=== PATIENT | male | born 1940 | race African-American/Black ===

== ENCOUNTER 2017-08-29 08:06 | Day surgery (SDC) | payer OTHER ==
[2017-08-29 09:09] VITALS: BMI 22.4
[2017-08-29] MEDS ORDERED: PAPAVERINE HCL 30 MG/1 ML 10 ML VIAL NR ONE (10:56)
--- NOTE | 2017-08-29 11:23 | HP ---
Satellite H - Chief Complaint History of Present Illness: 76 yo man with ESRD on HD. 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 - Past Medical History Allergies/Adverse Reactions: Allergies Allergy/AdvReac Type Severity Reaction Status Date / Time shellfish derived Allergy Intermediate LIP Verified 04/27/16 16:02 SWELLING strawberry Allergy Itching Verified 04/27/16 16:02 Cardiovascular: Yes: HTN. No: CAD, CHF, Deep Vein Thrombosis Pulmonary: Yes: Other (Pulmonary Aspergillosis) Gastrointestinal: Yes: Diverticulosis, Hemorrhoids, Other (Repoted resected gastric GIST). No: Gastritis, GI Bleed Hepatobiliary: Yes: Hepatitis B Renal/: Yes: Renal Failure, BPH, Hemodialysis, Other (as per HPI) Heme/Onc: Yes: Other (Chronic Neutropenia) Infectious Disease: Yes: VREF (UTI) Endocrine: Yes: Other (Vit D Deficiency) - Current Medications Current Medications: Home Medications Medication Instructions Recorded Ranitidine [Zantac -] 150 mg PO DAILY 12/15/13 Tamsulosin HCl [Flomax -] 0.4 mg PO DAILY 12/15/13 Gabapentin [Neurontin -] 100 mg PO DAILY #30 capsule 12/23/13 Sevelamer Carbonate [Renvela -] 800 mg PO TIDCM #0 tab 12/23/13 Allopurinol [Zyloprim -] 100 mg PO ASDIR 02/05/15 Carvedilol [Coreg -] 25 mg PO BID 02/05/15 Cinacalcet HCl [Sensipar] 60 mg PO DAILY 02/05/15 Vit B Complx C/Folic Acid/Zinc 0.8 mg PO DAILY 02/08/15 [Dialyvite 800 with Zinc] Hydralazine HCl 25 mg PO BID 08/28/17 Satellite Physical Exam - Physical Examination Vital Signs: Vital Signs Period Temp Pulse Resp BP Sys/Ledesma Pulse Ox Last 24 Hr 97.9 F 81 18 140/87 98 General Appearance: Alert & Oriented x3 ENT: Clear Lung: Clear to auscultation Heart: Regular rate & rhythm Abdomen: Soft Extremities: Other (Left upper arm aneurysm 5-6 cm, firm.) Satellite Impression/Plan - Impression/Plan Impression: Thrombosed AV fistula aneurysm left arm Operative Procedure: Excision AV fistula aneurysm Date to be Performed: 08/29/17
[2017-08-29] MEDS ORDERED: ROPIVACAINE HCL 0.5% 30ML VIAL ONE (11:32)
[2017-08-29] MEDS ORDERED: MIDAZOLAM HCL 2 MG/2 ML SINGLE DOSE VIAL ONE ×2 (11:33)
[2017-08-29] MEDS ORDERED: PROPOFOL 20 ML ONE ×2 (12:04→12:14)
[2017-08-29] MEDS ORDERED: ceFAZolin SODIUM 1 GM VIAL IVPB ONE (12:07)
[2017-08-29] MEDS ORDERED: LIDOCAINE HCL 1%, 10 MG/ML (20ML VIAL) PNB ONE (12:08)
[2017-08-29] MEDS ORDERED: LABETALOL HCL 5 MG/1 ML (100MG/20 ML VIAL) ONE (12:20)
[2017-08-29] MEDS ORDERED: LIDOCAINE HCL/PF 2% SDV 5ML VIAL ONE (12:24)
--- NOTE | 2017-08-29 12:46 | OP ---
Operative Note - Note: Operative Date: 08/29/17 Pre-Operative Diagnosis: Aneurysm of AV fistula left arm Operation: Excision of left arm fistula Findings: Aneurysmal thrombosed AV fistula left arm Post-Operative Diagnosis: Same as Pre-op Surgeon: Jean Man Rate Reviewer: Tonie Luna Anesthesiologist/FULL STACK PHP DEVELOPER: Kolton Parkinson Anesthesia: MAC Specimens Removed: Aneurysmal fistula and skin Estimated Blood Loss (mls): 20
[2017-08-29] MEDS ORDERED: ACETAMINOPHEN 325 MG TABLET (FP) PO PRN (12:49)
[2017-08-29] MEDS ORDERED: oxyCODONE HCL 5 MG TABLET PO PRN (12:49)
[2017-08-29] MEDS ORDERED: hydrALAZINE HCL 20 MG/ML VIAL IVPUSH ONE (13:05)
[2017-08-29] MEDS ORDERED: LABETALOL HCL 5 MG/1 ML (100MG/20 ML VIAL) IVPUSH ONE (14:30)
--- NOTE | 2017-08-29 15:02 | SURG ---
Surgery Stitch Bonder Machine Operator Helper Note Stitch Bonder Machine Operator Helper: Tonie Luna PA-C Date of Service: 08/29/17 Diagnosis: Aneurysm of AV fistula left arm Procedure: Excision of left arm fistula I was present for the entirety of the operative procedure. For further detail, please refer to operative report. Visit type - Case Type Case Type: Scheduled Admission - Emergency Emergency Visit: No - New patient This patient is new to me today: Yes Date on this admission: 08/29/17
[2017-08-29 15:42] VITALS: BP 159/91; PULSE 77; TEMP 98.2
--- NOTE | 2017-08-31 09:40 | PATH ---
Surgical Pathology Report Patient Name: KAYLEIGH MEDINA Med. Rec. #: [id number] /Age/Gender: 1940 (Age: 76) / M Account: [id number] Location: [facility] SURGICAL Taken: 08/29/2017 Received: 08/29/2017 Reported: 08/31/2017 Physicians: Jean Man M.D. Specimen(s) Received LEFT UPPER EXTREMITY ANEURYSM Clinical History ESRD, left upper extremity aneurysm Final Diagnosis LEFT UPPER EXTREMITY ANEURYSM, EXCISION: THROMBOSED BLOOD VESSEL WITH ATTACHED PORTION OF SKIN. Electronically Signed Heber Shane M.D. Gross Description Received in formalin labelled "left upper extremity aneurysm" is a 13 x 6.5 cm portion of skin overlying a markedly tortuous 10.6 x 6.5 x 3.7 cm portion of blood vessel. Cut surface reveals vascular dilatation with areas of thrombosis. Funeral Director/Embalmer sections are submitted in one cassette. [facility]/08/29/2017 [facility]/08/29/2017
--- NOTE | 2017-09-12 22:33 | OP ---
DATE OF OPERATION: 08/29/2017 SURGEON: Jean Banis M.D. TREE EXPERT: Starla Carcamo PROCEDURE: Excision of thrombosed aneurysm of left arm arteriovenous fistula. PREOPERATIVE DIAGNOSIS: Aneurysm of left arm arteriovenous fistula. POSTOPERATIVE DIAGNOSIS: Aneurysm of left arm arteriovenous fistula. ANESTHESIA: Fractional. ANESTHESIOLOGIST: Kolton Parkinson M.D. OPERATIVE FINDINGS: The old AV fistula of the left upper extremity was thrombosed. There were multiple areas of aneurysmal dilatation measuring from 20 to 40 mm. OPERATIVE PROCEDURE: Following routine patient identification, with side and site verification, intravenous sedation was established. A right upper extremity nerve block had been performed preoperatively. The arm was prepped with Chloraprep and timeout was performed. Incision was made around the area of aneurysm in the upper part of the arm, carried down to subcutaneous tissues using cautery. The thrombosed vein was then from the subcutaneous tissues using cautery and blunt dissection. It was suture ligated proximally, distally with 2-0 Vicryl sutures. The specimen was removed, and the wound was irrigated and checked for hemostasis. The wound was then closed with interrupted sutures of 3-0 Vicryl and subcutaneous tissues and skin ayesha. A sterile dressing was applied, and the arm was wrapped with an Daniele bandage. The patient was taken to the recovery room in stable condition. JEAN BAINS M.D. CARINE/[id number]
== END 2017-08-29 15:39 | disposition home or self-care (01) ==
LOC: JASU-SURG 08:06
PROVIDERS: ATTEND Surgery
PROC: 05BY0ZZ Excision of Upper Vein, Open Approach (ICD-10-PCS; principal; 2017-08-29 11:00)
DX: T82.868A Thrombosis due to vascular prosthetic devices, implants and grafts, initial encounter (principal); I12.0 Hypertensive chronic kidney disease with stage 5 chronic kidney disease or end stage renal disease; N18.6 End stage renal disease; Z99.2 Dependence on renal dialysis; D70.8 Other neutropenia
CPT/HCPCS: 36415; 84132; 94760

== ENCOUNTER → 2018-10-08 | Day surgery (SDC) | payer OTHER, BC | LOC: JRADIR 09:37 ==

== ENCOUNTER 2020-02-23 11:30 | Inpatient (IN) | payer OTHER ==
--- NOTE | 2020-02-23 11:56 | PDOC ---
History of Present Illness - General Chief Complaint: Injury Stated Complaint: FALL Time Seen by Provider: 02/23/20 11:56 - History of Present Illness Initial Comments: 02/23/20 12:26 79 yo male with pmh of htn, esrd (M, W, F), arthiritis, left hip surgery presents to ED after fall. Pt explains he was looking for bandages for his dialysis this morning when he "blacked out" and fell onto his right and right hip. Pt explains after he fell he regained consciousness seconds later. After falling he had multiple episodes of emesis where he does not remember what color it was. Pt also explains earlier this morning he had multiple episodes of diarrhea with black stools which he has had before but does not believe it has been worked up. Pt currently explaining that he has right hip pain, 9/10 in severity, and unable to move right hip but able to feel his feet and able to move feet. Pt denies chest pain, sob currently and prior to fall. Pt denies current abdominal pain, fevers, chills, or any recent sick contacts. Pt does h ave dialysis M,W, F at [facility] and has not had dialysis today. PMH: HTN, ESRD PSH: Left hip surgery, Right av fistula, left av fistula (clogged), Right kidney transplant Meds: Does not remember medication list allergies: shellfish, strawberry Social: denies drugs, alcohol, and tobacco Supervisor Harvesting: Dr. Kathy Lucas. Past History - Medical History Allergies/Adverse Reactions: Allergies Allergy/AdvReac Type Severity Reaction Status Date / Time shellfish derived Allergy Intermediate LIP Verified 04/27/16 16:02 SWELLING strawberry Allergy Itching Verified 04/27/16 16:02 Home Medications: Ambulatory Orders Ranitidine [Zantac -] 150 mg PO DAILY 12/15/13 Tamsulosin HCl [Flomax -] 0.4 mg PO DAILY 12/15/13 Gabapentin [Neurontin -] 100 mg PO DAILY #30 capsule 12/23/13 Sevelamer Carbonate [Renvela -] 800 mg PO TIDCM #0 tab 12/23/13 Allopurinol [Zyloprim -] 100 mg PO ASDIR 02/05/15 Carvedilol [Coreg -] 25 mg PO BID 02/05/15 Cinacalcet HCl [Sensipar] 60 mg PO DAILY 02/05/15 Vit B Complx C/Folic Acid/Zinc [Dialyvite 800 with Zinc] 0.8 mg PO DAILY 02/08/15 Hydralazine HCl 25 mg PO BID 08/28/17 Oxycodone HCl/Acetaminophen [Percocet 5-325 mg Tablet] 1 tab PO Q6H PRN #16 tablet MDD 4 08/29/17 Anemia: No Asthma: No Cancer: No Cardiac Disorders: No CVA: No COPD: No CHF: No Dementia: No Diabetes: No Dialysis: Yes (M, W, F) GI Disorders: No Disorders: No HTN: Yes Hypercholesterolemia: Yes Liver Disease: No Seizures: No Thyroid Disease: No - Surgical History Abdominal Surgery: No Appendectomy: No Cardiac Surgery: No Cholecystectomy: No Lung Surgery: No Neurologic Surgery: No Orthopedic Surgery: No - Psycho-Social/Smoking History Smoking Status: No Smoking History: Never smoked Have you smoked in the past 12 months: No Number of Cigarettes Smoked Daily: 0 Review of Systems - Review of Systems Able to Perform ROS?: Yes Comments:: 02/23/20 12:32 GENERAL/CONSTITUTIONAL: No fever or chills. HEAD, EYES, EARS, NOSE AND THROAT: No change in vision. No ear pain or discharge. No sore throat. CARDIOVASCULAR: No chest pain or shortness of breath RESPIRATORY: No cough, wheezing, or hemoptysis. GASTROINTESTINAL: Emesis, diarrhea, and black stools. no abdominal pain GENITOURINARY: No dysuria, frequency, or change in urination. MUSCULOSKELETAL: Right hip and leg pain. SKIN: No rash NEUROLOGIC: No headache, vertigo. LOC ALLERGIC/IMMUNOLOGIC: No hives or skin allergy. *Physical Exam - Physical Exam 02/23/20 12:36 GENERAL: Awake, alert, and fully oriented, in moderate distress. HEAD: No signs of trauma, normocephalic, atraumatic EYES: PERRL, EOMI ENT: Auricles normal inspection, hearing grossly decreased, nares patent, oropharynx clear without exudates. Moist mucosa NECK: Dec ROM to the right (chronic), supple, no lymphadenopathy, JVD, or masses LUNGS: No distress, speaks full sentences, clear to auscultation bilaterally HEART: Regular rate and rhythm, normal S1 and S2, no murmurs, rubs or gallops, peripheral pulses normal and equal bilaterally. ABDOMEN: Soft, nontender, normoactive bowel sounds. No guarding, no rebound. No masses EXTREMITIES : Normal inspection, No open abrasion, tenderness to palpation of right hip and thigh, decreased ROM of Right hip, Full ROM of right foot and left hip. Pt has 2+ pulses bilateral lower ext. Pt has equal sensation on bilateral lower ext. AV fistula on both right and left arm. NEUROLOGICAL: Cranial nerves II through XII grossly intact. Normal speech SKIN: Warm, Dry, normal turgor, no rashes or lesions noted Heart Score/ECG Review - ECG Impressions Comment:: 02/23/20 13:11 Regular rate and sinus rhythm at 70 bpm Normal AR and QTc interval Prolonged QRS in V1-V3. RBBB T wave inversion in III and AVF. EKG inversion new in III. ED Treatment Course - LABORATORY CBC & Chemistry Diagram: 02/23/20 12:35 02/23/20 12:35 Medical Decision Making - Medical Decision Making 02/23/20 12:44 79 yo male with pmh of ESRD, HTN presents to ED for syncopal event with right hip pain. Pt currently has right hip pain and LOC for few seconds with no chest pain or SOB. Pt does explain he had diarrhea this morinng with black stools and emesis after fall. Will work up syncope with cbc, cmp, ekg, cardiac enzymes, stool occult blood test. Will admit for syncope. Will get right hip and femur xray. Will also give morphine for pain. Will monitor pt as is ESRD. 02/23/20 18:13 Stool occult unable to do due to pain Ortho was consulted who stated need for right hemiarthoplasty. Dr. Hardy was accidentally called primarily who stated needed CT of pelvis. CT pelvis ordered. Dr. Pickett was previous ortho for left hip. Called Dr. Bey was ortho personnel placement specialist for team. Dr. Bey explained he will come see patient. Pt will be admitted to tele for syncope and right hip fracture. 02/23/20 18:19 Resident Suzi Holder was notified of pt history, ED course, and plan. Pt will be admitted to telemetry will call back with admitting team doctor. 02/23/20 18:[address] Shirley Diaz Discharge - Discharge Information Problems reviewed: Yes Clinical Impression/Diagnosis: Syncope Hip fracture, right Qualifiers: Fracture type: closed - Admission Yes - Follow up/Referral - Patient Discharge Instructions - Post Discharge Activity
[2020-02-23 12:07] VITALS: BMI 20.9
[2020-02-23] MEDS ORDERED: ACETAMINOPHEN 325 MG TABLET (FP) PO ONE (12:25)
[2020-02-23] MEDS ORDERED: morphine CARPU-JECT 4 MG/1 ML DISP.SYRIN IVPUSH ONE (12:29)
[2020-02-23] MEDS ORDERED: morphine SULFATE 4 MG/ML VIAL ONE (13:02)
--- NOTE | 2020-02-23 13:18 | PDOC ---
Documentation entered by Jez Madsen SCRIBE, acting as scribe for Adriana Almaraz MD. Adriana Almaraz MD: This documentation has been prepared by the gordonibe, Jez Madsen SCRIBE, under my direction and personally reviewed by me in its entirety. I confirm that the documentation accurately reflects all work, treatment, procedures, and medical decision making performed by me. Attending Attestation - Resident Resident Name: DionisiojosetoniMik - ED Attending Attestation I have performed the following: I have examined & evaluated the patient, The case was reviewed & discussed with the resident, I agree w/resident's findings & plan, Exceptions are as noted - HPI HPI: 02/23/20 12:37 The patient is a 79 year old male with a significant past medical history of kidney transplant, chronic kidney transplant rejection, ESRD on dialysis (MWF, last: F), anemia, HTN, HLD, and arthritis who presents to the emergency department for evaluation s/p a syncopal episode this morning. The patient reports he blacked out, causing him to fall on his right side and hip, before regaining consciousness a few seconds later. The patient denies chest/abdominal/back pain, cough, and shortness of breath. Denies fever, chills, or any symptoms. Denies any other symptoms. Allergies: shellfish, strawberry Social History: No alcohol, tobacco, or drug use reported. Past Surgical History: None reported PCP: Dr. Angelina Valencia Records Management Engineer: Dr. Kathy Quezada - Physicial Exam PE: GENERAL: Awake, alert, and fully oriented, in no acute distress HEAD: No signs of trauma EYES: PERRLA, EOMI, sclera anicteric, conjunctiva clear ENT: Auricles normal inspection, hearing grossly normal, nares patent, oropharynx clear without exudates. Moist mucosa NECK: Normal ROM, supple, no lymphadenopathy, JVD, or masses LUNGS: Breath sounds equal, clear to auscultation bilaterally. No wheezes, and no crackles HEART: Regular rate and rhythm, normal S1 and S2, no murmurs, rubs or gallops ABDOMEN: Soft, nontender, normoactive bowel sounds. No guarding, no rebound. No masses EXTREMITIES: R hip with dec ROM due to pain, with tenderness to the hip joint and the femur. R leg is shortened and externally rotated. Remainder of extremities with normal range of motion, no edema. No clubbing or cyanosis. No cords, erythema, or tenderness. +Old fistula to L upper arm. +Fistula to R upper arm with thrill. NEUROLOGICAL: Cranial nerves II through XII grossly intact. Normal speech. Motor and sensation intact. SKIN: Warm, Dry, normal turgor, no rashes or lesions noted. - Medical Decision Making 02/23/20 12:50 Pt presents s/p fall, suspected R hip fx. Pt given morphine for pain, will obtain XR. Will attempt stool for occult blood when patient is able to tolerate exam. He is in too much pain at present. Discharge - Discharge Information Problems reviewed: Yes Clinical Impression/Diagnosis: Hip fracture, right Qualifiers: Encounter type: initial encounter Fracture type: closed Qualified Code(s): S72.001A - Fracture of unspecified part of neck of right femur, initial encounter for closed fracture Syncope Qualifiers: Syncope type: unspecified Qualified Code(s): R55 - Syncope and collapse - Follow up/Referral - Patient Discharge Instructions - Post Discharge Activity
[2020-02-23 13:26] LABS: BASO % 0.9 % (0-2.0); EOS % 6.7 % (0-4.5); HEMATOCRIT 32.1 % (35.4-49); HEMOGLOBIN 10.5 GM/dL (11.7-16.9); LYMPH % 17.7 % (8-40); MCH 27.9 pg (25.7-33.7); MCHC 32.8 g/dl (32.0-35.9); MEAN CELL VOLUME 85.2 fl (80-96); MEAN PLT VOLUME 6.9 fl (7.5-11.1); MONO % 6.6 % (3.8-10.2); NEUT % 68.1 % (42.8-82.8); PLATELET COUNT 122 K/MM3 (134-434); RBC 3.77 M/mm3 (4.00-5.60); RDW 15.7 % (11.9-15.9); WHITE BLOOD COUNT 4.4 K/mm3 (4.0-10.0)
[2020-02-23 13:40] LABS: INR 1.08 (0.83-1.09); PROTHROMBIN TIME (PATIENT) 12.7 SEC (9.7-13.0)
[2020-02-23 13:42] LABS: ACTIVATED PTT 33.4 SECONDS (25.2-36.5)
[2020-02-23 13:47] LABS: ALBUMIN 3.4 g/dl (3.4-5.0); BILIRUBIN,TOTAL 0.3 mg/dL (0.2-1); BLOOD UREA NITROGEN 59.5 mg/dL (7-18); CALCIUM 8.1 mg/dL (8.5-10.1); MAGNESIUM 2.6 mg/dL (1.8-2.4); PHOSPHOROUS 5.2 mg/dL (2.5-4.9); POTASSIUM 4.2 mmol/L (3.5-5.1); TOT PROT 6.9 g/dl (6.4-8.2)
[2020-02-23 14:25] LABS: CREATININE 12.1 mg/dL (0.55-1.3)
[2020-02-23] MEDS ORDERED: morphine CARPU-JECT 2 MG/1 ML DISP.SYRIN IVPUSH ONE (16:34)
--- NOTE | 2020-02-23 16:54 | EKG ---
Test Reason : Blood Pressure : / mmHG Vent. Rate : 068 BPM Atrial Rate : 068 BPM P-R Int : 184 ms QRS Dur : 158 ms QT Int : 448 ms P-R-T Axes : 054 -51 -25 degrees QTc Int : 476 ms NORMAL SINUS RHYTHM RIGHT BUNDLE BRANCH BLOCK LEFT ANTERIOR FASCICULAR BLOCK BIFASCICULAR BLOCK VOLTAGE CRITERIA FOR LEFT VENTRICULAR HYPERTROPHY ABNORMAL ECG WHEN COMPARED WITH ECG OF 08-OCT-2014 19:22, RIGHT BUNDLE BRANCH BLOCK IS NOW PRESENT Confirmed by TATUM JOSEPH MD ([id number]) on 02/23/2020 4:54:06 PM Referred By: Confirmed By:TATUM JOSEPH MD
[2020-02-23] MEDS ORDERED: MORPHINE SULFATE 2 MG/ML VIAL ONE (17:57)
--- OUTSIDE RECORDS SUMMARY | 2020-02-23 19:45 | XMS ---
:1940 Author Organization [facility] Support Name Relationship Address Phone RE, RETIRED Unavailable Unavailable Unavailable RE Unavailable Unavailable Unavailable KARY MEDINA DAUGHTER [address] [facility] [place] [address] Re-disclosure Warning The records that you are about to access may contain information from federally- assisted alcohol or drug abuse programs. If such information is present, then the following federally mandated warning applies: This information has been disclosed to you from records protected by federal confidentiality rules (42 CFR part 2). The federal rules prohibit you from making any further disclosure of this information unless further disclosure is expressly permitted by the written consent of the person to whom it pertains or as otherwise permitted by 42 CFR part 2. A general authorization for the release of medical or other information is NOT sufficient for this purpose. The Federal rules restrict any use of the information to criminally investigate or prosecute any alcohol or drug abuse patient.The records that you are about to access may contain highly sensitive health information, the redisclosure of which is protected by Article 27-F of the [facility] Public Health law. If you continue you may haveaccess to information: Regarding HIV / AIDS; Provided by facilities licensed or operated by the [facility] Office of Mental Health; or Provided by the [facility] Office for People With Developmental Disabilities. If such information is present, then the following [facility] mandated warning applies: This information has been disclosed to you from confidential records which are protected by state law. State law prohibits you from making any further disclosure of this information without the specific written consent of the person to whom it pertains, or as otherwise permitted by law. Any unauthorized further disclosure in violation of state law may result in a fine or senior living sentence or both. A general authorization for the release of medical or other information is NOT sufficient authorization for further disclosure. Insurance Providers Payer name Policy type Policy ID Covered Covered libertarian's Policy P hoa / Coverage libertarian ID relationship to [place] [employer] ormation type [place] [employer] [id number] SP [id number] MEDICARE BC OUT OF [id number] [employer] [id number] SP [id number] MEDICARE
--- NOTE | 2020-02-23 19:48 | HP ---
CHIEF COMPLAINT: Unwitnessed fall PCP: Dr. Priscila Baptiste Nephrology: Dr. Kathy Lucas HISTORY OF PRESENT ILLNESS: Maxime Knight is a 79 yo gentleman with PMH hypertension, ESRD (on dialysis M, W, F) presenting to ED after experiencing an unwitnessed fall this morning. He states that early this morning 2 am - he awoke with abdominal pain and had 3 episodes of diarrhea -- described as black in color, without visible blood. He states he was able to return to sleep for some time. Later in the morning he was looking for his dialysis supplies when he bent over, attempting to open a cabinet, and before he knew it had landed on the floor. He had no associated vision loss, headache, nausea, preceding the fall. He regained consciousness within seconds (confirmed by his daughter, who after hearing a loud noise, ran downstairs to find him lying conscious on the ground). Following the fall he had an episode of watery emesis. He landed on his right hip and was in intense pain, unable to move the right limb. Pain rated as 10/10 located over the right hip, without radiation; reported as a 'stabbing sensation'. Denies recent travel, fever, chills, chest pain, palpitations, headache, lightheadedness. His daughter states this episode was very similar to one that happened a few years ago, in which he fell, landed on the left side, fractured hip, and underwent surgical intervention with placement of screws. Patient lives in house with daughter. ER course was notable for: - WBCs 4.4, Hb 10.5, BUN 59, Cr 12.1 - Hip XR: R femoral neck fracture - CT Pelvis: Mildly displaced and partially impacted R femoral neck fracture with mild superior/lateral angulation Recent Travel: None PAST MEDICAL HISTORY: Hypertension ESRD on hemodialysis MWF Prior L hip fracture with surgical intervention PAST SURGICAL HISTORY: Surgical intervention for L hip fracture ~ 1 year ago R AV fistula R kidney transplant - 7 years ago Social History: Smoking:Never Alcohol:Never Drugs:Never Allergies shellfish derived Allergy (Intermediate, Verified 04/27/16 16:02) LIP SWELLING strawberry Allergy (Verified 04/27/16 16:02) Itching HOME MEDICATIONS: Home Medications Medication Instructions Recorded Ranitidine [Zantac -] 150 mg PO DAILY 12/15/13 Tamsulosin HCl [Flomax -] 0.4 mg PO DAILY 12/15/13 Gabapentin [Neurontin -] 100 mg PO DAILY #30 capsule 12/23/13 Sevelamer Carbonate [Renvela -] 800 mg PO TIDCM #0 tab 12/23/13 Allopurinol [Zyloprim -] 100 mg PO ASDIR 02/05/15 Carvedilol [Coreg -] 25 mg PO BID 02/05/15 Cinacalcet HCl [Sensipar] 60 mg PO DAILY 02/05/15 Vit B Complx C/Folic Acid/Zinc 0.8 mg PO DAILY 02/08/15 [Dialyvite 800 with Zinc] Hydralazine HCl 25 mg PO BID 08/28/17 Oxycodone HCl/Acetaminophen 1 tab PO Q6H PRN #16 tablet MDD 4 08/29/17 [Percocet 5-325 mg Tablet] REVIEW OF SYSTEMS SEE HPI PHYSICAL EXAMINATION Vital Signs - 24 hr 02/23/20 12:00 Temperature 97.9 F Pulse Rate 63 Respiratory 20 Rate Blood Pressure 108/89 O2 Sat by Pulse 97 Oximetry (%) GENERAL: Awake, alert, and fully oriented, in no acute distress. Patient is hearing impaired. HEAD: Normal with no signs of trauma. EYES: Pupils equal, round and reactive to light, extraocular movements intact EARS, NOSE, THROAT: Ears normal, nares patent, oropharynx clear without exudates. Dry mucous membranes. LUNGS: Breath sounds equal, clear to auscultation bilaterally. No wheezes, and no crackles. No accessory muscle use. HEART: Regular rate and rhythm, normal S1 and S2 without murmur, rub or gallop. ABDOMEN: Soft, nontender, not distended, normoactive bowel sounds. MUSCULOSKELETAL: Patient unwilling to move lower extremities; 10/10 pain at the right hip LOWER EXTREMITIES: 2+ pulses, warm, well-perfused. No calf tenderness. No peripheral edema. NEUROLOGICAL: Normal speech. PSYCHIATRIC: Cooperative. Good eye contact. Appropriate mood and affect. Laboratory Results - last 24 hr 02/23/20 02/23/20 02/23/20 12:35 12:35 12:35 WBC 4.4 RBC 3.77 L Hgb 10.5 L Hct 32.1 L MCV 85.2 MCH 27.9 MCHC 32.8 RDW 15.7 D Plt Count 122 L MPV 6.9 L D Absolute Neuts (auto) 3.0 Neutrophils % 68.1 Lymphocytes % 17.7 D Monocytes % 6.6 Eosinophils % 6.7 H D Basophils % 0.9 Nucleated RBC % 0 PT with INR 12.70 INR 1.08 PTT (Actin FS) 33.4 Sodium 138 Potassium 4.2 Chloride 101 Carbon Dioxide 27 Anion Gap 10 BUN 59.5 H Creatinine 12.1 H* Est GFR (CKD-EPI)AfAm 4.05 Est GFR (CKD-EPI)NonAf 3.50 Random Glucose 85 Calcium 8.1 L Phosphorus 5.2 H Magnesium 2.6 H Total Bilirubin 0.3 AST 12 L ALT 16 Alkaline Phosphatase 113 Creatine Kinase 151 Creatine Kinase Index 1.3 CK-MB (CK-2) 2.0 Troponin I 0.02 Total Protein 6.9 Albumin 3.4 Blood Type Antibody Screen 02/23/20 12:35 WBC RBC Hgb Hct MCV MCH MCHC RDW Plt Count MPV Absolute Neuts (auto) Neutrophils % Lymphocytes % Monocytes % Eosinophils % Basophils % Nucleated RBC % PT with INR INR PTT (Actin FS) Sodium Potassium Chloride Carbon Dioxide Anion Gap BUN Creatinine Est GFR (CKD-EPI)AfAm Est GFR (CKD-EPI)NonAf Random Glucose Calcium Phosphorus Magnesium Total Bilirubin AST ALT Alkaline Phosphatase Creatine Kinase Creatine Kinase Index CK-MB (CK-2) Troponin I Total Protein Albumin Blood Type O POSITIVE Antibody Screen Negative ASSESSMENT/PLAN: Maxime Knight is a 79 yo gentleman with PMH hypertension, ESRD (on dialysis M, W, F) presenting to ED after experiencing an unwitnessed fall this morning, with XR and CT revealing R displaced femoral neck fracture. Unwitnessed Fall - Likely othostatic syncope (3 episodes of diarrhea prior to fall; the fall occurring with position change) vs. less likely cardiac etiology - EKG revealing NSR, L anterior fascicular block, LV hypertrophy, new RBBB as compared with EKG from 2015 - XR and CT consistent with R femoral neck fracture - Orthostatic vitals not done as patient is reporting 10/10 pain - Carotid doppler with no evidence of hemodynamically significant lesion in either internal carotid artery - Head CT w/out contrast was neg for acute intracranial pathology. Mild cortical atrophy & small vessel ischemic disease. R frontal and left sphenoid sinusitis. - F/u troponins - Cardiology consult for pre-op clearance - ECHO R displaced femoral neck fracture - Ortho recommending hip hemiarthroplasty tomorrow evening - Pain control with Tylenol and Morphine ESRD - Nephrology consult - Dialysis tomorrow - Continue home Sevelamer Black stools - Patient reporting 3 episodes of diarrhea early this morning - FOBT r/o active GI bleed DVT: SCDs on non surgical leg (LEFT LEG) FEN -No standing fluids -F/u am labs -Renal diet Dispo: Tele FULL CODE Family Medical History Family History: As Documented Visit type - Medication Review Med list reviewed for High Risk Meds patients 65 and older: Yes - Emergency Visit Emergency Visit: Yes ED Registration Date: 02/23/20 Care time: The patient presented to the Emergency Department on the above date and was hospitalized for further evaluation of their emergent condition. - New Patient This patient is new to me today: Yes Date on this admission: 02/24/20 - Critical Care Critical Care patient: No ATTENDING PHYSICIAN STATEMENT I saw and evaluated the patient. I reviewed the resident's note and discussed the case with the resident. I agree with the resident's findings and plan as documented. SUBJECTIVE: OBJECTIVE: ASSESSMENT AND PLAN:
--- NOTE | 2020-02-23 20:05 | CON.ORTH ---
Consult Consult Specialty:: Orthopedic surgery Reason for Consultation:: R hip pain - History of Present Illness History of Present Illness: This is a 79-year-old gentleman who suffered a brief loss of consciousness resulting in a fall onto his right side. When he regained consciousness, he was unable to ambulate. He was brought to the hospital where he was found to have a displaced femoral neck fracture. He notes some discomfort in the right wrist as well. He has no numbness or tingling anywhere. He does have a history of previous left hip fracture treated with percutaneous screws. - History Source History Provided By: Patient, Medical Record Limitations to Obtaining History: No Limitations - Past Medical History Cardio/Vascular: Yes: HTN. No: CAD, CHF, Deep Vein Thrombosis Pulmonary: Yes: Other (Pulmonary Aspergillosis) Gastrointestinal: Yes: Diverticulosis, Hemorrhoids, Other (Repoted resected gastric GIST). No: Gastritis, GI Bleed Hepatobiliary: Yes: Hepatitis B Renal/: Yes: Renal Failure, BPH, Hemodialysis, Other (as per HPI) Infectious Disease: Yes: VREF (UTI) Endocrine: Yes: Other (Vit D Deficiency) - Past Surgical History Past Surgical History: Yes: AV Fistula/Graft (LUE ) - Alcohol/Substance Use Hx Alcohol Use: No History of Substance Use: reports: None - Smoking History Smoking history: Never smoked Have you smoked in the past 12 months: No Aproximately how many cigarettes per day: 0 - Social History Usual Living Arrangement: With Child History of Recent Travel: No Home Medications - Allergies Allergies/Adverse Reactions: Allergies Allergy/AdvReac Type Severity Reaction Status Date / Time shellfish derived Allergy Intermediate LIP Verified 04/27/16 16:02 SWELLING strawberry Allergy Itching Verified 04/27/16 16:02 - Home Medications Home Medications: Ambulatory Orders Ranitidine [Zantac -] 150 mg PO DAILY 12/15/13 Tamsulosin HCl [Flomax -] 0.4 mg PO DAILY 12/15/13 Gabapentin [Neurontin -] 100 mg PO DAILY #30 capsule 12/23/13 Sevelamer Carbonate [Renvela -] 800 mg PO TIDCM #0 tab 12/23/13 Allopurinol [Zyloprim -] 100 mg PO ASDIR 02/05/15 Carvedilol [Coreg -] 25 mg PO BID 02/05/15 Cinacalcet HCl [Sensipar] 60 mg PO DAILY 02/05/15 Vit B Complx C/Folic Acid/Zinc [Dialyvite 800 with Zinc] 0.8 mg PO DAILY 02/08/15 Hydralazine HCl 25 mg PO BID 08/28/17 Oxycodone HCl/Acetaminophen [Percocet 5-325 mg Tablet] 1 tab PO Q6H PRN #16 tablet MDD 4 08/29/17 Review of Systems - Review of Systems Constitutional: denies: Chills, Diaphoresis, Fever, Lethargy, Loss of Appetite HENT: denies: Difficult Swallowing, Ear Discharge, Ear Pain Cardiovascular: denies: Chest Pain, Edema, Palpitations Respiratory: denies: Cough, Orthopnea, SOB Physical Exam for Ortho Vital Signs: Vital Signs Temperature 97.9 F 02/23/20 12:00 Pulse Rate 63 02/23/20 12:00 Respiratory Rate 20 02/23/20 12:00 Blood Pressure 108/89 02/23/20 12:00 O2 Sat by Pulse Oximetry (%) 97 02/23/20 12:00 Constitutional: Yes: Well Nourished, No Distress, Calm Respiratory: Yes: Regular Gastrointestinal: Yes: Soft Labs: CBC, BMP 02/23/20 12:35 02/23/20 12:35 INR, PTT INR 1.08 (0.83-1.09) 02/23/20 12:35 - Lower Extremity Hip: Yes: Right, Leg Externally Rotated, Leg Shortened, Pain, Other (Distally sensation is intact to light touch. 1+ DP pulse. Intact EHL, FHL, TA, G, S.) Imaging - Results X-ray: Report Reviewed, Image Reviewed (Right hip films reviewed. There is a displaced femoral neck fracture.) Problem List - Problems (1) Displaced fracture of base of neck of right femur, initial encounter for closed fracture Assessment/Plan: I discussed today's findings with Maxime. His exam is consistent with displaced femoral neck fracture. I reviewed the option of nonoperative care. This would involve prolonged bed rest and likely loss of ability to ambulate. This is not recommended. I reviewed that operative care is recommended with hip hemiarthroplasty. I reviewed surgical risks in detail including bleeding, infection, neurovascular injury, need for further surgery, postoperative pain and stiffness, periprosthetic loosening or fracture, hip instability. We discussed medical risks such as heart attack, stroke, DVT, PE and . I addressed the use of perioperative antibiotic and DVT prophylaxis. I addressed all the patient's questions or concerns. He voiced understanding and is electing to proceed. He will be brought to the operating room ideally tomorrow evening as long as medical optimization is complete. Code(s): S72.041A - DISP FX OF BASE OF NECK OF RIGHT FEMUR, INIT FOR CLOS FX
[2020-02-23] MEDS ORDERED: LIDOCAINE PATCH REMOVAL MC SCH (22:00)
[2020-02-23] MEDS ORDERED: LIDOCAINE 5% TOPICAL PATCH TP ONE (22:03)
[2020-02-23] MEDS ORDERED: LIDOCAINE 5% TOPICAL PATCH ONE (22:39)
[2020-02-23] MEDS ORDERED: ACETAMINOPHEN 325 MG TABLET (FP) ONE (22:40)
[2020-02-23] MEDS: ACETAMINOPHEN 325 MG TABLET (FP) PO PRN (22:49)
--- NOTE | 2020-02-23 23:40 | PN ---
Teaching Attending Note Name of Resident: Ginny Watts ATTENDING PHYSICIAN STATEMENT I saw and evaluated the patient. I reviewed the resident's note and discussed the case with the resident. I agree with the resident's findings and plan as documented. SUBJECTIVE: 79yoM with h/o ESRD on HD MWF, s/p renal transplant with chronic rejection, HTN, and arthritis who presents after a syncopal episode with fall. Patient reports he had three dark stools early in the morning but was otherwise in his usual state of health. He bent down to get something out of a cabinet and believes his vision started to go dark as he was straightening up. He fell onto his right side, denies head trauma but did lose consciousness. His daughter heard him fall and came to him immediately, patient was awake and alert by then. He denies any preceding chest pain, palpitations, dizziness. He was unable to walk and presented to the ED. Labs notable for creatinine 12.1, troponin negative. Plain film of the right hip/femur showed right femoral neck fracture. EKG showed new RBBB compared to prior EKG from 2015. Ortho evaluated patient in the ED and plans for operative management of the hip fracture when patient is medically optimized. Patient currently complains of pain in his right hip radiating to the groin, no other acute complaints. OBJECTIVE: Vital Signs - 24 hr 02/23/20 02/23/20 12:00 20:17 Temperature 97.9 F Pulse Rate 63 Pulse Rate [ 81 Left Radial] Respiratory 20 18 Rate Blood Pressure 108/89 Blood Pressure 169/84 [Left Arm] O2 Sat by Pulse 97 96 Oximetry (%) EXAM Gen: elderly male, hard of hearing. Awake, alert, in NAD HEENT: NC/AT CV: RRR, 2/6 systolic murmur LLSB and apex. Right lower arm AVF with good bruit/thrill Resp: CTAB, unlabored Abd: Soft, NT, ND Ext: RLE externally rotated. Tender to palpation left anterior hip Neuro: CN II-XII grossly intact. Strength BUE and LLE 4/5. Sensation intact Psych: AOx3, appropriate mood/affect Laboratory Results - last 24 hr 02/23/20 02/23/20 02/23/20 12:35 12:35 12:35 WBC 4.4 RBC 3.77 L Hgb 10.5 L Hct 32.1 L MCV 85.2 MCH 27.9 MCHC 32.8 RDW 15.7 D Plt Count 122 L MPV 6.9 L D Absolute Neuts (auto) 3.0 Neutrophils % 68.1 Lymphocytes % 17.7 D Monocytes % 6.6 Eosinophils % 6.7 H D Basophils % 0.9 Nucleated RBC % 0 PT with INR 12.70 INR 1.08 PTT (Actin FS) 33.4 Sodium 138 Potassium 4.2 Chloride 101 Carbon Dioxide 27 Anion Gap 10 BUN 59.5 H Creatinine 12.1 H* Est GFR (CKD-EPI)AfAm 4.05 Est GFR (CKD-EPI)NonAf 3.50 Random Glucose 85 Calcium 8.1 L Phosphorus 5.2 H Magnesium 2.6 H Total Bilirubin 0.3 AST 12 L ALT 16 Alkaline Phosphatase 113 Creatine Kinase 151 Creatine Kinase Index 1.3 CK-MB (CK-2) 2.0 Troponin I 0.02 Total Protein 6.9 Albumin 3.4 Blood Type Antibody Screen 02/23/20 12:35 WBC RBC Hgb Hct MCV MCH MCHC RDW Plt Count MPV Absolute Neuts (auto) Neutrophils % Lymphocytes % Monocytes % Eosinophils % Basophils % Nucleated RBC % PT with INR INR PTT (Actin FS) Sodium Potassium Chloride Carbon Dioxide Anion Gap BUN Creatinine Est GFR (CKD-EPI)AfAm Est GFR (CKD-EPI)NonAf Random Glucose Calcium Phosphorus Magnesium Total Bilirubin AST ALT Alkaline Phosphatase Creatine Kinase Creatine Kinase Index CK-MB (CK-2) Troponin I Total Protein Albumin Blood Type O POSITIVE Antibody Screen Negative ASSESSMENT AND PLAN: 79yoM with h/o ESRD on HD MWF, s/p renal transplant with chronic rejection, HTN, and arthritis who presents after a syncopal episode with fall, found to have right femoral neck fracture. Syncope Possibly orthostatic as he believes he syncopized while trying to stand; unable to obtain orthostatic vitals due to pain from the hip fracture However, given new RBBB on EKG and presence of murmur, will work up for other cardiogenic causes Echo 2014 showed concentric LV hypertrophy and trace-mild mitral regurgitation Also reports dark stools, ?melena; Hgb appears to be at baseline and no further episodes since arrival - CT head - tele - echo - cardiology consult - FOBT Right femoral neck fracture s/p syncope and fall Ortho following, plans for operative management when medically cleared - Medical clearance pending cardiology evaluation and r/o GI bleed as above - pain control with acetaminophen, morphine, lidocaine patch ESRD, h/o renal transplant Last dialysis session 02/19, missed today due to admission Does not currently require urgent dialysis Patient's med list does not include immunosuppressant, please confirm in AM - consult renal - continue sevelamer HTN: continue home meds DVT ppx: SCD
[2020-02-24 05:53] LABS: BASO % 0.6 % (0-2.0); EOS % 7.4 % (0-4.5); HEMOGLOBIN 10.9 GM/dL (11.7-16.9); LYMPH % 14.1 % (8-40); MCH 28.1 pg (25.7-33.7); MCHC 32.9 g/dl (32.0-35.9); MEAN CELL VOLUME 85.2 fl (80-96); MEAN PLT VOLUME 6.7 fl (7.5-11.1); MONO % 9.7 % (3.8-10.2); NEUT % 68.2 % (42.8-82.8); PLATELET COUNT 107 K/MM3 (134-434); RBC 3.88 M/mm3 (4.00-5.60); RDW 15.7 % (11.9-15.9); WHITE BLOOD COUNT 5.1 K/mm3 (4.0-10.0)
[2020-02-24 06:15] LABS: ALBUMIN 3.2 g/dl (3.4-5.0); BILIRUBIN,TOTAL 0.3 mg/dL (0.2-1); BLOOD UREA NITROGEN 67.2 mg/dL (7-18); CALCIUM 8.4 mg/dL (8.5-10.1); MAGNESIUM 2.4 mg/dL (1.8-2.4); PHOSPHOROUS 5.9 mg/dL (2.5-4.9); POTASSIUM 4.4 mmol/L (3.5-5.1); TOT PROT 6.7 g/dl (6.4-8.2)
[2020-02-24 06:36] LABS: CREATININE 13.3 mg/dL (0.55-1.3)
[2020-02-24] MEDS ORDERED: MORPHINE SULFATE 2 MG/ML VIAL ONE (08:17)
[2020-02-24] MEDS: MORPHINE SULFATE 2 MG/ML VIAL IVPUSH PRN (08:36)
[2020-02-24] MEDS: SEVELAMER CARBONATE 800 MG TAB (FP) PO SCH ×3 (09:01→18:37)
[2020-02-24] MEDS ORDERED: LIDOCAINE PATCH REMOVAL MC ONE (10:00)
--- NOTE | 2020-02-24 10:36 | ECHO ---
Name: MEDINA, KAYLEIGH Exam:Adult Echocardiogram Study Date: 02/24/2020 08:50 AM Age: 79 yrs Height: 71 in Weight: 150 lb BSA: 1.9 m2 MMode/2D Measurements & Calculations IVSd: 0.99 cm Ao root diam: 3.4 cm LVIDd: 3.6 cm LA dimension: 2.9 cm LVIDs: 3.0 cm LVPWd: 1.6 cm LVPWs: 1.6 cm EDV(Teich): 54.6 ml ESV(Teich): 35.6 ml LVOT diam: 2.3 cm LAV (MOD-bp): 90.0 ml RV S Dain: 12.8 cm/sec Doppler Measurements & Calculations MV E max dain: 69.1 cm/sec Ao V2 max: 252.3 cm/sec MV A max dain: 89.8 cm/sec Ao max P.7 mmHg MV E/A: 0.77 Ao V2 mean: 200.6 cm/sec MV dec time: 0.13 sec Ao mean P.6 mmHg Ao V2 VTI: 54.9 cm AIDEE(I,D): 1.5 cm2 AIDEE(V,D): 1.3 cm2 LV V1 max P.6 mmHg SV(LVOT): 80.2 ml LV V1 mean P.6 mmHg LV V1 max: 80.5 cm/sec LV V1 mean: 59.1 cm/sec LV V1 VTI: 19.3 cm TR max dain: 311.7 cm/sec PA V2 max: 114.7 cm/sec TR max P.9 mmHg PA max P.3 mmHg Med Peak E' Dain: 7.2 cm/sec Med E/e': 9.5 Lat Peak E' Dain: 6.7 cm/sec Lat E/e': 10.3 Procedure A complete two-dimensional transthoracic echocardiogram was performed (2D, M-mode, Doppler and color flow Doppler). Left Ventricle The left ventricular size, thickness and function are normal. Ejection Fraction = 65%. E/A reversal c onsistent with but not diagnostic of poor LV compliance. The left ventricular wall motion is normal. Right Ventricle The right ventricle is normal in size and function. Atria Normal left and right atrial size and function. Mitral Valve There is moderate mitral annular calcification. There is trace mitral regurgitation. Tricuspid Valve The tricuspid valve is normal in structure and function. There is trace tricuspid regurgitation. Righ t ventricular systolic pressure is elevated at 44 mmhg. There is mild pulmonary hypertension. Aortic Valve There is moderate to severe aortic valve thickening. Mild valvular aortic stenosis. Aortic mean press ure gradient= 17.6. The calculated aortic valve area using the continuity equation is 1.5 cm2. Trace to m ild aortic regurgitation. Pulmonic Valve The pulmonic valve is normal in structure and function. Trace pulmonic valvular regurgitation. Great Vessels The aortic root is normal size. Pericardium/Pleura There is no pericardial effusion. There is no pleural effusion. Interpretation Summary The left ventricular size, thickness and function are normal Ejection Fraction = 65%. There is moderate mitral annular calcification. There is trace mitral regurgitation. There is trace tricuspid regurgitation. There is mild pulmonary hypertension. Right ventricular systolic pressure is elevated at 44 mmhg. There is moderate to severe aortic valve thickening. Mild valvular aortic stenosis. Aortic mean pressure gradient= 17.6 The calculated aortic valve area using the continuity equation is 1.5 cm2. Trace to mild aortic regurgitation. Trace pulmonic valvular regurgitation. MD Jake Oquendo 02/24/2020 10:36 AM
--- NOTE | 2020-02-24 10:54 | PDOC ---
Patient Follow-up (Call Back) - Post ED Follow - Up Reason for Call Back: Radiology (Radiologist called stating that the CT head showed mild stable pituitary enlargement which was seen on previous head CT in 2013 or 2015. This was not noted in the imaging on-call radiology read.)
[2020-02-24] MEDS ORDERED: SODIUM CHLORIDE 250 ML IV PRN (10:55)
--- NOTE | 2020-02-24 10:57 | CON.NEP ---
Consult Consult Specialty:: Nephrology Referred by:: ED Reason for Consultation:: ESRD on HD/Femoral neck fracture - History of Present Illness Chief Complaint: Fall/Syncope History of Present Illness: This is a 79 year old male with a past medical history of ESRD on HD (MWF), hypertension, renal osteodystrophy, and CKD related anemia who presented s/p syncope/fall with right femoral fracture. Seen and examined at the bedside. Last dialysis was Sunday, missed yesterday's treatment. He reports trying to stand up from a kneeling position and he blacked out. Denies any palpitations, chest pain, dizziness or lightheadedness. He reported diarrhea prior to this episode. No fever or chills. No cough. - History Source History Provided By: Patient Limitations to Obtaining History: No Limitations - Past Medical History Cardio/Vascular: Yes: HTN. No: CAD, CHF, Deep Vein Thrombosis Pulmonary: Yes: Other (Pulmonary Aspergillosis) Gastrointestinal: Yes: Diverticulosis, Hemorrhoids, Other (Repoted resected gastric GIST). No: Gastritis, GI Bleed Hepatobiliary: Yes: Hepatitis B Renal/: Yes: Renal Failure, BPH, Hemodialysis, Other (as per HPI) Infectious Disease: Yes: VREF (UTI) Endocrine: Yes: Other (Vit D Deficiency) - Past Surgical History Past Surgical History: Yes: AV Fistula/Graft (LUE ) - Alcohol/Substance Use Hx Alcohol Use: No History of Substance Use: reports: None - Smoking History Smoking history: Never smoked Have you smoked in the past 12 months: No Aproximately how many cigarettes per day: 0 - Social History Usual Living Arrangement: With Child History of Recent Travel: No Home Medications - Allergies Allergies/Adverse Reactions: Allergies Allergy/AdvReac Type Severity Reaction Status Date / Time shellfish derived Allergy Intermediate LIP Verified 04/27/16 16:02 SWELLING strawberry Allergy Itching Verified 04/27/16 16:02 - Home Medications Home Medications: Ambulatory Orders Ranitidine [Zantac -] 150 mg PO DAILY 12/15/13 Tamsulosin HCl [Flomax -] 0.4 mg PO DAILY 12/15/13 Gabapentin [Neurontin -] 100 mg PO DAILY #30 capsule 12/23/13 Sevelamer Carbonate [Renvela -] 800 mg PO TIDCM #0 tab 12/23/13 Allopurinol [Zyloprim -] 100 mg PO ASDIR 02/05/15 Carvedilol [Coreg -] 25 mg PO BID 02/05/15 Cinacalcet HCl [Sensipar] 60 mg PO DAILY 02/05/15 Vit B Complx C/Folic Acid/Zinc [Dialyvite 800 with Zinc] 0.8 mg PO DAILY 02/08/15 Hydralazine HCl 25 mg PO BID 08/28/17 Oxycodone HCl/Acetaminophen [Percocet 5-325 mg Tablet] 1 tab PO Q6H PRN #16 tablet MDD 4 08/29/17 Family Medical History Family History: Unremarkable Review of Systems - Review of Systems Constitutional: reports: No Symptoms Eyes: reports: No Symptoms HENT: reports: No Symptoms Neck: reports: No Symptoms Cardiovascular: reports: No Symptoms Respiratory: reports: No Symptoms Gastrointestinal: reports: Diarrhea Genitourinary: reports: No Symptoms Musculoskeletal: reports: Extremity Pain Neurological: reports: Syncope Endocrine: reports: No Symptoms Hematology/Lymphatic: reports: No Symptoms Nephrology Consult - Height Height: 5 ft 11 in - Weight Weight: 68.039 kg - BMI Body Mass Index (BMI): 20.9 - Lab Results CBC,BMP: CBC, BMP 02/24/20 05:35 02/24/20 05:35 Anion Gap: Anion Gap Anion Gap 11 MMOL/L (8-16) 02/24/20 05:35 - Physical Examination Vital Signs: Vital Signs Temperature 98.4 F 02/24/20 07:35 Pulse Rate 76 02/24/20 07:35 Respiratory Rate 18 02/24/20 07:35 Blood Pressure 156/91 02/24/20 07:35 O2 Sat by Pulse Oximetry (%) 98 02/24/20 07:35 Constitutional: Yes: No Distress Eyes: Yes: Conjunctiva Clear HENT: Yes: Atraumatic, Normocephalic Neck: Yes: Supple Cardiovascular: Yes: Regular Rate and Rhythm Respiratory: Yes: Regular, CTA Bilaterally, Diminished. No: Rales, Rhonchi, SOB Gastrointestinal: Yes: Soft. No: Tenderness Extremities: No: Cold, Cool, Cyanosis Edema: No Neurological: Yes: Alert, Oriented Assessment/Plan 79 year old male with a past medical history of ESRD on HD (MWF), hypertension, renal osteodystrophy, and CKD related anemia who presented s/p syncope/fall with right femoral fracture. 1. ESRD on HD 2. Femoral fracture 3. Syncope/Fall 4. Hypertension 5. Renal Osteodystrophy/Secondary hyperparathyroidism 6. Anemia 7. Diarrhea Will plan for dialysis today to optimize prior to planned surgery. Renal diet, 1.2L daily fluid restriction. Pain control w/o NSAIDs will continue 3x weekly dialysis while inpatient. Orthopedics follow up. There is no renal contraindication to planned orthopedic procedure Continue coreg and hydrlazine Cardiology work up for syncope CT head negative Carotid Doppler negative ECHO shows preserved LV function Check stool for occult blood check C-diff if diarrhea persists Thank you Chauncey Alvarado DO
--- NOTE | 2020-02-24 11:56 | CON.CARD ---
Consult Consult Specialty:: Cardiology Referred by:: Hospitalist Service Reason for Consultation:: Cardiac evaluation - History of Present Illness Chief Complaint: Post fall resulting in right hip fracture History of Present Illness: Patient is a 79 year old male with underlying history of ESRD on HD (M,W,F), history of renal transplant in the past which has failed, HTN and probable hypercholesterolemia who presented after an unwitnessed fall resulting in right hip fracture. He had abdominal pain and episodes of diarrhea. ER note indicates that patient described black in color. He denies any vision loss, headache or any specific cardiac symptoms prior to the event. He denies chest pain, shortness of breath or palpitations. He denies PND or orthopnea. He denies fever or chills. He denies cough or expectorations. He denies nausea, vomiting or abdominal pains. He denies headache or lightheadedness. He has had prior fall resulting in left hip fracture and had surgery (1 year ago) - History Source History Provided By: Patient, Medical Record Limitations to Obtaining History: No Limitations - Past Medical History Cardio/Vascular: Yes: HTN, Hyperlipdemia Pulmonary: Yes: Other (Pulmonary Aspergillosis) Gastrointestinal: Yes: Diverticulosis, Hemorrhoids, Other (Repoted resected gastric GIST) Hepatobiliary: Yes: Hepatitis B Renal/: Yes: Renal Failure, BPH, Hemodialysis, Other (History of renal transplant) Infectious Disease: Yes: VREF (UTI) Endocrine: Yes: Other (Vit D Deficiency) - Past Surgical History Past Surgical History: Yes: AV Fistula/Graft (LUE ), Joint Replacement (Left hip surgery) Additional Surgical History: History of renal transplant - Alcohol/Substance Use Hx Alcohol Use: No History of Substance Use: reports: None - Smoking History Smoking history: Never smoked Have you smoked in the past 12 months: No Aproximately how many cigarettes per day: 0 - Social History Usual Living Arrangement: With Child History of Recent Travel: No Home Medications - Allergies Allergies/Adverse Reactions: Allergies Allergy/AdvReac Type Severity Reaction Status Date / Time shellfish derived Allergy Intermediate LIP Verified 04/27/16 16:02 SWELLING strawberry Allergy Itching Verified 04/27/16 16:02 - Home Medications Home Medications: Ambulatory Orders Ranitidine [Zantac -] 150 mg PO DAILY 12/15/13 Tamsulosin HCl [Flomax -] 0.4 mg PO DAILY 12/15/13 Gabapentin [Neurontin -] 100 mg PO DAILY #30 capsule 12/23/13 Sevelamer Carbonate [Renvela -] 800 mg PO TIDCM #0 tab 12/23/13 Allopurinol [Zyloprim -] 100 mg PO ASDIR 02/05/15 Carvedilol [Coreg -] 25 mg PO BID 02/05/15 Cinacalcet HCl [Sensipar] 60 mg PO DAILY 02/05/15 Vit B Complx C/Folic Acid/Zinc [Dialyvite 800 with Zinc] 0.8 mg PO DAILY 02/08/15 Hydralazine HCl 25 mg PO BID 08/28/17 Oxycodone HCl/Acetaminophen [Percocet 5-325 mg Tablet] 1 tab PO Q6H PRN #16 tablet MDD 4 08/29/17 Sucroferric Oxyhydroxide [Velphoro] 500 mg PO DAILY 02/24/20 Family Medical History Family History: Unremarkable Review of Systems - Review of Systems Constitutional: denies: Chills, Fever Cardiovascular: denies: Chest Pain, Palpitations, Shortness of Breath Respiratory: denies: Cough, Hemoptysis, Orthopnea, PND, SOB, SOB on Exertion, Wh eezing Gastrointestinal: reports: Diarrhea. denies: Abdominal Pain, Constipation, Melena, Nausea, Rectal Bleeding, Vomiting Musculoskeletal: reports: Joint Pain. denies: Back Pain Neurological: reports: Syncope. denies: Dizziness, Headache, Seizure Vital Signs: Vital Signs Temperature 98.4 F 02/24/20 07:35 Pulse Rate 76 02/24/20 07:35 Respiratory Rate 18 02/24/20 07:35 Blood Pressure 156/91 02/24/20 07:35 O2 Sat by Pulse Oximetry (%) 98 02/24/20 07:35 Neck: Yes: Supple Respiratory: Yes: Diminished Gastrointestinal: Yes: Normal Bowel Sounds, Soft. No: Tenderness Cardiovascular: Yes: Regular Rate and Rhythm JVD: No PMI: Non-Displaced Heart Sounds: Yes: S1, S2. No: Gallop Murmur: Yes: Systolic Murmur, Grade 2 (2/6 REBECCA right sternal border, 3/6 SM apex) Edema: No - Other Data Labs, Other Data: CBC, BMP 02/24/20 05:35 02/24/20 05:35 INR, PTT INR 1.08 (0.83-1.09) 02/23/20 12:35 Troponin, BNP 02/23/20 02/23/20 12:35 23:10 Troponin I 0.02 < 0.02 Laboratory Results - last 24 hr 02/23/20 02/23/20 02/23/20 12:00 12:35 12:35 WBC 4.4 RBC 3.77 L Hgb 10.5 L Hct 32.1 L MCV 85.2 MCH 27.9 MCHC 32.8 RDW 15.7 D Plt Count 122 L MPV 6.9 L D Absolute Neuts (auto) 3.0 Neutrophils % 68.1 Lymphocytes % 17.7 D Monocytes % 6.6 Eosinophils % 6.7 H D Basophils % 0.9 Nucleated RBC % 0 PT with INR 12.70 INR 1.08 PTT (Actin FS) 33.4 Sodium Potassium Chloride Carbon Dioxide Anion Gap BUN Creatinine Est GFR (CKD-EPI)AfAm Est GFR (CKD-EPI)NonAf Random Glucose Calcium Phosphorus Magnesium Total Bilirubin AST ALT Alkaline Phosphatase Creatine Kinase Creatine Kinase Index CK-MB (CK-2) Troponin I Total Protein Albumin COVID-19 (MICHAEL) Not detected Blood Type Antibody Screen 02/23/20 02/23/20 02/23/20 12:35 12:35 23:10 WBC RBC Hgb Hct MCV MCH MCHC RDW Plt Count MPV Absolute Neuts (auto) Neutrophils % Lymphocytes % Monocytes % Eosinophils % Basophils % Nucleated RBC % PT with INR INR PTT (Actin FS) Sodium 138 Potassium 4.2 Chloride 101 Carbon Dioxide 27 Anion Gap 10 BUN 59.5 H Creatinine 12.1 H* Est GFR (CKD-EPI)AfAm 4.05 Est GFR (CKD-EPI)NonAf 3.50 Random Glucose 85 Calcium 8.1 L Phosphorus 5.2 H Magnesium 2.6 H Total Bilirubin 0.3 AST 12 L ALT 16 Alkaline Phosphatase 113 Creatine Kinase 151 Creatine Kinase Index 1.3 CK-MB (CK-2) 2.0 Troponin I 0.02 < 0.02 Total Protein 6.9 Albumin 3.4 COVID-19 (MICHAEL) Blood Type O POSITIVE Antibody Screen Negative 02/24/20 02/24/20 05:35 05:35 WBC 5.1 RBC 3.88 L Hgb 10.9 L Hct 33.0 L MCV 85.2 MCH 28.1 MCHC 32.9 RDW 15.7 Plt Count 107 L MPV 6.7 L Absolute Neuts (auto) 3.5 Neutrophils % 68.2 Lymphocytes % 14.1 D Monocytes % 9.7 Eosinophils % 7.4 H Basophils % 0.6 Nucleated RBC % 0 PT with INR INR PTT (Actin FS) Sodium 137 Potassium 4.4 Chloride 102 Carbon Dioxide 24 Anion Gap 11 BUN 67.2 H Creatinine 13.3 H* Est GFR (CKD-EPI)AfAm 3.62 Est GFR (CKD-EPI)NonAf 3.12 Random Glucose 94 Calcium 8.4 L Phosphorus 5.9 H Magnesium 2.4 Total Bilirubin 0.3 AST 8 L ALT 13 Alkaline Phosphatase 94 Creatine Kinase Creatine Kinase Index CK-MB (CK-2) Troponin I Total Protein 6.7 Albumin 3.2 L COVID-19 (MICHAEL) Blood Type Antibody Screen Sinus rhythm with RBBB and LAFB Echo: Report Reviewed Imaging - Results X-ray: Report Reviewed Cat Scan: Report Reviewed (Head CT noted unremarkable) EKG: Report Reviewed Problem List - Problems (1) HTN (hypertension) Code(s): I10 - ESSENTIAL (PRIMARY) HYPERTENSION (2) Aortic valve stenosis Code(s): I35.0 - NONRHEUMATIC AORTIC (VALVE) STENOSIS (3) Closed displaced fracture of right femoral neck Code(s): S72.001A - FRACTURE OF UNSP PART OF NECK OF RIGHT FEMUR, INIT (4) Syncope Code(s): R55 - SYNCOPE AND COLLAPSE Qualifiers: Syncope type: unspecified Qualified Code(s): R55 - Syncope and collapse (5) End stage renal disease Code(s): N18.6 - END STAGE RENAL DISEASE (6) Kidney transplant failure Code(s): T86.12 - KIDNEY TRANSPLANT FAILURE (7) Preoperative cardiovascular examination Code(s): Z01.810 - ENCOUNTER FOR PREPROCEDURAL CARDIOVASCULAR EXAMINATION Assessment/Plan 1. Post fall with syncope resulting in right hip fracture 2. Heart murmur c/w aortic valve stenosis (suggest mild to moderate) 3. ? Regional wall motion abnormality with overall borderline LVEF suggesting CAD 4. HTN 5. Possible hypercholesterolemia 6. ESRD on HD and history of failed renal transplant PLAN: 1. Echocardiography reviewed. Reported mild , but visualization of the valve and Doppler reading including DI (dimensionless index) of 0.34 and mean gradient of 17 mmHg suggests mild to moderate. 2. Further cardiac work up may include pharmacologic nuclear stress test vs. Dobutamine stress echocardiography 3. In the interim, there is no absolute contraindication for hip surgery in view of absence of ischemic symptoms, decompensated congestive heart failure or malignant arrhythmia. Post op cardiac enzyme and telemetry monitoring 4. Add Carvedilol 12.5 mg BID and uptitrate to 25 mg BID according to BP measurement 5. Add Hydralazine 25 mg BID and uptitrate 6. Eventually consider ASA 81 mg QD if not contraindicated 7. Lipid panel and if indicated start statin therapy Further plans are to follow Tony Watson MD
--- NOTE | 2020-02-24 12:26 | EKG ---
Test Reason : Blood Pressure : / mmHG Vent. Rate : 076 BPM Atrial Rate : 076 BPM P-R Int : 170 ms QRS Dur : 150 ms QT Int : 412 ms P-R-T Axes : 058 -54 -23 degrees QTc Int : 463 ms NORMAL SINUS RHYTHM RIGHT BUNDLE BRANCH BLOCK LEFT ANTERIOR FASCICULAR BLOCK BIFASCICULAR BLOCK VOLTAGE CRITERIA FOR LEFT VENTRICULAR HYPERTROPHY ABNORMAL ECG WHEN COMPARED WITH ECG OF 23-FEB-2020 12:41, NO SIGNIFICANT CHANGE WAS FOUND Confirmed by Shoaib Hollins ([id number]) on 02/24/2020 12:26:08 PM Referred By: Confirmed By:Shoaib Hollins
--- NOTE | 2020-02-24 13:31 | PN ---
Teaching Attending Note Name of Resident: Chao Gonzalez ATTENDING PHYSICIAN STATEMENT I saw and evaluated the patient. I reviewed the resident's note and discussed the case with the resident. I agree with the resident's findings and plan as documented. SUBJECTIVE: Feels okay, complains of RLE/hip pain. No headache/visual disturbance/limb numbness. OBJECTIVE: Afebrile, Hemodynamically stable. On HD via RUE AV Fistula Last Vital Signs Temp Pulse Resp BP Pulse Ox 98.4 F 84 18 180/97 H 98 02/24/20 11:55 02/24/20 12:00 02/24/20 12:00 02/24/20 12:00 02/24/20 07:35 HEENT - Atraumatic, Normocephalic. Heart - S1, S2, SM Lungs - mildly reduced air entry at bases Abdomen - Soft, non-tender. Bowel Sounds normal. Extremities - RLE shortened/externally rotated. Reduced ROM due to pain at hip; LUE AV fistula. Neuro - AAO x 2. Tone/Power normal (unable to evaluate RLE due to pain) Laboratory Results - last 24 hr 02/23/20 02/23/20 02/23/20 12:00 12:35 12:35 WBC 4.4 RBC 3.77 L Hgb 10.5 L Hct 32.1 L MCV 85.2 MCH 27.9 MCHC 32.8 RDW 15.7 D Plt Count 122 L MPV 6.9 L D Absolute Neuts (auto) 3.0 Neutrophils % 68.1 Lymphocytes % 17.7 D Monocytes % 6.6 Eosinophils % 6.7 H D Basophils % 0.9 Nucleated RBC % 0 PT with INR 12.70 INR 1.08 PTT (Actin FS) 33.4 Sodium Potassium Chloride Carbon Dioxide Anion Gap BUN Creatinine Est GFR (CKD-EPI)AfAm Est GFR (CKD-EPI)NonAf Random Glucose Calcium Phosphorus Magnesium Total Bilirubin AST ALT Alkaline Phosphatase Creatine Kinase Creatine Kinase Index CK-MB (CK-2) Troponin I Total Protein Albumin COVID-19 (MICHAEL) Not detected Blood Type Antibody Screen 02/23/20 02/23/20 02/23/20 12:35 12:35 23:10 WBC RBC Hgb Hct MCV MCH MCHC RDW Plt Count MPV Absolute Neuts (auto) Neutrophils % Lymphocytes % Monocytes % Eosinophils % Basophils % Nucleated RBC % PT with INR INR PTT (Actin FS) Sodium 138 Potassium 4.2 Chloride 101 Carbon Dioxide 27 Anion Gap 10 BUN 59.5 H Creatinine 12.1 H* Est GFR (CKD-EPI)AfAm 4.05 Est GFR (CKD-EPI)NonAf 3.50 Random Glucose 85 Calcium 8.1 L Phosphorus 5.2 H Magnesium 2.6 H Total Bilirubin 0.3 AST 12 L ALT 16 Alkaline Phosphatase 113 Creatine Kinase 151 Creatine Kinase Index 1.3 CK-MB (CK-2) 2.0 Troponin I 0.02 < 0.02 Total Protein 6.9 Albumin 3.4 COVID-19 (MICHAEL) Blood Type O POSITIVE Antibody Screen Negative 02/24/20 02/24/20 05:35 05:35 WBC 5.1 RBC 3.88 L Hgb 10.9 L Hct 33.0 L MCV 85.2 MCH 28.1 MCHC 32.9 RDW 15.7 Plt Count 107 L MPV 6.7 L Absolute Neuts (auto) 3.5 Neutrophils % 68.2 Lymphocytes % 14.1 D Monocytes % 9.7 Eosinophils % 7.4 H Basophils % 0.6 Nucleated RBC % 0 PT with INR INR PTT (Actin FS) Sodium 137 Potassium 4.4 Chloride 102 Carbon Dioxide 24 Anion Gap 11 BUN 67.2 H Creatinine 13.3 H* Est GFR (CKD-EPI)AfAm 3.62 Est GFR (CKD-EPI)NonAf 3.12 Random Glucose 94 Calcium 8.4 L Phosphorus 5.9 H Magnesium 2.4 Total Bilirubin 0.3 AST 8 L ALT 13 Alkaline Phosphatase 94 Creatine Kinase Creatine Kinase Index CK-MB (CK-2) Troponin I Total Protein 6.7 Albumin 3.2 L COVID-19 (MICHAEL) Blood Type Antibody Screen Current Medications Generic Name Dose Route Start Last Admin Trade Name Freq PRN Reason Stop Dose Admin Acetaminophen 650 mg 02/23/20 21:52 02/23/20 22:49 Tylenol - PO 650 mg Q6H PRN Administration PAIN LEVEL 6-10 Carvedilol 12.5 mg 02/24/20 12:30 Coreg - PO BID HERON Cinacalcet 30 mg 02/25/20 10:00 Sensipar - PO DAILY HERON Hydralazine HCl 25 mg 02/24/20 12:30 Apresoline - PO BID HERON Sodium Chloride 250 mls @ 3,000 mls/hr 02/24/20 10:55 Normal Saline - IV 02/25/20 10:55 PRN PRN Hypotension during Dialysis Morphine Sulfate 2 mg 02/23/20 21:52 02/24/20 08:36 Morphine Sulfate IVPUSH 2 mg Q6H PRN Administration PAIN LEVEL 7 - 10 Sevelamer Carbonate 1,600 mg 02/24/20 08:00 02/24/20 12:18 Renvela - PO Not Given TIDCM HERON ASSESSMENT AND PLAN: 79 year old male with history of ESRD on HD MWF, s/p renal transplant with chronic rejection, HTN, OA, BPH, presents after a syncopal episode with fall and hip fracture. No preceding CP/palpitations. No HI. 1. Acute R femoral neck Fracture Evaluated by Ortho and scheduled for ORIF today. Pre-op HD Post-op DVT Px, early mobilization, incentive spirometry Patient evaluated by Cardio and risk stratified. 2. Syncope, etiology unclear. CT Head - no acute findings, chronic microvascular ischemic changes. Echo - normal EF, mild pul HTN, mild to mod TropI cameron x 2. ECG - new RBBB Cardio eval, for eventual ischemic work-up and follow up for . Carotid Duplex pending. Telemonitoring. 3. Normocytic Anemia, appears chronic, likely sec to ESRD. No evidence of acute blood loss although patient reports dark stools ?melena/diarrhea FOBT requested. Ferritin/TIBC/Iron/B12/Folate requested. 4. ESRD s/p failed renal transplant, on HD vis RUE AVF Nephrology following. Continue Sensipar and Renvela. 5. HTN - uncontrolled. Resumed on Hydralazine and Coreg 6. BPH - resume Tamsulosin once meds confirmed. 7. Mild Pituitary enlargement, incidental finding on CT imaging - for Endocrinology referral as out-patient. DVT Px - lali-operative DVT Px as per Ortho.
--- NOTE | 2020-02-24 14:47 | PN ---
Physical Exam: SUBJECTIVE: Patient seen and examined at bedside. Complaining of R leg pain. OBJECTIVE: Vital Signs Period Temp Pulse Resp BP Sys/Ledesma Pulse Ox Last 24 Hr 98.4 F-98.6 F 76-85 15-18 108-180/84-97 96-98 GENERAL: AAOx2, in no acute distress HEENT: NCAT, PERRLA, EOMI, sclera anicteric, conjunctiva clear, oropharynx clear w/o exudates. MMM. NECK: Normal ROM, supple, no lymphadenopathy, JVD, or masses LUNGS: CTABL no wheezes/ rhonchi/ rales. No increased work of breathing. HEART: RRR, normal S1 S2, systolic murmer at L lower sternal border, peripheral pulses 2+ and equal b/l ABDOMEN: Soft, NTND, + BS. No guarding or rebound. No hepatomegaly or splenomegaly. MSK: ROM not assessed due to pain; EXTREMITIES: R leg shortened and abducted. No peripheral edema. No clubbing or cyanosis. NEUROLOGICAL: CN II-XII intact. SKIN: Warm, Dry, normal turgor, no rashes or lesions noted; decreased turgor Laboratory Results - last 24 hr CBC, BMP 02/24/20 05:35 02/24/20 05:35 02/23/20 02/23/20 02/24/20 12:00 23:10 05:35 WBC 5.1 RBC 3.88 L Hgb 10.9 L Hct 33.0 L MCV 85.2 MCH 28.1 MCHC 32.9 RDW 15.7 Plt Count 107 L MPV 6.7 L Absolute Neuts (auto) 3.5 Neutrophils % 68.2 Lymphocytes % 14.1 D Monocytes % 9.7 Eosinophils % 7.4 H Basophils % 0.6 Nucleated RBC % 0 Sodium Potassium Chloride Carbon Dioxide Anion Gap BUN Creatinine Est GFR (CKD-EPI)AfAm Est GFR (CKD-EPI)NonAf Random Glucose Calcium Phosphorus Magnesium Total Bilirubin AST ALT Alkaline Phosphatase Troponin I < 0.02 Total Protein Albumin COVID-19 (MICHAEL) Not detected 02/24/20 05:35 WBC RBC Hgb Hct MCV MCH MCHC RDW Plt Count MPV Absolute Neuts (auto) Neutrophils % Lymphocytes % Monocytes % Eosinophils % Basophils % Nucleated RBC % Sodium 137 Potassium 4.4 Chloride 102 Carbon Dioxide 24 Anion Gap 11 BUN 67.2 H Creatinine 13.3 H* Est GFR (CKD-EPI)AfAm 3.62 Est GFR (CKD-EPI)NonAf 3.12 Random Glucose 94 Calcium 8.4 L Phosphorus 5.9 H Magnesium 2.4 Total Bilirubin 0.3 AST 8 L ALT 13 Alkaline Phosphatase 94 Troponin I Total Protein 6.7 Albumin 3.2 L COVID-19 (MICHAEL) Active Medications Generic Name Dose Route Start Last Admin Trade Name Freq PRN Reason Stop Dose Admin Acetaminophen 650 mg 02/23/20 21:52 02/23/20 22:49 Tylenol - PO 650 mg Q6H PRN Administration PAIN LEVEL 6-10 Allopurinol 100 mg 02/24/20 14:30 Zyloprim - PO ASDIR [facility] Carvedilol 12.5 mg 02/24/20 12:30 Coreg - PO BID [facility] Cinacalcet 30 mg 02/25/20 10:00 Sensipar - PO DAILY [facility] Gabapentin 100 mg 02/24/20 14:45 Neurontin - PO DAILY [facility] Hydralazine HCl 25 mg 02/24/20 12:30 Apresoline - PO BID [facility] Sodium Chloride 250 mls @ 3,000 mls/hr 02/24/20 10:55 Normal Saline - IV 02/25/20 10:55 PRN PRN Hypotension during Dialysis Morphine Sulfate 2 mg 02/23/20 21:52 02/24/20 08:36 Morphine Sulfate IVPUSH 2 mg Q6H PRN Administration PAIN LEVEL 7 - 10 Sevelamer Carbonate 1,600 mg 02/24/20 08:00 02/24/20 12:18 Renvela - PO Not Given TIDCM [facility] Tamsulosin HCl 0.4 mg 02/24/20 14:45 Flomax - PO DAILY [facility] ASSESSMENT/PLAN: 79 y/o M with PMX of ESRD on HD (MWF), s/p renal transplant (chronic rejection), HTN, OA, BPH, presents after syncope with fall and hip fracture. Admitted for syncope with fall and hip fracture. #Acute R femoral neck Fracture -X-Ray and CT consistent with R femoral neck fracture -Ortho consult: scheduled for ORIF today -Pre-op HD today -early mobilization post op with PT on board -Cardio cleared pt for procedure #Syncope -etiology unclear -ECG - new RBBB -CT Head -negative for acute pathology -Echo - normal EF, mild pulmonary HTN, mild to moderate -Trops neg x 2 -Cardio consult: pt needs stress test and follow up for . -Carotid Duplex: pending -monitor in tele #Normocytic Anemia -FOBT ordered -f/u iron studies -B12 and folate ordered #ESRD -receiving HD via AVF on RUE -HD today before ORIF -c/w Sensipar and Renvela -nephro consulted; f/u reccs #HTN -uncontrolled -home med Hydralazine restarted -home med Coreg restarted at 12.5 mg and titrate up to 25 mg as per Cardio #BPH -home med Tamsulosin restarted #Mild Pituitary enlargement - incidental finding on CT imaging -Endocrine referral as out-patient after d/c #FEN -no standing fluids -monitor lytes; replete PRN -NPO for OR today #Ppx DVT: held until after procedure dispo: continue to monitor in tele Visit type - Emergency Visit Emergency Visit: No - New Patient This patient is new to me today: Yes Date on this admission: 02/24/20 - Critical Care Critical Care patient: No - Discharge Referral Referred to [facility] No - Medication Review Med list reviewed for High Risk Meds patients 65 and older: Yes ATTENDING PHYSICIAN STATEMENT I saw and evaluated the patient. I reviewed the resident's note and discussed the case with the resident. I agree with the resident's findings and plan as documented. SUBJECTIVE: OBJECTIVE: ASSESSMENT AND PLAN:
[2020-02-24] MEDS ORDERED: fentaNYL CITRATE 250 MCG/5 ML VIAL ONE (17:04)
[2020-02-24] MEDS ORDERED: LIDOCAINE HCL/PF 2% SDV 5ML VIAL ONE (17:04)
[2020-02-24] MEDS ORDERED: SUCCINYLCHOLINE CHLORIDE 200 MG/10 ML SYRINGE ONE (17:05)
[2020-02-24] MEDS ORDERED: PROPOFOL 20 ML ONE ×2 (17:05)
[2020-02-24] MEDS ORDERED: ROCURONIUM BROMIDE 50 MG/5 ML SYRINGE ONE (17:05)
[2020-02-24] MEDS ORDERED: TRANEXAMIC ACID 1000 MG/10 ML VIAL ONE (17:29)
[2020-02-24] MEDS ORDERED: ROPIVACAINE HCL 0.5% 30ML VIAL ONE (19:21)
[2020-02-24] MEDS: CARVEDILOL 12.5 MG TABLET (FP) PO SCH (22:17)
[2020-02-24] MEDS: hydrALAZINE HCL 25 MG TABLET (FP) PO SCH (22:17)
--- NOTE | 2020-02-24 22:33 | PN ---
Progress Note (short form) - Note Progress Note: Pt was scheduled for hip hemiarthroplasty this evening Noted to be more confused today Still understands that hip is broken and needs to be fixed but laughing inappropriately Tc 102.7 P86 RLE short and ER painful ROM knee nontender ankle nontender sensation intact to LT 1+ dp ehl fhl ta g s intact A: R femoral neck fracture P: OR cancelled today while hip fracture can cause elevated wbc and low grade fever, 102.7 is atypical for a stress response could represent combination between hip fracture/dialysis recommend fever workup as infected prosthesis would result in significant morbidity can consider return to OR if fever resolves and work up is negative case d/w medical team Problem List - Problems (1) Displaced fracture of base of neck of right femur, initial encounter for closed fracture Code(s): S72.041A - DISP FX OF BASE OF NECK OF RIGHT FEMUR, INIT FOR CLOS FX
[2020-02-25] MEDS: ACETAMINOPHEN 325 MG TABLET (FP) PO PRN (00:52)
[2020-02-25] MEDS: MORPHINE SULFATE 2 MG/ML VIAL IVPUSH PRN ×2 (06:10→20:03)
[2020-02-25 07:30] LABS: BASO % 0.5 % (0-2.0); EOS % 1.9 % (0-4.5); HEMOGLOBIN 11.5 GM/dL (11.7-16.9); LYMPH % 11.5 % (8-40); MCHC 32.8 g/dl (32.0-35.9); MEAN CELL VOLUME 85.1 fl (80-96); MEAN PLT VOLUME 7.7 fl (7.5-11.1); MONO % 11.1 % (3.8-10.2); PLATELET COUNT 103 K/MM3 (134-434); RBC 4.11 M/mm3 (4.00-5.60); RDW 15.9 % (11.9-15.9); WHITE BLOOD COUNT 6.9 K/mm3 (4.0-10.0)
[2020-02-25 08:06] LABS: ALBUMIN 3.1 g/dl (3.4-5.0); BILIRUBIN,TOTAL 0.5 mg/dL (0.2-1); MAGNESIUM 2.4 mg/dL (1.8-2.4); PHOSPHOROUS 6.5 mg/dL (2.5-4.9); POTASSIUM 4.1 mmol/L (3.5-5.1); TOT PROT 6.8 g/dl (6.4-8.2)
[2020-02-25 08:22] LABS: BLOOD UREA NITROGEN 40.4 mg/dL (7-18)
--- NOTE | 2020-02-25 08:31 | PN ---
Progress Note (short form) - Note Progress Note: Pt has been afebrile since last night. Can proceed with surgery this evening if workup ok. Problem List - Problems (1) Displaced fracture of base of neck of right femur, initial encounter for closed fracture Code(s): S72.041A - DISP FX OF BASE OF NECK OF RIGHT FEMUR, INIT FOR CLOS FX
[2020-02-25 08:56] LABS: CREATININE 9.5 mg/dL (0.55-1.3)
[2020-02-25] MEDS ORDERED: PT OWN MED DRAWER 7, Y5N ONE (09:29)
--- NOTE | 2020-02-25 10:06 | PN ---
Progress Note, Physician History of Present Illness: Right hip discomfort, denies chest pain or dyspnea. - Current Medication List Current Medications: Active Medications Acetaminophen (Tylenol -) 650 mg PO Q6H PRN PRN Reason: PAIN LEVEL 6-10 Last Admin: 02/25/20 00:52 Dose: 650 mg Documented by: Allopurinol (Zyloprim -) 100 mg PO DAILY [facility] Carvedilol (Coreg -) 12.5 mg PO BID [facility] Last Admin: 02/24/20 22:17 Dose: 12.5 mg Documented by: Cinacalcet (Sensipar -) 30 mg PO DAILY [facility] Gabapentin (Neurontin -) 100 mg PO DAILY [facility] Hydralazine HCl (Apresoline -) 25 mg PO BID [facility] Last Admin: 02/24/20 22:17 Dose: 25 mg Documented by: Sodium Chloride (Normal Saline -) 250 mls @ 3,000 mls/hr IV PRN PRN PRN Reason: Hypotension during Dialysis Stop: 02/25/20 10:55 Morphine Sulfate (Morphine Sulfate) 2 mg IVPUSH Q6H PRN PRN Reason: PAIN LEVEL 7 - 10 Last Admin: 02/25/20 06:10 Dose: 2 mg Documented by: Sevelamer Carbonate (Renvela -) 1,600 mg PO TIDCM [facility] Last Admin: 02/24/20 18:37 Dose: Not Given Documented by: Tamsulosin HCl (Flomax -) 0.4 mg PO DAILY@0830 [facility] - Objective Vital Signs: Vital Signs Temperature 98.3 F 02/25/20 05:52 Pulse Rate 82 02/25/20 05:52 Respiratory Rate 18 02/25/20 05:52 Blood Pressure 138/84 02/25/20 05:52 O2 Sat by Pulse Oximetry (%) 95 02/25/20 05:52 Constitutional: Yes: No Distress, Calm Neck: Yes: Supple Cardiovascular: Yes: Regular Rate and Rhythm Respiratory: Yes: Regular, CTA Bilaterally Gastrointestinal: Yes: Normal Bowel Sounds, Soft Extremities: Yes: External Rotation, Shortened Edema: No Labs: CBC, BMP 02/25/20 05:55 02/25/20 05:55 INR, PTT INR 1.08 (0.83-1.09) 02/23/20 12:35 - ....Imaging Chest X-ray: Report Reviewed (Mild pulm venous congestion) EKG: Report Reviewed (Tele: NSR) Assessment/Plan Problem List - Problems (1) HTN (hypertension) Code(s): I10 - ESSENTIAL (PRIMARY) HYPERTENSION (2) Aortic valve stenosis Code(s): I35.0 - NONRHEUMATIC AORTIC (VALVE) STENOSIS (3) Closed displaced fracture of right femoral neck Code(s): S72.001A - FRACTURE OF UNSP PART OF NECK OF RIGHT FEMUR, INIT (4) Syncope Code(s): R55 - SYNCOPE AND COLLAPSE Qualifiers: Syncope type: unspecified Qualified Code(s): R55 - Syncope and collapse (5) End stage renal disease Code(s): N18.6 - END STAGE RENAL DISEASE (6) Kidney transplant failure Code(s): T86.12 - KIDNEY TRANSPLANT FAILURE (7) Preoperative cardiovascular examination Code(s): Z01.810 - ENCOUNTER FOR PREPROCEDURAL CARDIOVASCULAR EXAMINATION Assessment/Plan 1. Post fall with syncope resulting in right hip fracture 2. Heart murmur c/w aortic valve stenosis (suggest mild to moderate) 3. ? Regional wall motion abnormality with overall borderline LVEF suggesting CAD 4. HTN with improved control 5. Possible hypercholesterolemia 6. ESRD on HD and history of failed renal transplant PLAN: 1. Echocardiography reviewed. Reported mild , but visualization of the valve and Doppler reading including DI (dimensionless index) of 0.34 and mean gradient of 17 mmHg suggests mild to moderate. 2. Further cardiac work up may include pharmacologic nuclear stress test vs. Dobutamine stress echocardiography 3. In the interim, there is no absolute contraindication for hip surgery in view of absence of ischemic symptoms, decompensated congestive heart failure or malignant arrhythmia. Post op cardiac enzyme and telemetry monitoring 4. Continue Carvedilol 12.5 mg BID and uptitrate to 25 mg BID according to BP measurement 5. Continue Hydralazine 25 mg BID and uptitrate 6. Eventually consider ASA 81 mg QD once post-op hemostasis assured, analgesia as needed, DVT prophylaxis 7. Lipid panel reviewed, start Crestor 5 qd
[2020-02-25] MEDS: hydrALAZINE HCL 25 MG TABLET (FP) PO SCH ×2 (10:12→21:42)
[2020-02-25] MEDS: ALLOPURINOL 100 MG TABLET (FP) PO SCH (10:12)
[2020-02-25] MEDS: TAMSULOSIN HCL 0.4 MG CAP PO SCH (10:13)
[2020-02-25] MEDS: CARVEDILOL 12.5 MG TABLET (FP) PO SCH ×2 (10:13→21:41)
[2020-02-25] MEDS: GABAPENTIN 100 MG CAPSULE PO SCH (10:13)
[2020-02-25] MEDS: SEVELAMER CARBONATE 800 MG TAB (FP) PO SCH ×3 (10:14→17:40)
[2020-02-25] MEDS: CINACALCET HCL 30 MG TAB (FP) PO SCH (10:14)
[2020-02-25] MEDS ORDERED: SODIUM CHLORIDE 250 ML IV PRN (12:59)
--- NOTE | 2020-02-25 12:59 | PN ---
Progress Note, Physician History of Present Illness: Seen and examined at the bedside awake and alert offers no acute complaints no sob, cp, fever, chills, N/V/D s/p dialysis yesterday with 2L UF has fever yesterday evening OR was postponed - Current Medication List Current Medications: Active Medications Acetaminophen (Tylenol -) 650 mg PO Q6H PRN PRN Reason: PAIN LEVEL 6-10 Last Admin: 02/25/20 00:52 Dose: 650 mg Documented by: Allopurinol (Zyloprim -) 100 mg PO DAILY [facility] Last Admin: 02/25/20 10:12 Dose: 100 mg Documented by: Carvedilol (Coreg -) 12.5 mg PO BID [facility] Last Admin: 02/25/20 10:13 Dose: 12.5 mg Documented by: Cinacalcet (Sensipar -) 30 mg PO DAILY [facility] Last Admin: 02/25/20 10:14 Dose: 30 mg Documented by: Gabapentin (Neurontin -) 100 mg PO DAILY [facility] Last Admin: 02/25/20 10:13 Dose: 100 mg Documented by: Hydralazine HCl (Apresoline -) 25 mg PO BID [facility] Last Admin: 02/25/20 10:12 Dose: 25 mg Documented by: Sodium Chloride (Normal Saline -) 250 mls @ 3,000 mls/hr IV PRN PRN PRN Reason: Hypotension during Dialysis Stop: 02/25/20 10:55 Morphine Sulfate (Morphine Sulfate) 2 mg IVPUSH Q6H PRN PRN Reason: PAIN LEVEL 7 - 10 Last Admin: 02/25/20 06:10 Dose: 2 mg Documented by: Rosuvastatin Calcium (Crestor -) 5 mg PO [facility] Sevelamer Carbonate (Renvela -) 1,600 mg PO TIDCM [facility] Last Admin: 02/25/20 10:14 Dose: Not Given Documented by: Tamsulosin HCl (Flomax -) 0.4 mg PO DAILY@0830 [facility] Last Admin: 02/25/20 10:13 Dose: 0.4 mg Documented by: - Objective Vital Signs: Vital Signs Temperature 98.2 F 02/25/20 10:00 Pulse Rate 89 02/25/20 10:00 Respiratory Rate 18 02/25/20 10:00 Blood Pressure 146/82 02/25/20 10:00 O2 Sat by Pulse Oximetry (%) 90 L 02/25/20 10:00 Constitutional: Yes: No Distress, Calm Neck: Yes: Supple Cardiovascular: Yes: Regular Rate and Rhythm Respiratory: Yes: Regular Gastrointestinal: Yes: Soft Extremities: No: Cold, Cool, Cyanosis Edema: No Labs: CBC, BMP 02/25/20 05:55 02/25/20 05:55 INR, PTT INR 1.08 (0.83-1.09) 02/23/20 12:35 Assessment/Plan 79 year old male with a past medical history of ESRD on HD (MWF), hypertension, renal osteodystrophy, and CKD related anemia who presented s/p syncope/fall with right femoral fracture. 1. ESRD on HD 2. Femoral fracture 3. Syncope/Fall 4. Hypertension 5. Renal Osteodystrophy/Secondary hyperparathyroidism 6. Anemia 7. Diarrhea 8. Fever s/p dialysis yesterday, next planned treatment is tomorrow. Renal diet, 1.2L daily fluid restriction. Pain control w/o NSAIDs will continue 3x weekly dialysis while inpatient. Orthopedics follow up. There is no renal contraindication to planned orthopedic procedure Continue coreg and hydrlazine Cardiology work up for syncope CT head negative Carotid Doppler negative ECHO shows preserved LV function Iron saturation low but ferritin is elevated, Hgb > 10. No RENU needed. F/u cultures in reference to fever. CXR w/o evidence of pneumonia. Thank you Chauncey Alvarado DO
--- NOTE | 2020-02-25 13:28 | PN ---
Physical Exam: SUBJECTIVE: Patient seen and examined at bedside. Patient had a fever of 102 last night. No concerns or complaints this morning. OBJECTIVE: Vital Signs Period Temp Pulse Resp BP Sys/Ledesma Pulse Ox Last 24 Hr 98.1 F-100.8 F 82-100 18-20 138-166/71-95 90-95 ENERAL: AAOx2, in no acute distress HEENT: NCAT, PERRLA, EOMI, sclera anicteric, conjunctiva clear, oropharynx clear w/o exudates. MMM. NECK: Normal ROM, supple, no lymphadenopathy, JVD, or masses LUNGS: CTABL no wheezes/ rhonchi/ rales. No increased work of breathing. HEART: RRR, normal S1 S2, systolic murmer at L lower sternal border, peripheral pulses 2+ and equal b/l ABDOMEN: Soft, NTND, + BS. No guarding or rebound. No hepatomegaly or splenomegaly. MSK: ROM not assessed due to pain; EXTREMITIES: R leg shortened and abducted. No peripheral edema. No clubbing or cyanosis. NEUROLOGICAL: CN II-XII intact. SKIN: Warm, Dry, normal turgor, no rashes or lesions noted; decreased turgor Laboratory Results - last 24 hr CBC, BMP 02/25/20 05:55 02/25/20 05:55 02/24/20 02/24/20 02/25/20 12:00 18:08 05:55 WBC RBC Hgb Hct MCV MCH MCHC RDW Plt Count MPV Absolute Neuts (auto) Neutrophils % Lymphocytes % Monocytes % Eosinophils % Basophils % Nucleated RBC % Sodium 137 Potassium 4.1 Chloride 98 Carbon Dioxide 29 Anion Gap 10 BUN 40.4 H Creatinine 9.5 H* Est GFR (CKD-EPI)AfAm 5.43 Est GFR (CKD-EPI)NonAf 4.69 POC Glucometer 87 Random Glucose 82 Calcium 9.0 Phosphorus 6.5 H Magnesium 2.4 Iron 21 L TIBC 156 L Iron Saturation 13 L Unsaturated IBC 135 L Ferritin 1782.4 H Total Bilirubin 0.5 AST 11 L ALT 12 L Alkaline Phosphatase 94 Total Protein 6.8 Albumin 3.1 L Triglycerides 78 Cholesterol 201 H Total LDL Cholesterol 108 H HDL Cholesterol 61 H Vitamin B12 365 Serum Folate 26 H Hep C Ab Diagnostic <0.1 02/25/20 05:55 WBC 6.9 RBC 4.11 Hgb 11.5 L Hct 35.0 L MCV 85.1 MCH 28.0 MCHC 32.8 RDW 15.9 Plt Count 103 L MPV 7.7 D Absolute Neuts (auto) 5.2 Neutrophils % 75.0 Lymphocytes % 11.5 Monocytes % 11.1 H Eosinophils % 1.9 Basophils % 0.5 Nucleated RBC % 0 Sodium Potassium Chloride Carbon Dioxide Anion Gap BUN Creatinine Est GFR (CKD-EPI)AfAm Est GFR (CKD-EPI)NonAf POC Glucometer Random Glucose Calcium Phosphorus Magnesium Iron TIBC Iron Saturation Unsaturated IBC Ferritin Total Bilirubin AST ALT Alkaline Phosphatase Total Protein Albumin Triglycerides Cholesterol Total LDL Cholesterol HDL Cholesterol Vitamin B12 Serum Folate Hep C Ab Diagnostic Active Medications Generic Name Dose Route Start Last Admin Trade Name Freq PRN Reason Stop Dose Admin Acetaminophen 650 mg 02/23/20 21:52 02/25/20 00:52 Tylenol - PO 650 mg Q6H PRN Administration PAIN LEVEL 6-10 Allopurinol 100 mg 02/25/20 10:00 02/25/20 10:12 Zyloprim - PO 100 mg DAILY [facility] Administration Carvedilol 12.5 mg 02/24/20 12:30 02/25/20 10:13 Coreg - PO 12.5 mg BID [facility] Administration Cinacalcet 30 mg 02/25/20 10:00 02/25/20 10:14 Sensipar - PO 30 mg DAILY [facility] Administration Gabapentin 100 mg 02/24/20 14:45 02/25/20 10:13 Neurontin - PO 100 mg DAILY [facility] Administration Hydralazine HCl 25 mg 02/24/20 12:30 02/25/20 10:12 Apresoline - PO 25 mg BID [facility] Administration Sodium Chloride 250 mls @ 3,000 mls/hr 02/24/20 10:55 Normal Saline - IV 02/25/20 10:55 PRN PRN Hypotension during Dialysis Sodium Chloride 250 mls @ 3,000 mls/hr 02/25/20 12:59 Normal Saline - IV 02/26/20 12:59 PRN PRN Hypotension during Dialysis Morphine Sulfate 2 mg 02/23/20 21:52 02/25/20 06:10 Morphine Sulfate IVPUSH 2 mg Q6H PRN Administration PAIN LEVEL 7 - 10 Rosuvastatin Calcium 5 mg 02/25/20 22:00 Crestor - PO HS [facility] Sevelamer Carbonate 1,600 mg 02/24/20 08:00 02/25/20 13:27 Renvela - PO Not Given TIDCM [facility] Tamsulosin HCl 0.4 mg 02/24/20 14:45 02/25/20 10:13 Flomax - PO 0.4 mg DAILY@0830 [facility] Administration ASSESSMENT/PLAN: 79 y/o M with PMX of ESRD on HD (MWF), s/p renal transplant (chronic rejection), HTN, OA, BPH, presents after syncope with fall and hip fracture. Admitted for syncope with fall and hip fracture. #Acute R femoral neck Fracture -X-Ray and CT consistent with R femoral neck fracture -Ortho consult: possible ORIF today; originally planned for yesterday but cancelled due to fever -early mobilization post op with PT on board -Cardio cleared pt for procedure #Fever -Tmax: 102 -CXR- cardiomegaly with suggestion of mild pulmonary venous congestion -blood cultures pending; f/u results -urine cultures pending; f/u results #Syncope -etiology unclear -ECG - new RBBB -CT Head -negative for acute pathology -Echo - normal EF, mild pulmonary HTN, mild to moderate -Trops neg x 2 -Cardio consult: pt needs stress test and follow up for . -Carotid Duplex: no evidence of high-grade carotid artery stenosis -monitor in tele #Normocytic Anemia -FOBT ordered -f/u iron studies -B12 and folate wnl #ESRD -receiving HD via AVF on RUE -HD tomorrow -c/w Sensipar and Renvela -nephro consult: cleared for procedure as per Dr. Alvarado #HTN -uncontrolled -home med Hydralazine restarted -home med Coreg restarted at 12.5 mg and titrate up to 25 mg as per Cardio #BPH -home med Tamsulosin restarted #Mild Pituitary enlargement - incidental finding on CT imaging -Endocrine referral as out-patient after d/c #FEN -no standing fluids -monitor lytes; replete PRN -NPO for OR today #Ppx DVT: held until after procedure dispo: continue to monitor in tele Visit type - Emergency Visit Emergency Visit: No - New Patient This patient is new to me today: No - Critical Care Critical Care patient: No - Discharge Referral Referred to [facility] Med P.C[facility] No - Medication Review Med list reviewed for High Risk Meds patients 65 and older: Yes ATTENDING PHYSICIAN STATEMENT I saw and evaluated the patient. I reviewed the resident's note and discussed the case with the resident. I agree with the resident's findings and plan as documented. SUBJECTIVE: OBJECTIVE: ASSESSMENT AND PLAN:
--- NOTE | 2020-02-25 13:44 | CON.ID ---
Consult Referred by:: hospitalist Reason for Consultation:: fever - History of Present Illness Chief Complaint: fall and hip fracture History of Present Illness: 79 yo man on HD s/p fall 02/22 with right femur fracture, was to go to OR last night but had fever of 102.7 OR cancelled he had some fever 100.8 after return to floor and has been afebrile since notes hip pain he is [place] +esrd- s/p HD yesterday - History Source History Provided By: Patient, Medical Record Limitations to Obtaining History: Clinical Condition - Past Medical History Cardio/Vascular: Yes: HTN, Hyperlipdemia Pulmonary: Yes: Other (Pulmonary Aspergillosis) Gastrointestinal: Yes: Diverticulosis, Hemorrhoids, Other (Repoted resected gastric GIST) Hepatobiliary: Yes: Hepatitis B Renal/: Yes: Renal Failure, BPH, Hemodialysis, Other (History of renal transplant) Infectious Disease: Yes: VREF (UTI) Endocrine: Yes: Other (Vit D Deficiency) - Past Surgical History Past Surgical History: Yes: AV Fistula/Graft (LUE ), Joint Replacement (Left hip surgery) Additional Surgical History: History of renal transplant - Alcohol/Substance Use Hx Alcohol Use: No History of Substance Use: reports: None - Smoking History Smoking history: Never smoked Have you smoked in the past 12 months: No Aproximately how many cigarettes per day: 0 - Social History Usual Living Arrangement: With Child ADL: Family Assistance History of Recent Travel: No Home Medications - Allergies Allergies/Adverse Reactions: Allergies Allergy/AdvReac Type Severity Reaction Status Date / Time shellfish derived Allergy Intermediate LIP Verified 04/27/16 16:02 SWELLING strawberry Allergy Itching Verified 04/27/16 16:02 - Home Medications Home Medications: Ambulatory Orders Tamsulosin HCl [Flomax -] 0.4 mg PO DAILY 12/15/13 Gabapentin [Neurontin -] 100 mg PO DAILY #30 capsule 12/23/13 Sevelamer Carbonate [Renvela -] 800 mg PO TIDCM #0 tab 12/23/13 Allopurinol [Zyloprim -] 100 mg PO ASDIR 02/05/15 Carvedilol [Coreg -] 25 mg PO BID 02/05/15 Hydralazine HCl 25 mg PO BID 08/28/17 Enoxaparin [Lovenox -] 30 mg SQ DAILY 30 Days #30 disp.syrin 03/01/20 Family Medical History Family History: Unremarkable Review of Systems - Review of Systems Constitutional: reports: Fever Eyes: reports: No Symptoms HENT: reports: No Symptoms Neck: reports: No Symptoms Cardiovascular: reports: No Symptoms. denies: Chest Pain Respiratory: reports: No Symptoms. denies: Cough, SOB Gastrointestinal: reports: No Symptoms. denies: Abdominal Pain Genitourinary: reports: No Symptoms Musculoskeletal: reports: Joint Pain (Right leg pain) Physical Exam Vital Signs: Vital Signs Temperature 98.2 F 02/25/20 10:00 Pulse Rate 89 02/25/20 10:00 Respiratory Rate 18 02/25/20 10:00 Blood Pressure 146/82 02/25/20 10:00 O2 Sat by Pulse Oximetry (%) 90 L 02/25/20 10:00 Constitutional: Yes: No Distress, Calm Eyes: Yes: Conjunctiva Clear HENT: Yes: Atraumatic, Normocephalic. No: Thrush Neck: Yes: Supple Cardiovascular: Yes: Regular Rate and Rhythm Respiratory: Yes: Regular, CTA Bilaterally Gastrointestinal: Yes: Normal Bowel Sounds, Soft Extremities: Yes: Other (no foot ulcers, +avg right arm no erythema or edema) Edema: No Neurological: Yes: Alert, Oriented Labs: CBC, BMP 02/25/20 05:55 02/25/20 05:55 Imaging - Results Chest X-ray: Report Reviewed, Image Reviewed (no infiltrate) Problem List - Problems (1) Fever Code(s): R50.9 - FEVER, UNSPECIFIED (2) Hip fracture, right Code(s): S72.001A - FRACTURE OF UNSP PART OF NECK OF RIGHT FEMUR, INIT Qualifiers: Encounter type: initial encounter Fracture type: closed Qualified Code(s): S72.001A - Fracture of unspecified part of neck of right femur, initial encounter for closed fracture (3) End stage renal disease Code(s): N18.6 - END STAGE RENAL DISEASE Assessment/Plan fever s/p hip fracture esrd/hd has defervesced overnight no antiibotics given blood cultures drawn this am no obvious source of infection but is on HD d/w dr herrera no obvious source of infection but ideally would like to see negative blood cultures before planned orthopaedic surgery d/w hospitalist
--- NOTE | 2020-02-25 13:58 | PN ---
Teaching Attending Note Name of Resident: Chao Gonzalez ATTENDING PHYSICIAN STATEMENT I saw and evaluated the patient. I reviewed the resident's note and discussed the case with the resident. I agree with the resident's findings and plan as documented. SUBJECTIVE: Feels well, ongoing RLE/hip pain. No headache/visual disturbance/limb numbness. OR cancelled yesterday due to temperature of 102.7, cancelled again today due to fever overnight with Blood Cx still pending. OBJECTIVE: Febrile to 102.7 yesterday, 100.8 overnight, Hemodynamically stable. On HD via RUE AV Fistula. AAO x 3 today. Last Vital Signs Temp Pulse Resp BP Pulse Ox 98.2 F 89 18 146/82 90 L 02/25/20 10:00 02/25/20 10:00 02/25/20 10:00 02/25/20 10:00 02/25/20 10:00 Heart - S1, S2, SM Lungs - mildly reduced air entry at bases Abdomen - Soft, non-tender. Bowel Sounds normal. Extremities - RLE shortened/externally rotated. Reduced ROM due to pain at hip; LUE AV fistula. Neuro - AAO x 3. Tone/Power normal (unable to evaluate RLE due to pain) Laboratory Results - last 24 hr 02/24/20 02/24/20 02/25/20 12:00 18:08 05:55 WBC RBC Hgb Hct MCV MCH MCHC RDW Plt Count MPV Absolute Neuts (auto) Neutrophils % Lymphocytes % Monocytes % Eosinophils % Basophils % Nucleated RBC % Sodium 137 Potassium 4.1 Chloride 98 Carbon Dioxide 29 Anion Gap 10 BUN 40.4 H Creatinine 9.5 H* Est GFR (CKD-EPI)AfAm 5.43 Est GFR (CKD-EPI)NonAf 4.69 POC Glucometer 87 Random Glucose 82 Calcium 9.0 Phosphorus 6.5 H Magnesium 2.4 Iron 21 L TIBC 156 L Iron Saturation 13 L Unsaturated IBC 135 L Ferritin 1782.4 H Total Bilirubin 0.5 AST 11 L ALT 12 L Alkaline Phosphatase 94 Total Protein 6.8 Albumin 3.1 L Triglycerides 78 Cholesterol 201 H Total LDL Cholesterol 108 H HDL Cholesterol 61 H Vitamin B12 365 Serum Folate 26 H Hep C Ab Diagnostic <0.1 02/25/20 05:55 WBC 6.9 RBC 4.11 Hgb 11.5 L Hct 35.0 L MCV 85.1 MCH 28.0 MCHC 32.8 RDW 15.9 Plt Count 103 L MPV 7.7 D Absolute Neuts (auto) 5.2 Neutrophils % 75.0 Lymphocytes % 11.5 Monocytes % 11.1 H Eosinophils % 1.9 Basophils % 0.5 Nucleated RBC % 0 Sodium Potassium Chloride Carbon Dioxide Anion Gap BUN Creatinine Est GFR (CKD-EPI)AfAm Est GFR (CKD-EPI)NonAf POC Glucometer Random Glucose Calcium Phosphorus Magnesium Iron TIBC Iron Saturation Unsaturated IBC Ferritin Total Bilirubin AST ALT Alkaline Phosphatase Total Protein Albumin Triglycerides Cholesterol Total LDL Cholesterol HDL Cholesterol Vitamin B12 Serum Folate Hep C Ab Diagnostic Current Medications Generic Name Dose Route Start Last Admin Trade Name Freq PRN Reason Stop Dose Admin Acetaminophen 650 mg 02/23/20 21:52 02/25/20 00:52 Tylenol - PO 650 mg Q6H PRN Administration PAIN LEVEL 6-10 Allopurinol 100 mg 02/25/20 10:00 02/25/20 10:12 Zyloprim - PO 100 mg DAILY [facility] Administration Carvedilol 12.5 mg 02/24/20 12:30 02/25/20 10:13 Coreg - PO 12.5 mg BID [facility] Administration Cinacalcet 30 mg 02/25/20 10:00 02/25/20 10:14 Sensipar - PO 30 mg DAILY [facility] Administration Gabapentin 100 mg 02/24/20 14:45 02/25/20 10:13 Neurontin - PO 100 mg DAILY [facility] Administration Hydralazine HCl 25 mg 02/24/20 12:30 02/25/20 10:12 Apresoline - PO 25 mg BID [facility] Administration Sodium Chloride 250 mls @ 3,000 mls/hr 02/24/20 10:55 Normal Saline - IV 02/25/20 10:55 PRN PRN Hypotension during Dialysis Sodium Chloride 250 mls @ 3,000 mls/hr 02/25/20 12:59 Normal Saline - IV 02/26/20 12:59 PRN PRN Hypotension during Dialysis Morphine Sulfate 2 mg 02/23/20 21:52 02/25/20 06:10 Morphine Sulfate IVPUSH 2 mg Q6H PRN Administration PAIN LEVEL 7 - 10 Rosuvastatin Calcium 5 mg 02/25/20 22:00 Crestor - PO HS [facility] Sevelamer Carbonate 1,600 mg 02/24/20 08:00 02/25/20 13:27 Renvela - PO Not Given TIDCM [facility] Tamsulosin HCl 0.4 mg 02/24/20 14:45 02/25/20 10:13 Flomax - PO 0.4 mg DAILY@0830 [facility] Administration Home Medications Medication Instructions Recorded Tamsulosin HCl [Flomax -] 0.4 mg PO DAILY 12/15/13 Gabapentin [Neurontin -] 100 mg PO DAILY #30 capsule 12/23/13 Sevelamer Carbonate [Renvela -] 800 mg PO TIDCM #0 tab 12/23/13 Allopurinol [Zyloprim -] 100 mg PO ASDIR 02/05/15 Carvedilol [Coreg -] 25 mg PO BID 02/05/15 Hydralazine HCl 25 mg PO BID 08/28/17 ASSESSMENT AND PLAN: 79 year old male with history of ESRD on HD MWF, s/p renal transplant with chronic rejection, HTN, OA, BPH, presents after a syncopal episode with fall and hip fracture. No preceding CP/palpitations. No HI. 1. Acute R femoral neck Fracture Evaluated by Ortho and scheduled for ORIF yesterday - postponed due to fever Pre-op HD 02/23, for HD again tomorrow. Recommend post-op DVT Px, early mobilization, incentive spirometry Patient evaluated by Cardio and risk stratified. 2. Syncope, etiology unclear. CT Head - no acute findings, chronic microvascular ischemic changes. Echo - normal EF, mild pul HTN, mild to mod Trop I neg x 2. ECG - new RBBB Cardio eval, cleared for surgery - for eventual ischemic work-up and follow up for . Carotid Duplex - no hemodnamically significant stenosis. No telemonitoring events Cardio follow up as out-patient 3. Fever, etiology unclear ?sec to acute fracture CXR - cardiomegaly, mild congestion, no consolidation Blood Cx x 2 pending. ID recommends waiting for neg Blood Cx prior to surgical/ortho intervention. No empiric Abx currently. 4. Normocytic Anemia, appears chronic, likely sec to ESRD. No evidence of acute blood loss although patient reports dark stools ?melena/diarrhea FOBT requested. Ferritin 1784/Iron sat 13%/B12 - 365/Folate 26 5. ESRD s/p failed renal transplant, on HD vis RUE AVF Nephrology following. Continue Sensipar and Renvela. 6. HTN - uncontrolled. Resumed on Hydralazine and Coreg 7. BPH - resume Tamsulosin once meds confirmed. 8. Mild Pituitary enlargement, incidental finding on CT imaging - for Endocrinology referral as out-patient. DVT Px - lali-operative DVT Px as per Ortho.
--- NOTE | 2020-02-25 19:14 | PN ---
Progress Note (short form) - Note Progress Note: 79 yo M with right femoral neck fracture scheduled for hip hemiarthroplasty last night, cancelled due to fever of 102.7 F. Patient lying comfortably in bed. Complains of hip pain, notes improving since yesterday. Last Vital Signs Temp Pulse Resp BP Pulse Ox 97.9 F 66 20 148/87 90 L 02/25/20 18:00 02/25/20 18:00 02/25/20 18:00 02/25/20 18:00 02/25/20 10:00 PE: RLE Right leg shorted and externally rotated Painful ROM Tender to palpation of greater trochanter Calves soft NT NVID Abnormal Lab Results 02/25/20 02/25/20 05:55 05:55 Hgb 11.5 L Hct 35.0 L Plt Count 103 L Monocytes % 11.1 H BUN 40.4 H Creatinine 9.5 H* Phosphorus 6.5 H Iron 21 L TIBC 156 L Iron Saturation 13 L Unsaturated IBC 135 L Ferritin 1782.4 H AST 11 L ALT 12 L Albumin 3.1 L Cholesterol 201 H Total LDL Cholesterol 108 H HDL Cholesterol 61 H Serum Folate 26 H A: R femoral neck fracture P: Case discussed with Dr. Bey and the anesthesia team It is felt the patient is not stable for surgery at this time Continue medical optimization Follow pending blood cultures Continue NWB Dr. Bey notified daughter of current plan
[2020-02-25] MEDS: ROSUVASTATIN CA 5 MG TABLET (FP) PO SCH (21:42)
[2020-02-25 22:09] LABS: HEP B CORE AB, TOT Negative (Negative)
[2020-02-26 07:37] LABS: BASO % 0.7 % (0-2.0); EOS % 7.1 % (0-4.5); HEMATOCRIT 31.5 % (35.4-49); HEMOGLOBIN 10.5 GM/dL (11.7-16.9); LYMPH % 12.9 % (8-40); MCH 28.1 pg (25.7-33.7); MCHC 33.3 g/dl (32.0-35.9); MEAN CELL VOLUME 84.4 fl (80-96); MEAN PLT VOLUME 7.7 fl (7.5-11.1); NEUT % 71.3 % (42.8-82.8); PLATELET COUNT 96 K/MM3 (134-434); RBC 3.73 M/mm3 (4.00-5.60); RDW 15.4 % (11.9-15.9)
[2020-02-26 08:18] LABS: ALBUMIN 2.7 g/dl (3.4-5.0); BILIRUBIN,TOTAL 0.6 mg/dL (0.2-1); BLOOD UREA NITROGEN 60.3 mg/dL (7-18); CALCIUM 8.4 mg/dL (8.5-10.1); MAGNESIUM 2.5 mg/dL (1.8-2.4); PHOSPHOROUS 6.7 mg/dL (2.5-4.9); POTASSIUM 4.5 mmol/L (3.5-5.1); TOT PROT 6.2 g/dl (6.4-8.2)
[2020-02-26] MEDS: SEVELAMER CARBONATE 800 MG TAB (FP) PO SCH ×3 (08:28→18:05)
[2020-02-26] MEDS: CARVEDILOL 12.5 MG TABLET (FP) PO SCH ×2 (10:00→21:33)
[2020-02-26] MEDS: hydrALAZINE HCL 25 MG TABLET (FP) PO SCH ×2 (10:00→21:33)
[2020-02-26] MEDS: GABAPENTIN 100 MG CAPSULE PO SCH (10:00)
[2020-02-26] MEDS: TAMSULOSIN HCL 0.4 MG CAP PO SCH (10:00)
[2020-02-26] MEDS: CINACALCET HCL 30 MG TAB (FP) PO SCH (10:00)
--- NOTE | 2020-02-26 10:17 | PN ---
Progress Note, Physician History of Present Illness: Right hip discomfort, nausea a/o emesis, denies chest pain or dyspnea, ORIF hip deferred due to fevers since abated, cultures pending. Underwent bedside HD. - Current Medication List Current Medications: Active Medications Acetaminophen (Tylenol -) 650 mg PO Q6H PRN PRN Reason: PAIN LEVEL 6-10 Last Admin: 02/25/20 00:52 Dose: 650 mg Documented by: Allopurinol (Zyloprim -) 100 mg PO DAILY [facility] Last Admin: 02/25/20 10:12 Dose: 100 mg Documented by: Carvedilol (Coreg -) 12.5 mg PO BID [facility] Last Admin: 02/25/20 21:41 Dose: 12.5 mg Documented by: Cinacalcet (Sensipar -) 30 mg PO DAILY [facility] Last Admin: 02/25/20 10:14 Dose: 30 mg Documented by: Gabapentin (Neurontin -) 100 mg PO DAILY [facility] Last Admin: 02/25/20 10:13 Dose: 100 mg Documented by: Hydralazine HCl (Apresoline -) 25 mg PO BID [facility] Last Admin: 02/25/20 21:42 Dose: 25 mg Documented by: Sodium Chloride (Normal Saline -) 250 mls @ 3,000 mls/hr IV PRN PRN PRN Reason: Hypotension during Dialysis Stop: 02/25/20 10:55 Sodium Chloride (Normal Saline -) 250 mls @ 3,000 mls/hr IV PRN PRN PRN Reason: Hypotension during Dialysis Stop: 02/26/20 12:59 Morphine Sulfate (Morphine Sulfate) 2 mg IVPUSH Q6H PRN PRN Reason: PAIN LEVEL 7 - 10 Last Admin: 02/25/20 20:03 Dose: 2 mg Documented by: Rosuvastatin Calcium (Crestor -) 5 mg PO HS [facility] Last Admin: 02/25/20 21:42 Dose: 5 mg Documented by: Sevelamer Carbonate (Renvela -) 1,600 mg PO TIDCM [facility] Last Admin: 02/26/20 08:28 Dose: Not Given Documented by: Tamsulosin HCl (Flomax -) 0.4 mg PO DAILY@0830 [facility] Last Admin: 02/25/20 10:13 Dose: 0.4 mg Documented by: - Objective Vital Signs: Vital Signs Temperature 98.2 F 02/26/20 07:45 Pulse Rate 72 02/26/20 08:30 Respiratory Rate 18 02/26/20 09:00 Blood Pressure 160/84 02/26/20 08:30 O2 Sat by Pulse Oximetry (%) 94 L 02/26/20 09:00 Constitutional: Yes: No Distress, Calm, Thin Neck: Yes: Supple Cardiovascular: Yes: Regular Rate and Rhythm Respiratory: Yes: Regular, CTA Bilaterally Gastrointestinal: Yes: Soft, Hypoactive Bowel Sounds Extremities: Yes: External Rotation, Shortened Edema: No Labs: CBC, BMP 02/26/20 06:22 02/26/20 06:22 INR, PTT INR 1.08 (0.83-1.09) 02/23/20 12:35 - ....Imaging EKG: Report Reviewed (Tele: NSR) Assessment/Plan Problem List - Problems (1) HTN (hypertension) Code(s): I10 - ESSENTIAL (PRIMARY) HYPERTENSION (2) Aortic valve stenosis Code(s): I35.0 - NONRHEUMATIC AORTIC (VALVE) STENOSIS (3) Closed displaced fracture of right femoral neck Code(s): S72.001A - FRACTURE OF UNSP PART OF NECK OF RIGHT FEMUR, INIT (4) Syncope Code(s): R55 - SYNCOPE AND COLLAPSE Qualifiers: Syncope type: unspecified Qualified Code(s): R55 - Syncope and collapse (5) End stage renal disease Code(s): N18.6 - END STAGE RENAL DISEASE (6) Kidney transplant failure Code(s): T86.12 - KIDNEY TRANSPLANT FAILURE (7) Preoperative cardiovascular examination Code(s): Z01.810 - ENCOUNTER FOR PREPROCEDURAL CARDIOVASCULAR EXAMINATION Assessment/Plan 02/24/2020 Echo: Normal biventricular size and fxn, mild pulm HTN RVSP 44 mmHg, mild MG 18 mmHg, AIDEE 1.5 cm^2, tr-mild AR, tr RI 1. Post fall with syncope resulting in right hip fracture 2. Heart murmur c/w aortic valve stenosis (suggest mild to moderate) 3. ? Regional wall motion abnormality with overall borderline LVEF suggesting CAD 4. HTN with improved control 5. Possible hypercholesterolemia 6. ESRD on HD and history of failed renal transplant 7. Fever PLAN: 1. Echocardiography reviewed. Reported mild , but visualization of the valve and Doppler reading including DI (dimensionless index) of 0.34 and mean gradient of 17 mmHg suggests mild to moderate. 2. Further cardiac work up may include pharmacologic nuclear stress test vs. Dobutamine stress echocardiography 3. In the interim, there is no absolute contraindication for hip surgery in view of absence of ischemic symptoms, decompensated congestive heart failure or malignant arrhythmia. Post op cardiac enzyme and telemetry monitoring 4. Continue Carvedilol 12.5 mg BID and uptitrate to 25 mg BID according to BP measurement 5. Continue Hydralazine 25 mg BID and uptitrate 6. Eventually consider ASA 81 mg QD once post-op hemostasis assured, analgesia as needed, DVT prophylaxis 7. Lipid panel reviewed, continue Crestor 5 qd 8. F/u C&S, observe off abx, HD per renal
[2020-02-26] MEDS ORDERED: PT OWN MED DRAWER 7, Y5N ONE (10:27)
[2020-02-26] MEDS: ALLOPURINOL 100 MG TABLET (FP) PO SCH (12:10)
--- NOTE | 2020-02-26 15:26 | PN ---
Progress Note (short form) - Note Progress Note: alert no complaints s/p HD no further fevers cultures negative Vital Signs Period Temp Pulse Resp BP Sys/Ledesma Pulse Ox Last 24 Hr 97.9 F-98.3 F 60-85 18-20 127-161/52-99 87-94 cor-rrr llungs clear abd soft,nt ext no edema CBC, BMP 02/26/20 06:22 02/26/20 06:22 Microbiology 02/25/20 05:55 Blood - Peripheral Venous Blood Culture - Preliminary NO GROWTH OBTAINED AFTER 24 HOURS, INCUBATION TO CONTINUE FOR 4 DAYS. 02/25/20 05:55 Blood - Peripheral Venous Blood Culture - Preliminary NO GROWTH OBTAINED AFTER 24 HOURS, INCUBATION TO CONTINUE FOR 4 DAYS. a/p hip fracture fevers resolved, cultures negative esrd- s/p hd no ID objection to proceeding with surgery
--- NOTE | 2020-02-26 15:28 | PN ---
Teaching Attending Note Name of Resident: Chao Gonzalez ATTENDING PHYSICIAN STATEMENT I saw and evaluated the patient. I reviewed the resident's note and discussed the case with the resident. I agree with the resident's findings and plan as documented. SUBJECTIVE: Feels mildly nauseous on dialysis, ongoing RLE/hip pain. No headache/visual disturbance/limb numbness. OR cancelled yesterday due to fecers, since resolved. OBJECTIVE: Febrile to 100.8 yesterday, afebrile overnight, Hemodynamically stable. SpO2 94% RA. On HD via RUE AV Fistula. AAO x 3 today. Last Vital Signs Temp Pulse Resp BP Pulse Ox 98.2 F 60 18 127/99 94 % RA 02/26/20 07:45 02/26/20 12:00 02/26/20 12:00 02/26/20 12:00 02/26/20 09:00 Heart - S1, S2, SM Lungs - mildly reduced air entry at bases Abdomen - Soft, non-tender. Bowel Sounds normal. Extremities - RLE shortened/externally rotated. Reduced ROM due to pain at hip; LUE AV fistula. Neuro - AAO x 3. Tone/Power normal (unable to evaluate RLE due to pain) Laboratory Results - last 24 hr 02/24/20 02/26/20 02/26/20 12:00 06:22 06:22 WBC 6.0 RBC 3.73 L Hgb 10.5 L Hct 31.5 L MCV 84.4 MCH 28.1 MCHC 33.3 RDW 15.4 Plt Count 96 L MPV 7.7 Absolute Neuts (auto) 4.2 Neutrophils % 71.3 Lymphocytes % 12.9 Monocytes % 8.0 Eosinophils % 7.1 H D Basophils % 0.7 Nucleated RBC % 0 Sodium 135 L Potassium 4.5 Chloride 96 L Carbon Dioxide 27 Anion Gap 12 BUN 60.3 H Creatinine 12.0 H* Est GFR (CKD-EPI)AfAm 4.10 Est GFR (CKD-EPI)NonAf 3.53 Random Glucose 70 L Calcium 8.4 L Phosphorus 6.7 H Magnesium 2.5 H Total Bilirubin 0.6 AST 11 L ALT 10 L Alkaline Phosphatase 83 Total Protein 6.2 L Albumin 2.7 L Hep A IgM Ab Confirm Negative Hepatitis A Ab Total Negative Hep Bs Antigen Negative Hep Bs Antibody Non reactive Hep B Core Total Ab Negative Hep B Core IgM Ab Negative Hepatitis Be Antibody Negative Hepatitis Be Antigen Negative Current Medications Generic Name Dose Route Start Last Admin Trade Name Freq PRN Reason Stop Dose Admin Acetaminophen 650 mg 02/23/20 21:52 02/25/20 00:52 Tylenol - PO 650 mg Q6H PRN Administration PAIN LEVEL 6-10 Allopurinol 100 mg 02/25/20 10:00 02/26/20 12:10 Zyloprim - PO Not Given DAILY [facility] Carvedilol 12.5 mg 02/24/20 12:30 02/26/20 10:00 Coreg - PO Not Given BID [facility] Cinacalcet 30 mg 02/25/20 10:00 02/26/20 10:00 Sensipar - PO Not Given DAILY [facility] Gabapentin 100 mg 02/24/20 14:45 02/26/20 10:00 Neurontin - PO Not Given DAILY [facility] Hydralazine HCl 25 mg 02/24/20 12:30 02/26/20 10:00 Apresoline - PO Not Given BID [facility] Sodium Chloride 250 mls @ 3,000 mls/hr 02/24/20 10:55 Normal Saline - IV 02/25/20 10:55 PRN PRN Hypotension during Dialysis Sodium Chloride 250 mls @ 3,000 mls/hr 02/25/20 12:59 Normal Saline - IV 02/26/20 12:59 PRN PRN Hypotension during Dialysis Morphine Sulfate 2 mg 02/23/20 21:52 02/25/20 20:03 Morphine Sulfate IVPUSH 2 mg Q6H PRN Administration PAIN LEVEL 7 - 10 Rosuvastatin Calcium 5 mg 02/25/20 22:00 02/25/20 21:42 Crestor - PO 5 mg HS [facility] Administration Sevelamer Carbonate 1,600 mg 02/24/20 08:00 02/26/20 10:00 Renvela - PO Not Given TIDCM [facility] Tamsulosin HCl 0.4 mg 02/24/20 14:45 02/26/20 10:00 Flomax - PO Not Given DAILY@0830 [facility] Home Medications Medication Instructions Recorded Tamsulosin HCl [Flomax -] 0.4 mg PO DAILY 12/15/13 Gabapentin [Neurontin -] 100 mg PO DAILY #30 capsule 12/23/13 Sevelamer Carbonate [Renvela -] 800 mg PO TIDCM #0 tab 12/23/13 Allopurinol [Zyloprim -] 100 mg PO ASDIR 02/05/15 Carvedilol [Coreg -] 25 mg PO BID 02/05/15 Hydralazine HCl 25 mg PO BID 08/28/17 ASSESSMENT AND PLAN: 79 year old male with history of ESRD on HD MWF, s/p renal transplant with chronic rejection, HTN, OA, BPH, presents after a syncopal episode with fall and hip fracture. No preceding CP/palpitations. No HI. 1. Acute R femoral neck Fracture Evaluated by Ortho - ORIF postponed again yesterday due to fever, now resolved with negative Blood Cx. Recommend post-op DVT Px, early mobilization, incentive spirometry Patient evaluated by Cardio and risk stratified. 2. Syncope, etiology unclear. CT Head - no acute findings, chronic microvascular ischemic changes. Echo - normal EF, mild pul HTN, mild to mod Trop I neg x 2. ECG - new RBBB Cardio eval, cleared for surgery - for eventual ischemic work-up and follow up for . Carotid Duplex - no hemodnamically significant stenosis. No telemonitoring events Cardio follow up as out-patient 3. Fever, etiology unclear ?sec to acute fracture - appears to have resolved CXR - cardiomegaly, mild congestion, no consolidation Blood Cx x 2 negative No empiric Abx currently. 4. Normocytic Anemia, appears chronic, likely sec to ESRD. No evidence of acute blood loss although patient reports history of dark stools ?melena/diarrhea FOBT requested. Ferritin 1784/Iron sat 13%/B12 - 365/Folate 26 5. ESRD s/p failed renal transplant, on HD vis RUE AVF Nephrology following - HD today Continue Sensipar and Renvela. 6. HTN - uncontrolled. Resumed on Hydralazine and Coreg 7. BPH - resumed on Tamsulosin. 8. Mild Pituitary enlargement, incidental finding on CT imaging - for Endocrinology referral as out-patient. DVT Px - lali-operative DVT Px as per Ortho.
--- NOTE | 2020-02-26 16:03 | PN ---
Physical Exam: SUBJECTIVE: Patient seen and examined at bedside. No acute events overnight. OBJECTIVE: Vital Signs Period Temp Pulse Resp BP Sys/Ledesma Pulse Ox Last 24 Hr 97.9 F-98.3 F 60-87 18-20 127-161/52-99 87-94 GENERAL: AAOx2, in no acute distress HEENT: NCAT, PERRLA, EOMI, sclera anicteric, conjunctiva clear, oropharynx clear w/o exudates. MMM. NECK: Normal ROM, supple, no lymphadenopathy, JVD, or masses LUNGS: CTABL no wheezes/ rhonchi/ rales. No increased work of breathing. HEART: RRR, normal S1 S2, systolic murmer at L lower sternal border, peripheral pulses 2+ and equal b/l ABDOMEN: Soft, NTND, + BS. No guarding or rebound. No hepatomegaly or splenomegaly. MSK: ROM not assessed due to pain; EXTREMITIES: R leg shortened and abducted. No peripheral edema. No clubbing or cyanosis. NEUROLOGICAL: CN II-XII intact. SKIN: Warm, Dry, normal turgor, no rashes or lesions noted; decreased turgor Laboratory Results - last 24 hr CBC, BMP 02/26/20 06:22 02/26/20 06:22 02/24/20 02/26/20 02/26/20 12:00 06:22 06:22 WBC 6.0 RBC 3.73 L Hgb 10.5 L Hct 31.5 L MCV 84.4 MCH 28.1 MCHC 33.3 RDW 15.4 Plt Count 96 L MPV 7.7 Absolute Neuts (auto) 4.2 Neutrophils % 71.3 Lymphocytes % 12.9 Monocytes % 8.0 Eosinophils % 7.1 H D Basophils % 0.7 Nucleated RBC % 0 Sodium 135 L Potassium 4.5 Chloride 96 L Carbon Dioxide 27 Anion Gap 12 BUN 60.3 H Creatinine 12.0 H* Est GFR (CKD-EPI)AfAm 4.10 Est GFR (CKD-EPI)NonAf 3.53 Random Glucose 70 L Calcium 8.4 L Phosphorus 6.7 H Magnesium 2.5 H Total Bilirubin 0.6 AST 11 L ALT 10 L Alkaline Phosphatase 83 Total Protein 6.2 L Albumin 2.7 L Hep A IgM Ab Confirm Negative Hepatitis A Ab Total Negative Hep Bs Antigen Negative Hep Bs Antibody Non reactive Hep B Core Total Ab Negative Hep B Core IgM Ab Negative Hepatitis Be Antibody Negative Hepatitis Be Antigen Negative Active Medications Generic Name Dose Route Start Last Admin Trade Name Freq PRN Reason Stop Dose Admin Acetaminophen 650 mg 02/23/20 21:52 02/25/20 00:52 Tylenol - PO 650 mg Q6H PRN Administration PAIN LEVEL 6-10 Allopurinol 100 mg 02/25/20 10:00 02/26/20 12:10 Zyloprim - PO Not Given DAILY [facility] Carvedilol 12.5 mg 02/24/20 12:30 02/26/20 10:00 Coreg - PO Not Given BID [facility] Cinacalcet 30 mg 02/25/20 10:00 02/26/20 10:00 Sensipar - PO Not Given DAILY [facility] Gabapentin 100 mg 02/24/20 14:45 02/26/20 10:00 Neurontin - PO Not Given DAILY [facility] Hydralazine HCl 25 mg 02/24/20 12:30 02/26/20 10:00 Apresoline - PO Not Given BID [facility] Sodium Chloride 250 mls @ 3,000 mls/hr 02/24/20 10:55 Normal Saline - IV 02/25/20 10:55 PRN PRN Hypotension during Dialysis Sodium Chloride 250 mls @ 3,000 mls/hr 02/25/20 12:59 Normal Saline - IV 02/26/20 12:59 PRN PRN Hypotension during Dialysis Morphine Sulfate 2 mg 02/23/20 21:52 02/25/20 20:03 Morphine Sulfate IVPUSH 2 mg Q6H PRN Administration PAIN LEVEL 7 - 10 Rosuvastatin Calcium 5 mg 02/25/20 22:00 02/25/20 21:42 Crestor - PO 5 mg HS [facility] Administration Sevelamer Carbonate 1,600 mg 02/24/20 08:00 02/26/20 10:00 Renvela - PO Not Given TIDCM [facility] Tamsulosin HCl 0.4 mg 02/24/20 14:45 02/26/20 10:00 Flomax - PO Not Given DAILY@0830 [facility] ASSESSMENT/PLAN: 79 y/o M with PMX of ESRD on HD (MWF), s/p renal transplant (chronic rejection), HTN, OA, BPH, presents after syncope with fall and hip fracture. Admitted for syncope with fall and hip fracture. #Acute R femoral neck Fracture -X-Ray and CT consistent with R femoral neck fracture -Ortho consult: ORIF today at 7 PM -early mobilization post op with PT on board -Cardio cleared pt for procedure -renal cleared pt for procedure; pre op dialysis today done with 3.5L UF #Fever -Tmax: 102 -CXR- cardiomegaly with suggestion of mild pulmonary venous congestion -blood cultures pending; f/u results -urine cultures pending; f/u results #Syncope -etiology unclear -ECG - new RBBB -CT Head -negative for acute pathology -Echo - normal EF, mild pulmonary HTN, mild to moderate -Trops neg x 2 -Cardio consult: pt needs stress test and follow up for . -Carotid Duplex: no evidence of high-grade carotid artery stenosis -monitor in tele #Normocytic Anemia -FOBT ordered -f/u iron studies -B12 and folate wnl #ESRD -receiving HD via AVF on RUE -HD done today with 3.5L UF -c/w Sensipar and Renvela -nephro consult: cleared for procedure as per Dr. Alvarado #HTN -uncontrolled -home med Hydralazine restarted -home med Coreg restarted at 12.5 mg and titrate up to 25 mg as per Cardio #BPH -home med Tamsulosin restarted #Mild Pituitary enlargement - incidental finding on CT imaging -Endocrine referral as out-patient after d/c #FEN -no standing fluids -monitor lytes; replete PRN -NPO for OR today #Ppx DVT: held until after procedure dispo: continue to monitor in tele Visit type - Emergency Visit Emergency Visit: No - New Patient This patient is new to me today: No - Critical Care Critical Care patient: No - Discharge Referral Referred to [facility] Med [facility] No - Medication Review Med list reviewed for High Risk Meds patients 65 and older: Yes ATTENDING PHYSICIAN STATEMENT I saw and evaluated the patient. I reviewed the resident's note and discussed the case with the resident. I agree with the resident's findings and plan as documented. SUBJECTIVE: OBJECTIVE: ASSESSMENT AND PLAN:
--- NOTE | 2020-02-26 16:10 | PN ---
Progress Note, Physician History of Present Illness: Seen and examined at the bedside awake and alert offers no acute complaints no sob, cp, fever, chills, N/V/D tolerated dialysis with 3.5L UF possibly going to OR today - Current Medication List Current Medications: Active Medications Acetaminophen (Tylenol -) 650 mg PO Q6H PRN PRN Reason: PAIN LEVEL 6-10 Last Admin: 02/25/20 00:52 Dose: 650 mg Documented by: Allopurinol (Zyloprim -) 100 mg PO DAILY [facility] Last Admin: 02/26/20 12:10 Dose: Not Given Documented by: Carvedilol (Coreg -) 12.5 mg PO BID [facility] Last Admin: 02/26/20 10:00 Dose: Not Given Documented by: Cinacalcet (Sensipar -) 30 mg PO DAILY [facility] Last Admin: 02/26/20 10:00 Dose: Not Given Documented by: Gabapentin (Neurontin -) 100 mg PO DAILY [facility] Last Admin: 02/26/20 10:00 Dose: Not Given Documented by: Hydralazine HCl (Apresoline -) 25 mg PO BID [facility] Last Admin: 02/26/20 10:00 Dose: Not Given Documented by: Sodium Chloride (Normal Saline -) 250 mls @ 3,000 mls/hr IV PRN PRN PRN Reason: Hypotension during Dialysis Stop: 02/25/20 10:55 Sodium Chloride (Normal Saline -) 250 mls @ 3,000 mls/hr IV PRN PRN PRN Reason: Hypotension during Dialysis Stop: 02/26/20 12:59 Morphine Sulfate (Morphine Sulfate) 2 mg IVPUSH Q6H PRN PRN Reason: PAIN LEVEL 7 - 10 Last Admin: 02/25/20 20:03 Dose: 2 mg Documented by: Rosuvastatin Calcium (Crestor -) 5 mg PO HS [facility] Last Admin: 02/25/20 21:42 Dose: 5 mg Documented by: Sevelamer Carbonate (Renvela -) 1,600 mg PO TIDCM [facility] Last Admin: 02/26/20 10:00 Dose: Not Given Documented by: Tamsulosin HCl (Flomax -) 0.4 mg PO DAILY@0830 [facility] Last Admin: 02/26/20 10:00 Dose: Not Given Documented by: - Objective Vital Signs: Vital Signs Temperature 98.2 F 02/26/20 14:05 Pulse Rate 87 02/26/20 14:05 Respiratory Rate 20 02/26/20 14:05 Blood Pressure 141/83 02/26/20 14:05 O2 Sat by Pulse Oximetry (%) 94 L 02/26/20 09:00 Constitutional: Yes: No Distress HENT: Yes: Atraumatic Neck: Yes: Supple Cardiovascular: Yes: Regular Rate and Rhythm. No: Murmur, Rub Respiratory: Yes: Regular Gastrointestinal: Yes: Soft Edema: No Labs: CBC, BMP 02/26/20 06:22 02/26/20 06:22 INR, PTT INR 1.08 (0.83-1.09) 02/23/20 12:35 Assessment/Plan 79 year old male with a past medical history of ESRD on HD (M WF), hypertension, renal osteodystrophy, and CKD related anemia who presented s/p syncope/fall with right femoral fracture. 1. ESRD on HD 2. Femoral fracture 3. Syncope/Fall 4. Hypertension 5. Renal Osteodystrophy/Secondary hyperparathyroidism 6. Anemia 7. Diarrhea 8. Fever Tolerated dialysis with 3.5L UF. UF goal increased due to concern over pulmonary congestion/hypoxia. Renal diet, 1.2L daily fluid restriction. Pain control w/o NSAIDs will continue 3x weekly dialysis while inpatient. ORIF as per ortho There is no renal contraindication to planned orthopedic procedure Continue coreg and hydrlazine Cardiology work up for syncope CT head negative Carotid Doppler negative ECHO shows preserved LV function Iron saturation low but ferritin is elevated, Hgb > 10. No RENU needed. F/u cultures in reference to fever. CXR w/o evidence of pneumonia. Thank you Chauncey Alvarado DO
[2020-02-26] MEDS: ACETAMINOPHEN 325 MG TABLET (FP) PO PRN (18:29)
[2020-02-26] MEDS: ROSUVASTATIN CA 5 MG TABLET (FP) PO SCH (21:33)
--- NOTE | 2020-02-26 22:16 | PN ---
Progress Note (short form) - Note Progress Note: Pt lying in bed, moderate discomfort was scheduled for surgery but ate food brought in from outside at 5pm Last Vital Signs Temp Pulse Resp BP Pulse Ox 98.5 F 86 18 134/63 93 L 02/26/20 21:27 02/26/20 21:27 02/26/20 21:27 02/26/20 21:27 02/26/20 21:27 RLE short and ER knee nontender mild R calf tenderness no swelling NVID Abnormal Lab Results 02/26/20 02/26/20 06:22 06:22 RBC 3.73 L Hgb 10.5 L Hct 31.5 L Plt Count 96 L Eosinophils % 7.1 H D Sodium 135 L Chloride 96 L BUN 60.3 H Creatinine 12.0 H* Random Glucose 70 L Calcium 8.4 L Phosphorus 6.7 H Magnesium 2.5 H AST 11 L ALT 10 L Total Protein 6.2 L Albumin 2.7 L A: R displaced femoral neck fracture P: will again plan for surgery tomorrow evening will obtain duplex to r/o DVT reviewed with family that his risk level is elevated but that all measures have been done to mitigate risk Problem List - Problems (1) Displaced fracture of base of neck of right femur, initial encounter for closed fracture Code(s): S72.041A - DISP FX OF BASE OF NECK OF RIGHT FEMUR, INIT FOR CLOS FX
[2020-02-27 07:37] LABS: ALBUMIN 2.9 g/dl (3.4-5.0); BLOOD UREA NITROGEN 54.7 mg/dL (7-18); POTASSIUM 4.2 mmol/L (3.5-5.1)
[2020-02-27 07:43] LABS: BILIRUBIN,TOTAL 0.6 mg/dL (0.2-1); CALCIUM 8.7 mg/dL (8.5-10.1); MAGNESIUM 2.2 mg/dL (1.8-2.4); PHOSPHOROUS 7.4 mg/dL (2.5-4.9); TOT PROT 6.8 g/dl (6.4-8.2)
[2020-02-27 07:47] LABS: BASO % 0.6 % (0-2.0); EOS % 6.6 % (0-4.5); HEMATOCRIT 33.8 % (35.4-49); HEMOGLOBIN 11.4 GM/dL (11.7-16.9); LYMPH % 13.9 % (8-40); MCH 28.5 pg (25.7-33.7); MCHC 33.6 g/dl (32.0-35.9); MEAN CELL VOLUME 84.7 fl (80-96); MEAN PLT VOLUME 7.6 fl (7.5-11.1); MONO % 9.3 % (3.8-10.2); NEUT % 69.6 % (42.8-82.8); PLATELET COUNT 105 K/MM3 (134-434); RDW 15.2 % (11.9-15.9); WHITE BLOOD COUNT 5.5 K/mm3 (4.0-10.0)
[2020-02-27] MEDS: SEVELAMER CARBONATE 800 MG TAB (FP) PO SCH ×3 (08:13→18:27)
[2020-02-27 08:21] LABS: CREATININE 9.8 mg/dL (0.55-1.3)
--- NOTE | 2020-02-27 08:49 | PN ---
Progress Note, Physician History of Present Illness: Right hip discomfort adequately controlled, nausea w/o emesis resolved, denies chest pain or dyspnea, ORIF hip planned for tonight. - Current Medication List Current Medications: Active Medications Acetaminophen (Tylenol -) 650 mg PO Q6H PRN PRN Reason: PAIN LEVEL 6-10 Last Admin: 02/26/20 18:29 Dose: 650 mg Documented by: Allopurinol (Zyloprim -) 100 mg PO DAILY [facility] Last Admin: 02/26/20 12:10 Dose: Not Given Documented by: Carvedilol (Coreg -) 12.5 mg PO BID [facility] Last Admin: 02/26/20 21:33 Dose: 12.5 mg Documented by: Cinacalcet (Sensipar -) 30 mg PO DAILY [facility] Last Admin: 02/26/20 10:00 Dose: Not Given Documented by: Gabapentin (Neurontin -) 100 mg PO DAILY [facility] Last Admin: 02/26/20 10:00 Dose: Not Given Documented by: Hydralazine HCl (Apresoline -) 25 mg PO BID [facility] Last Admin: 02/26/20 21:33 Dose: 25 mg Documented by: Sodium Chloride (Normal Saline -) 250 mls @ 3,000 mls/hr IV PRN PRN PRN Reason: Hypotension during Dialysis Stop: 02/25/20 10:55 Sodium Chloride (Normal Saline -) 250 mls @ 3,000 mls/hr IV PRN PRN PRN Reason: Hypotension during Dialysis Stop: 02/26/20 12:59 Rosuvastatin Calcium (Crestor -) 5 mg PO HS [facility] Last Admin: 02/26/20 21:33 Dose: 5 mg Documented by: Sevelamer Carbonate (Renvela -) 1,600 mg PO TIDCM [facility] Last Admin: 02/27/20 08:13 Dose: Not Given Documented by: Tamsulosin HCl (Flomax -) 0.4 mg PO DAILY@0830 [facility] Last Admin: 02/26/20 10:00 Dose: Not Given Documented by: - Objective Vital Signs: Vital Signs Temperature 98.4 F 02/27/20 05:36 Pulse Rate 78 02/27/20 05:36 Respiratory Rate 20 02/27/20 05:36 Blood Pressure 136/73 02/27/20 05:36 O2 Sat by Pulse Oximetry (%) 93 L 02/26/20 21:27 Constitutional: Yes: No Distress, Calm, Thin Neck: Yes: Supple Cardiovascular: Yes: Regular Rate and Rhythm, Murmur (2/6 SM) Respiratory: Yes: Regular, CTA Bilaterally Gastrointestinal: Yes: Soft, Hypoactive Bowel Sounds Extremities: Yes: External Rotation, Shortened Edema: No Labs: CBC, BMP 02/27/20 05:40 02/27/20 05:40 INR, PTT INR 1.08 (0.83-1.09) 02/23/20 12:35 - ....Imaging Ultrasound: Report Reviewed (02/26/2020 [facility] US: neg DVT bilaterally) Assessment/Plan Problem List - Problems (1) HTN (hypertension) Code(s): I10 - ESSENTIAL (PRIMARY) HYPERTENSION (2) Aortic valve stenosis Code(s): I35.0 - NONRHEUMATIC AORTIC (VALVE) STENOSIS (3) Closed displaced fracture of right femoral neck Code(s): S72.001A - FRACTURE OF UNSP PART OF NECK OF RIGHT FEMUR, INIT (4) Syncope Code(s): R55 - SYNCOPE AND COLLAPSE Qualifiers: Syncope type: unspecified Qualified Code(s): R55 - Syncope and collapse (5) End stage renal disease Code(s): N18.6 - END STAGE RENAL DISEASE (6) Kidney transplant failure Code(s): T86.12 - KIDNEY TRANSPLANT FAILURE (7) Preoperative cardiovascular examination Code(s): Z01.810 - ENCOUNTER FOR PREPROCEDURAL CARDIOVASCULAR EXAMINATION Assessment/Plan 02/24/2020 Echo: Normal biventricular size and fxn, mild pulm HTN RVSP 44 mmHg, mild MG 18 mmHg, AIDEE 1.5 cm^2, tr-mild [place], tr [place] 1. Post fall with syncope resulting in right hip fracture 2. Heart murmur c/w aortic valve stenosis (suggest mild to moderate) 3. ? Regional wall motion abnormality with overall borderline LVEF suggesting C AD 4. HTN with improved control 5. Hypercholesterolemia 6. ESRD on HD and history of failed renal transplant 7. Fever resolved PLAN: 1. Echocardiography reviewed. Reported mild , but visualization of the valve and Doppler reading including DI (dimensionless index) of 0.34 and mean gradient of 17 mmHg suggests mild to moderate. 2. Further cardiac work up may include pharmacologic nuclear stress test vs. Dobutamine stress echocardiography 3. In the interim, there is no absolute contraindication for hip surgery in view of absence of ischemic symptoms, decompensated congestive heart failure or malignant arrhythmia. Post op cardiac enzyme and telemetry monitoring 4. Continue Carvedilol 12.5 mg BID and uptitrate to 25 mg BID according to BP measurement 5. Continue Hydralazine 25 mg BID and uptitrate 6. Eventually consider ASA 81 mg QD once post-op hemostasis assured, analgesia as needed, DVT prophylaxis 7. Lipid panel reviewed, continue Crestor 5 qd 8. C&S NGTD, observe off abx, HD per renal
[2020-02-27] MEDS: CARVEDILOL 12.5 MG TABLET (FP) PO SCH ×2 (09:35→21:40)
[2020-02-27] MEDS: TAMSULOSIN HCL 0.4 MG CAP PO SCH (09:35)
[2020-02-27] MEDS: hydrALAZINE HCL 25 MG TABLET (FP) PO SCH ×2 (10:00→21:40)
[2020-02-27] MEDS: ALLOPURINOL 100 MG TABLET (FP) PO SCH (10:00)
[2020-02-27] MEDS: GABAPENTIN 100 MG CAPSULE PO SCH (10:00)
[2020-02-27] MEDS: CINACALCET HCL 30 MG TAB (FP) PO SCH (10:00)
--- NOTE | 2020-02-27 12:49 | PN ---
Physical Exam: SUBJECTIVE: Patient seen and examined at bedside. No acute events reported overnight. NPO today for OR this afternoon. OBJECTIVE: Vital Signs Period Temp Pulse Resp BP Sys/Ledesma Pulse Ox Last 24 Hr 98 F-99.0 F 77-89 18-20 130-144/63-83 93-94 GENERAL: AAOx2, in no acute distress HEENT: NCAT, PERRLA, EOMI, sclera anicteric, conjunctiva clear, oropharynx clear w/o exudates. MMM. NECK: Normal ROM, supple, no lymphadenopathy, JVD, or masses LUNGS: CTABL no wheezes/ rhonchi/ rales. No increased work of breathing. HEART: RRR, normal S1 S2, systolic murmer at L lower sternal border, peripheral pulses 2+ and equal b/l ABDOMEN: Soft, NTND, + BS. No guarding or rebound. No hepatomegaly or splenomegaly. MSK: ROM not assessed due to pain; EXTREMITIES: R leg shortened and abducted. No peripheral edema. No clubbing or cyanosis. NEUROLOGICAL: CN II-XII intact. SKIN: Warm, Dry, normal turgor, no rashes or lesions noted; decreased turgor Laboratory Results - last 24 hr CBC, BMP 02/27/20 05:40 02/27/20 05:40 02/27/20 02/27/20 05:40 05:40 WBC 5.5 RBC 4.00 Hgb 11.4 L Hct 33.8 L MCV 84.7 MCH 28.5 MCHC 33.6 RDW 15.2 Plt Count 105 L MPV 7.6 Absolute Neuts (auto) 3.9 Neutrophils % 69.6 Lymphocytes % 13.9 Monocytes % 9.3 Eosinophils % 6.6 H Basophils % 0.6 Nucleated RBC % 0 Sodium 136 Potassium 4.2 Chloride 95 L Carbon Dioxide 30 Anion Gap 11 BUN 54.7 H Creatinine 9.8 H* Est GFR (CKD-EPI)AfAm 5.23 Est GFR (CKD-EPI)NonAf 4.51 Random Glucose 92 Calcium 8.7 Phosphorus 7.4 H Magnesium 2.2 Total Bilirubin 0.6 AST 8 L ALT 10 L Alkaline Phosphatase 89 Total Protein 6.8 Albumin 2.9 L Active Medications Generic Name Dose Route Start Last Admin Trade Name Freq PRN Reason Stop Dose Admin Acetaminophen 650 mg 02/23/20 21:52 02/26/20 18:29 Tylenol - PO 650 mg Q6H PRN Administration PAIN LEVEL 6-10 Allopurinol 100 mg 02/25/20 10:00 02/26/20 12:10 Zyloprim - PO Not Given DAILY [facility] Carvedilol 12.5 mg 02/24/20 12:30 02/27/20 09:35 Coreg - PO 12.5 mg BID [facility] Administration Cinacalcet 30 mg 02/25/20 10:00 02/26/20 10:00 Sensipar - PO Not Given DAILY [facility] Gabapentin 100 mg 02/24/20 14:45 02/26/20 10:00 Neurontin - PO Not Given DAILY [facility] Hydralazine HCl 25 mg 02/24/20 12:30 02/26/20 21:33 Apresoline - PO 25 mg BID [facility] Administration Sodium Chloride 250 mls @ 3,000 mls/hr 02/24/20 10:55 Normal Saline - IV 02/25/20 10:55 PRN PRN Hypotension during Dialysis Sodium Chloride 250 mls @ 3,000 mls/hr 02/25/20 12:59 Normal Saline - IV 02/26/20 12:59 PRN PRN Hypotension during Dialysis Rosuvastatin Calcium 5 mg 02/25/20 22:00 02/26/20 21:33 Crestor - PO 5 mg HS [facility] Administration Sevelamer Carbonate 1,600 mg 02/24/20 08:00 02/27/20 11:56 Renvela - PO Not Given TIDCM [facility] Tamsulosin HCl 0.4 mg 02/24/20 14:45 02/27/20 09:35 Flomax - PO 0.4 mg DAILY@0830 [facility] Administration ASSESSMENT/PLAN: 79 y/o M with PMX of ESRD on HD (MWF), s/p renal transplant (chronic rejection), HTN, OA, BPH, presents after syncope with fall and hip fracture. Admitted for syncope with fall and hip fracture. #Acute R femoral neck Fracture -X-Ray and CT consistent with R femoral neck fracture -Ortho consult: ORIF today -early mobilization post op with PT on board -Cardio cleared pt for procedure -renal cleared pt for procedure #Fever -Tmax: 102 -CXR- cardiomegaly with suggestion of mild pulmonary venous congestion -blood cultures preliminary results: negative #Syncope -etiology unclear -ECG - new RBBB -CT Head -negative for acute pathology -Echo - normal EF, mild pulmonary HTN, mild to moderate -Trops neg x 2 -Cardio consult: pt needs stress test and follow up for . -Carotid Duplex: no evidence of high-grade carotid artery stenosis -monitor in tele #Normocytic Anemia -FOBT ordered -B12 and folate wnl #ESRD -receiving HD via AVF on RUE -HD tomorrow -c/w Sensipar and Renvela -nephro consult: cleared for procedure as per Dr. Alvarado #HTN -uncontrolled -c/w home med Hydralazine -home med Coreg restarted at 12.5 mg and titrate up to 25 mg as per Cardio #BPH -c/w home med Tamsulosin #Mild Pituitary enlargement - incidental finding on CT imaging -Endocrine referral as out-patient after d/c #FEN -no standing fluids -monitor lytes; replete PRN -NPO for OR today #Ppx DVT: held until after procedure dispo: continue to monitor in tele Visit type - Emergency Visit Emergency Visit: No - New Patient This patient is new to me today: No - Critical Care Critical Care patient: No - Discharge Referral [facility]erred to [facility] Med P.C.: No - Medication Review Med list reviewed for High Risk Meds patients 65 and older: Yes ATTENDING PHYSICIAN STATEMENT I saw and evaluated the patient. I reviewed the resident's note and discussed the case with the resident. I agree with the resident's findings and plan as documented. SUBJECTIVE: OBJECTIVE: ASSESSMENT AND PLAN:
--- NOTE | 2020-02-27 14:40 | PN ---
Teaching Attending Note Name of Resident: Chao Gonzalez ATTENDING PHYSICIAN STATEMENT I saw and evaluated the patient. I reviewed the resident's note and discussed the case with the resident. I agree with the resident's findings and plan as documented. SUBJECTIVE: Feeling well, still complaints of ongoing RLE/hip pain. No headache/visual disturbance/limb numbness. OR cancelled yesterday as patient was inadvertently fed by his daughter. OBJECTIVE: Fever resolved, Hemodynamically stable. SpO2 94% RA. On HD via RUE AV Fistula. AAO x 3 today. Last Vital Signs Temp Pulse Resp BP Pulse Ox 98 F 77 20 125/79 94 L 02/27/20 14:08 02/27/20 14:08 02/27/20 14:08 02/27/20 14:08 02/27/20 09:00 Heart - S1, S2, SM Lungs - mildly reduced air entry at bases Abdomen - Soft, non-tender. Bowel Sounds normal. Extremities - RLE shortened/externally rotated. Reduced ROM due to pain at hip; LUE AV fistula. Neuro - AAO x 3. Tone/Power normal (unable to evaluate RLE due to pain) Laboratory Results - last 24 hr 02/27/20 02/27/20 05:40 05:40 WBC 5.5 RBC 4.00 Hgb 11.4 L Hct 33.8 L MCV 84.7 MCH 28.5 MCHC 33.6 RDW 15.2 Plt Count 105 L MPV 7.6 Absolute Neuts (auto) 3.9 Neutrophils % 69.6 Lymphocytes % 13.9 Monocytes % 9.3 Eosinophils % 6.6 H Basophils % 0.6 Nucleated RBC % 0 Sodium 136 Potassium 4.2 Chloride 95 L Carbon Dioxide 30 Anion Gap 11 BUN 54.7 H Creatinine 9.8 H* Est GFR (CKD-EPI)AfAm 5.23 Est GFR (CKD-EPI)NonAf 4.51 Random Glucose 92 Calcium 8.7 Phosphorus 7.4 H Magnesium 2.2 Total Bilirubin 0.6 AST 8 L ALT 10 L Alkaline Phosphatase 89 Total Protein 6.8 Albumin 2.9 L Current Medications Generic Name Dose Route Start Last Admin Trade Name Freq PRN Reason Stop Dose Admin Acetaminophen 650 mg 02/23/20 21:52 02/26/20 18:29 Tylenol - PO 650 mg Q6H PRN Administration PAIN LEVEL 6-10 Allopurinol 100 mg 02/25/20 10:00 02/26/20 12:10 Zyloprim - PO Not Given DAILY [facility] Carvedilol 12.5 mg 02/24/20 12:30 02/27/20 09:35 Coreg - PO 12.5 mg BID [facility] Administration Cinacalcet 30 mg 02/25/20 10:00 02/26/20 10:00 Sensipar - PO Not Given DAILY [facility] Gabapentin 100 mg 02/24/20 14:45 02/26/20 10:00 Neurontin - PO Not Given DAILY [facility] Hydralazine HCl 25 mg 02/24/20 12:30 02/26/20 21:33 Apresoline - PO 25 mg BID [facility] Administration Sodium Chloride 250 mls @ 3,000 mls/hr 02/24/20 10:55 Normal Saline - IV 02/25/20 10:55 PRN PRN Hypotension during Dialysis Sodium Chloride 250 mls @ 3,000 mls/hr 02/25/20 12:59 Normal Saline - IV 02/26/20 12:59 PRN PRN Hypotension during Dialysis Rosuvastatin Calcium 5 mg 02/25/20 22:00 02/26/20 21:33 Crestor - PO 5 mg HS [facility] Administration Sevelamer Carbonate 1,600 mg 02/24/20 08:00 02/27/20 11:56 Renvela - PO Not Given [facility] Tamsulosin HCl 0.4 mg 02/24/20 14:45 02/27/20 09:35 Flomax - PO 0.4 mg DAILY@0830 [facility] Administration Home Medications Medication Instructions Recorded Tamsulosin HCl [Flomax -] 0.4 mg PO DAILY 12/15/13 Gabapentin [Neurontin -] 100 mg PO DAILY #30 capsule 12/23/13 Sevelamer Carbonate [Renvela -] 800 mg PO TIDCM #0 tab 12/23/13 Allopurinol [Zyloprim -] 100 mg PO ASDIR 02/05/15 Carvedilol [Coreg -] 25 mg PO BID 02/05/15 Hydralazine HCl 25 mg PO BID 08/28/17 ASSESSMENT AND PLAN: 79 year old male with history of ESRD on HD MWF, s/p renal transplant with chronic rejection, HTN, HLD, OA, BPH, presents after a syncopal episode with fall and hip fracture. No preceding CP/palpitations. No HI. 1. Acute R femoral neck Fracture Evaluated by Ortho - ORIF postponed again yesterday as patient was inadvertently fed by his daughter Fever now resolved with negative Blood Cultures. Recommend post-op DVT Px, early mobilization, incentive spirometry Patient evaluated by Cardio and risk stratified. 2. Syncope, etiology unclear. CT Head - no acute findings, chronic microvascular ischemic changes. Echo - normal EF, mild pul HTN, mild to mod Trop I neg x 2. ECG - new RBBB Cardio eval, cleared for surgery - for eventual ischemic work-up and follow up for . Carotid Duplex - no hemodnamically significant stenosis. No telemonitoring events Cardio follow up as out-patient 3. Fever, etiology unclear ?sec to acute fracture - appears to have resolved CXR - cardiomegaly, mild congestion, no consolidation Blood Cx x 2 negative No empiric Abx currently - for lali-op abx as per Ortho 4. Normocytic Anemia, appears chronic, likely sec to ESRD. No evidence of acute blood loss although patient reports history of dark stools ?melena/diarrhea FOBT requested. Ferritin 1784/Iron sat 13%/B12 - 365/Folate 26 5. ESRD s/p failed renal transplant, on HD vis [facility] Nephrology following - s/p HD 02/25 Continue Sensipar and Renvela. 6. HTN - uncontrolled. Resumed on Hydralazine and Coreg 7. BPH - resumed on Tamsulosin. 8. HLD - continue Crestor. 9. Mild Pituitary enlargement, incidental finding on CT imaging - for Endocrinology referral as out-patient. DVT Px - lali-operative DVT Px as per Ortho.
[2020-02-27] MEDS ORDERED: SODIUM CHLORIDE 250 ML IV PRN (15:33)
[2020-02-27] MEDS ORDERED: EPINEPHrine/PF 1 MG/1 ML (1:1,000) AMPULE ONE (16:50)
[2020-02-27] MEDS ORDERED: PROPOFOL 20 ML ONE ×2 (16:55→18:06)
[2020-02-27] MEDS ORDERED: ceFAZolin SODIUM 1 GM VIAL ONE (17:14)
[2020-02-27] MEDS ORDERED: ceFAZolin SODIUM 1 GM VIAL IVPB ONE (17:58)
[2020-02-27] MEDS ORDERED: VANCOMYCIN 1,000 MG VIAL (RESTRICTED TO ID ONLY) ONE (18:02)
--- NOTE | 2020-02-27 19:49 | OP ---
Operative Note - Note: Operative Date: 02/27/20 Pre-Operative Diagnosis: R displaced femoral neck fracture Operation: R hip hemiarthroplasty Implants: swetha accolade cemented w 51mm monopolar head, +4mm neck, size 5 stem Post-Operative Diagnosis: Same as Pre-op Surgeon: Raimundo Bey Perianesthesia Manager: Hermila Jean Anesthesiologist/FIBER DESIGNER: Gabrielle Rueda Anesthesia: Spinal Estimated Blood Loss (mls): 150 Operative Report Dictated: Yes
[2020-02-27] MEDS ORDERED: ONDANSETRON 4 MG/2 ML VIAL IVPUSH PRN (19:53)
[2020-02-27] MEDS: ROSUVASTATIN CA 5 MG TABLET (FP) PO SCH (21:40)
[2020-02-28] MEDS: ACETAMINOPHEN 325 MG TABLET (FP) PO PRN ×3 (00:37→22:31)
[2020-02-28] MEDS: oxyCODONE HCL 5 MG TABLET PO PRN ×3 (00:42→22:28)
[2020-02-28] MEDS ORDERED: DEXTROSE 5%-WATER - 50 ML IVPB ONE ×2 (01:07→10:22)
[2020-02-28] MEDS ORDERED: ceFAZolin SODIUM 1 GM VIAL ONE ×2 (01:07→10:22)
[2020-02-28] MEDS: CEFAZOLIN 1 GM in DEXTROSE 5%-WATER - 50 ML IVPB SCH ×2 (01:14→10:25)
[2020-02-28 07:01] LABS: BASO % 0.7 % (0-2.0); EOS % 3.9 % (0-4.5); HEMATOCRIT 33.2 % (35.4-49); LYMPH % 11.4 % (8-40); MCH 28.6 pg (25.7-33.7); MCHC 33.1 g/dl (32.0-35.9); MEAN CELL VOLUME 86.2 fl (80-96); MONO % 8.9 % (3.8-10.2); NEUT % 75.1 % (42.8-82.8); PLATELET COUNT 116 K/MM3 (134-434); RBC 3.86 M/mm3 (4.00-5.60); RDW 15.2 % (11.9-15.9)
--- NOTE | 2020-02-28 07:27 | PN ---
Progress Note (short form) - Note Progress Note: Chief Complaint: Events noted, notes reviewed, POD#1 post right hip hem iarthroplasty, resting in bed complaining of incisional discomfort, denies any chest pain or dyspnea History of Present Illness: Seen and examined on telemetry. Events noted, notes reviewed, POD#1 post right hip hemiarthroplasty, resting in bed complaining of incisional discomfort, denies any chest pain or dyspnea - Current Medication List Current Medications Generic Name Dose Route Start Last Admin Trade Name Freq PRN Reason Stop Dose Admin Acetaminophen 325 mg 02/27/20 20:00 02/28/20 00:37 Tylenol - PO 325 mg Q6H PRN Administration PAIN LEVEL 6-10 Acetaminophen 650 mg 02/27/20 21:21 02/28/20 06:01 Tylenol - PO 650 mg Q6H PRN Administration PAIN LEVEL 6-10 Allopurinol 100 mg 02/28/20 10:00 Zyloprim - PO DAILY [facility] Carvedilol 12.5 mg 02/27/20 22:00 02/27/20 21:40 Coreg - PO 12.5 mg BID [facility] Administration Cinacalcet 30 mg 02/28/20 10:00 Sensipar - PO DAILY [facility] Enoxaparin Sodium 30 mg 02/28/20 10:00 Lovenox - SQ DAILY [facility] Fentanyl 25 mcg 02/27/20 19:53 Sublimaze Injection - IVPUSH [id number] PRN PAIN-PACU ORDER X 4 DOSES ONLY Gabapentin 100 mg 02/28/20 10:00 Neurontin - PO DAILY [facility] Hydralazine HCl 25 mg 02/27/20 22:00 02/27/20 21:40 Apresoline - PO 25 mg BID [facility] Administration Sodium Chloride 250 mls @ 3,000 mls/hr 02/27/20 21:21 Normal Saline - IV 02/28/20 15:33 PRN PRN Hypotension during Dialysis Cefazolin Sodium 1 gm/ 50 mls @ 100 mls/hr 02/28/20 02:00 02/28/20 01:14 Dextrose IVPB 02/28/20 10:29 100 mls/hr Q8H [facility] Administration Ondansetron HCl 4 mg 02/27/20 19:53 02/28/20 01:19 Zofran Injection IVPUSH 4 mg Q6H PRN Administration NAUSEA AND/OR VOMITING Oxycodone HCl 5 mg 02/27/20 20:00 02/28/20 00:42 Roxicodone - PO 5 mg Q6H PRN Administration PAIN LEVEL 6-10 Rosuvastatin Calcium 5 mg 02/27/20 22:00 02/27/20 21:40 Crestor - PO 5 mg HS [facility] Administration Sevelamer Carbonate 1,600 mg 02/28/20 08:00 Renvela - PO TIDCM [facility] Tamsulosin HCl 0.4 mg 02/28/20 08:30 Flomax - PO DAILY@0830 [facility] - Review of Systems Constitutional: denies: Chills, Fever Cardiovascular: As noted above Respiratory: denies: Cough or Sputum Production Gastrointestinal: denies: Abdominal Pain, Constipation, Melena, Nausea, Rectal Bleeding, Vomiting Genitourinary: denies: Dysuria, Hematuria Musculoskeletal: as noted above Neurological: denies: Dizziness, Syncope, Confusion, Headache, Numbness, Seizure, Unsteady Gait - Objective Vital Signs: Last Vital Signs Temp Pulse Resp BP Pulse Ox 98.5 F 69 20 138/70 90 L 02/28/20 05:00 02/28/20 05:00 02/28/20 05:00 02/28/20 05:00 02/27/20 21:00 Intake & Output 02/25/20 02/26/20 02/27/20 02/28/20 23:59 23:59 23:59 23:59 Intake Total 140 870 560 90 Output Total 62525 50 Balance 140 -85002 510 90 Neck: Supple Negative JVD Cardiovascular: S1 S2 Regular Rate and Rhythm No Murmurs Respiratory: Clear Bilaterally Gastrointestinal: Soft Benign Normal Bowel Sounds Ext: Negative Edema Labs: CBC, BMP 02/28/20 06:18 02/28/20 06:18 Hepatic Panel Total Bilirubin 0.6 mg/dL (0.2-1) 02/28/20 06:18 AST 16 U/L (15-37) 02/28/20 06:18 ALT 13 U/L (13-61) 02/28/20 06:18 Alkaline Phosphatase 81 U/L (45-117) 02/28/20 06:18 Albumin 2.9 g/dl (3.4-5.0) L 02/28/20 06:18 Hepatic Panel Total Bilirubin 0.6 mg/dL (0.2-1) 02/27/20 05:40 AST 8 U/L (15-37) L 02/27/20 05:40 ALT 10 U/L (13-61) L 02/27/20 05:40 Alkaline Phosphatase 89 U/L (45-117) 02/27/20 05:40 Albumin 2.9 g/dl (3.4-5.0) L 02/27/20 05:40 INR, PTT INR 1.08 (0.83-1.09) 02/23/20 12:35 Assessment/Plan ASSESSMENT: 1. Syncope with fall complicated by hip fracture POD#1 post right hip he miarthroplasty 2. CAD angina pectoris 3. Systolic/diastolic LV dysfunction with clinical class 0 NYHA classification LV failure 4. Aortic valve stenosis (suggest mild to moderate) 5. HTN 6. Hypercholesterolemia 7. ESRD on HD and history of failed renal transplant PLAN: 1. Continue Coreg therapy and titrate as needed and as tolerated 2. Recommend the addition of ACEI or ARB's unless it is absolutely contraindicated 3. Continue Hydralazine therapy 4. Recommend the addition of ASA therapy unless it is absolutely contraindicated 5. Continue Crestor therapy 6. HD as per the renal service 7. Future cardiovascular evaluation is recommended to assess ischemic burden/outpatient evaluation- MPI study Kehinde Brewster MD
[2020-02-28 07:29] LABS: ALBUMIN 2.9 g/dl (3.4-5.0); BLOOD UREA NITROGEN 74.4 mg/dL (7-18); CALCIUM 8.9 mg/dL (8.5-10.1); MAGNESIUM 2.4 mg/dL (1.8-2.4)
[2020-02-28 07:32] LABS: BILIRUBIN,TOTAL 0.6 mg/dL (0.2-1); TOT PROT 6.6 g/dl (6.4-8.2)
[2020-02-28 07:38] LABS: CREATININE 12.2 mg/dL (0.55-1.3)
[2020-02-28 08:10] LABS: PHOSPHOROUS 8.4 mg/dL (2.5-4.9)
--- NOTE | 2020-02-28 08:28 | OP ---
DATE OF OPERATION: 02/27/2020 PREOPERATIVE DIAGNOSIS: Right displaced femoral neck fracture. POSTOPERATIVE DIAGNOSIS: Right displaced femoral neck fracture. PROCEDURE: Right hip hemiarthroplasty. SURGEON: Raimundo Bey MD HOSPICE EDUCATOR: Hermila Jean, physician processing assistant, whose skillful assistance was necessary for the safe and timely performance of this procedure. Ms. Jean was able to provide limb positioning, retraction, assist in the insertion of orthopedic instrumentation and hardware. ANESTHESIA: Spinal. POSTOPERATIVE CONDITION: Stable. COMPLICATIONS: None. IMPLANTS: Jo Ann Accolade size 5 stem with +4 mm neck insert, standard angle neck, and 51-mm head. INDICATION: This is a pleasant gentleman who suffered a fall at home. He had some issues of medical optimization, but then was finally optimized, and then indicated for hemiarthroplasty. Treatment options were discussed with him and his daughter including nonoperative versus operative management. Operative risks were reviewed in detail including bleeding, infection, neurovascular injury, need for further surgery, postoperative pain and stiffness, periprosthetic loosening, limb length discrepancy, rotational deformity. We discussed medical risks such as heart attack, stroke, DVT, PE, and . I addressed the use of perioperative antibiotics and DVT prophylaxis. I addressed all the patient's questions and concerns. He voiced understanding and elected to proceed, as well as his daughter. DESCRIPTION OF PROCEDURE: The patient was brought to the operating room where spinal anesthesia was administered. Patient was then placed on his lateral side, careful to pad all bony prominences. An axillary roll was placed. The right lower extremity was then prepped and draped in the usual sterile fashion. A preoperative dose of antibiotics was given, and the usual timeout procedure was performed. The incision was now planned out over the greater trochanter. This was carried down through skin, through subcutaneous tissue. Electrocautery was used to maintain hemostasis. The fascia was identified. It was then incised in line with the . The bursa was now reflected posteriorly. The Charnley retractor was placed. Electrocautery was now used to dissect along the posterior aspect of the femoral neck, exposing the fracture site. The capsule and external rotators were elevated as a single layer. The capsule was then tagged with number 1 Vicryl for later repair. The neck remnant was then cut at a 45-degree angle and the fragments removed. The corkscrew device was placed through the head, and then the head was removed. It was measured, and a 51-mm size was chosen. A 51-mm trial was placed in order to verify proper fit. Good suction seal was achieved. Trial was removed. Attention was now turned back to the femur. A femoral elevator was placed. A box osteotome was used to gain lateral entry into the femur. A canal finder was then placed as well as a lateralizer. Broaching was then started with a size 1 up to a size 5, where good fit was achieved. The hip was then trialed and found to be satisfactory and stable. The trial components were then removed. The femoral canal was then prepared, and a suction device was placed down. A cement restrictor was placed. The cement was then injected into the femoral canal. The stem was inserted, careful to maintain proper version. After allowing the cement to harden, any loose debris was removed from around the edge of the prosthesis. The hip was then again trialed, and it was determined that a size 4 neck insert was best. The trial components were removed, the Perry taper was cleaned, and the final components were malleted into place. The hip was then reduced and passed through a range of motion and found to be stable. The drill bit was now used to make 2 drill holes in the posterior aspect of the greater trochanter. The flaps on the external rotators were then repaired. The wound was then copiously pulse lavaged . The fascia was now repaired using number 1 Vicryl. Subcutaneous tissue was approximated using 2-0 Vicryl. The skin was closed using running 3-0 nylon. Sterile dressings were placed. Postsurgical radiographs confirmed satisfactory placement. Patient was transferred to recovery room in stable condition. [place] [id number]
[2020-02-28] MEDS: SEVELAMER CARBONATE 800 MG TAB (FP) PO SCH ×3 (08:56→18:24)
[2020-02-28] MEDS: TAMSULOSIN HCL 0.4 MG CAP PO SCH (08:56)
--- NOTE | 2020-02-28 09:28 | PN ---
Progress Note (short form) - Note Progress Note: Pt lying in bed, notes pain is quite bothersome Last Vital Signs Temp Pulse Resp BP Pulse Ox 98.5 F 69 20 138/70 90 L 02/28/20 05:00 02/28/20 05:00 02/28/20 05:00 02/28/20 05:00 02/27/20 21:00 RLE no deformity knee nontender mild R calf tenderness mild swelling NVID Laboratory Results - last 24 hr 02/28/20 02/28/20 06:18 06:18 WBC 6.0 RBC 3.86 L Hgb 11.0 L Hct 33.2 L MCV 86.2 MCH 28.6 MCHC 33.1 RDW 15.2 Plt Count 116 L MPV 8.0 Absolute Neuts (auto) 4.5 Neutrophils % 75.1 Lymphocytes % 11.4 Monocytes % 8.9 Eosinophils % 3.9 Basophils % 0.7 Nucleated RBC % 0 Sodium 136 Potassium 5.0 Chloride 96 L Carbon Dioxide 26 Anion Gap 14 BUN 74.4 H Creatinine 12.2 H* Est GFR (CKD-EPI)AfAm 4.01 Est GFR (CKD-EPI)NonAf 3.46 Random Glucose 88 Calcium 8.9 Phosphorus 8.4 H Magnesium 2.4 Total Bilirubin 0.6 AST 16 ALT 13 Alkaline Phosphatase 81 Total Protein 6.6 Albumin 2.9 L A: R displaced femoral neck fracture POD 1 R hip hemiarthroplasty P: pt doing well at this time will add in some morphine for pain control PT, OOB DVT proph, SCDs, LMWH (continue LMWH x4 weeks post op) hip precautions dispo planning Problem List - Problems (1) Displaced fracture of base of neck of right femur, initial encounter for closed fracture Code(s): S72.041A - DISP FX OF BASE OF NECK OF RIGHT FEMUR, INIT FOR CLOS FX
[2020-02-28] MEDS: CINACALCET HCL 30 MG TAB (FP) PO SCH (09:30)
[2020-02-28] MEDS: ALLOPURINOL 100 MG TABLET (FP) PO SCH (10:05)
[2020-02-28] MEDS: GABAPENTIN 100 MG CAPSULE PO SCH (10:10)
[2020-02-28] MEDS: ENOXAPARIN NA (PORCINE) 30 MG/0.3 ML DISP.SYRIN SQ SCH (10:11)
[2020-02-28] MEDS ORDERED: morphine SULFATE 4 MG/ML VIAL SQ PRN (10:47)
[2020-02-28] MEDS ORDERED: MAGNESIUM HYDROX 2400MG/30ML ORAL SUSPENSION 30 ML CUP PO PRN (10:49)
--- NOTE | 2020-02-28 12:49 | PN ---
Physical Exam: SUBJECTIVE: Patient seen and examined. Post op day #1 s/p R hip hemiarthroplasty. OBJECTIVE: Vital Signs Period Temp Pulse Resp BP Sys/Ledesma Pulse Ox Last 24 Hr 97.2 F-98.9 F 69-80 18-22 96-144/52-79 90-100 GENERAL: AAOx2, NAD HEENT: NCAT, PERRLA, EOMI, sclera anicteric, conjunctiva clear, oropharynx clear w/o exudates. MMM. NECK: Normal ROM, supple, no lymphadenopathy, JVD, or masses LUNGS: CTABL no wheezes/ rhonchi/ rales. No increased work of breathing. HEART: RRR, normal S1 S2, systolic murmur at L lower sternal border, peripheral pulses 2+ and equal b/l ABDOMEN: Soft, NTND, + BS. No guarding or rebound. No hepatomegaly or splenomegaly. MSK: ROM not assessed 2/2 pain. EXTREMITIES: R leg with brace. Surgical site c/d/i no signs of infection NEUROLOGICAL: CN II-XII intact. SKIN: Warm, Dry, normal turgor, no rashes or lesions noted. Laboratory Results - last 24 hr 02/28/20 02/28/20 06:18 06:18 WBC 6.0 RBC 3.86 L Hgb 11.0 L Hct 33.2 L MCV 86.2 MCH 28.6 MCHC 33.1 RDW 15.2 Plt Count 116 L MPV 8.0 Absolute Neuts (auto) 4.5 Neutrophils % 75.1 Lymphocytes % 11.4 Monocytes % 8.9 Eosinophils % 3.9 Basophils % 0.7 Nucleated RBC % 0 Sodium 136 Potassium 5.0 Chloride 96 L Carbon Dioxide 26 Anion Gap 14 BUN 74.4 H Creatinine 12.2 H* Est GFR (CKD-EPI)AfAm 4.01 Est GFR (CKD-EPI)NonAf 3.46 Random Glucose 88 Calcium 8.9 Phosphorus 8.4 H Magnesium 2.4 Total Bilirubin 0.6 AST 16 ALT 13 Alkaline Phosphatase 81 Total Protein 6.6 Albumin 2.9 L Active Medications Generic Name Dose Route Start Last Admin Trade Name Freq PRN Reason Stop Dose Admin Acetaminophen 325 mg 02/27/20 20:00 02/28/20 00:37 Tylenol - PO 325 mg Q6H PRN Administration PAIN LEVEL 6-10 Acetaminophen 650 mg 02/27/20 21:21 02/28/20 06:01 Tylenol - PO 650 mg Q6H PRN Administration PAIN LEVEL 6-10 Allopurinol 100 mg 02/28/20 10:00 02/28/20 10:05 Zyloprim - PO 100 mg DAILY [facility] Administration Carvedilol 12.5 mg 02/27/20 22:00 02/27/20 21:40 Coreg - PO 12.5 mg BID [facility] Administration Cinacalcet 30 mg 02/28/20 10:00 Sensipar - PO DAILY [facility] Docusate Sodium 100 mg 02/28/20 14:00 Colace - PO TID [facility] Enoxaparin Sodium 30 mg 02/28/20 10:00 02/28/20 10:11 Lovenox - SQ 30 mg DAILY [facility] Administration Fentanyl 25 mcg 02/27/20 19:53 Sublimaze Injection - IVPUSH [id number] PRN PAIN-PACU ORDER X 4 DOSES ONLY Gabapentin 100 mg 02/28/20 10:00 02/28/20 10:10 Neurontin - PO 100 mg DAILY [facility] Administration Hydralazine HCl 25 mg 02/27/20 22:00 02/27/20 21:40 Apresoline - PO 25 mg BID [facility] Administration Sodium Chloride 250 mls @ 3,000 mls/hr 02/27/20 21:21 Normal Saline - IV 02/28/20 15:33 PRN PRN Hypotension during Dialysis Magnesium Hydroxide 30 ml 02/28/20 10:49 02/28/20 11:34 Milk Of Magnesia - PO 30 ml DAILY PRN Administration CONSTIPATION Morphine Sulfate 4 mg 02/28/20 10:47 02/28/20 11:34 Morphine Sulfate SQ 4 mg Q6H PRN Administration PAIN LEVEL 7 - 10 Ondansetron HCl 4 mg 02/27/20 19:53 02/28/20 01:19 Zofran Injection IVPUSH 4 mg Q6H PRN Administration NAUSEA AND/OR VOMITING Oxycodone HCl 5 mg 02/27/20 20:00 02/28/20 09:30 Roxicodone - PO 5 mg Q6H PRN Administration PAIN LEVEL 6-10 Rosuvastatin Calcium 5 mg 02/27/20 22:00 02/27/20 21:40 Crestor - PO 5 mg HS [facility] Administration Sevelamer Carbonate 1,600 mg 02/28/20 08:00 02/28/20 12:25 Renvela - PO 1,600 mg TIDCM [facility] Administration Tamsulosin HCl 0.4 mg 02/28/20 08:30 02/28/20 08:56 Flomax - PO 0.4 mg DAILY@0830 [facility] Administration ASSESSMENT/PLAN: 79 y/o M with PMX of ESRD on HD (MWF), s/p renal transplant (chronic rejection), HTN, OA, BPH, presents after syncope with fall and hip fracture. Admitted for syncope with fall and hip fracture. #Acute R femoral neck Fracture -X-Ray and CT consistent with R femoral neck fracture -POD #1 sp R hip hemiarthroplasty with Dr. Bey -continue PT- WBAT w/ hip precautions -prn pain control: oxycodone 5mg q6h prn, tylenol #Syncope -etiology unclear -ECG - new RBBB -CT Head -negative for acute pathology -Echo - normal EF, mild pulmonary HTN, mild to moderate -Trops neg x 2 -Cardio consult: pt needs stress test and follow up for . -Carotid Duplex: no evidence of high-grade carotid artery stenosis -continue tele monitoring #Normocytic Anemia -FOBT f/u -B12 and folate wnl -H&H stable #ESRD -receiving HD via AVF on , /Sun/Sun -c/w Sensipar and Renvela -nephro following, Dr. Alvarado #HTN -c/w home med Hydralazine -home med Coreg restarted at 12.5 mg and titrate up to 25 mg as per Cardio -cardio following: DR. Watson #BPH -c/w home med Tamsulosin #Mild Pituitary enlargement -incidental finding on CT imaging -Endocrine referral as out-patient after d/c #FEN -no standing fluids -monitor lytes; replete PRN -Renal diet #Ppx DVT: sq lovenox dispo: continue to monitor on tele will need rehab placement w/ hemodialysis accommodations Visit type - Emergency Visit Emergency Visit: No - New Patient This patient is new to me today: No - Critical Care Critical Care patient: No - Medication Review Med list reviewed for High Risk Meds patients 65 and older: Yes ATTENDING PHYSICIAN STATEMENT I saw and evaluated the patient. I reviewed the resident's note and discussed the case with the resident. I agree with the resident's findings and plan as documented. SUBJECTIVE: OBJECTIVE: ASSESSMENT AND PLAN:
--- NOTE | 2020-02-28 13:39 | PN ---
Teaching Attending Note Name of Resident: Haily Robison ATTENDING PHYSICIAN STATEMENT I saw and evaluated the patient. I reviewed the resident's note and discussed the case with the resident. I agree with the resident's findings and plan as documented. SUBJECTIVE: Feeling well, complaints of incisional site pain. Tolerating oral intake. OBJECTIVE: Fever resolved, Hemodynamically stable. SpO2 9&% RA. AAO x 3. Last Vital Signs Temp Pulse Resp BP Pulse Ox 98.3 F 71 20 135/74 97% RA 02/28/20 09:00 02/28/20 09:00 02/28/20 09:00 02/28/20 09:00 02/28/20 09:00 Heart - S1, S2, SM Lungs - mildly reduced air entry at bases Abdomen - Soft, non-tender. Bowel Sounds normal. Extremities - RLE immobilized post-op. Dressing clean, dy, intact. Reduced ROM due to pain at R hip. Neuro - AAO x 3. Tone/Power normal (unable to evaluate RLE due to pain) Laboratory Results - last 24 hr 02/28/20 02/28/20 06:18 06:18 WBC 6.0 RBC 3.86 L Hgb 11.0 L Hct 33.2 L MCV 86.2 MCH 28.6 MCHC 33.1 RDW 15.2 Plt Count 116 L MPV 8.0 Absolute Neuts (auto) 4.5 Neutrophils % 75.1 Lymphocytes % 11.4 Monocytes % 8.9 Eosinophils % 3.9 Basophils % 0.7 Nucleated RBC % 0 Sodium 136 Potassium 5.0 Chloride 96 L Carbon Dioxide 26 Anion Gap 14 BUN 74.4 H Creatinine 12.2 H* Est GFR (CKD-EPI)AfAm 4.01 Est GFR (CKD-EPI)NonAf 3.46 Random Glucose 88 Calcium 8.9 Phosphorus 8.4 H Magnesium 2.4 Total Bilirubin 0.6 AST 16 ALT 13 Alkaline Phosphatase 81 Total Protein 6.6 Albumin 2.9 L Current Medications Generic Name Dose Route Start Last Admin Trade Name Freq PRN Reason Stop Dose Admin Acetaminophen 325 mg 02/27/20 20:00 02/28/20 00:37 Tylenol - PO 325 mg Q6H PRN Administration PAIN LEVEL 6-10 Acetaminophen 650 mg 02/27/20 21:21 02/28/20 06:01 Tylenol - PO 650 mg Q6H PRN Administration PAIN LEVEL 6-10 Allopurinol 100 mg 02/28/20 10:00 02/28/20 10:05 Zyloprim - PO 100 mg DAILY [facility] Administration Carvedilol 12.5 mg 02/27/20 22:00 02/27/20 21:40 Coreg - PO 12.5 mg BID [facility] Administration Cinacalcet 30 mg 02/28/20 10:00 Sensipar - PO DAILY [facility] Docusate Sodium 100 mg 02/28/20 14:00 Colace - PO TID [facility] Enoxaparin Sodium 30 mg 02/28/20 10:00 02/28/20 10:11 Lovenox - SQ 30 mg DAILY [facility] Administration Fentanyl 25 mcg 02/27/20 19:53 Sublimaze Injection - IVPUSH [id number] PRN PAIN-PACU ORDER X 4 DOSES ONLY Gabapentin 100 mg 02/28/20 10:00 02/28/20 10:10 Neurontin - PO 100 mg DAILY [facility] Administration Hydralazine HCl 25 mg 02/27/20 22:00 02/27/20 21:40 Apresoline - PO 25 mg BID [facility] Administration Sodium Chloride 250 mls @ 3,000 mls/hr 02/27/20 21:21 Normal Saline - IV 02/28/20 15:33 PRN PRN Hypotension during Dialysis Magnesium Hydroxide 30 ml 02/28/20 10:49 02/28/20 11:34 Milk Of Magnesia - PO 30 ml DAILY PRN Administration CONSTIPATION Morphine Sulfate 4 mg 02/28/20 10:47 02/28/20 11:34 Morphine Sulfate SQ 4 mg Q6H PRN Administration PAIN LEVEL 7 - 10 Ondansetron HCl 4 mg 02/27/20 19:53 02/28/20 01:19 Zofran Injection IVPUSH 4 mg Q6H PRN Administration NAUSEA AND/OR VOMITING Oxycodone HCl 5 mg 02/27/20 20:00 02/28/20 09:30 Roxicodone - PO 5 mg Q6H PRN Administration PAIN LEVEL 6-10 Rosuvastatin Calcium 5 mg 02/27/20 22:00 02/27/20 21:40 Crestor - PO 5 mg HS [facility] Administration Sevelamer Carbonate 1,600 mg 02/28/20 08:00 02/28/20 12:25 Renvela - PO 1,600 mg TIDCM [facility] Administration Tamsulosin HCl 0.4 mg 02/28/20 08:30 02/28/20 08:56 Flomax - PO 0.4 mg DAILY@0830 [facility] Administration Home Medications Medication Instructions Recorded Tamsulosin HCl [Flomax -] 0.4 mg PO DAILY 12/15/13 Gabapentin [Neurontin -] 100 mg PO DAILY #30 capsule 12/23/13 Sevelamer Carbonate [Renvela -] 800 mg PO TIDCM #0 tab 12/23/13 Allopurinol [Zyloprim -] 100 mg PO ASDIR 02/05/15 Carvedilol [Coreg -] 25 mg PO BID 02/05/15 Hydralazine HCl 25 mg PO BID 08/28/17 ASSESSMENT AND PLAN: 79 year old male with history of ESRD on HD MWF, s/p renal transplant with chronic rejection, HTN, HLD, OA, BPH, presents after a syncopal episode with fall and hip fracture. No preceding CP/palpitations. No HI. 1. Acute R femoral neck Fracture POD 1 s/p R Hip Hemiarthroplasty Fever now resolved with negative Blood Cultures. Post-op DVT Px, early mobilization, incentive spirometry PT, SNF placement. 2. Syncope, etiology unclear. CT Head - no acute findings, chronic microvascular ischemic changes. Echo - normal EF, mild pul HTN, mild to mod Trop I neg x 2. ECG - new RBBB Cardio evaluated, cleared for surgery - for eventual ischemic work-up and follow up for . Cardiology recommends addition of Aspirin therapy. Carotid Duplex - no hemodnamically significant stenosis. No telemonitoring events Cardio follow up as out-patient 3. Fever, etiology unclear ?sec to acute fracture - resolved CXR - cardiomegaly, mild congestion, no consolidation Blood Cx x 2 negative No empiric Abx currently 4. Normocytic Anemia, appears chronic, likely sec to ESRD. No evidence of acute blood loss although patient reports history of dark stools ?melena/diarrhea FOBT requested. Ferritin 1784/Iron sat 13%/B12 - 365/Folate 26 5. ESRD s/p failed renal transplant, on HD vis [facility] Nephrology following - for HD today Continue Sensipar and Renvela. 6. HTN - continue Hydralazine and Coreg 7. BPH - resumed on Tamsulosin. 8. HLD - continue Crestor. 9. Mild Pituitary enlargement, incidental finding on CT imaging - for Endocrinology referral as out-patient. 10. History of Thrombocytopenia, chronic. DVT Px - Lovenox SQ
--- NOTE | 2020-02-28 13:47 | PN ---
Progress Note, Physician History of Present Illness: Seen and examined at the bedside awake and alert, confused offers no acute complaints no sob, cp, fever, chills, N/V/D s/p hip hemiarthoplasty yesterday refused dialysis this, am after discussing it with him he is open to doing it later today - Current Medication List Current Medications: Active Medications Acetaminophen (Tylenol -) 325 mg PO Q6H PRN PRN Reason: PAIN LEVEL 6-10 Last Admin: 02/28/20 00:37 Dose: 325 mg Documented by: Acetaminophen (Tylenol -) 650 mg PO Q6H PRN PRN Reason: PAIN LEVEL 6-10 Last Admin: 02/28/20 06:01 Dose: 650 mg Documented by: Allopurinol (Zyloprim -) 100 mg PO DAILY [facility] Last Admin: 02/28/20 10:05 Dose: 100 mg Documented by: Aspirin (Ecotrin -) 81 mg PO DAILY [facility] Carvedilol (Coreg -) 12.5 mg PO BID [facility] Last Admin: 02/27/20 21:40 Dose: 12.5 mg Documented by: Cinacalcet (Sensipar -) 30 mg PO DAILY [facility] Docusate Sodium (Colace -) 100 mg PO TID [facility] Enoxaparin Sodium (Lovenox -) 30 mg SQ DAILY [facility] Last Admin: 02/28/20 10:11 Dose: 30 mg Documented by: Fentanyl (Sublimaze Injection -) 25 mcg IVPUSH [id number] PRN PRN Reason: PAIN-PACU ORDER X 4 DOSES ONLY Gabapentin (Neurontin -) 100 mg PO DAILY [facility] Last Admin: 02/28/20 10:10 Dose: 100 mg Documented by: Hydralazine HCl (Apresoline -) 25 mg PO BID [facility] Last Admin: 02/27/20 21:40 Dose: 25 mg Documented by: Sodium Chloride (Normal Saline -) 250 mls @ 3,000 mls/hr IV PRN PRN PRN Reason: Hypotension during Dialysis Stop: 02/28/20 15:33 Magnesium Hydroxide (Milk Of Magnesia -) 30 ml PO DAILY PRN PRN Reason: CONSTIPATION Last Admin: 02/28/20 11:34 Dose: 30 ml Documented by: Morphine Sulfate (Morphine Sulfate) 4 mg SQ Q6H PRN PRN Reason: PAIN LEVEL 7 - 10 Last Admin: 02/28/20 11:34 Dose: 4 mg Documented by: Ondansetron HCl (Zofran Injection) 4 mg IVPUSH Q6H PRN PRN Reason: NAUSEA AND/OR VOMITING Last Admin: 02/28/20 01:19 Dose: 4 mg Documented by: Oxycodone HCl (Roxicodone -) 5 mg PO Q6H PRN PRN Reason: PAIN LEVEL 6-10 Last Admin: 02/28/20 09:30 Dose: 5 mg Documented by: Rosuvastatin Calcium (Crestor -) 5 mg PO HS [facility] Last Admin: 02/27/20 21:40 Dose: 5 mg Documented by: Sevelamer Carbonate (Renvela -) 1,600 mg PO TIDCM [facility] Last Admin: 02/28/20 12:25 Dose: 1,600 mg Documented by: Tamsulosin HCl (Flomax -) 0.4 mg PO DAILY@0830 [facility] Last Admin: 02/28/20 08:56 Dose: 0.4 mg Documented by: - Objective Vital Signs: Vital Signs Temperature 98.3 F 02/28/20 09:00 Pulse Rate 71 02/28/20 09:00 Respiratory Rate 20 02/28/20 09:00 Blood Pressure 135/74 02/28/20 09:00 O2 Sat by Pulse Oximetry (%) 90 L 02/28/20 09:00 Constitutional: Yes: No Distress, Calm Respiratory: Yes: Regular Extremities: No: Cyanosis Peripheral Pulses WNL: No Labs: CBC, BMP 02/28/20 06:18 02/28/20 06:18 INR, PTT INR 1.08 (0.83-1.09) 02/23/20 12:35 Assessment/Plan 79 year old male with a past medical history of ESRD on HD (MWF), hypertension, renal osteodystrophy, and CKD related anemia who presented s/p syncope/fall with right femoral fracture. 1. ESRD on HD 2. Femoral fracture 3. Syncope/Fall 4. Hypertension 5. Renal Osteodystrophy/Secondary hyperparathyroidism 6. Anemia 7. Diarrhea 8. Fever For dialysis later today with UF as tolerated Will return to MWF schedule next week Renal diet, 1.2L daily fluid restriction. Pain control w/o NSAIDs will continue 3x weekly dialysis while inpatient. s/p hip hemiarthoplaty Continue coreg and hydrlazine Cardiology follow up CT head negative Carotid Doppler negative ECHO shows preserved LV function Iron saturation low but ferritin is elevated, Hgb > 10. No RENU needed. F/u cultures in reference to fever. CXR w/o evidence of pneumonia. Thank you Chauncey Alvarado DO
[2020-02-28] MEDS ORDERED: SODIUM CHLORIDE 250 ML IV PRN (16:27)
[2020-02-28] MEDS: DOCUSATE SODIUM 100 MG CAPSULE (FP) PO SCH ×2 (18:23→22:26)
[2020-02-28] MEDS: CARVEDILOL 12.5 MG TABLET (FP) PO SCH ×2 (18:24→22:27)
[2020-02-28] MEDS: hydrALAZINE HCL 25 MG TABLET (FP) PO SCH ×2 (18:24→22:28)
[2020-02-28] MEDS: ROSUVASTATIN CA 5 MG TABLET (FP) PO SCH (22:27)
[2020-02-29] MEDS: DOCUSATE SODIUM 100 MG CAPSULE (FP) PO SCH ×3 (05:37→21:03)
[2020-02-29] MEDS: ACETAMINOPHEN 325 MG TABLET (FP) PO PRN (05:37)
[2020-02-29] MEDS: oxyCODONE HCL 5 MG TABLET PO PRN (05:38)
--- NOTE | 2020-02-29 06:42 | PN ---
Progress Note (short form) - Note Progress Note: Chief Complaint: Events noted, notes reviewed, POD#2 post right hip hem iarthroplasty, resting in bed complaining of incisional discomfort severity has decreased, denies any chest pain or dyspnea History of Present Illness: Seen and examined on telemetry. Events noted, notes reviewed, POD#2 post right hip hemiarthroplasty, resting in bed complaining of incisional discomfort severity has decreased, denies any chest pain or dyspnea - Current Medication List Current Medications Generic Name Dose Route Start Last Admin Trade Name Freq PRN Reason Stop Dose Admin Acetaminophen 325 mg 02/27/20 20:00 02/29/20 05:37 Tylenol - PO 325 mg Q6H PRN Administration PAIN LEVEL 6-10 Acetaminophen 650 mg 02/27/20 21:21 02/28/20 06:01 Tylenol - PO 650 mg Q6H PRN Administration PAIN LEVEL 6-10 Allopurinol 100 mg 02/28/20 10:00 02/28/20 10:05 Zyloprim - PO 100 mg DAILY [facility]ON Administration Aspirin 81 mg 02/29/20 10:00 Ecotrin - PO DAILY HERON Carvedilol 12.5 mg 02/27/20 22:00 02/28/20 22:27 Coreg - PO 12.5 mg BID HERON Administration Cinacalcet 30 mg 02/28/20 10:00 02/28/20 09:30 Sensipar - PO 30 mg DAILY HERON Administration Docusate Sodium 100 mg 02/28/20 14:00 02/29/20 05:37 Colace - PO 100 mg TID HERON Administration Enoxaparin Sodium 30 mg 02/28/20 10:00 02/28/20 10:11 Lovenox - SQ 30 mg DAILY HERON Administration Fentanyl 25 mcg 02/27/20 19:53 Sublimaze Injection - IVPUSH [id number] PRN PAIN-PACU ORDER X 4 DOSES ONLY Gabapentin 100 mg 02/28/20 10:00 02/28/20 10:10 Neurontin - PO 100 mg DAILY [facility]ON Administration Hydralazine HCl 25 mg 02/27/20 22:00 02/28/20 22:28 Apresoline - PO 25 mg BID HERON Administration Magnesium Hydroxide 30 ml 02/28/20 10:49 02/28/20 11:34 Milk Of Magnesia - PO 30 ml DAILY PRN Administration CONSTIPATION Morphine Sulfate 4 mg 02/28/20 10:47 02/28/20 11:34 Morphine Sulfate SQ 4 mg Q6H PRN Administration PAIN LEVEL 7 - 10 Ondansetron HCl 4 mg 02/27/20 19:53 02/28/20 01:19 Zofran Injection IVPUSH 4 mg Q6H PRN Administration NAUSEA AND/OR VOMITING Oxycodone HCl 5 mg 02/27/20 20:00 02/29/20 05:38 Roxicodone - PO 5 mg Q6H PRN Administration PAIN LEVEL 6-10 Rosuvastatin Calcium 5 mg 02/27/20 22:00 02/28/20 22:27 Crestor - PO 5 mg HS HERON Administration Sevelamer Carbonate 1,600 mg 02/28/20 08:00 02/28/20 18:24 Renvela - PO 1,600 mg TIDCM [facility]ON Administration Tamsulosin HCl 0.4 mg 02/28/20 08:30 02/28/20 08:56 Flomax - PO 0.4 mg DAILY@0830 [facility] Administration - Review of Systems Constitutional: denies: Chills, Fever Cardiovascular: As noted above Respiratory: denies: Cough or Sputum Production Gastrointestinal: denies: Abdominal Pain, Constipation, Melena, Nausea, Rectal Bleeding, Vomiting Genitourinary: denies: Dysuria, Hematuria Musculoskeletal: as noted above Neurological: denies: Dizziness, Syncope, Confusion, Headache, Numbness, Seizure, Unsteady Gait - Objective Vital Signs: Last Vital Signs Temp Pulse Resp BP Pulse Ox 97.8 F 82 20 91/57 L 95 02/29/20 02:00 02/29/20 02:00 02/28/20 21:00 02/29/20 02:00 02/28/20 21:00 Intake & Output 02/26/20 02/27/20 02/28/20 02/29/20 23:59 23:59 23:59 23:59 Intake Total 892 261 9419 Output Total 52644 25 9106 Balance -69066 160 -7976 Neck: Supple Negative JVD Cardiovascular: S1 S2 Regular Rate and Rhythm No Murmurs Respiratory: Clear Bilaterally Gastrointestinal: Soft Benign Normal Bowel Sounds Ext: Negative Edema Labs: CBC, BMP 02/29/20 06:19 02/29/20 06:19 CBC, BMP 02/28/20 06:18 02/28/20 06:18 Hepatic Panel Total Bilirubin 0.6 mg/dL (0.2-1) 02/28/20 06:18 AST 16 U/L (15-37) 02/28/20 06:18 ALT 13 U/L (13-61) 02/28/20 06:18 Alkaline Phosphatase 81 U/L (45-117) 02/28/20 06:18 Albumin 2.9 g/dl (3.4-5.0) L 02/28/20 06:18 INR, PTT INR 1.08 (0.83-1.09) 02/23/20 12:35 Assessment/Plan ASSESSMENT: 1. Syncope with fall complicated by hip fracture POD#2 post right hip hemiarthroplasty 2. CAD angina pectoris 3. Systolic/diastolic LV dysfunction with clinical class 0 NYHA classification LV failure 4. Aortic valve stenosis (suggest mild to moderate) 5. HTN 6. Hypercholesterolemia 7. ESRD on HD and history of failed renal transplant PLAN: 1. Continue Coreg therapy and titrate as needed and as tolerated 2. As outlined in yesterday's note recommend the addition of ACEI or ARB's unless it is absolutely contraindicated 3. Continue Hydralazine therapy 4. Recommend the addition of ASA therapy unless it is absolutely contraindicated 5. Continue Crestor therapy 6. HD as per the renal service 7. Future cardiovascular evaluation is recommended to assess ischemic burden/outpatient evaluation- MPI study Kehinde Brewster MD
[2020-02-29 07:05] LABS: HEMATOCRIT 30.7 % (35.4-49); HEMOGLOBIN 10.2 GM/dL (11.7-16.9); MCH 28.4 pg (25.7-33.7); MCHC 33.3 g/dl (32.0-35.9); MEAN CELL VOLUME 85.4 fl (80-96); MEAN PLT VOLUME 8.2 fl (7.5-11.1); PLATELET COUNT 106 K/MM3 (134-434); RBC 3.59 M/mm3 (4.00-5.60); RDW 14.9 % (11.9-15.9); WHITE BLOOD COUNT 6.6 K/mm3 (4.0-10.0)
[2020-02-29 07:29] LABS: ALBUMIN 2.4 g/dl (3.4-5.0); BLOOD UREA NITROGEN 51.3 mg/dL (7-18); CALCIUM 9.5 mg/dL (8.5-10.1); MAGNESIUM 2.4 mg/dL (1.8-2.4); POTASSIUM 4.9 mmol/L (3.5-5.1)
[2020-02-29 07:33] LABS: BILIRUBIN,TOTAL 0.3 mg/dL (0.2-1); PHOSPHOROUS 6.7 mg/dL (2.5-4.9); TOT PROT 6.4 g/dl (6.4-8.2)
[2020-02-29 07:50] LABS: CREATININE 9.3 mg/dL (0.55-1.3)
[2020-02-29] MEDS: TAMSULOSIN HCL 0.4 MG CAP PO SCH (09:29)
[2020-02-29] MEDS: SEVELAMER CARBONATE 800 MG TAB (FP) PO SCH ×3 (09:29→17:12)
[2020-02-29] MEDS: hydrALAZINE HCL 25 MG TABLET (FP) PO SCH ×2 (09:30→21:03)
[2020-02-29] MEDS: ALLOPURINOL 100 MG TABLET (FP) PO SCH (09:30)
[2020-02-29] MEDS: ASPIRIN COATED 81 MG TABLET.EC PO SCH (09:30)
[2020-02-29] MEDS: GABAPENTIN 100 MG CAPSULE PO SCH (09:30)
[2020-02-29] MEDS: CARVEDILOL 12.5 MG TABLET (FP) PO SCH ×2 (09:30→21:03)
[2020-02-29] MEDS ORDERED: PT OWN MED DRAWER 7, Y5N ONE (09:32)
[2020-02-29] MEDS: ENOXAPARIN NA (PORCINE) 30 MG/0.3 ML DISP.SYRIN SQ SCH (09:33)
[2020-02-29] MEDS: CINACALCET HCL 30 MG TAB (FP) PO SCH (09:33)
--- NOTE | 2020-02-29 11:35 | PN ---
Progress Note (short form) - Note Progress Note: SUBJECTIVE: Feeling well, mild incisional site pain. Tolerating oral intake. OBJECTIVE: Fever resolved, Hemodynamically stable. SpO2 95% RA. AAO x 3. Last Vital Signs Temp Pulse Resp BP Pulse Ox 98 F 84 20 97/58 L 95 02/29/20 06:00 02/29/20 06:00 02/28/20 21:00 02/29/20 06:00 02/28/20 21:00 Heart - S1, S2, SM Lungs - mildly reduced air entry at bases Abdomen - Soft, non-tender. Bowel Sounds normal. Extremities - RLE immobilized post-op. Dressing clean, dy, intact. Reduced ROM due to pain at R hip. Neuro - AAO x 3. Tone/Power normal (unable to evaluate RLE due to pain) Laboratory Results - last 24 hr 02/29/20 02/29/20 06:19 06:19 WBC 6.6 RBC 3.59 L Hgb 10.2 L Hct 30.7 L MCV 85.4 MCH 28.4 MCHC 33.3 RDW 14.9 Plt Count 106 L MPV 8.2 Sodium 137 Potassium 4.9 Chloride 96 L Carbon Dioxide 31 Anion Gap 10 BUN 51.3 H Creatinine 9.3 H* Est GFR (CKD-EPI)AfAm 5.57 Est GFR (CKD-EPI)NonAf 4.81 Random Glucose 113 H Calcium 9.5 Phosphorus 6.7 H Magnesium 2.4 Total Bilirubin 0.3 AST 18 ALT 6 L Alkaline Phosphatase 78 Total Protein 6.4 Albumin 2.4 L Current Medications Generic Name Dose Route Start Last Admin Trade Name Freq PRN Reason Stop Dose Admin Acetaminophen 325 mg 02/27/20 20:00 02/29/20 05:37 Tylenol - PO 325 mg Q6H PRN Administration PAIN LEVEL 6-10 Acetaminophen 650 mg 02/27/20 21:21 02/28/20 06:01 Tylenol - PO 650 mg Q6H PRN Administration PAIN LEVEL 6-10 Allopurinol 100 mg 02/28/20 10:00 02/29/20 09:30 Zyloprim - PO 100 mg DAILY HERON Administration Aspirin 81 mg 02/29/20 10:00 02/29/20 09:30 Ecotrin - PO 81 mg DAILY [facility] Administration Carvedilol 12.5 mg 02/27/20 22:00 02/29/20 09:30 Coreg - PO 12.5 mg BID HERON Administration Cinacalcet 30 mg 02/28/20 10:00 02/29/20 09:33 Sensipar - PO 30 mg DAILY HERON Administration Docusate Sodium 100 mg 02/28/20 14:00 02/29/20 05:37 Colace - PO 100 mg TID HERON Administration Enoxaparin Sodium 30 mg 02/28/20 10:00 02/29/20 09:33 Lovenox - SQ 30 mg DAILY [facility] Administration Fentanyl 25 mcg 02/27/20 19:53 Sublimaze Injection - IVPUSH [id number] PRN PAIN-PACU ORDER X 4 DOSES ONLY Gabapentin 100 mg 02/28/20 10:00 02/29/20 09:30 Neurontin - PO 100 mg DAILY [facility] Administration Hydralazine HCl 25 mg 02/27/20 22:00 02/29/20 09:30 Apresoline - PO 25 mg BID HERON Administration Magnesium Hydroxide 30 ml 02/28/20 10:49 02/28/20 11:34 Milk Of Magnesia - PO 30 ml DAILY PRN Administration CONSTIPATION Morphine Sulfate 4 mg 02/28/20 10:47 02/28/20 11:34 Morphine Sulfate SQ 4 mg Q6H PRN Administration PAIN LEVEL 7 - 10 Ondansetron HCl 4 mg 02/27/20 19:53 02/28/20 01:19 Zofran Injection IVPUSH 4 mg Q6H PRN Administration NAUSEA AND/OR VOMITING Oxycodone HCl 5 mg 02/27/20 20:00 02/29/20 05:38 Roxicodone - PO 5 mg Q6H PRN Administration PAIN LEVEL 6-10 Rosuvastatin Calcium 5 mg 02/27/20 22:00 02/28/20 22:27 Crestor - PO 5 mg HS HERON Administration Sevelamer Carbonate 1,600 mg 02/28/20 08:00 02/29/20 09:29 Renvela - PO 1,600 mg TIDCM HERON Administration Tamsulosin HCl 0.4 mg 02/28/20 08:30 02/29/20 09:29 Flomax - PO 0.4 mg DAILY@0830 [facility] Administration Home Medications Medication Instructions Recorded Tamsulosin HCl [Flomax -] 0.4 mg PO DAILY 12/15/13 Gabapentin [Neurontin -] 100 mg PO DAILY #30 capsule 12/23/13 Sevelamer Carbonate [Renvela -] 800 mg PO TIDCM #0 tab 12/23/13 Allopurinol [Zyloprim -] 100 mg PO ASDIR 02/05/15 Carvedilol [Coreg -] 25 mg PO BID 02/05/15 Hydralazine HCl 25 mg PO BID 08/28/17 ASSESSMENT AND PLAN: 79 year old male with history of ESRD on HD MWF, s/p renal transplant with chronic rejection, HTN, HLD, OA, BPH, presents after a syncopal episode with fall and hip fracture. No preceding CP/palpitations. No HI. 1. Acute R femoral neck Fracture POD 2 s/p R Hip Hemiarthroplasty Fever now resolved with negative Blood Cultures. Post-op DVT Px (Lovenox for 4 weeks as per Ortho), early mobilization, incentive spirometry PT, SNF placement. 2. Syncope, etiology unclear. CT Head - no acute findings, chronic microvascular ischemic changes. Echo - normal EF, mild pul HTN, mild to mod Trop I neg x 2. ECG - new RBBB Cardio evaluated, cleared for surgery - for eventual out-patient ischemic work- up and follow up for . Cardiology recommends addition of Aspirin therapy and MARIO-I - however BP border- line here. this can be done by Cardiology as out-patient. Carotid Duplex - no hemodnamically significant stenosis. No telemonitoring events Cardio follow up as out-patient 3. Fever, etiology unclear ?sec to acute fracture - resolved, no recurrence CXR - cardiomegaly, mild congestion, no consolidation Blood Cx x 2 negative No empiric Abx currently 4. Normocytic Anemia, appears chronic, likely sec to ESRD. No evidence of acute blood loss although patient reports history of dark stools ?melena/diarrhea FOBT requested. Ferritin 1784/Iron sat 13%/B12 - 365/Folate 26 5. ESRD s/p failed renal transplant, on HD vis [facility] Nephrology following - for HD today Continue Sensipar and Renvela. 6. HTN - continue Hydralazine and Coreg 7. BPH - resumed on Tamsulosin. 8. HLD - continue Crestor. 9. Mild Pituitary enlargement, incidental finding on CT imaging - for Endocrinology referral as out-patient. 10. History of Thrombocytopenia, chronic. DVT Px - Lovenox SQ Visit type - Emergency Visit Emergency Visit: Yes ED Registration Date: 02/23/20 Care time: The patient presented to the Emergency Department on the above date and was hospitalized for further evaluation of their emergent condition. - New Patient This patient is new to me today: No - Critical Care Critical Care patient: No - Discharge Referral Referred to [facility] Med P.C.: No - Medication Review Med list reviewed for High Risk Meds patients 65 and older: Yes
[2020-02-29] MEDS: ROSUVASTATIN CA 5 MG TABLET (FP) PO SCH (21:03)
[2020-03-01] MEDS: DOCUSATE SODIUM 100 MG CAPSULE (FP) PO SCH ×3 (06:19→21:13)
[2020-03-01 07:29] LABS: BASO % 0.5 % (0-2.0); EOS % 3.8 % (0-4.5); HEMATOCRIT 29.6 % (35.4-49); HEMOGLOBIN 9.6 GM/dL (11.7-16.9); MCH 28.1 pg (25.7-33.7); MCHC 32.6 g/dl (32.0-35.9); MEAN CELL VOLUME 86.1 fl (80-96); MEAN PLT VOLUME 8.8 fl (7.5-11.1); MONO % 8.2 % (3.8-10.2); NEUT % 78.5 % (42.8-82.8); PLATELET COUNT 128 K/MM3 (134-434); RBC 3.43 M/mm3 (4.00-5.60); RDW 14.8 % (11.9-15.9)
[2020-03-01 07:59] LABS: BLOOD UREA NITROGEN 69.9 mg/dL (7-18); CALCIUM 9.2 mg/dL (8.5-10.1); PHOSPHOROUS 7.2 mg/dL (2.5-4.9); POTASSIUM 4.5 mmol/L (3.5-5.1)
[2020-03-01] MEDS ORDERED: IRON SUCROSE INJECTION 100 MG in SODIUM CHLORIDE 95 ML IVPB ONE (08:00)
[2020-03-01] MEDS ORDERED: SODIUM CHLORIDE 250 ML IV PRN (08:00)
[2020-03-01 08:05] LABS: CREATININE 12.2 mg/dL (0.55-1.3)
[2020-03-01] MEDS: TAMSULOSIN HCL 0.4 MG CAP PO SCH (08:06)
--- NOTE | 2020-03-01 08:19 | PN ---
Progress Note, Physician History of Present Illness: Patient is a 79 year old male with underlying history of ESRD on HD (M,W,F), history of renal transplant in the past which has failed, HTN and probable hypercholesterolemia who presented after an unwitnessed fall resulting in right hip fracture. He had abdominal pain and episodes of diarrhea. ER note indicates that patient described black in color. He denies any vision loss, headache or an y specific cardiac symptoms prior to the event. He denies chest pain, shortness of breath or palpitations. He denies PND or orthopnea. He denies fever or chills. He denies cough or expectorations. He denies nausea, vomiting or abdominal pains. He denies headache or lightheadedness. He has had prior fall resulting in left hip fracture and had surgery (1 year ago) - Current Medication List Current Medications: Active Medications Acetaminophen (Tylenol -) 325 mg PO Q6H PRN PRN Reason: PAIN LEVEL 6-10 Last Admin: 02/29/20 05:37 Dose: 325 mg Documented by: Acetaminophen (Tylenol -) 650 mg PO Q6H PRN PRN Reason: PAIN LEVEL 6-10 Last Admin: 02/28/20 06:01 Dose: 650 mg Documented by: Allopurinol (Zyloprim -) 100 mg PO DAILY [facility] Last Admin: 02/29/20 09:30 Dose: 100 mg Documented by: Aspirin (Ecotrin -) 81 mg PO DAILY [facility] Last Admin: 02/29/20 09:30 Dose: 81 mg Documented by: Carvedilol (Coreg -) 12.5 mg PO BID [facility] Last Admin: 02/29/20 21:03 Dose: 12.5 mg Documented by: Cinacalcet (Sensipar -) 30 mg PO DAILY [facility] Last Admin: 02/29/20 09:33 Dose: 30 mg Documented by: Docusate Sodium (Colace -) 100 mg PO TID [facility] Last Admin: 03/01/20 06:19 Dose: 100 mg Documented by: Enoxaparin Sodium (Lovenox -) 30 mg SQ DAILY [facility] Last Admin: 02/29/20 09:33 Dose: 30 mg Documented by: Fentanyl (Sublimaze Injection -) 25 mcg IVPUSH [id number] PRN PRN Reason: PAIN-PACU ORDER X 4 DOSES ONLY Gabapentin (Neurontin -) 100 mg PO DAILY [facility] Last Admin: 02/29/20 09:30 Dose: 100 mg Documented by: Hydralazine HCl (Apresoline -) 25 mg PO BID [facility] Last Admin: 02/29/20 21:03 Dose: 25 mg Documented by: Iron Sucrose 100 mg/ Sodium (Chloride) 100 mls @ 200 mls/hr IVPB ONCE ONE Stop: 03/01/20 08:29 Magnesium Hydroxide (Milk Of Magnesia -) 30 ml PO DAILY PRN PRN Reason: CONSTIPATION Last Admin: 02/28/20 11:34 Dose: 30 ml Documented by: Morphine Sulfate (Morphine Sulfate) 4 mg SQ Q6H PRN PRN Reason: PAIN LEVEL 7 - 10 Last Admin: 02/28/20 11:34 Dose: 4 mg Documented by: Ondansetron HCl (Zofran Injection) 4 mg IVPUSH Q6H PRN PRN Reason: NAUSEA AND/OR VOMITING Last Admin: 02/28/20 01:19 Dose: 4 mg Documented by: Oxycodone HCl (Roxicodone -) 5 mg PO Q6H PRN PRN Reason: PAIN LEVEL 6-10 Last Admin: 02/29/20 05:38 Dose: 5 mg Documented by: Rosuvastatin Calcium (Crestor -) 5 mg PO HS [facility] Last Admin: 02/29/20 21:03 Dose: 5 mg Documented by: Sevelamer Carbonate (Renvela -) 1,600 mg PO TIDCM [facility] Last Admin: 02/29/20 17:12 Dose: 1,600 mg Documented by: Tamsulosin HCl (Flomax -) 0.4 mg PO DAILY@0830 [facility] Last Admin: 02/29/20 09:29 Dose: 0.4 mg Documented by: - Objective Vital Signs: Vital Signs Temperature 98.0 F 03/01/20 06:00 Pulse Rate 84 03/01/20 06:00 Respiratory Rate 20 03/01/20 06:00 Blood Pressure 98/60 03/01/20 06:00 O2 Sat by Pulse Oximetry (%) 94 L 03/01/20 06:00 Eyes: Yes: WNL, Conjunctiva Clear, EOM Intact HENT: Yes: WNL, Atraumatic, Normocephalic Neck: Yes: WNL, Supple, Trachea Midline Cardiovascular: Yes: WNL, Regular Rate and Rhythm, Murmur, S1, S2 Respiratory: Yes: WNL, Regular, CTA Bilaterally Gastrointestinal: Yes: WNL, Normal Bowel Sounds Genitourinary: Yes: WNL Musculoskeletal: Yes: WNL Extremities: Yes: WNL Edema: No Integumentary: Yes: WNL Neurological: Yes: WNL, Alert, Oriented ...Motor Strength: WNL Psychiatric: Yes: WNL Labs: CBC, BMP 03/01/20 07:14 03/01/20 07:14 INR, PTT INR 1.08 (0.83-1.09) 02/23/20 12:35 Assessment/Plan 1. Syncope with fall complicated by hip fracture POD#2 post right hip hemiarthroplasty 2. CAD angina pectoris 3. Systolic/diastolic LV dysfunction with clinical class 0 NYHA classification LV failure 4. Aortic valve stenosis (suggest mild to moderate) 5. HTN 6. Hypercholesterolemia 7. ESRD on HD and history of failed renal transplant PLAN: 1. Continue Coreg therapy and titrate as needed and as tolerated 2. As outlined in yesterday's note recommend the addition of ACEI or ARB's unless it is absolutely contraindicated 3. Continue Hydralazine therapy 4. Recommend the addition of ASA therapy unless it is absolutely contraindicated 5. Continue Crestor therapy 6. HD as per the renal service 7. Future cardiovascular evaluation is recommended to assess ischemic burden/outpatient evaluation- MPI study
--- NOTE | 2020-03-01 08:48 | PN ---
Progress Note (short form) - Note Progress Note: 79 yo M POD #3 s/p right hip hemiarthroplasty. Patient lying comfortable in bed with abduction pillow in place, receiving dialysis. Notes mild discomfort to right thight. Last Vital Signs Temp Pulse Resp BP Pulse Ox 98.2 F 78 20 95/47 L 95 03/01/20 08:00 03/01/20 08:00 03/01/20 08:00 03/01/20 08:00 03/01/20 08:00 PE: RLE Dressing C/D/I Compartments soft Calves soft, NT NVID Abnormal Lab Results 03/01/20 03/01/20 07:14 07:14 RBC 3.43 L Hgb 9.6 L Hct 29.6 L Plt Count 128 L D Chloride 94 L BUN 69.9 H Creatinine 12.2 H* Phosphorus 7.2 H A: POD #3 s/p right hip hemiarthroplasty P: Pain control PT, OOB DVT prophylaxis with SCD, LMWH Continue hip precautions Okay for discharge to rehab when cleared by medicine team
[2020-03-01] MEDS: ENOXAPARIN NA (PORCINE) 30 MG/0.3 ML DISP.SYRIN SQ SCH (09:07)
[2020-03-01] MEDS: CARVEDILOL 12.5 MG TABLET (FP) PO SCH ×2 (10:57→21:13)
--- NOTE | 2020-03-01 11:36 | PN ---
Progress Note, Physician History of Present Illness: POD#3 Right hip hemiarthroplasty, pain adequately controlled, denies chest pain or dyspnea, undergoing bedside HD. - Current Medication List Current Medications: Active Medications Acetaminophen (Tylenol -) 325 mg PO Q6H PRN PRN Reason: PAIN LEVEL 6-10 Last Admin: 02/29/20 05:37 Dose: 325 mg Documented by: Acetaminophen (Tylenol -) 650 mg PO Q6H PRN PRN Reason: PAIN LEVEL 6-10 Last Admin: 02/28/20 06:01 Dose: 650 mg Documented by: Allopurinol (Zyloprim -) 100 mg PO DAILY [facility] Last Admin: 02/29/20 09:30 Dose: 100 mg Documented by: Aspirin (Ecotrin -) 81 mg PO DAILY [facility] Last Admin: 02/29/20 09:30 Dose: 81 mg Documented by: Carvedilol (Coreg -) 12.5 mg PO BID [facility] Last Admin: 02/29/20 21:03 Dose: 12.5 mg Documented by: Cinacalcet (Sensipar -) 30 mg PO DAILY [facility] Last Admin: 02/29/20 09:33 Dose: 30 mg Documented by: Docusate Sodium (Colace -) 100 mg PO TID [facility] Last Admin: 03/01/20 06:19 Dose: 100 mg Documented by: Enoxaparin Sodium (Lovenox -) 30 mg SQ DAILY [facility] Last Admin: 02/29/20 09:33 Dose: 30 mg Documented by: Fentanyl (Sublimaze Injection -) 25 mcg IVPUSH [id number] PRN PRN Reason: PAIN-PACU ORDER X 4 DOSES ONLY Gabapentin (Neurontin -) 100 mg PO DAILY [facility] Last Admin: 02/29/20 09:30 Dose: 100 mg Documented by: Hydralazine HCl (Apresoline -) 25 mg PO BID [facility] Last Admin: 02/29/20 21:03 Dose: 25 mg Documented by: Magnesium Hydroxide (Milk Of Magnesia -) 30 ml PO DAILY PRN PRN Reason: CONSTIPATION Last Admin: 02/28/20 11:34 Dose: 30 ml Documented by: Morphine Sulfate (Morphine Sulfate) 4 mg SQ Q6H PRN PRN Reason: PAIN LEVEL 7 - 10 Last Admin: 02/28/20 11:34 Dose: 4 mg Documented by: Ondansetron HCl (Zofran Injection) 4 mg IVPUSH Q6H PRN PRN Reason: NAUSEA AND/OR VOMITING Last Admin: 02/28/20 01:19 Dose: 4 mg Documented by: Oxycodone HCl (Roxicodone -) 5 mg PO Q6H PRN PRN Reason: PAIN LEVEL 6-10 Last Admin: 02/29/20 05:38 Dose: 5 mg Documented by: Rosuvastatin Calcium (Crestor -) 5 mg PO HS [facility] Last Admin: 02/29/20 21:03 Dose: 5 mg Documented by: Sevelamer Carbonate (Renvela -) 1,600 mg PO TIDCM [facility] Last Admin: 02/29/20 17:12 Dose: 1,600 mg Documented by: Tamsulosin HCl (Flomax -) 0.4 mg PO DAILY@0830 [facility] Last Admin: 02/29/20 09:29 Dose: 0.4 mg Documented by: - Objective Vital Signs: Vital Signs Temperature 98.2 F 03/01/20 08:00 Pulse Rate 77 03/01/20 09:45 Respiratory Rate 18 03/01/20 09:45 Blood Pressure 118/56 L 03/01/20 09:45 O2 Sat by Pulse Oximetry (%) 95 03/01/20 09:00 Constitutional: Yes: No Distress, Calm Neck: Yes: Supple Cardiovascular: Yes: Regular Rate and Rhythm Respiratory: Yes: Regular, CTA Bilaterally Gastrointestinal: Yes: Normal Bowel Sounds, Soft Edema: No Labs: CBC, BMP 03/01/20 07:14 03/01/20 07:14 INR, PTT INR 1.08 (0.83-1.09) 02/23/20 12:35 Assessment/Plan Problem List - Problems (1) HTN (hypertension) Code(s): I10 - ESSENTIAL (PRIMARY) HYPERTENSION (2) Aortic valve stenosis Code(s): I35.0 - NONRHEUMATIC AORTIC (VALVE) STENOSIS (3) Closed displaced fracture of right femoral neck Code(s): S72.001A - FRACTURE OF UNSP PART OF NECK OF RIGHT FEMUR, INIT (4) Syncope Code(s): R55 - SYNCOPE AND COLLAPSE Qualifiers: Syncope type: unspecified Qualified Code(s): R55 - Syncope and collapse (5) End stage renal disease Code(s): N18.6 - END STAGE RENAL DISEASE (6) Kidney transplant failure Code(s): T86.12 - KIDNEY TRANSPLANT FAILURE Assessment/Plan 02/24/2020 Echo: Normal biventricular size and fxn, mild pulm HTN RVSP 44 mmHg, mild MG 18 mmHg, AIDEE 1.5 cm^2, tr-mild AR, tr RI 1. Syncope with fall complicated by hip fracture POD#3 post right hip hemiarthroplasty 2. CAD angina pectoris 3. Systolic/diastolic LV dysfunction with clinical class 0 NYHA classification LV failure 4. Aortic valve stenosis (suggest mild to moderate) 5. HTN 6. Hypercholesterolemia 7. ESRD on HD and history of failed renal transplant PLAN: 1. Continue Coreg 12.5 bid and titrate as needed and as tolerated 2. As outlined in previous notes recommend the addition of ACEI or ARB's unless it is absolutely contraindicated 3. Continue Hydralazine 25 bid 4. Continue ASA 81 qd, DVT prophylaxis 5. Continue Crestor 5 qd 6. HD as per the renal service 7. Future cardiovascular evaluation is recommended to assess ischemic burden/outpatient evaluation- MPI study
[2020-03-01] MEDS: hydrALAZINE HCL 25 MG TABLET (FP) PO SCH ×2 (11:56→21:12)
[2020-03-01] MEDS: ASPIRIN COATED 81 MG TABLET.EC PO SCH (12:06)
[2020-03-01] MEDS: SEVELAMER CARBONATE 800 MG TAB (FP) PO SCH ×2 (12:06→16:57)
[2020-03-01] MEDS: ALLOPURINOL 100 MG TABLET (FP) PO SCH (12:06)
[2020-03-01] MEDS: CINACALCET HCL 30 MG TAB (FP) PO SCH (12:07)
[2020-03-01] MEDS: GABAPENTIN 100 MG CAPSULE PO SCH (12:07)
--- NOTE | 2020-03-01 12:41 | PN ---
Progress Note, Physician History of Present Illness: Seen and examined at the bedside offers no acute complaints no sob, cp, fever, chills, N/V/D s/p dialysis earlier this am - Current Medication List Current Medications: Active Medications Acetaminophen (Tylenol -) 325 mg PO Q6H PRN PRN Reason: PAIN LEVEL 6-10 Last Admin: 02/29/20 05:37 Dose: 325 mg Documented by: Acetaminophen (Tylenol -) 650 mg PO Q6H PRN PRN Reason: PAIN LEVEL 6-10 Last Admin: 02/28/20 06:01 Dose: 650 mg Documented by: Allopurinol (Zyloprim -) 100 mg PO DAILY [facility] Last Admin: 03/01/20 12:06 Dose: 100 mg Documented by: Aspirin (Ecotrin -) 81 mg PO DAILY [facility] Last Admin: 03/01/20 12:06 Dose: 81 mg Documented by: Carvedilol (Coreg -) 12.5 mg PO BID [facility] Last Admin: 02/29/20 21:03 Dose: 12.5 mg Documented by: Cinacalcet (Sensipar -) 30 mg PO DAILY [facility] Last Admin: 03/01/20 12:07 Dose: 30 mg Documented by: Docusate Sodium (Colace -) 100 mg PO TID [facility] Last Admin: 03/01/20 06:19 Dose: 100 mg Documented by: Enoxaparin Sodium (Lovenox -) 30 mg SQ DAILY [facility] Last Admin: 03/01/20 09:07 Dose: 30 mg Documented by: Fentanyl (Sublimaze Injection -) 25 mcg IVPUSH [id number] PRN PRN Reason: PAIN-PACU ORDER X 4 DOSES ONLY Gabapentin (Neurontin -) 100 mg PO DAILY [facility] Last Admin: 03/01/20 12:07 Dose: 100 mg Documented by: Hydralazine HCl (Apresoline -) 25 mg PO BID [facility] Last Admin: 02/29/20 21:03 Dose: 25 mg Documented by: Magnesium Hydroxide (Milk Of Magnesia -) 30 ml PO DAILY PRN PRN Reason: CONSTIPATION Last Admin: 02/28/20 11:34 Dose: 30 ml Documented by: Morphine Sulfate (Morphine Sulfate) 4 mg SQ Q6H PRN PRN Reason: PAIN LEVEL 7 - 10 Last Admin: 02/28/20 11:34 Dose: 4 mg Documented by: Ondansetron HCl (Zofran Injection) 4 mg IVPUSH Q6H PRN PRN Reason: NAUSEA AND/OR VOMITING Last Admin: 02/28/20 01:19 Dose: 4 mg Documented by: Oxycodone HCl (Roxicodone -) 5 mg PO Q6H PRN PRN Reason: PAIN LEVEL 6-10 Last Admin: 02/29/20 05:38 Dose: 5 mg Documented by: Rosuvastatin Calcium (Crestor -) 5 mg PO HS [facility] Last Admin: 02/29/20 21:03 Dose: 5 mg Documented by: Sevelamer Carbonate (Renvela -) 1,600 mg PO TIDCM [facility] Last Admin: 03/01/20 12:06 Dose: 1,600 mg Documented by: Tamsulosin HCl (Flomax -) 0.4 mg PO DAILY@0830 [facility] Last Admin: 03/01/20 08:06 Dose: 0.4 mg Documented by: - Objective Vital Signs: Vital Signs Temperature 98.2 F 03/01/20 08:00 Pulse Rate 80 03/01/20 11:30 Respiratory Rate 18 03/01/20 11:30 Blood Pressure 118/52 L 03/01/20 11:30 O2 Sat by Pulse Oximetry (%) 95 03/01/20 09:00 Constitutional: Yes: No Distress, Calm HENT: Yes: Atraumatic Neck: Yes: Supple Cardiovascular: Yes: Regular Rate and Rhythm Respiratory: Yes: Regular Gastrointestinal: Yes: Soft Extremities: No: Cyanosis Edema: No Labs: CBC, BMP 03/01/20 07:14 03/01/20 07:14 INR, PTT INR 1.08 (0.83-1.09) 02/23/20 12:35 Assessment/Plan 79 year old male with a past medical history of ESRD on HD (MWF), hypertension, renal osteodystrophy, and CKD related anemia who presented s/p syncope/fall with right femoral fracture. 1. ESRD on HD 2. Femoral fracture 3. Syncope/Fall 4. Hypertension 5. Renal Osteodystrophy/Secondary hyperparathyroidism 6. Anemia 7. Diarrhea 8. Fever Toleratd dialysis with 1.5L UF limited by low BP Renal diet, 1.2L daily fluid restriction. Pain control w/o NSAIDs will continue 3x weekly dialysis while inpatient. s/p hip hemiarthoplaty Continue coreg and hydrlazine Cardiology follow up CT head negative Carotid Doppler negative ECHO shows preserved LV function Iron saturation low but ferritin is elevated, Hgb > 10. No RENU needed. F/u cultures in reference to fever. CXR w/o evidence of pneumonia. Thank you Chauncey Alvarado DO
--- NOTE | 2020-03-01 14:23 | PN ---
Teaching Attending Note Name of Resident: Chao Gonzalez ATTENDING PHYSICIAN STATEMENT I saw and evaluated the patient. I reviewed the resident's note and discussed the case with the resident. I agree with the resident's findings and plan as documented. SUBJECTIVE: Feeling well, some mild incisional site pain. Tolerating oral intake. OBJECTIVE: Fever resolved, Hemodynamically stable. Seen on HD. SpO2 95% RA. AAO x 3. Last Vital Signs Temp Pulse Resp BP Pulse Ox 98.2 F 80 18 118/52 L 95 03/01/20 08:00 03/01/20 11:30 03/01/20 11:30 03/01/20 11:30 03/01/20 09:00 Heart - S1, S2, SM Lungs - mildly reduced air entry at bases Abdomen - Soft, non-tender. Bowel Sounds normal. Extremities - RLE immobilized post-op. Dressing clean, dy, intact. Reduced ROM due to pain at R hip. Neuro - AAO x 3. Tone/Power normal (unable to evaluate RLE due to pain) Laboratory Results - last 24 hr 03/01/20 03/01/20 07:14 07:14 WBC 9.0 RBC 3.43 L Hgb 9.6 L Hct 29.6 L MCV 86.1 MCH 28.1 MCHC 32.6 RDW 14.8 Plt Count 128 L D MPV 8.8 Absolute Neuts (auto) 7.1 Neutrophils % 78.5 Lymphocytes % 9.0 D Monocytes % 8.2 Eosinophils % 3.8 Basophils % 0.5 Nucleated RBC % 0 Sodium 136 Potassium 4.5 Chloride 94 L Carbon Dioxide 31 Anion Gap 11 BUN 69.9 H Creatinine 12.2 H* Est GFR (CKD-EPI)AfAm 4.01 Est GFR (CKD-EPI)NonAf 3.46 Random Glucose 106 Calcium 9.2 Phosphorus 7.2 H Current Medications Generic Name Dose Route Start Last Admin Trade Name Freq PRN Reason Stop Dose Admin Acetaminophen 325 mg 02/27/20 20:00 02/29/20 05:37 Tylenol - PO 325 mg Q6H PRN Administration PAIN LEVEL 6-10 Acetaminophen 650 mg 02/27/20 21:21 02/28/20 06:01 Tylenol - PO 650 mg Q6H PRN Administration PAIN LEVEL 6-10 Allopurinol 100 mg 02/28/20 10:00 03/01/20 12:06 Zyloprim - PO 100 mg DAILY [facility] Administration Aspirin 81 mg 02/29/20 10:00 03/01/20 12:06 Ecotrin - PO 81 mg DAILY [facility] Administration Carvedilol 12.5 mg 02/27/20 22:00 02/29/20 21:03 Coreg - PO 12.5 mg BID [facility] Administration Cinacalcet 30 mg 02/28/20 10:00 03/01/20 12:07 Sensipar - PO 30 mg DAILY [facility] Administration Docusate Sodium 100 mg 02/28/20 14:00 03/01/20 06:19 Colace - PO 100 mg TID [facility] Administration Enoxaparin Sodium 30 mg 02/28/20 10:00 03/01/20 09:07 Lovenox - SQ 30 mg DAILY [facility] Administration Fentanyl 25 mcg 02/27/20 19:53 Sublimaze Injection - IVPUSH [id number] PRN PAIN-PACU ORDER X 4 DOSES ONLY Gabapentin 100 mg 02/28/20 10:00 03/01/20 12:07 Neurontin - PO 100 mg DAILY [facility] Administration Hydralazine HCl 25 mg 02/27/20 22:00 02/29/20 21:03 Apresoline - PO 25 mg BID [facility] Administration Magnesium Hydroxide 30 ml 02/28/20 10:49 02/28/20 11:34 Milk Of Magnesia - PO 30 ml DAILY PRN Administration CONSTIPATION Morphine Sulfate 4 mg 02/28/20 10:47 02/28/20 11:34 Morphine Sulfate SQ 4 mg Q6H PRN Administration PAIN LEVEL 7 - 10 Ondansetron HCl 4 mg 02/27/20 19:53 02/28/20 01:19 Zofran Injection IVPUSH 4 mg Q6H PRN Administration NAUSEA AND/OR VOMITING Oxycodone HCl 5 mg 02/27/20 20:00 02/29/20 05:38 Roxicodone - PO 5 mg Q6H PRN Administration PAIN LEVEL 6-10 Rosuvastatin Calcium 5 mg 02/27/20 22:00 02/29/20 21:03 Crestor - PO 5 mg HS [facility] Administration Sevelamer Carbonate 1,600 mg 02/28/20 08:00 03/01/20 12:06 Renvela - PO 1,600 mg TIDCM [facility] Administration Tamsulosin HCl 0.4 mg 02/28/20 08:30 03/01/20 08:06 Flomax - PO 0.4 mg DAILY@0830 [facility] Administration Home Medications Medication Instructions Recorded Tamsulosin HCl [Flomax -] 0.4 mg PO DAILY 12/15/13 Gabapentin [Neurontin -] 100 mg PO DAILY #30 capsule 12/23/13 Sevelamer Carbonate [Renvela -] 800 mg PO TIDCM #0 tab 12/23/13 Allopurinol [Zyloprim -] 100 mg PO ASDIR 02/05/15 Carvedilol [Coreg -] 25 mg PO BID 02/05/15 Hydralazine HCl 25 mg PO BID 08/28/17 ASSESSMENT AND PLAN: 79 year old male with history of ESRD on HD MWF, s/p renal transplant with chronic rejection, HTN, HLD, OA, BPH, presents after a syncopal episode with fall and hip fracture. No preceding CP/palpitations. No HI. 1. Acute R femoral neck Fracture POD 3 s/p R Hip Hemiarthroplasty Fever now resolved with negative Blood Cultures. Post-op DVT Px (Lovenox for 4 weeks as per Ortho), early mobilization, incentive spirometry PT, awaiting SNF placement. 2. Syncope, etiology unclear. CT Head - no acute findings, chronic microvascular ischemic changes. Echo - normal EF, mild pul HTN, mild to mod Trop I neg x 2. ECG - new RBBB Carotid Duplex - no hemodnamically significant stenosis. No telemonitoring events Cardio evaluated - for eventual out-patient ischemic work-up and follow up for . Cardiology recommends addition of Aspirin therapy (done) and MARIO-I (however BP border-line here - this can be done by Cardiology as out-patient).= Cardio follow up as out-patient 3. Fever, etiology unclear ?sec to acute fracture - resolved, no recurrence CXR - cardiomegaly, mild congestion, no consolidation Blood Cx x 2 negative No empiric Abx 4. Normocytic Anemia, appears chronic, likely sec to ESRD. No evidence of acute blood loss although patient reports history of dark stools ?melena/diarrhea FOBT requested. Ferritin 1784/Iron sat 13%/B12 - 365/Folate 26 5. ESRD s/p failed renal transplant, on HD vis RUE AVF Nephrology following - HD MWF Continue Sensipar and Renvela. RENU by Nephrology if/when indicated. 6. HTN - continue Hydralazine and Coreg 7. BPH - resumed on Tamsulosin. 8. HLD - continue Crestor. 9. Mild Pituitary enlargement, incidental finding on CT imaging - for Endocrinology referral as out-patient. 10. History of Thrombocytopenia, chronic. DVT Px - Lovenox SQ for 4 weeks as per Ortho
--- NOTE | 2020-03-01 16:19 | DS ---
Physical Exam: SUBJECTIVE: Patient seen and examined at bedside. No acute events reported overnight. OBJECTIVE: Vital Signs Period Temp Pulse Resp BP Sys/Ledesma Pulse Ox Last 24 Hr 98.0 F-98.4 F 66-91 18-20 86-118/40-68 93-96 PHYSICAL EXAM GENERAL: AAOx2 to person and place only HEENT: NCAT, PERRLA, EOMI, sclera anicteric, conjunctiva clear, oropharynx clear w/o exudates. MMM. NECK: Normal ROM, supple, no lymphadenopathy, JVD, or masses LUNGS: CTABL no wheezes/ rhonchi/ rales. No increased work of breathing. HEART: RRR, normal S1 S2, systolic murmur at L lower sternal border, peripheral pulses 2+ and equal b/l ABDOMEN: Soft, NTND, + BS. No guarding or rebound. No hepatomegaly or splenomegaly. MSK: ROM not assessed 2/2 pain. EXTREMITIES: R leg with brace. Surgical site c/d/i no signs of infection NEUROLOGICAL: CN II-XII intact. SKIN: Warm, Dry, normal turgor, no rashes or lesions noted. LABS Laboratory Results - last 24 hr CBC, BMP 03/01/20 07:14 03/01/20 07:14 03/01/20 03/01/20 07:14 07:14 WBC 9.0 RBC 3.43 L Hgb 9.6 L Hct 29.6 L MCV 86.1 MCH 28.1 MCHC 32.6 RDW 14.8 Plt Count 128 L D MPV 8.8 Absolute Neuts (auto) 7.1 Neutrophils % 78.5 Lymphocytes % 9.0 D Monocytes % 8.2 Eosinophils % 3.8 Basophils % 0.5 Nucleated RBC % 0 Sodium 136 Potassium 4.5 Chloride 94 L Carbon Dioxide 31 Anion Gap 11 BUN 69.9 H Creatinine 12.2 H* Est GFR (CKD-EPI)AfAm 4.01 Est GFR (CKD-EPI)NonAf 3.46 Random Glucose 106 Calcium 9.2 Phosphorus 7.2 H HOSPITAL COURSE: 79 year old male with history of ESRD on HD MWF, s/p renal transplant with chronic rejection, HTN, HLD, OA, BPH, presented after a syncopal episode with fall and hip fracture. No preceding CP/palpitations. No HI. Patient had R hip Hemiarthroplasty by Dr. Bey. Patient had concern of sepsis pre op because he kept spiking fevers but sepsis workup was negative. Patient had a plethora of imaging done at admission but all of them were negative for acute pathology. Cardio recommended outpatient stress test for ischemia workup for the patient. Patient had normocytic anemia with normal hemoglobin and did not meed indications for RENU as per nephro. Patient was discharged to rehab. Date of Admission:02/23/20 02/23/20-EKG-NSR, RBB, L anterior fascicular block 02/23/20-CR Hip and Pelvis R-Findings compatible with a right femoral neck fracture. Correlate clinically for further evaluation 02/23/20-CR R Femur-Right femoral neck fracture, as described above. The rest of the right femoral shaft is intact. 02/23/20-CT Pelvis w/o contrast-Slightly displaced and partially impacted right femoral neck fracture with mild superior/lateral angulation. No other gross acute fracture or dislocation are identified. 02/23/20-US Carotid flow doppler-The vertebral arteries appear to be patent with physiologic flow direction. No Doppler evidence of a high-grade carotid artery stenosis is noted. 02/24/20-Echo-LV size thickness and fct are normal. EF=65%, moderate hipolito annular calcification. trace mitral and tricuspid regurgitation. mild pulmonary HTN. RV systolic pressure is elevated at 44 mg. moderate/severe aortic valve thickening. mild valvular aortic stenosis. aortic mean pressure gradient=17.6. calculated aortic valve area using the continuity equation is 1.5 cm2. trace to mild aortic and mulmonic valvular regurgitation. 02/24/20-CT head w/o contrast-no CT evidence of acute intracranial pathology. Moderate periventricular and subcortical chronic microvascular ischemic changes are seen. There is stable mild pituitary enlargement with a 1 cm height in comparison to CT performed on 04/23/2015. Endocrine evaluation is suggested. Interval increased paranasal sinus disease is noted as described above. 02/24/2044-GVN-Jnytgspljrcy with suggestion of mild pulmonary venous congestion 02/26/2096-GVR-Vutwghklxq: No acute chest pathology. No significant change since prior exam. 02/26/20-US Duplex legs-No DVT is identified involving either leg. Please see a zulay. 02/27/20-CR Hip and Pelvis R-Single view of the right hemipelvis and right hip reveals a right hip replacement. There is soft tissue air. There are pelvic clips. Imaging is available for review. Date of Discharge: 03/01/20 Minutes to complete discharge: 36 Discharge Summary Problems reviewed: Yes Reason For Visit: SYNCOPE,FX OF RT HIP,ESRD Current Active Problems Aortic valve stenosis (Acute) Closed displaced fracture of right femoral neck (Acute) Displaced fracture of base of neck of right femur, initial encounter for closed fracture (Acute) HTN (hypertension) (Acute) Hip fracture, right (Acute) Preoperative cardiovascular examination (Acute) Syncope (Acute) Condition: Stable - Instructions Diet, Activity, Other Instructions: Your visit: You were admitted to the hospital for right hip pain after a fall. You were found to have a fracture of your right hip. You were treated with surgery with improvement of your symptoms. Additonal Imaging Findings: -During your visit, we did a CT scan which showed mild pituitary enlargement. Medications changes: NEW MEDS: We started you on a blood thinner since you had hip surgery. Please INJECT YOURSELF with LOVENOX 30 MG DAILY FOR 4 WEEKS. -Continue to take all other home medications as prescribed. Follow up: - Please follow-up with your orthopedic surgeon, Dr. Bey in 1 week. -Please follow-up with your bakery technician, Dr. Lucas in 1 week - Visit with your Primary Care Provider, Dr. Baptiste in 2 weeks. -Please follow-up with your revit drafter, Dr. Collazo in 1 week about getting a stress test to evaluate your heart function. -Please follow-up with your skates operator, Dr. Chan about the Mild Pituitary enlargement we found on your CT scan. Additional Instructions: -You are being discharged to rehab. -Please return to the Emergency Department if you experience worsening pain, fevers, chills, shortness of breath, or chest pain, or if you experience any worsening, new or concerning symptoms. Referrals: Priscila Baptiste NP [Non Staff, Medical] - 1 Week (f/u recent hospital admission and hip surgery ) Raimundo Bey MD [Staff Physician] - 1 Week (f/u right hip surgery) Kathy Quezada MD [Staff Physician] - 1 Week (f/u ESRD) Paul Chan MD [Staff Physician] - 1 Week (f/u Mild Pituitary enlargement found on CT) Zak Collazo MD [Staff Physician] - 2 Weeks (f/u for stress test) Disposition: HALFWAY FACILITY - Home Medications Comprehensive Discharge Medication List: Ambulatory Orders Tamsulosin HCl [Flomax -] 0.4 mg PO DAILY 12/15/13 Gabapentin [Neurontin -] 100 mg PO DAILY #30 capsule 12/23/13 Sevelamer Carbonate [Renvela -] 800 mg PO TIDCM #0 tab 12/23/13 Allopurinol [Zyloprim -] 100 mg PO ASDIR 02/05/15 Carvedilol [Coreg -] 25 mg PO BID 02/05/15 Hydralazine HCl 25 mg PO BID 08/28/17 This patient is new to me today: No Emergency Visit: No Critical Care patient: No - Discharge Referral Referred to [facility] No ATTENDING PHYSICIAN STATEMENT I saw and evaluated the patient. I reviewed the resident's note and discussed the case with the resident. I agree with the resident's findings and plan as documented. SUBJECTIVE: OBJECTIVE: ASSESSMENT AND PLAN:
[2020-03-01] MEDS: ROSUVASTATIN CA 5 MG TABLET (FP) PO SCH (21:13)
[2020-03-02 07:14] LABS: BASO % 0.6 % (0-2.0); EOS % 3.9 % (0-4.5); HEMATOCRIT 29.2 % (35.4-49); HEMOGLOBIN 9.7 GM/dL (11.7-16.9); LYMPH % 11.4 % (8-40); MCH 28.8 pg (25.7-33.7); MCHC 33.2 g/dl (32.0-35.9); MEAN CELL VOLUME 86.7 fl (80-96); MEAN PLT VOLUME 8.2 fl (7.5-11.1); MONO % 8.2 % (3.8-10.2); NEUT % 75.9 % (42.8-82.8); PLATELET COUNT 137 K/MM3 (134-434); RBC 3.37 M/mm3 (4.00-5.60); RDW 15.1 % (11.9-15.9); WHITE BLOOD COUNT 7.2 K/mm3 (4.0-10.0)
[2020-03-02 07:34] LABS: BLOOD UREA NITROGEN 48.8 mg/dL (7-18); CALCIUM 10.1 mg/dL (8.5-10.1); POTASSIUM 4.5 mmol/L (3.5-5.1)
[2020-03-02] MEDS: TAMSULOSIN HCL 0.4 MG CAP PO SCH (07:58)
[2020-03-02] MEDS: SEVELAMER CARBONATE 800 MG TAB (FP) PO SCH ×3 (07:58→17:36)
[2020-03-02 08:06] LABS: CREATININE 9.1 mg/dL (0.55-1.3)
[2020-03-02] MEDS: ENOXAPARIN NA (PORCINE) 30 MG/0.3 ML DISP.SYRIN SQ SCH (09:45)
[2020-03-02] MEDS: ALLOPURINOL 100 MG TABLET (FP) PO SCH (09:46)
[2020-03-02] MEDS: hydrALAZINE HCL 25 MG TABLET (FP) PO SCH ×2 (09:46→21:30)
[2020-03-02] MEDS: GABAPENTIN 100 MG CAPSULE PO SCH (09:46)
[2020-03-02] MEDS: ASPIRIN COATED 81 MG TABLET.EC PO SCH (09:46)
[2020-03-02] MEDS: VITAMIN B COMP W-C 1 EA TABLET (NEPHRO-VITE) PO SCH (09:46)
[2020-03-02] MEDS: CARVEDILOL 12.5 MG TABLET (FP) PO SCH ×2 (09:46→21:30)
--- NOTE | 2020-03-02 10:36 | PN ---
Progress Note, Physician Chief Complaint: Post right hip hemiarthroplasty Hemodynamically stable History of Present Illness: Patient was seen and examined. Awake. Chart was reviewed Denies chest pain or shortness of breath - Current Medication List Current Medications: Active Medications Acetaminophen (Tylenol -) 325 mg PO Q6H PRN PRN Reason: PAIN LEVEL 6-10 Last Admin: 02/29/20 05:37 Dose: 325 mg Documented by: Acetaminophen (Tylenol -) 650 mg PO Q6H PRN PRN Reason: PAIN LEVEL 6-10 Last Admin: 02/28/20 06:01 Dose: 650 mg Documented by: Allopurinol (Zyloprim -) 100 mg PO DAILY [facility] Last Admin: 03/02/20 09:46 Dose: 100 mg Documented by: Aspirin (Ecotrin -) 81 mg PO DAILY [facility] Last Admin: 03/02/20 09:46 Dose: 81 mg Documented by: Carvedilol (Coreg -) 12.5 mg PO BID [facility] Last Admin: 03/02/20 09:46 Dose: 12.5 mg Documented by: Cinacalcet (Sensipar -) 30 mg PO DAILY [facility] Last Admin: 03/01/20 12:07 Dose: 30 mg Documented by: Docusate Sodium (Colace -) 100 mg PO TID [facility] Last Admin: 03/01/20 21:13 Dose: 100 mg Documented by: Enoxaparin Sodium (Lovenox -) 30 mg SQ DAILY [facility] Last Admin: 03/02/20 09:45 Dose: 30 mg Documented by: Fentanyl (Sublimaze Injection -) 25 mcg IVPUSH [id number] PRN PRN Reason: PAIN-PACU ORDER X 4 DOSES ONLY Gabapentin (Neurontin -) 100 mg PO DAILY [facility] Last Admin: 03/02/20 09:46 Dose: 100 mg Documented by: Hydralazine HCl (Apresoline -) 25 mg PO BID [facility] Last Admin: 03/02/20 09:46 Dose: 25 mg Documented by: Magnesium Hydroxide (Milk Of Magnesia -) 30 ml PO DAILY PRN PRN Reason: CONSTIPATION Last Admin: 02/28/20 11:34 Dose: 30 ml Documented by: Morphine Sulfate (Morphine Sulfate) 4 mg SQ Q6H PRN PRN Reason: PAIN LEVEL 7 - 10 Last Admin: 02/28/20 11:34 Dose: 4 mg Documented by: Multivit/Ca Carb/B Cmplx/FA/Prenat (Nephro-Kati -) 1 tablet PO DAILY [facility] Last Admin: 03/02/20 09:46 Dose: 1 tablet Documented by: Ondansetron HCl (Zofran Injection) 4 mg IVPUSH Q6H PRN PRN Reason: NAUSEA AND/OR VOMITING Last Admin: 02/28/20 01:19 Dose: 4 mg Documented by: Rosuvastatin Calcium (Crestor -) 5 mg PO HS [facility] Last Admin: 03/01/20 21:13 Dose: 5 mg Documented by: Sevelamer Carbonate (Renvela -) 1,600 mg PO TIDCM [facility] Last Admin: 03/02/20 07:58 Dose: 1,600 mg Documented by: Tamsulosin HCl (Flomax -) 0.4 mg PO DAILY@0830 [facility] Last Admin: 03/02/20 07:58 Dose: 0.4 mg Documented by: - Objective Vital Signs: Vital Signs Temperature 97.5 F L 03/02/20 05:34 Pulse Rate 73 03/02/20 05:34 Respiratory Rate 20 03/02/20 05:34 Blood Pressure 103/55 L 03/02/20 05:34 O2 Sat by Pulse Oximetry (%) 92 L 03/02/20 05:34 Neck: Yes: Supple Cardiovascular: Yes: Regular Rate and Rhythm, S1, S2 Respiratory: Yes: Diminished Gastrointestinal: Yes: Normal Bowel Sounds, Soft. No: Tenderness Edema: No Additional Findings/Remarks: - Review of Systems Constitutional: denies: Chills, Fever Cardiovascular: denies: Chest Pain, Palpitations, Shortness of Breath Respiratory: denies: Cough, Hemoptysis, Orthopnea, PND, SOB, SOB on Exertion, Wheezing Gastrointestinal: reports: Diarrhea. denies: Abdominal Pain, Constipation, Melena, Nausea, Rectal Bleeding, Vomiting Musculoskeletal: reports: Joint Pain. denies: Back Pain Neurological: reports: Syncope. denies: Dizziness, Headache, Seizure Labs: CBC, BMP 03/02/20 06:29 03/02/20 06:29 Problem List - Problems (1) HTN (hypertension) Code(s): I10 - ESSENTIAL (PRIMARY) HYPERTENSION Qualifiers: Hypertension type: essential hypertension Qualified Code(s): I10 - Essential (primary) hypertension (2) Aortic valve stenosis Code(s): I35.0 - NONRHEUMATIC AORTIC (VALVE) STENOSIS Qualifiers: Cardiac valve disease etiology: nonrheumatic Qualified Code(s): I35.0 - Nonrheumatic aortic (valve) stenosis (3) Closed displaced fracture of right femoral neck Code(s): S72.001A - FRACTURE OF UNSP PART OF NECK OF RIGHT FEMUR, INIT (4) Syncope Code(s): R55 - SYNCOPE AND COLLAPSE Qualifiers: Syncope type: unspecified Qualified Code(s): R55 - Syncope and collapse (5) End stage renal disease Code(s): N18.6 - END STAGE RENAL DISEASE (6) Kidney transplant failure Code(s): T86.12 - KIDNEY TRANSPLANT FAILURE (7) Preoperative cardiovascular examination Code(s): Z01.810 - ENCOUNTER FOR PREPROCEDURAL CARDIOVASCULAR EXAMINATION (8) CAD (coronary artery disease) Code(s): I25.10 - ATHSCL HEART DISEASE OF [place] CORONARY ARTERY W/O ANG PCTRS (9) Hypercholesterolemia Code(s): E78.00 - PURE HYPERCHOLESTEROLEMIA, UNSPECIFIED Assessment/Plan 1. Post fall with syncope resulting in right hip fracture post right hip hemiarthroplasty 2. Aortic valve stenosis (suggest mild to moderate) 3. Systolic/diastolic LV dysfunction with clinical class 0 NYHA classification LV failure 4. CAD, angina pectoris 5. HTN 6. Hypercholesterolemia 7. ESRD on HD and history of failed renal transplant PLAN: 1. Continue Coreg 12.5 mg BID as tolerated 2. As outlined in previous notes recommend the addition of ACEI or ARB unless it is absolutely contraindicated 3. Continue Hydralazine 25 mg BID 4. Continue ASA 81 qd 5. DVT prophylaxis 6. Continue Crestor 5 mg QHS 7. HD as per the renal service 8. Future cardiovascular evaluation is recommended to assess ischemic burden/outpatient evaluation - Nuclear MPI study Further plans are to follow Tony Watson MD
[2020-03-02] MEDS: CINACALCET HCL 30 MG TAB (FP) PO SCH (10:37)
--- NOTE | 2020-03-02 12:44 | PN ---
Progress Note, Physician History of Present Illness: Seen and examined at the bedside offers no acute complaints no sob, cp, fever, chills, N/V/D s/p dialysis yesterday he reports soreness in access arm - Current Medication List Current Medications: Active Medications Acetaminophen (Tylenol -) 325 mg PO Q6H PRN PRN Reason: PAIN LEVEL 6-10 Last Admin: 02/29/20 05:37 Dose: 325 mg Documented by: Acetaminophen (Tylenol -) 650 mg PO Q6H PRN PRN Reason: PAIN LEVEL 6-10 Last Admin: 02/28/20 06:01 Dose: 650 mg Documented by: Allopurinol (Zyloprim -) 100 mg PO DAILY [facility] Last Admin: 03/02/20 09:46 Dose: 100 mg Documented by: Aspirin (Ecotrin -) 81 mg PO DAILY [facility] Last Admin: 03/02/20 09:46 Dose: 81 mg Documented by: Carvedilol (Coreg -) 12.5 mg PO BID [facility] Last Admin: 03/02/20 09:46 Dose: 12.5 mg Documented by: Cinacalcet (Sensipar -) 30 mg PO DAILY [facility] Last Admin: 03/02/20 10:37 Dose: 30 mg Documented by: Docusate Sodium (Colace -) 100 mg PO TID [facility] Last Admin: 03/01/20 21:13 Dose: 100 mg Documented by: Enoxaparin Sodium (Lovenox -) 30 mg SQ DAILY [facility] Last Admin: 03/02/20 09:45 Dose: 30 mg Documented by: Fentanyl (Sublimaze Injection -) 25 mcg IVPUSH [id number] PRN PRN Reason: PAIN-PACU ORDER X 4 DOSES ONLY Gabapentin (Neurontin -) 100 mg PO DAILY [facility] Last Admin: 03/02/20 09:46 Dose: 100 mg Documented by: Hydralazine HCl (Apresoline -) 25 mg PO BID [facility] Last Admin: 03/02/20 09:46 Dose: 25 mg Documented by: Magnesium Hydroxide (Milk Of Magnesia -) 30 ml PO DAILY PRN PRN Reason: CONSTIPATION Last Admin: 02/28/20 11:34 Dose: 30 ml Documented by: Multivit/Ca Carb/B Cmplx/FA/Prenat (Nephro-Kati -) 1 tablet PO DAILY [facility] Last Admin: 03/02/20 09:46 Dose: 1 tablet Documented by: Ondansetron HCl (Zofran Injection) 4 mg IVPUSH Q6H PRN PRN Reason: NAUSEA AND/OR VOMITING Last Admin: 02/28/20 01:19 Dose: 4 mg Documented by: Rosuvastatin Calcium (Crestor -) 5 mg PO HS [facility] Last Admin: 03/01/20 21:13 Dose: 5 mg Documented by: Sevelamer Carbonate (Renvela -) 1,600 mg PO TIDCM [facility] Last Admin: 03/02/20 12:37 Dose: 1,600 mg Documented by: Tamsulosin HCl (Flomax -) 0.4 mg PO DAILY@0830 [facility] Last Admin: 03/02/20 07:58 Dose: 0.4 mg Documented by: - Objective Vital Signs: Vital Signs Temperature 97.5 F L 03/02/20 05:34 Pulse Rate 73 03/02/20 05:34 Respiratory Rate 20 03/02/20 05:34 Blood Pressure 103/55 L 03/02/20 05:34 O2 Sat by Pulse Oximetry (%) 92 L 03/02/20 05:34 Constitutional: Yes: No Distress, Calm Neck: Yes: Supple Cardiovascular: Yes: Regular Rate and Rhythm Respiratory: Yes: Regular Gastrointestinal: Yes: Soft Extremities: No: Cyanosis Edema: No Labs: CBC, BMP 03/02/20 06:29 03/02/20 06:29 INR, PTT INR 1.08 (0.83-1.09) 02/23/20 12:35 Assessment/Plan 79 year old male with a past medical history of ESRD on HD (MWF), hypertension, renal osteodystrophy, and CKD related anemia who presented s/p syncope/fall with right femoral fracture. 1. ESRD on HD 2. Femoral fracture 3. Syncope/Fall 4. Hypertension 5. Renal Osteodystrophy/Secondary hyperparathyroidism 6. Anemia 7. Diarrhea 8. Fever next planned dialysis tomorrow Renal diet, 1.2L daily fluid restriction. Will check doppler of AVF to r/o stenosis/thormobsois Pain control w/o NSAIDs will continue 3x weekly dialysis while inpatient. s/p hip hemiarthoplaty Continue coreg and hydrlazine Cardiology follow up CT head negative Carotid Doppler negative ECHO shows preserved LV function Iron saturation low but ferritin is elevated, Hgb > 10. No RENU needed. Cultures negative Thank you Chauncey Alvarado DO
--- NOTE | 2020-03-02 13:14 | PN ---
Physical Exam: SUBJECTIVE: Patient seen and examined at bedside. No acute events reported overnight. OBJECTIVE: Vital Signs Period Temp Pulse Resp BP Sys/Ledesma Pulse Ox Last 24 Hr 97.5 F-98.7 F 73-96 20-20 91-121/47-55 90-98 GENERAL: AAOx2 to person and place only HEENT: NCAT, PERRLA, EOMI, sclera anicteric, conjunctiva clear, oropharynx clear w/o exudates. MMM. NECK: Normal ROM, supple, no lymphadenopathy, JVD, or masses LUNGS: CTABL no wheezes/ rhonchi/ rales. No increased work of breathing. HEART: RRR, normal S1 S2, systolic murmur at L lower sternal border, peripheral pulses 2+ and equal b/l ABDOMEN: Soft, NTND, + BS. No guarding or rebound. No hepatomegaly or splenomegaly. MSK: ROM not assessed 2/2 pain. EXTREMITIES: R leg with brace. Surgical site c/d/i no signs of infection NEUROLOGICAL: CN II-XII intact. SKIN: Warm, Dry, normal turgor, no rashes or lesions noted. Laboratory Results - last 24 hr CBC, BMP 03/02/20 06:29 03/02/20 06:29 03/02/20 03/02/20 06:29 06:29 WBC 7.2 RBC 3.37 L Hgb 9.7 L Hct 29.2 L MCV 86.7 MCH 28.8 MCHC 33.2 RDW 15.1 Plt Count 137 MPV 8.2 Absolute Neuts (auto) 5.5 Neutrophils % 75.9 Lymphocytes % 11.4 D Monocytes % 8.2 Eosinophils % 3.9 Basophils % 0.6 Nucleated RBC % 0 Sodium 138 Potassium 4.5 Chloride 98 Carbon Dioxide 30 Anion Gap 10 BUN 48.8 H Creatinine 9.1 H* Est GFR (CKD-EPI)AfAm 5.72 Est GFR (CKD-EPI)NonAf 4.94 Random Glucose 89 Calcium 10.1 Active Medications Generic Name Dose Route Start Last Admin Trade Name Freq PRN Reason Stop Dose Admin Acetaminophen 325 mg 02/27/20 20:00 02/29/20 05:37 Tylenol - PO 325 mg Q6H PRN Administration PAIN LEVEL 6-10 Acetaminophen 650 mg 02/27/20 21:21 02/28/20 06:01 Tylenol - PO 650 mg Q6H PRN Administration PAIN LEVEL 6-10 Allopurinol 100 mg 02/28/20 10:00 03/02/20 09:46 Zyloprim - PO 100 mg DAILY [facility] Administration Aspirin 81 mg 02/29/20 10:00 03/02/20 09:46 Ecotrin - PO 81 mg DAILY [facility] Administration Carvedilol 12.5 mg 02/27/20 22:00 03/02/20 09:46 Coreg - PO 12.5 mg BID [facility] Administration Cinacalcet 30 mg 02/28/20 10:00 03/02/20 10:37 Sensipar - PO 30 mg DAILY [facility] Administration Docusate Sodium 100 mg 02/28/20 14:00 03/01/20 21:13 Colace - PO 100 mg TID [facility] Administration Enoxaparin Sodium 30 mg 02/28/20 10:00 03/02/20 09:45 Lovenox - SQ 30 mg DAILY [facility] Administration Fentanyl 25 mcg 02/27/20 19:53 Sublimaze Injection - IVPUSH [id number] PRN PAIN-PACU ORDER X 4 DOSES ONLY Gabapentin 100 mg 02/28/20 10:00 03/02/20 09:46 Neurontin - PO 100 mg DAILY [facility] Administration Hydralazine HCl 25 mg 02/27/20 22:00 03/02/20 09:46 Apresoline - PO 25 mg BID [facility] Administration Magnesium Hydroxide 30 ml 02/28/20 10:49 02/28/20 11:34 Milk Of Magnesia - PO 30 ml DAILY [facility]N Administration CONSTIPATION Multivit/Ca Carb/B Cmplx/FA/Prenat 1 tablet 03/02/20 10:00 03/02/20 09:46 Nephro-Kati - PO 1 tablet DAILY [facility] Administration Ondansetron HCl 4 mg 02/27/20 19:53 02/28/20 01:19 Zofran Injection IVPUSH 4 mg Q6H PRN Administration NAUSEA AND/OR VOMITING Rosuvastatin Calcium 5 mg 02/27/20 22:00 03/01/20 21:13 Crestor - PO 5 mg HS [facility] Administration Sevelamer Carbonate 1,600 mg 02/28/20 08:00 03/02/20 12:37 Renvela - PO 1,600 mg TIDCM [facility] Administration Tamsulosin HCl 0.4 mg 02/28/20 08:30 03/02/20 07:58 Flomax - PO 0.4 mg DAILY@0830 [facility] Administration ASSESSMENT/PLAN: 79 y/o M with PMX of ESRD on HD (MWF), s/p renal transplant (chronic rejection), HTN, OA, BPH, presents after syncope with fall and hip fracture. Admitted for syncope with fall and hip fracture. #Acute R femoral neck Fracture -X-Ray and CT consistent with R femoral neck fracture -POD #4 sp R hip hemiarthroplasty with Dr. Bey -continue PT- WBAT w/ hip precautions -PRN pain on board #Syncope -etiology unclear -ECG - new RBBB -CT Head -negative for acute pathology -Echo - normal EF, mild pulmonary HTN, mild to moderate -Trops neg x 2 -Cardio consult: pt needs stress test and follow up for . -Carotid Duplex: no evidence of high-grade carotid artery stenosis -continue tele monitoring #Normocytic Anemia -FOBT f/u -B12 and folate wnl -H&H stable #ESRD -receiving HD via AVF on RUE, /Lyla/Sat -c/w Sensipar and Renvela -nephro following, Dr. Alvarado; f/u reccs #HTN -c/w home med Hydralazine -home med Coreg restarted at 12.5 mg and titrate up to 25 mg as per Cardio -cardio following: DR. Watson #BPH -c/w home med Tamsulosin #Mild Pituitary enlargement -incidental finding on CT imaging -Endocrine referral as out-patient after d/c #FEN -no standing fluids -monitor lytes; replete PRN -Renal diet #Ppx DVT: SQ lovenox dispo: continue to monitor on tele and rehab planning Visit type - Emergency Visit Emergency Visit: No - New Patient This patient is new to me today: No - Critical Care Critical Care patient: No - Discharge Referral Referred to [facility] No - Medication Review Med list reviewed for High Risk Meds patients 65 and older: Yes ATTENDING PHYSICIAN STATEMENT I saw and evaluated the patient. I reviewed the resident's note and discussed the case with the resident. I agree with the resident's findings and plan as documented. SUBJECTIVE: OBJECTIVE: ASSESSMENT AND PLAN:
[2020-03-02] MEDS: DOCUSATE SODIUM 100 MG CAPSULE (FP) PO SCH ×2 (14:48→21:27)
--- NOTE | 2020-03-02 14:53 | PN ---
Teaching Attending Note Name of Resident: Chao Gonzalez ATTENDING PHYSICIAN STATEMENT I saw and evaluated the patient. I reviewed the resident's note and discussed the case with the resident. I agree with the resident's findings and plan as documented. SUBJECTIVE: pt seen and examined OBJECTIVE: Last Vital Signs Temp Pulse Resp BP Pulse Ox 97.8 F 80 20 106/54 L 92 L 03/02/20 14:00 03/02/20 14:00 03/02/20 14:00 03/02/20 14:00 03/02/20 05:34 Heart - S1, S2, SM Lungs - mildly reduced air entry at bases Abdomen - Soft, non-tender. Bowel Sounds normal. Extremities - RLE immobilized post-op. Dressing clean, dy, intact. Reduced ROM due to pain at R hip. Neuro - AAO x 3. Tone/Power normal (unable to evaluate RLE due to pain) CBCD WBC 7.2 K/mm3 (4.0-10.0) 03/02/20 06:29 RBC 3.37 M/mm3 (4.00-5.60) L 03/02/20 06:29 Hgb 9.7 GM/dL (11.7-16.9) L 03/02/20 06:29 Hct 29.2 % (35.4-49) L 03/02/20 06:29 MCV 86.7 fl (80-96) 03/02/20 06:29 MCHC 33.2 g/dl (32.0-35.9) 03/02/20 06:29 RDW 15.1 % (11.9-15.9) 03/02/20 06:29 Plt Count 137 K/MM3 (134-434) 03/02/20 06:29 MPV 8.2 fl (7.5-11.1) 03/02/20 06:29 CMP Sodium 138 mmol/L (136-145) 03/02/20 06:29 Potassium 4.5 mmol/L (3.5-5.1) 03/02/20 06:29 Chloride 98 mmol/L (98-107) 03/02/20 06:29 Carbon Dioxide 30 mmol/L (21-32) 03/02/20 06:29 Anion Gap 10 MMOL/L (8-16) 03/02/20 06:29 BUN 48.8 mg/dL (7-18) H 10/13/20 06:29 Creatinine 9.1 mg/dL (0.55-1.3) H* 03/02/20 06:29 Calcium 10.1 mg/dL (8.5-10.1) 03/02/20 06:29 Total Bilirubin 0.3 mg/dL (0.2-1) 02/29/20 06:19 AST 18 U/L (15-37) 02/29/20 06:19 ALT 6 U/L (13-61) L 02/29/20 06:19 Alkaline Phosphatase 78 U/L (45-117) 02/29/20 06:19 Total Protein 6.4 g/dl (6.4-8.2) 02/29/20 06:19 Albumin 2.4 g/dl (3.4-5.0) L 02/29/20 06:19 ASSESSMENT AND PLAN: 79 year old male with history of ESRD on HD MWF, s/p renal transplant with chronic rejection, HTN, HLD, OA, BPH, presents after a syncopal episode with fall and hip fracture. No preceding CP/palpitations. No HI. # Acute R femoral neck Fracture s/p R Hip Hemiarthroplasty Fever now resolved with negative Blood Cultures. Post-op DVT Px (Lovenox for 4 weeks as per Ortho), early mobilization, incentive spirometry PT, awaiting SNF placement. # Syncope, etiology unclear. CT Head - no acute findings, chronic microvascular ischemic changes. Echo - normal EF, mild pul HTN, mild to mod Trop I neg x 2. ECG - new RBBB Carotid Duplex - no hemodnamically significant stenosis. No telemonitoring events Cardio evaluated - for eventual out-patient ischemic work-up and follow up for . Cardiology recommends addition of Aspirin therapy (done) and MARIO-I (however BP border-line here - this can be done by Cardiology as out-patient).= Cardio follow up as out-patient Normocytic Anemia ESRD HTN BPH HLD Mild Pituitary enlargement, incidental finding on CT imaging - for Endocrinology referral as out-patient. Chronic Thrombocytopenia DVT Px - Lovenox SQ for 4 weeks as per Ortho
[2020-03-02] MEDS: ACETAMINOPHEN 325 MG TABLET (FP) PO PRN (15:10)
[2020-03-02] MEDS: ROSUVASTATIN CA 5 MG TABLET (FP) PO SCH (21:27)
[2020-03-03] MEDS: DOCUSATE SODIUM 100 MG CAPSULE (FP) PO SCH ×3 (06:03→21:38)
[2020-03-03 07:32] LABS: BASO % 0.8 % (0-2.0); EOS % 7.4 % (0-4.5); HEMATOCRIT 26.1 % (35.4-49); HEMOGLOBIN 8.6 GM/dL (11.7-16.9); LYMPH % 14.3 % (8-40); MCH 28.1 pg (25.7-33.7); MCHC 32.8 g/dl (32.0-35.9); MEAN CELL VOLUME 85.8 fl (80-96); MEAN PLT VOLUME 7.9 fl (7.5-11.1); MONO % 8.6 % (3.8-10.2); NEUT % 68.9 % (42.8-82.8); PLATELET COUNT 173 K/MM3 (134-434); RBC 3.04 M/mm3 (4.00-5.60); RDW 14.8 % (11.9-15.9); WHITE BLOOD COUNT 5.4 K/mm3 (4.0-10.0)
[2020-03-03 08:16] LABS: BLOOD UREA NITROGEN 68.9 mg/dL (7-18); CALCIUM 9.5 mg/dL (8.5-10.1); MAGNESIUM 2.5 mg/dL (1.8-2.4); PHOSPHOROUS 6.8 mg/dL (2.5-4.9); POTASSIUM 4.3 mmol/L (3.5-5.1)
[2020-03-03 08:35] LABS: CREATININE 11.3 mg/dL (0.55-1.3)
[2020-03-03] MEDS: SEVELAMER CARBONATE 800 MG TAB (FP) PO SCH ×3 (09:30→17:55)
[2020-03-03] MEDS: ENOXAPARIN NA (PORCINE) 30 MG/0.3 ML DISP.SYRIN SQ SCH (09:31)
[2020-03-03] MEDS: ALLOPURINOL 100 MG TABLET (FP) PO SCH (09:31)
[2020-03-03] MEDS: TAMSULOSIN HCL 0.4 MG CAP PO SCH (09:31)
[2020-03-03] MEDS: VITAMIN B COMP W-C 1 EA TABLET (NEPHRO-VITE) PO SCH (09:32)
[2020-03-03] MEDS: hydrALAZINE HCL 25 MG TABLET (FP) PO SCH (09:32)
[2020-03-03] MEDS: CINACALCET HCL 30 MG TAB (FP) PO SCH (09:32)
[2020-03-03] MEDS: GABAPENTIN 100 MG CAPSULE PO SCH (09:32)
[2020-03-03] MEDS: ASPIRIN COATED 81 MG TABLET.EC PO SCH (09:32)
--- NOTE | 2020-03-03 09:32 | PN ---
Progress Note, Physician History of Present Illness: POD#5 Right hip hemiarthroplasty, pain adequately controlled, denies chest pain or dyspnea, undergoing bedside HD. - Current Medication List Current Medications: Active Medications Acetaminophen (Tylenol -) 325 mg PO Q6H PRN PRN Reason: PAIN LEVEL 6-10 Last Admin: 02/29/20 05:37 Dose: 325 mg Documented by: Acetaminophen (Tylenol -) 650 mg PO Q6H PRN PRN Reason: PAIN LEVEL 6-10 Last Admin: 03/02/20 15:10 Dose: 650 mg Documented by: Allopurinol (Zyloprim -) 100 mg PO DAILY [facility] Last Admin: 03/02/20 09:46 Dose: 100 mg Documented by: Aspirin (Ecotrin -) 81 mg PO DAILY [facility] Last Admin: 03/02/20 09:46 Dose: 81 mg Documented by: Carvedilol (Coreg -) 12.5 mg PO BID [facility] Last Admin: 03/02/20 21:30 Dose: 12.5 mg Documented by: Cinacalcet (Sensipar -) 30 mg PO DAILY [facility] Last Admin: 03/02/20 10:37 Dose: 30 mg Documented by: Docusate Sodium (Colace -) 100 mg PO TID [facility] Last Admin: 03/03/20 06:03 Dose: Not Given Documented by: Enoxaparin Sodium (Lovenox -) 30 mg SQ DAILY [facility] Last Admin: 03/02/20 09:45 Dose: 30 mg Documented by: Fentanyl (Sublimaze Injection -) 25 mcg IVPUSH [id number] PRN PRN Reason: PAIN-PACU ORDER X 4 DOSES ONLY Gabapentin (Neurontin -) 100 mg PO DAILY [facility] Last Admin: 03/02/20 09:46 Dose: 100 mg Documented by: Hydralazine HCl (Apresoline -) 25 mg PO BID [facility] Last Admin: 03/02/20 21:30 Dose: 25 mg Documented by: Magnesium Hydroxide (Milk Of Magnesia -) 30 ml PO DAILY PRN PRN Reason: CONSTIPATION Last Admin: 02/28/20 11:34 Dose: 30 ml Documented by: Multivit/Ca Carb/B Cmplx/FA/Prenat (Nephro-Kati -) 1 tablet PO DAILY [facility] Last Admin: 03/02/20 09:46 Dose: 1 tablet Documented by: Ondansetron HCl (Zofran Injection) 4 mg IVPUSH Q6H PRN PRN Reason: NAUSEA AND/OR VOMITING Last Admin: 02/28/20 01:19 Dose: 4 mg Documented by: Rosuvastatin Calcium (Crestor -) 5 mg PO HS [facility] Last Admin: 03/02/20 21:27 Dose: 5 mg Documented by: Sevelamer Carbonate (Renvela -) 1,600 mg PO TIDCM [facility] Last Admin: 03/02/20 17:36 Dose: 1,600 mg Documented by: Tamsulosin HCl (Flomax -) 0.4 mg PO DAILY@0830 [facility] Last Admin: 03/02/20 07:58 Dose: 0.4 mg Documented by: - Objective Vital Signs: Vital Signs Temperature 97.4 F L 03/03/20 06:00 Pulse Rate 75 03/03/20 06:00 Respiratory Rate 20 03/03/20 06:00 Blood Pressure 103/58 L 03/03/20 06:00 O2 Sat by Pulse Oximetry (%) 93 L 03/02/20 22:00 Labs: CBC, BMP 03/03/20 06:02 03/03/20 06:02 INR, PTT INR 1.08 (0.83-1.09) 02/23/20 12:35 Problem List - Problems (1) Anemia Code(s): D64.9 - ANEMIA, UNSPECIFIED Qualifiers: Anemia type: due to chronic kidney disease Chronic kidney disease stage: on chronic dialysis Qualified Code(s): N18.6 - End stage renal disease; D63.1 - Anemia in chronic kidney disease; Z99.2 - Dependence on renal dialysis (2) Renal osteodystrophy Code(s): N25.0 - RENAL OSTEODYSTROPHY Assessment/Plan Problem List - Problems (1) HTN (hypertension) Code(s): I10 - ESSENTIAL (PRIMARY) HYPERTENSION (2) Aortic valve stenosis Code(s): I35.0 - NONRHEUMATIC AORTIC (VALVE) STENOSIS (3) Closed displaced fracture of right femoral neck Code(s): S72.001A - FRACTURE OF UNSP PART OF NECK OF RIGHT FEMUR, INIT (4) Syncope Code(s): R55 - SYNCOPE AND COLLAPSE Qualifiers: Syncope type: unspecified Qualified Code(s): R55 - Syncope and collapse (5) End stage renal disease Code(s): N18.6 - END STAGE RENAL DISEASE (6) Kidney transplant failure Code(s): T86.12 - KIDNEY TRANSPLANT FAILURE Assessment/Plan 02/24/2020 Echo: Normal biventricular size and fxn, mild pulm HTN RVSP 44 mmHg, mild MG 18 mmHg, AIDEE 1.5 cm^2, tr-mild AR, tr AL 1. Syncope with fall complicated by hip fracture POD#5 post right hip hemiarthroplasty 2. CAD angina pectoris 3. Systolic/diastolic LV dysfunction with clinical class 0 NYHA classification LV failure 4. Aortic valve stenosis (suggest mild to moderate) 5. HTN 6. Hypercholesterolemia 7. ESRD on HD and history of failed renal transplant 8. Anemia of CKD PLAN: 1. Continue Coreg 12.5 bid and titrate as needed and as tolerated 2. As outlined in previous notes recommend the addition of ACEI or ARB's unless it is absolutely contraindicated 3. D/mary Hydralazine 25 bid 4. Continue ASA 81 qd, DVT prophylaxis 5. Continue Crestor 5 qd 6. HD as per the renal service 7. Future cardiovascular evaluation is recommended to assess ischemic burden/outpatient evaluation- MPI study
[2020-03-03] MEDS: CARVEDILOL 12.5 MG TABLET (FP) PO SCH ×2 (09:33→21:39)
--- NOTE | 2020-03-03 11:41 | PN ---
Progress Note, Physician History of Present Illness: Seen and examined at the bedside offers no acute complaints no sob, cp, fever, chills, N/V/D for dialysis today - Current Medication List Current Medications: Active Medications Acetaminophen (Tylenol -) 325 mg PO Q6H PRN PRN Reason: PAIN LEVEL 6-10 Last Admin: 02/29/20 05:37 Dose: 325 mg Documented by: Acetaminophen (Tylenol -) 650 mg PO Q6H PRN PRN Reason: PAIN LEVEL 6-10 Last Admin: 03/02/20 15:10 Dose: 650 mg Documented by: Allopurinol (Zyloprim -) 100 mg PO DAILY [facility] Last Admin: 03/03/20 09:31 Dose: 100 mg Documented by: Aspirin (Ecotrin -) 81 mg PO DAILY [facility] Last Admin: 03/03/20 09:32 Dose: 81 mg Documented by: Carvedilol (Coreg -) 12.5 mg PO BID [facility] Last Admin: 03/03/20 09:33 Dose: Not Given Documented by: Cinacalcet (Sensipar -) 30 mg PO DAILY [facility] Last Admin: 03/03/20 09:32 Dose: 30 mg Documented by: Docusate Sodium (Colace -) 100 mg PO TID [facility] Last Admin: 03/03/20 06:03 Dose: Not Given Documented by: Enoxaparin Sodium (Lovenox -) 30 mg SQ DAILY [facility] Last Admin: 03/03/20 09:31 Dose: 30 mg Documented by: Epoetin Kiet (Procrit -) 10,000 unit IVPUSH ONCE ONE Stop: 03/03/20 12:01 Fentanyl (Sublimaze Injection -) 25 mcg IVPUSH [id number] PRN PRN Reason: PAIN-PACU ORDER X 4 DOSES ONLY Gabapentin (Neurontin -) 100 mg PO DAILY [facility] Last Admin: 03/03/20 09:32 Dose: 100 mg Documented by: Hydralazine HCl (Apresoline -) 25 mg PO BID [facility] Last Admin: 03/03/20 09:32 Dose: 25 mg Documented by: Sodium Chloride (Normal Saline -) 250 mls @ 3,000 mls/hr IV PRN PRN PRN Reason: Hypotension during Dialysis Stop: 03/04/20 11:59 Magnesium Hydroxide (Milk Of Magnesia -) 30 ml PO DAILY PRN PRN Reason: CONSTIPATION Last Admin: 02/28/20 11:34 Dose: 30 ml Documented by: Multivit/Ca Carb/B Cmplx/FA/Prenat (Nephro-Kati -) 1 tablet PO DAILY [facility] Last Admin: 03/03/20 09:32 Dose: 1 tablet Documented by: Ondansetron HCl (Zofran Injection) 4 mg IVPUSH Q6H PRN PRN Reason: NAUSEA AND/OR VOMITING Last Admin: 02/28/20 01:19 Dose: 4 mg Documented by: Rosuvastatin Calcium (Crestor -) 5 mg PO HS [facility] Last Admin: 03/02/20 21:27 Dose: 5 mg Documented by: Sevelamer Carbonate (Renvela -) 1,600 mg PO TIDCM [facility] Last Admin: 03/03/20 09:30 Dose: 1,600 mg Documented by: Tamsulosin HCl (Flomax -) 0.4 mg PO DAILY@0830 [facility] Last Admin: 03/03/20 09:31 Dose: 0.4 mg Documented by: - Objective Vital Signs: Vital Signs Temperature 97.4 F L 03/03/20 06:00 Pulse Rate 75 03/03/20 06:00 Respiratory Rate 20 03/03/20 06:00 Blood Pressure 103/58 L 03/03/20 06:00 O2 Sat by Pulse Oximetry (%) 93 L 03/02/20 22:00 Constitutional: Yes: No Distress, Calm Neck: Yes: Supple Respiratory: Yes: Regular Gastrointestinal: Yes: Soft Extremities: No: Cold, Cool, Cyanosis Edema: No Labs: CBC, BMP 03/03/20 06:02 03/03/20 06:02 INR, PTT INR 1.08 (0.83-1.09) 02/23/20 12:35 Assessment/Plan 79 year old male with a past medical history of ESRD on HD (MWF), hypertension, renal osteodystrophy, and CKD related anemia who presented s/p syncope/fall with right femoral fracture. 1. ESRD on HD 2. Femoral fracture 3. Syncope/Fall 4. Hypertension 5. Renal Osteodystrophy/Secondary hyperparathyroidism 6. Anemia 7. Diarrhea 8. Fever for dialysis today with UF as tolerated Renal diet, 1.2L daily fluid restriction. doppler of AVF to r/o stenosis/thormobsois pending Pain control w/o NSAIDs will continue 3x weekly dialysis while inpatient. s/p hip hemiarthoplaty d/c hydralazine as BP is low continue coreg Cardiology follow up CT head negative Carotid Doppler negative ECHO shows preserved LV function Iron saturation low but ferritin is elevated Will give RENU with dialysis as Hgb < 10 Cultures negative Thank you Chauncey Alvarado DO
--- NOTE | 2020-03-03 11:48 | PN ---
Teaching Attending Note Name of Resident: Chao Gonzalez ATTENDING PHYSICIAN STATEMENT I saw and evaluated the patient. I reviewed the resident's note and discussed the case with the resident. I agree with the resident's findings and plan as documented. SUBJECTIVE: pt seen and examined OBJECTIVE: Last Vital Signs Temp Pulse Resp BP Pulse Ox 97.4 F L 75 20 103/58 L 93 L 03/03/20 06:00 03/03/20 06:00 03/03/20 06:00 03/03/20 06:00 03/02/20 22:00 Gen: Alert, oriented x3, not in acute distress Heart: S1, S2, Systolic Murmur Lungs: no rales or wheezes Abdomen; Soft, non-tender. Bowel Sounds normal. Extremities: RLE immobilized post-op. Dressing clean, dy, intact. Reduced ROM due to pain at R hip. CBCD WBC 5.4 K/mm3 (4.0-10.0) 03/03/20 06:02 RBC 3.04 M/mm3 (4.00-5.60) L 03/03/20 06:02 Hgb 8.6 GM/dL (11.7-16.9) L 03/03/20 06:02 Hct 26.1 % (35.4-49) L 03/03/20 06:02 MCV 85.8 fl (80-96) 03/03/20 06:02 MCHC 32.8 g/dl (32.0-35.9) 03/03/20 06:02 RDW 14.8 % (11.9-15.9) 03/03/20 06:02 Plt Count 173 K/MM3 (134-434) D 03/03/20 06:02 MPV 7.9 fl (7.5-11.1) 03/03/20 06:02 CMP Sodium 136 mmol/L (136-145) 03/03/20 06:02 Potassium 4.3 mmol/L (3.5-5.1) 03/03/20 06:02 Chloride 95 mmol/L (98-107) L 03/03/20 06:02 Carbon Dioxide 31 mmol/L (21-32) 03/03/20 06:02 Anion Gap 10 MMOL/L (8-16) 03/03/20 06:02 BUN 68.9 mg/dL (7-18) H 03/03/20 06:02 Creatinine 11.3 mg/dL (0.55-1.3) H* 03/03/20 06:02 Calcium 9.5 mg/dL (8.5-10.1) 03/03/20 06:02 Total Bilirubin 0.3 mg/dL (0.2-1) 02/29/20 06:19 AST 18 U/L (15-37) 02/29/20 06:19 ALT 6 U/L (13-61) L 02/29/20 06:19 Alkaline Phosphatase 78 U/L (45-117) 02/29/20 06:19 Total Protein 6.4 g/dl (6.4-8.2) 02/29/20 06:19 Albumin 2.4 g/dl (3.4-5.0) L 02/29/20 06:19 Active Medications Acetaminophen (Tylenol -) 325 mg PO Q6H PRN PRN Reason: PAIN LEVEL 6-10 Last Admin: 02/29/20 05:37 Dose: 325 mg Documented by: Acetaminophen (Tylenol -) 650 mg PO Q6H PRN PRN Reason: PAIN LEVEL 6-10 Last Admin: 03/02/20 15:10 Dose: 650 mg Documented by: Allopurinol (Zyloprim -) 100 mg PO DAILY [facility] Last Admin: 03/03/20 09:31 Dose: 100 mg Documented by: Aspirin (Ecotrin -) 81 mg PO DAILY [facility] Last Admin: 03/03/20 09:32 Dose: 81 mg Documented by: Carvedilol (Coreg -) 12.5 mg PO BID [facility] Last Admin: 03/03/20 09:33 Dose: Not Given Documented by: Cinacalcet (Sensipar -) 30 mg PO DAILY [facility] Last Admin: 03/03/20 09:32 Dose: 30 mg Documented by: Docusate Sodium (Colace -) 100 mg PO TID [facility] Last Admin: 03/03/20 06:03 Dose: Not Given Documented by: Enoxaparin Sodium (Lovenox -) 30 mg SQ DAILY [facility] Last Admin: 03/03/20 09:31 Dose: 30 mg Documented by: Epoetin Kiet (Procrit -) 10,000 unit IVPUSH ONCE ONE Stop: 03/03/20 12:01 Fentanyl (Sublimaze Injection -) 25 mcg IVPUSH [id number] PRN PRN Reason: PAIN-PACU ORDER X 4 DOSES ONLY Gabapentin (Neurontin -) 100 mg PO DAILY [facility] Last Admin: 03/03/20 09:32 Dose: 100 mg Documented by: Sodium Chloride (Normal Saline -) 250 mls @ 3,000 mls/hr IV PRN PRN PRN Reason: Hypotension during Dialysis Stop: 03/04/20 11:59 Magnesium Hydroxide (Milk Of Magnesia -) 30 ml PO DAILY PRN PRN Reason: CONSTIPATION Last Admin: 02/28/20 11:34 Dose: 30 ml Documented by: Multivit/Ca Carb/B Cmplx/FA/Prenat (Nephro-Kati -) 1 tablet PO DAILY [facility] Last Admin: 03/03/20 09:32 Dose: 1 tablet Documented by: Ondansetron HCl (Zofran Injection) 4 mg IVPUSH Q6H PRN PRN Reason: NAUSEA AND/OR VOMITING Last Admin: 02/28/20 01:19 Dose: 4 mg Documented by: Rosuvastatin Calcium (Crestor -) 5 mg PO HS [facility] Last Admin: 03/02/20 21:27 Dose: 5 mg Documented by: Sevelamer Carbonate (Renvela -) 1,600 mg PO TIDCM [facility] Last Admin: 03/03/20 09:30 Dose: 1,600 mg Documented by: Tamsulosin HCl (Flomax -) 0.4 mg PO DAILY@0830 [facility] Last Admin: 03/03/20 09:31 Dose: 0.4 mg Documented by: ASSESSMENT AND PLAN: 79 year old man with Mhx of ESRD on HD MWF, s/p renal transplant with chronic rejection, HTN, HLD, OA, BPH, presents after a syncopal episode with fall and hip fracture. No preceding CP/palpitations. No HI. # Acute R femoral neck Fracture s/p R Hip Hemiarthroplasty Fever now resolved with negative Blood Cultures. Post-op DVT Px (Lovenox for 4 weeks as per Ortho), early mobilization, incentive spirometry PT, awaiting SNF placement. # Syncope, etiology unclear. CT Head - no acute findings, chronic microvascular ischemic changes. Echo - normal EF, mild pul HTN, mild to mod Trop I neg x 2. ECG - new RBBB Carotid Duplex - no hemodnamically significant stenosis. No telemonitoring events Cardio evaluated - for eventual out-patient ischemic work-up and follow up for . Cardiology recommends addition of Aspirin therapy (done) and MARIO-I (however BP border-line here - this can be done by Cardiology as out-patient).= Cardio follow up as out-patient Normocytic Anemia ESRD HTN BPH HLD Mild Pituitary enlargement, incidental finding on CT imaging - for Endocrinology referral as out-patient. Chronic Thrombocytopenia DVT Px - Lovenox SQ for 4 weeks as per Ortho
[2020-03-03] MEDS ORDERED: SODIUM CHLORIDE 250 ML IV PRN (12:00)
--- NOTE | 2020-03-03 12:09 | PN ---
Physical Exam: SUBJECTIVE: Patient seen and examined at bedside. No acute events overnight. OBJECTIVE: Vital Signs Period Temp Pulse Resp BP Sys/Ledesma Pulse Ox Last 24 Hr 97.4 F-98.1 F 72-80 18-20 95-109/50-58 93-96 GENERAL: AAOx2 to person and place only HEENT: NCAT, PERRLA, EOMI, sclera anicteric, conjunctiva clear, oropharynx clear w/o exudates. MMM. NECK: Normal ROM, supple, no lymphadenopathy, JVD, or masses LUNGS: CTABL no wheezes/ rhonchi/ rales. No increased work of breathing. HEART: RRR, normal S1 S2, systolic murmur at L lower sternal border, peripheral pulses 2+ and equal b/l ABDOMEN: Soft, NTND, + BS. No guarding or rebound. No hepatomegaly or splenomegaly. MSK: ROM not assessed 2/2 pain. EXTREMITIES: R leg with brace. Surgical site c/d/i no signs of infection NEUROLOGICAL: CN II-XII intact. SKIN: Warm, Dry, normal turgor, no rashes or lesions noted. Laboratory Results - last 24 hr CBC, BMP 03/03/20 06:02 03/03/20 06:02 03/03/20 03/03/20 06:02 06:02 WBC 5.4 RBC 3.04 L Hgb 8.6 L Hct 26.1 L MCV 85.8 MCH 28.1 MCHC 32.8 RDW 14.8 Plt Count 173 D MPV 7.9 Absolute Neuts (auto) 3.7 Neutrophils % 68.9 Lymphocytes % 14.3 D Monocytes % 8.6 Eosinophils % 7.4 H D Basophils % 0.8 Nucleated RBC % 0 Sodium 136 Potassium 4.3 Chloride 95 L Carbon Dioxide 31 Anion Gap 10 BUN 68.9 H Creatinine 11.3 H* Est GFR (CKD-EPI)AfAm 4.40 Est GFR (CKD-EPI)NonAf 3.80 Random Glucose 110 H Calcium 9.5 Phosphorus 6.8 H Magnesium 2.5 H Active Medications Generic Name Dose Route Start Last Admin Trade Name Freq PRN Reason Stop Dose Admin Acetaminophen 325 mg 02/27/20 20:00 02/29/20 05:37 Tylenol - PO 325 mg Q6H PRN Administration PAIN LEVEL 6-10 Acetaminophen 650 mg 02/27/20 21:21 03/02/20 15:10 Tylenol - PO 650 mg Q6H PRN Administration PAIN LEVEL 6-10 Allopurinol 100 mg 02/28/20 10:00 03/03/20 09:31 Zyloprim - PO 100 mg DAILY [facility] Administration Aspirin 81 mg 02/29/20 10:00 03/03/20 09:32 Ecotrin - PO 81 mg DAILY [facility] Administration Carvedilol 12.5 mg 02/27/20 22:00 03/03/20 09:33 Coreg - PO Not Given BID [facility] Cinacalcet 30 mg 02/28/20 10:00 03/03/20 09:32 Sensipar - PO 30 mg DAILY [facility] Administration Docusate Sodium 100 mg 02/28/20 14:00 03/03/20 06:03 Colace - PO Not Given TID [facility] Enoxaparin Sodium 30 mg 02/28/20 10:00 03/03/20 09:31 Lovenox - SQ 30 mg DAILY [facility] Administration Fentanyl 25 mcg 02/27/20 19:53 Sublimaze Injection - IVPUSH [id number] PRN PAIN-PACU ORDER X 4 DOSES ONLY Gabapentin 100 mg 02/28/20 10:00 03/03/20 09:32 Neurontin - PO 100 mg DAILY [facility] Administration Sodium Chloride 250 mls @ 3,000 mls/hr 03/03/20 12:00 Normal Saline - IV 03/04/20 11:59 PRN PRN Hypotension during Dialysis Magnesium Hydroxide 30 ml 02/28/20 10:49 02/28/20 11:34 Milk Of Magnesia - PO 30 ml DAILY [facility] Administration CONSTIPATION Multivit/Ca Carb/B Cmplx/FA/Prenat 1 tablet 03/02/20 10:00 03/03/20 09:32 Nephro-Kati - PO 1 tablet DAILY [facility] Administration Ondansetron HCl 4 mg 02/27/20 19:53 02/28/20 01:19 Zofran Injection IVPUSH 4 mg Q6H PRN Administration NAUSEA AND/OR VOMITING Rosuvastatin Calcium 5 mg 02/27/20 22:00 03/02/20 21:27 Crestor - PO 5 mg HS [facility] Administration Sevelamer Carbonate 1,600 mg 02/28/20 08:00 03/03/20 09:30 Renvela - PO 1,600 mg TIDCM [facility] Administration Tamsulosin HCl 0.4 mg 02/28/20 08:30 03/03/20 09:31 Flomax - PO 0.4 mg DAILY@0830 [facility] Administration ASSESSMENT/PLAN: 79 y/o M with PMX of ESRD on HD (MWF), s/p renal transplant (chronic rejection), HTN, OA, BPH, presents after syncope with fall and hip fracture. Admitted for syncope with fall and hip fracture. #Acute R femoral neck Fracture -X-Ray and CT consistent with R femoral neck fracture -POD #5 sp R hip hemiarthroplasty with Dr. Bey -continue PT- WBAT w/ hip precautions -PRN pain on board -Pt encouraged to walk with PT #Syncope -etiology unclear -ECG - new RBBB -CT Head -negative for acute pathology -Echo - normal EF, mild pulmonary HTN, mild to moderate -Trops neg x 2 -Cardio consult: pt needs stress test and follow up for . -Carotid Duplex: no evidence of high-grade carotid artery stenosis -continue tele monitoring #Normocytic Anemia -FOBT f/u -B12 and folate wnl -H&H stable #ESRD -receiving HD via AVF on RUE, /Lyla/Sat -c/w Sensipar and Renvela -Doppler of AVF ordered by Dr. Alvarado to r/o stenosis -nephro following, Dr. Alvarado; f/u reccs #HTN -c/w home med Hydralazine -home med Coreg restarted at 12.5 mg and titrate up to 25 mg as per Cardio -cardio following: DR. Watson #BPH -c/w home med Tamsulosin #Mild Pituitary enlargement -incidental finding on CT imaging -Endocrine referral as out-patient after d/c #FEN -no standing fluids -monitor lytes; replete PRN -Renal diet #Ppx DVT: SQ lovenox for 4 weeks dispo: continue to monitor on tele and rehab planning Visit type - Emergency Visit Emergency Visit: No - New Patient This patient is new to me today: No - Critical Care Critical Care patient: No - Discharge Referral Referred to [facility] Med P.C.: No - Medication Review Med list reviewed for High Risk Meds patients 65 and older: Yes ATTENDING PHYSICIAN STATEMENT I saw and evaluated the patient. I reviewed the resident's note and discussed the case with the resident. I agree with the resident's findings and plan as documented. SUBJECTIVE: OBJECTIVE: ASSESSMENT AND PLAN:
[2020-03-03] MEDS: EPOETIN ALFA 10,000 UNIT/1 ML VIAL IVPUSH ONE ×2 (13:35→13:55)
--- NOTE | 2020-03-03 16:03 | PATH ---
Surgical Pathology Report Patient Name: KAYLEIGH MEDINA Med. Rec. #: [id number] /Age/Gender: 1940 (Age: 79) / M Account: [id number] Location: 4 W TELEMETRY U Taken: 02/27/2020 Received: 03/01/2020 Reported: 03/03/2020 Physicians: Nilton Wan MD Specimen(s) Received BONE RIGHT FEMORAL HEAD Clinical History Right femoral neck fracture Final Diagnosis BONE RIGHT FEMORAL HEAD, RESECTION: FEMORAL HEAD WITH INTRATRABECULAR ORGANIZING HEMORRHAGE, CONSISTENT WITH CLINICAL HISTORY OF FRACTURE. NEGATIVE FOR MALIGNANCY. Electronically Signed Татьяна Marion M.D. Gross Description Received in formalin labeled "bone right femoral head," is a 4.5 x 4.5 x 4.0 cm femoral head with no femoral neck attached. The margin of resection is red-brown, jagged and hemorrhagic. The articular surface is yellow-brown and focally granular. No areas of eburnation are identified. The underlying trabecular bone is yellow and focally brown and hemorrhagic. Separately received within the same container is a 4.0 x 2.5 x 2.0 cm red-brown, hemorrhagic portion of femoral neck. A payroll representative section is submitted in one cassette, following decalcification. 03/01/2020 [facility]03/01/2020
[2020-03-03] MEDS ORDERED: PT OWN MED DRAWER 7, Y5N ONE (20:59)
[2020-03-03] MEDS: ACETAMINOPHEN 325 MG TABLET (FP) PO PRN (21:39)
[2020-03-03] MEDS: ROSUVASTATIN CA 5 MG TABLET (FP) PO SCH (21:39)
[2020-03-04] MEDS: DOCUSATE SODIUM 100 MG CAPSULE (FP) PO SCH ×2 (06:31→13:20)
[2020-03-04 06:36] LABS: BASO % 0.9 % (0-2.0); EOS % 6.8 % (0-4.5); HEMATOCRIT 25.5 % (35.4-49); HEMOGLOBIN 8.4 GM/dL (11.7-16.9); LYMPH % 16.9 % (8-40); MCH 28.4 pg (25.7-33.7); MEAN PLT VOLUME 7.6 fl (7.5-11.1); MONO % 9.9 % (3.8-10.2); NEUT % 65.5 % (42.8-82.8); PLATELET COUNT 187 K/MM3 (134-434); RBC 2.96 M/mm3 (4.00-5.60); RDW 14.2 % (11.9-15.9); WHITE BLOOD COUNT 4.8 K/mm3 (4.0-10.0)
[2020-03-04 07:03] LABS: ALBUMIN 2.1 g/dl (3.4-5.0); ALK PHOS 75 U/L (45-117); ANION GAP 7 MMOL/L (8-16); BILIRUBIN,TOTAL 0.4 mg/dL (0.2-1); BLOOD UREA NITROGEN 45.5 mg/dL (7-18); CALCIUM 9.5 mg/dL (8.5-10.1); CHLORIDE 96 mmol/L (98-107); CO2 33 mmol/L (21-32); GLUCOSE,RANDOM 90 mg/dL (74-106); MAGNESIUM 2.4 mg/dL (1.8-2.4); PHOSPHOROUS 5.3 mg/dL (2.5-4.9); POTASSIUM 4.1 mmol/L (3.5-5.1); SGOT/AST 15 U/L (15-37); SGPT/ALT < 6 U/L (13-61); SODIUM 136 mmol/L (136-145); TOT PROT 5.6 g/dl (6.4-8.2)
[2020-03-04 07:07] LABS: CREATININE 7.9 mg/dL (0.55-1.3)
[2020-03-04] MEDS: SEVELAMER CARBONATE 800 MG TAB (FP) PO SCH ×2 (08:40→12:14)
[2020-03-04] MEDS: TAMSULOSIN HCL 0.4 MG CAP PO SCH (08:40)
--- NOTE | 2020-03-04 09:53 | PN ---
Progress Note, Physician History of Present Illness: POD#6 Right hip hemiarthroplasty, pain adequately controlled, denies chest pain or dyspnea. - Current Medication List Current Medications: Active Medications Acetaminophen (Tylenol -) 325 mg PO Q6H PRN PRN Reason: PAIN LEVEL 6-10 Last Admin: 02/29/20 05:37 Dose: 325 mg Documented by: Acetaminophen (Tylenol -) 650 mg PO Q6H PRN PRN Reason: PAIN LEVEL 6-10 Last Admin: 03/03/20 21:39 Dose: 650 mg Documented by: Allopurinol (Zyloprim -) 100 mg PO DAILY [facility] Last Admin: 03/03/20 09:31 Dose: 100 mg Documented by: Aspirin (Ecotrin -) 81 mg PO DAILY [facility] Last Admin: 03/03/20 09:32 Dose: 81 mg Documented by: Carvedilol (Coreg -) 12.5 mg PO BID [facility] Last Admin: 03/03/20 21:39 Dose: 12.5 mg Documented by: Cinacalcet (Sensipar -) 30 mg PO DAILY [facility] Last Admin: 03/03/20 09:32 Dose: 30 mg Documented by: Docusate Sodium (Colace -) 100 mg PO TID [facility] Last Admin: 03/04/20 06:31 Dose: Not Given Documented by: Enoxaparin Sodium (Lovenox -) 30 mg SQ DAILY [facility] Last Admin: 03/03/20 09:31 Dose: 30 mg Documented by: Fentanyl (Sublimaze Injection -) 25 mcg IVPUSH [id number] PRN PRN Reason: PAIN-PACU ORDER X 4 DOSES ONLY Gabapentin (Neurontin -) 100 mg PO DAILY [facility] Last Admin: 03/03/20 09:32 Dose: 100 mg Documented by: Sodium Chloride (Normal Saline -) 250 mls @ 3,000 mls/hr IV PRN PRN PRN Reason: Hypotension during Dialysis Stop: 03/04/20 11:59 Magnesium Hydroxide (Milk Of Magnesia -) 30 ml PO DAILY PRN PRN Reason: CONSTIPATION Last Admin: 02/28/20 11:34 Dose: 30 ml Documented by: Multivit/Ca Carb/B Cmplx/FA/Prenat (Nephro-Kati -) 1 tablet PO DAILY [facility] Last Admin: 03/03/20 09:32 Dose: 1 tablet Documented by: Ondansetron HCl (Zofran Injection) 4 mg IVPUSH Q6H PRN PRN Reason: NAUSEA AND/OR VOMITING Last Admin: 02/28/20 01:19 Dose: 4 mg Documented by: Rosuvastatin Calcium (Crestor -) 5 mg PO HS [facility] Last Admin: 03/03/20 21:39 Dose: 5 mg Documented by: Sevelamer Carbonate (Renvela -) 1,600 mg PO TIDCM [facility] Last Admin: 03/03/20 17:55 Dose: 1,600 mg Documented by: Tamsulosin HCl (Flomax -) 0.4 mg PO DAILY@0830 [facility] Last Admin: 03/03/20 09:31 Dose: 0.4 mg Documented by: - Objective Vital Signs: Vital Signs Temperature 97.9 F 03/04/20 06:00 Pulse Rate 76 03/04/20 06:00 Respiratory Rate 18 03/04/20 06:00 Blood Pressure 122/55 L 03/04/20 06:00 O2 Sat by Pulse Oximetry (%) 95 03/04/20 06:00 Constitutional: Yes: No Distress, Calm Neck: Yes: Supple Cardiovascular: Yes: Regular Rate and Rhythm Respiratory: Yes: Regular, CTA Bilaterally Gastrointestinal: Yes: Normal Bowel Sounds, Soft Edema: No Labs: CBC, BMP 03/04/20 05:30 03/04/20 05:30 INR, PTT INR 1.08 (0.83-1.09) 02/23/20 12:35 - ....Imaging Ultrasound: Report Reviewed (Patent RUE AV) Problem List - Problems (1) Anemia Code(s): D64.9 - ANEMIA, UNSPECIFIED Qualifiers: Anemia type: due to chronic kidney disease Chronic kidney disease stage: on chronic dialysis Qualified Code(s): N18.6 - End stage renal disease; D63.1 - Anemia in chronic kidney disease; Z99.2 - Dependence on renal dialysis (2) Renal osteodystrophy Code(s): N25.0 - RENAL OSTEODYSTROPHY Assessment/Plan Problem List - Problems (1) HTN (hypertension) Code(s): I10 - ESSENTIAL (PRIMARY) HYPERTENSION (2) Aortic valve stenosis Code(s): I35.0 - NONRHEUMATIC AORTIC (VALVE) STENOSIS (3) Closed displaced fracture of right femoral neck Code(s): S72.001A - FRACTURE OF UNSP PART OF NECK OF RIGHT FEMUR, INIT (4) Syncope Code(s): R55 - SYNCOPE AND COLLAPSE Qualifiers: Syncope type: unspecified Qualified Code(s): R55 - Syncope and collapse (5) End stage renal disease Code(s): N18.6 - END STAGE RENAL DISEASE (6) Kidney transplant failure Code(s): T86.12 - KIDNEY TRANSPLANT FAILURE Assessment/Plan 02/24/2020 Echo: Normal biventricular size and fxn, mild pulm HTN RVSP 44 mmHg, mild MG 18 mmHg, AIDEE 1.5 cm^2, tr-mild AR, tr SD 1. Syncope with fall complicated by hip fracture POD#6 post right hip hemiarthroplasty 2. CAD angina pectoris 3. Diastolic LV dysfunction with clinical class 0 NYHA classification LV failure 4. Aortic valve stenosis (suggest mild to moderate) 5. HTN 6. Hypercholesterolemia 7. ESRD on HD and history of failed renal transplant 8. Anemia of CKD PLAN: 1. Continue Coreg 12.5 bid and titrate as needed and as tolerated 2. As outlined in previous notes recommend the addition of ACEI or ARB's unless it is absolutely contraindicated 3. D/mary Hydralazine 25 bid 4. Continue ASA 81 qd, Lovenox for DVT prophylaxis 5. Continue Crestor 5 qd 6. HD as per the renal service 7. Future cardiovascular evaluation is recommended to assess ischemic burden/outpatient evaluation- MPI study
[2020-03-04] MEDS: CARVEDILOL 12.5 MG TABLET (FP) PO SCH (10:04)
[2020-03-04] MEDS: ENOXAPARIN NA (PORCINE) 30 MG/0.3 ML DISP.SYRIN SQ SCH (10:04)
[2020-03-04] MEDS: VITAMIN B COMP W-C 1 EA TABLET (NEPHRO-VITE) PO SCH (10:04)
[2020-03-04] MEDS: ASPIRIN COATED 81 MG TABLET.EC PO SCH (10:04)
[2020-03-04] MEDS: ALLOPURINOL 100 MG TABLET (FP) PO SCH (10:05)
[2020-03-04] MEDS: GABAPENTIN 100 MG CAPSULE PO SCH (10:05)
[2020-03-04] MEDS: CINACALCET HCL 30 MG TAB (FP) PO SCH (10:05)
--- NOTE | 2020-03-04 11:24 | PN ---
Physical Exam: SUBJECTIVE: Patient seen and examined at bedside. No acute events overnight. OBJECTIVE: Vital Signs Period Temp Pulse Resp BP Sys/Ledesma Pulse Ox Last 24 Hr 97.2 F-98.3 F 62-88 16-20 88-122/50-81 95-96 GENERAL: AAOx2 to person and place only HEENT: NCAT, PERRLA, EOMI, sclera anicteric, conjunctiva clear, oropharynx clear w/o exudates. MMM. NECK: Normal ROM, supple, no lymphadenopathy, JVD, or masses LUNGS: CTABL no wheezes/ rhonchi/ rales. No increased work of breathing. HEART: RRR, normal S1 S2, systolic murmur at L lower sternal border, peripheral pulses 2+ and equal b/l ABDOMEN: Soft, NTND, + BS. No guarding or rebound. No hepatomegaly or splenomegaly. MSK: ROM not assessed 2/2 pain. EXTREMITIES: R leg with brace. Surgical site c/d/i no signs of infection NEUROLOGICAL: CN II-XII intact. SKIN: Warm, Dry, normal turgor, no rashes or lesions noted. Laboratory Results - last 24 hr CBC, BMP 03/04/20 05:30 03/04/20 05:30 03/04/20 03/04/20 05:30 05:30 WBC 4.8 RBC 2.96 L Hgb 8.4 L Hct 25.5 L MCV 86.0 MCH 28.4 MCHC 33.0 RDW 14.2 Plt Count 187 MPV 7.6 Absolute Neuts (auto) 3.2 Neutrophils % 65.5 Lymphocytes % 16.9 Monocytes % 9.9 Eosinophils % 6.8 H Basophils % 0.9 Nucleated RBC % 0 Sodium 136 Potassium 4.1 Chloride 96 L Carbon Dioxide 33 H Anion Gap 7 L BUN 45.5 H Creatinine 7.9 H* Est GFR (CKD-EPI)AfAm 6.79 Est GFR (CKD-EPI)NonAf 5.86 Random Glucose 90 Calcium 9.5 Phosphorus 5.3 H Magnesium 2.4 Total Bilirubin 0.4 AST 15 ALT < 6 L Alkaline Phosphatase 75 Total Protein 5.6 L Albumin 2.1 L Active Medications Generic Name Dose Route Start Last Admin Trade Name Freq PRN Reason Stop Dose Admin Acetaminophen 325 mg 02/27/20 20:00 02/29/20 05:37 Tylenol - PO 325 mg Q6H PRN Administration PAIN LEVEL 6-10 Acetaminophen 650 mg 02/27/20 21:21 03/03/20 21:39 Tylenol - PO 650 mg Q6H PRN Administration PAIN LEVEL 6-10 Allopurinol 100 mg 02/28/20 10:00 03/04/20 10:05 Zyloprim - PO 100 mg DAILY [facility] Administration Aspirin 81 mg 02/29/20 10:00 03/04/20 10:04 Ecotrin - PO 81 mg DAILY [facility] Administration Carvedilol 12.5 mg 02/27/20 22:00 03/04/20 10:04 Coreg - PO 12.5 mg BID [facility] Administration Cinacalcet 30 mg 02/28/20 10:00 03/04/20 10:05 Sensipar - PO 30 mg DAILY [facility] Administration Docusate Sodium 100 mg 02/28/20 14:00 03/04/20 06:31 Colace - PO Not Given TID [facility] Enoxaparin Sodium 30 mg 02/28/20 10:00 03/04/20 10:04 Lovenox - SQ 30 mg DAILY [facility] Administration Fentanyl 25 mcg 02/27/20 19:53 Sublimaze Injection - IVPUSH [id number] PRN PAIN-PACU ORDER X 4 DOSES ONLY Gabapentin 100 mg 02/28/20 10:00 03/04/20 10:05 Neurontin - PO 100 mg DAILY [facility] Administration Sodium Chloride 250 mls @ 3,000 mls/hr 03/03/20 12:00 Normal Saline - IV 03/04/20 11:59 PRN PRN Hypotension during Dialysis Magnesium Hydroxide 30 ml 02/28/20 10:49 02/28/20 11:34 Milk Of Magnesia - PO 30 ml DAILY [facility] Administration CONSTIPATION Multivit/Ca Carb/B Cmplx/FA/Prenat 1 tablet 03/02/20 10:00 03/04/20 10:04 Nephro-Kati - PO 1 tablet DAILY [facility] Administration Ondansetron HCl 4 mg 02/27/20 19:53 02/28/20 01:19 Zofran Injection IVPUSH 4 mg Q6H PRN Administration NAUSEA AND/OR VOMITING Rosuvastatin Calcium 5 mg 02/27/20 22:00 03/03/20 21:39 Crestor - PO 5 mg HS [facility] Administration Sevelamer Carbonate 1,600 mg 02/28/20 08:00 03/04/20 08:40 Renvela - PO 1,600 mg TIDCM [facility] Administration Tamsulosin HCl 0.4 mg 02/28/20 08:30 03/04/20 08:40 Flomax - PO 0.4 mg DAILY@0830 [facility] Administration ASSESSMENT/PLAN: 79 y/o M with PMX of ESRD on HD (MWF), s/p renal transplant (chronic rejection), HTN, OA, BPH, presents after syncope with fall and hip fracture. Admitted for syncope with fall and hip fracture. #Acute R femoral neck Fracture -X-Ray and CT consistent with R femoral neck fracture -POD #6 sp R hip hemiarthroplasty with Dr. Bey -continue PT- WBAT w/ hip precautions -PRN pain on board -Pt encouraged to walk with PT #Syncope -etiology unclear -ECG - new RBBB -CT Head -negative for acute pathology -Echo - normal EF, mild pulmonary HTN, mild to moderate -Trops neg x 2 -Cardio consult: pt needs stress test and follow up for . -Carotid Duplex: no evidence of high-grade carotid artery stenosis -c/w tele monitoring #Normocytic Anemia -FOBT f/u -B12 and folate wnl -H&H stable #ESRD -receiving HD via AVF on , /Sun/Sun -c/w Sensipar and Renvela -Doppler of AVF ordered by Dr. Alvarado to r/o stenosis -nephro following, Dr. Alvarado; f/u reccs #HTN -c/w home med Hydralazine -home med Coreg restarted at 12.5 mg and titrate up to 25 mg as per Cardio -cardio following: DR. Watson #BPH -c/w home med Tamsulosin #Mild Pituitary enlargement -incidental finding on CT imaging -Endocrine referral as out-patient after d/c #FEN -no standing fluids -monitor lytes; replete PRN -Renal diet #Ppx DVT: SQ lovenox for 4 weeks dispo: continue to monitor on tele and rehab planning Visit type - Emergency Visit Emergency Visit: No - New Patient This patient is new to me today: No - Critical Care Critical Care patient: No - Discharge Referral Referred to [facility] Med P.C.: No - Medication Review Med list reviewed for High Risk Meds patients 65 and older: Yes ATTENDING PHYSICIAN STATEMENT I saw and evaluated the patient. I reviewed the resident's note and discussed the case with the resident. I agree with the resident's findings and plan as documented. SUBJECTIVE: OBJECTIVE: ASSESSMENT AND PLAN:
--- NOTE | 2020-03-04 12:59 | DS ---
Physical Exam: SUBJECTIVE: Patient seen and examined at bedside. OBJECTIVE: Vital Signs Period Temp Pulse Resp BP Sys/Ledesma Pulse Ox Last 24 Hr 97.2 F-98.3 F 62-88 16-20 88-122/50-81 95-96 PHYSICAL EXAM GENERAL: AAOx2 to person and place only HEENT: NCAT, PERRLA, EOMI, sclera anicteric, conjunctiva clear, oropharynx clear w/o exudates. MMM. NECK: Normal ROM, supple, no lymphadenopathy, JVD, or masses LUNGS: CTABL no wheezes/ rhonchi/ rales. No increased work of breathing. HEART: RRR, normal S1 S2, systolic murmur at L lower sternal border, peripheral pulses 2+ and equal b/l ABDOMEN: Soft, NTND, + BS. No guarding or rebound. No hepatomegaly or splenomegaly. MSK: ROM not assessed 2/2 pain. EXTREMITIES: R leg with brace. Surgical site c/d/i no signs of infection NEUROLOGICAL: CN II-XII intact. SKIN: Warm, Dry, normal turgor, no rashes or lesions noted. LABS Laboratory Results - last 24 hr CBC, BMP 03/04/20 05:30 03/04/20 05:30 03/04/20 03/04/20 05:30 05:30 WBC 4.8 RBC 2.96 L Hgb 8.4 L Hct 25.5 L MCV 86.0 MCH 28.4 MCHC 33.0 RDW 14.2 Plt Count 187 MPV 7.6 Absolute Neuts (auto) 3.2 Neutrophils % 65.5 Lymphocytes % 16.9 Monocytes % 9.9 Eosinophils % 6.8 H Basophils % 0.9 Nucleated RBC % 0 Sodium 136 Potassium 4.1 Chloride 96 L Carbon Dioxide 33 H Anion Gap 7 L BUN 45.5 H Creatinine 7.9 H* Est GFR (CKD-EPI)AfAm 6.79 Est GFR (CKD-EPI)NonAf 5.86 Random Glucose 90 Calcium 9.5 Phosphorus 5.3 H Magnesium 2.4 Total Bilirubin 0.4 AST 15 ALT < 6 L Alkaline Phosphatase 75 Total Protein 5.6 L Albumin 2.1 L HOSPITAL COURSE: 79 year old male with history of ESRD on HD MWF, s/p renal transplant with chronic rejection, HTN, HLD, OA, BPH, presented after a syncopal episode with fall and hip fracture. No preceding CP/palpitations. No HI. Patient had R hip Hemiarthroplasty by Dr. Bey. Patient had concern of sepsis pre op because he kept spiking fevers but sepsis workup was negative. Patient had a plethora of imaging done at admission but all of them were negative for acute pathology. Ca rdio recommended outpatient stress test for ischemia workup for the patient. Patient had normocytic anemia with normal hemoglobin and did not meed indications for RENU as per nephro. Patient was discharged to rehab. Date of Admission:02/23/20 02/23/20-EKG-NSR, RBB, L anterior fascicular block 02/23/20-CR Hip and Pelvis R-Findings compatible with a right femoral neck fracture. Correlate clinically for further evaluation 02/23/20-CR R Femur-Right femoral neck fracture, as described above. The rest of the right femoral shaft is intact. 02/23/20-CT Pelvis w/o contrast-Slightly displaced and partially impacted right femoral neck fracture with mild superior/lateral angulation. No other gross ac edil fracture or dislocation are identified. 02/23/20-US Carotid flow doppler-The vertebral arteries appear to be patent with physiologic flow direction. No Doppler evidence of a high-grade carotid artery stenosis is noted. 02/24/20-Echo-LV size thickness and fct are normal. EF=65%, moderate hipolito annular calcification. trace mitral and tricuspid regurgitation. mild pulmonary HTN. RV systolic pressure is elevated at 44 mg. moderate/severe aortic valve thickening. mild valvular aortic stenosis. aortic mean pressure gradient=17.6. calculated aortic valve area using the continuity equation is 1.5 cm2. trace to mild aortic and mulmonic valvular regurgitation. 02/24/20-CT head w/o contrast-no CT evidence of acute intracranial pathology. Moderate periventricular and subcortical chronic microvascular ischemic changes are seen. There is stable mild pituitary enlargement with a 1 cm height in c omparison to CT performed on 04/23/2015. Endocrine evaluation is suggested. Interval increased paranasal sinus disease is noted as described above. 02/24/2004-MOO-Hrsioscdmilv with suggestion of mild pulmonary venous congestion 02/26/2032-TDX-Dowxqqoexj: No acute chest pathology. No significant change since prior exam. 02/26/20-US Duplex legs-No DVT is identified involving either leg. Please see abo ve. 02/27/20-CR Hip and Pelvis R-Single view of the right hemipelvis and right hip reveals a right hip replacement. There is soft tissue air. There are pelvic clips. Imaging is available for review. Date of Discharge: 03/04/20 Minutes to complete discharge: 36 Discharge Summary Problems reviewed: Yes Reason For Visit: SYNCOPE,FX OF RT HIP,ESRD Current Active Problems Anemia (Acute) Aortic valve stenosis (Acute) CAD (coronary artery disease) (Acute) Closed displaced fracture of right femoral neck (Acute) Displaced fracture of base of neck of right femur, initial encounter for closed fracture (Acute) Fever (Acute) HTN (hypertension) (Acute) Hip fracture, right (Acute) Hypercholesterolemia (Acute) Preoperative cardiovascular examination (Acute) Syncope (Acute) Condition: Stable - Instructions Diet, Activity, Other Instructions: Your visit: You were admitted to the hospital for right hip pain after a fall. You were found to have a fracture of your right hip. You were treated with surgery with improvement of your symptoms. Additonal Imaging Findings: -During your visit, we did a CT scan which showed mild pituitary enlargement. Medications changes: NEW MEDS: We started you on a blood thinner since you had hip surgery. Please INJECT YOURSELF with LOVENOX 30 MG DAILY FOR 4 WEEKS. -Continue to take all other home medications as prescribed. Follow up: - Please follow-up with your orthopedic surgeon, Dr. Bey in 1 week. -Please follow-up with your screen printing paster, Dr. Lucas in 1 week - Visit with your Primary Care Provider, Dr. Baptiste in 2 weeks. -Please follow-up with your quality measurement specialist, Dr. Collazo in 1 week about getting a stress test to evaluate your heart function. -Please follow-up with your chief security and safety officer, Dr. Chan about the Mild Pituitary enlargement we found on your CT scan. Additional Instructions: -You are being discharged to rehab. -Please return to the Emergency Department if you experience worsening pain, fevers, chills, shortness of breath, or chest pain, or if you experience any worsening, new or concerning symptoms. Referrals: Priscila Baptiste NP [Non Staff, Medical] - 1 Week (f/u recent hospital admission and hip surgery ) Raimundo Bey MD [Staff Physician] - 1 Week (f/u right hip surgery) Kathy Quezada MD [Staff Physician] - 1 Week (f/u ESRD) Paul Chan MD [Staff Physician] - 1 Week (f/u Mild Pituitary enlargement found on CT) Zak Collazo MD [Staff Physician] - 2 Weeks (f/u for stress test) Disposition: NURSING HOME FACILITY - Home Medications Comprehensive Discharge Medication List: Ambulatory Orders Tamsulosin HCl [Flomax -] 0.4 mg PO DAILY 12/15/13 Gabapentin [Neurontin -] 100 mg PO DAILY #30 capsule 12/23/13 Sevelamer Carbonate [Renvela -] 800 mg PO TIDCM #0 tab 12/23/13 Allopurinol [Zyloprim -] 100 mg PO ASDIR 02/05/15 Carvedilol [Coreg -] 25 mg PO BID 02/05/15 Hydralazine HCl 25 mg PO BID 08/28/17 Enoxaparin [Lovenox -] 30 mg SQ DAILY 30 Days #30 disp.syrin 03/01/20 This patient is new to me today: No Emergency Visit: No Critical Care patient: No - Discharge Referral Referred to [facility] No ATTENDING PHYSICIAN STATEMENT I saw and evaluated the patient. I reviewed the resident's note and discussed the case with the resident. I agree with the resident's findings and plan as documented. SUBJECTIVE: OBJECTIVE: ASSESSMENT AND PLAN:
--- NOTE | 2020-03-04 13:09 | PN ---
Teaching Attending Note Name of Resident: Chao Gonzalez ATTENDING PHYSICIAN STATEMENT I saw and evaluated the patient. I reviewed the resident's note and discussed the case with the resident. I agree with the resident's findings and plan as documented. SUBJECTIVE: pt seen and examined OBJECTIVE: Last Vital Signs Temp Pulse Resp BP Pulse Ox 97.2 F L 73 18 118/64 95 03/04/20 10:00 03/04/20 10:00 03/04/20 10:00 03/04/20 10:00 03/04/20 10:00 Gen: Alert, oriented x3, not in acute distress Heart: S1, S2, Systolic Murmur Lungs: no rales or wheezes Abdomen; Soft, non-tender. Bowel Sounds normal. Extremities: RLE immobilized post-op. Dressing clean, dy, intact. Reduced ROM due to pain at R hip. CBCD WBC 4.8 K/mm3 (4.0-10.0) 03/04/20 05:30 RBC 2.96 M/mm3 (4.00-5.60) L 03/04/20 05:30 Hgb 8.4 GM/dL (11.7-16.9) L 03/04/20 05:30 Hct 25.5 % (35.4-49) L 03/04/20 05:30 MCV 86.0 fl (80-96) 03/04/20 05:30 MCHC 33.0 g/dl (32.0-35.9) 03/04/20 05:30 RDW 14.2 % (11.9-15.9) 03/04/20 05:30 Plt Count 187 K/MM3 (134-434) 03/04/20 05:30 MPV 7.6 fl (7.5-11.1) 03/04/20 05:30 CMP Sodium 136 mmol/L (136-145) 03/04/20 05:30 Potassium 4.1 mmol/L (3.5-5.1) 03/04/20 05:30 Chloride 96 mmol/L (98-107) L 03/04/20 05:30 Carbon Dioxide 33 mmol/L (21-32) H 03/04/20 05:30 Anion Gap 7 MMOL/L (8-16) L 03/04/20 05:30 BUN 45.5 mg/dL (7-18) H 03/04/20 05:30 Creatinine 7.9 mg/dL (0.55-1.3) H* 03/04/20 05:30 Random Glucose 90 mg/dL (74-106) 03/04/20 05:30 Calcium 9.5 mg/dL (8.5-10.1) 03/04/20 05:30 Total Bilirubin 0.4 mg/dL (0.2-1) 03/04/20 05:30 AST 15 U/L (15-37) 03/04/20 05:30 ALT < 6 U/L (13-61) L 03/04/20 05:30 Alkaline Phosphatase 75 U/L (45-117) 03/04/20 05:30 Total Protein 5.6 g/dl (6.4-8.2) L 03/04/20 05:30 Albumin 2.1 g/dl (3.4-5.0) L 03/04/20 05:30 CARDIAC ENZYMES Creatine Kinase 151 U/L (26-308) 02/23/20 12:35 Troponin I < 0.02 ng/ml (0.00-0.05) 02/23/20 23:10 Active Medications Acetaminophen (Tylenol -) 325 mg PO Q6H PRN PRN Reason: PAIN LEVEL 6-10 Last Admin: 02/29/20 05:37 Dose: 325 mg Documented by: Acetaminophen (Tylenol -) 650 mg PO Q6H PRN PRN Reason: PAIN LEVEL 6-10 Last Admin: 03/03/20 21:39 Dose: 650 mg Documented by: Allopurinol (Zyloprim -) 100 mg PO DAILY [facility] Last Admin: 03/04/20 10:05 Dose: 100 mg Documented by: Aspirin (Ecotrin -) 81 mg PO DAILY [facility] Last Admin: 03/04/20 10:04 Dose: 81 mg Documented by: Carvedilol (Coreg -) 12.5 mg PO BID [facility] Last Admin: 03/04/20 10:04 Dose: 12.5 mg Documented by: Cinacalcet (Sensipar -) 30 mg PO DAILY [facility] Last Admin: 03/04/20 10:05 Dose: 30 mg Documented by: Docusate Sodium (Colace -) 100 mg PO TID [facility] Last Admin: 03/04/20 06:31 Dose: Not Given Documented by: Enoxaparin Sodium (Lovenox -) 30 mg SQ DAILY [facility] Last Admin: 03/04/20 10:04 Dose: 30 mg Documented by: Fentanyl (Sublimaze Injection -) 25 mcg IVPUSH [id number] PRN PRN Reason: PAIN-PACU ORDER X 4 DOSES ONLY Gabapentin (Neurontin -) 100 mg PO DAILY [facility] Last Admin: 03/04/20 10:05 Dose: 100 mg Documented by: Magnesium Hydroxide (Milk Of Magnesia -) 30 ml PO DAILY PRN PRN Reason: CONSTIPATION Last Admin: 02/28/20 11:34 Dose: 30 ml Documented by: Multivit/Ca Carb/B Cmplx/FA/Prenat (Nephro-Kati -) 1 tablet PO DAILY [facility] Last Admin: 03/04/20 10:04 Dose: 1 tablet Documented by: Ondansetron HCl (Zofran Injection) 4 mg IVPUSH Q6H PRN PRN Reason: NAUSEA AND/OR VOMITING Last Admin: 02/28/20 01:19 Dose: 4 mg Documented by: Rosuvastatin Calcium (Crestor -) 5 mg PO HS [facility] Last Admin: 03/03/20 21:39 Dose: 5 mg Documented by: Sevelamer Carbonate (Renvela -) 1,600 mg PO TIDCM [facility] Last Admin: 03/04/20 12:14 Dose: 1,600 mg Documented by: Tamsulosin HCl (Flomax -) 0.4 mg PO DAILY@0830 [facility] Last Admin: 03/04/20 08:40 Dose: 0.4 mg Documented by: ASSESSMENT AND PLAN: 79 year old man with Mhx of ESRD on HD MWF, s/p renal transplant with chronic rejection, HTN, HLD, OA, BPH, presents after a syncopal episode with fall and hip fracture. No preceding CP/palpitations. No HI. # Acute R femoral neck Fracture s/p R Hip Hemiarthroplasty Fever now resolved with negative Blood Cultures. Post-op DVT Px (Lovenox for 4 weeks as per Ortho), early mobilization, incentive spirometry PT, encouraged to keep participating with PT. Pain meds reviewed, his pain under control at this time awaiting placement. # Syncope, etiology unclear. CT Head - no acute findings, chronic microvascular ischemic changes. Echo - normal EF, mild pul HTN, mild to mod Trop I neg x 2. ECG - new RBBB Carotid Duplex - no hemodnamically significant stenosis. No telemonitoring events Cardio evaluated - for eventual out-patient ischemic work-up and follow up for . Cardiology recommends addition of Aspirin therapy (done) and MARIO-I (however BP border-line here - this can be done by Cardiology as out-patient).= Cardio follow up as out-patient Normocytic Anemia ESRD HTN BPH HLD Mild Pituitary enlargement, incidental finding on CT imaging - for Endocrinology referral as out-patient. Chronic Thrombocytopenia DVT Px - Lovenox SQ for 4 weeks as per Ortho
[2020-03-04 14:04] VITALS: BP 133/87; PULSE 76; TEMP 98.1
== END 2020-03-04 15:38 | DRG 521 ==
LOC: JER 11:30 → JERBED 18:05 → J4W 02-24 15:30
PROVIDERS: ADMIT Hospitalist; ATTEND Student in an Organized Health Care Education/Training Program
PROC: 5A1D70Z Performance of Urinary Filtration, Intermittent, Less than 6 Hours Per Day (ICD-10-PCS; 2020-02-24)
PROC: 0SRR0JZ Replacement of Right Hip Joint, Femoral Surface with Synthetic Substitute, Open Approach (ICD-10-PCS; principal; 2020-02-27 16:00)
PROC: 5A1D70Z Performance of Urinary Filtration, Intermittent, Less than 6 Hours Per Day (ICD-10-PCS; 2020-02-28)
PROC: 5A1D70Z Performance of Urinary Filtration, Intermittent, Less than 6 Hours Per Day (ICD-10-PCS; 2020-03-01)
PROC: 5A1D70Z Performance of Urinary Filtration, Intermittent, Less than 6 Hours Per Day (ICD-10-PCS; 2020-03-03)
DX: S72.041A Displaced fracture of base of neck of right femur, initial encounter for closed fracture (principal); N18.6 End stage renal disease; T86.11 Kidney transplant rejection; N25.81 Secondary hyperparathyroidism of renal origin; B19.10 Unspecified viral hepatitis B without hepatic coma; I12.0 Hypertensive chronic kidney disease with stage 5 chronic kidney disease or end stage renal disease; E78.5 Hyperlipidemia, unspecified; Z99.2 Dependence on renal dialysis; N25.0 Renal osteodystrophy; D63.1 Anemia in chronic kidney disease; K57.90 Diverticulosis of intestine, part unspecified, without perforation or abscess without bleeding; E55.9 Vitamin D deficiency, unspecified; N40.0 Benign prostatic hyperplasia without lower urinary tract symptoms; K64.9 Unspecified hemorrhoids; R93.0 Abnormal findings on diagnostic imaging of skull and head, not elsewhere classified; E78.00 Pure hypercholesterolemia, unspecified; R50.9 Fever, unspecified; D69.6 Thrombocytopenia, unspecified; I45.10 Unspecified right bundle-branch block; I25.119 Atherosclerotic heart disease of native coronary artery with unspecified angina pectoris; I35.0 Nonrheumatic aortic (valve) stenosis; I27.20 Pulmonary hypertension, unspecified; W18.30XA Fall on same level, unspecified, initial encounter; Y92.098 Other place in other non-institutional residence as the place of occurrence of the external cause
CPT/HCPCS: 36415; 70450-TC; 71045-TC-FY; 72192-TC; 73523-TC-FY; 73552-TC-RT-FY; 80048; 80053; 80061; 82550; 82553; 82607; 82728; 82746; 82962; 83540; 83550; 83721; 83735; 84100; 84484; 85025; 85027; 85610; 85730; 86704; 86706; 86707; 86708; 86709; 86803; 86850; 86900; 86901; 87040; 87340; 88305-TC; 88311-TC; 93005; 93010; 93306-TC; 93880-TC; 93970-TC; 93971; 94760; 97116-GP; 97162-GP; 99285-25; C9803; J0885; J1756; U0003

== ENCOUNTER 2020-07-10 06:31 | Emergency (ER) | payer BC, OTHER ==
[2020-07-10 06:42] VITALS: TEMP 98.6; BMI 20.9
[2020-07-10 08:19] VITALS: BP 134/118; PULSE 74
== END 2020-07-10 09:18 | disposition home or self-care (01) ==
LOC: JER 06:31
DX: T82.838A Hemorrhage due to vascular prosthetic devices, implants and grafts, initial encounter (principal)
CPT/HCPCS: 93005; 93010; 99284-25

== ENCOUNTER 2020-08-09 18:10 | Emergency (ER) | payer OTHER ==
[2020-08-09 18:44] VITALS: BP 159/88; PULSE 79; TEMP 98.2; BMI 22.2
[2020-08-09 21:03] LABS: CHLORIDE 106 mmol/L (98-107); POTASSIUM 4.9 mmol/L (3.5-5.1); SODIUM 140 mmol/L (136-145)
[2020-08-09 21:04] LABS: BLOOD UREA NITROGEN 41.3 mg/dL (7-18); CALCIUM 8.1 mg/dL (8.5-10.1)
[2020-08-09 21:06] LABS: ANION GAP 8 MMOL/L (8-16); CO2 26 mmol/L (21-32); GLUCOSE,RANDOM 78 mg/dL (74-106)
[2020-08-09 21:09] LABS: PHOSPHOROUS 5.5 mg/dL (2.5-4.9)
[2020-08-09 21:10] LABS: CREATININE 10.9 mg/dL (0.55-1.3)
== END 2020-08-09 21:31 | disposition home or self-care (01) ==
LOC: JER 18:10
DX: R19.7 Diarrhea, unspecified (principal)
CPT/HCPCS: 36415; 80048; 84100; 93005; 93010; 99284-25; C9803; U0003

== ENCOUNTER 2021-09-13 09:48 | Day surgery (SDC) | payer OTHER ==
[2021-09-13] MEDS ORDERED: CALCIUM GLUCONATE 10% - 1,000 MG/10 ML VIAL IVPB ONE (11:26)
[2021-09-13 12:17] LABS: BASO % 1.2 % (0-2.0); EOS % 7.9 % (0-4.5); HEMOGLOBIN 8.7 GM/dL (11.7-16.9); LYMPH % 23.4 % (8-40); MCH 26.8 pg (25.7-33.7); MCHC 32.1 g/dl (32.0-35.9); MEAN CELL VOLUME 83.3 fl (80-96); MEAN PLT VOLUME 7.4 fl (7.5-11.1); NEUT % 58.5 % (42.8-82.8); PLATELET COUNT 122 10^3/uL (134-434); RBC 3.24 M/mm3 (4.00-5.60); RDW 16.2 % (11.9-15.9); WHITE BLOOD COUNT 2.6 K/mm3 (4.0-10.0)
[2021-09-13 12:23] LABS: INR 1.2 (0.83-1.09); PROTHROMBIN TIME (PATIENT) 13.8 SEC (9.7-13.0)
[2021-09-13 12:26] LABS: ACTIVATED PTT 36.5 SECONDS (25.2-36.5)
[2021-09-13 12:42] LABS: CHLORIDE 101 mmol/L (98-107); SODIUM 136 mmol/L (136-145)
[2021-09-13 12:45] LABS: CALCIUM 7.8 mg/dL (8.5-10.1)
[2021-09-13 12:46] LABS: ALBUMIN 3.2 g/dl (3.4-5.0); ANION GAP 9 MMOL/L (8-16); BLOOD UREA NITROGEN 37.3 mg/dL (7-18); CO2 26 mmol/L (21-32); GLUCOSE,RANDOM 85 mg/dL (74-106)
[2021-09-13 12:48] LABS: SGOT/AST 6 U/L (15-37); SGPT/ALT 7 U/L (13-61)
[2021-09-13 12:50] LABS: BILIRUBIN,TOTAL 0.4 mg/dL (0.2-1)
[2021-09-13 12:51] LABS: TOT PROT 6.1 g/dl (6.4-8.2)
[2021-09-13 12:52] LABS: ALK PHOS 204 U/L (45-117)
[2021-09-13 13:08] LABS: CREATININE 13.2 mg/dL (0.55-1.3)
[2021-09-13] MEDS ORDERED: CALCIUM GLUC IN NACL, ISO-OSM 1 GM/50 ML BAG IVPB ONE (14:04)
[2021-09-13] MEDS ORDERED: LIDOCAINE HCL 1%, 10 MG/ML (20ML VIAL) ONE (15:52)
[2021-09-13] MEDS ORDERED: PAPAVERINE HCL 30 MG/1 ML 10 ML VIAL NR ONE (15:52)
[2021-09-13] MEDS ORDERED: POVIDONE-IODINE OINTMENT 10% - 28.4 GM TUBE ONE (15:52)
[2021-09-13] MEDS ORDERED: HEPARIN NA (PORCINE) 5,000 UNITS/ML 1ML VIAL ONE (15:53)
[2021-09-13] MEDS ORDERED: CARVEDILOL 25 MG TABLET (FP) PO SCH (17:11)
[2021-09-13] MEDS ORDERED: hydrALAZINE HCL 25 MG TABLET (FP) PO SCH (17:11)
[2021-09-13] MEDS ORDERED: PROPOFOL 20 ML ONE (18:17)
[2021-09-13] MEDS ORDERED: MIDAZOLAM HCL 2 MG/2 ML SINGLE DOSE VIAL ONE (18:17)
[2021-09-13] MEDS ORDERED: POVIDONE-IODINE OINTMENT 10% - 28.4 GM TUBE TP ONE (18:25)
[2021-09-13] MEDS ORDERED: ceFAZolin SODIUM 1 GM VIAL IVPB ONE (18:25)
[2021-09-13] MEDS ORDERED: LIDOCAINE HCL 1%, 10 MG/ML (20ML VIAL) NR ONE ×2 (18:31)
[2021-09-13] MEDS ORDERED: ceFAZolin SODIUM 1 GM VIAL ONE (19:46)
[2021-09-13] MEDS ORDERED: ONDANSETRON 4 MG/2 ML VIAL IVPUSH PRN ×2 (19:49→20:01)
[2021-09-13] MEDS ORDERED: PROMETHAZINE HCL 25 MG/1 ML VIAL IVPUSH PRN ×2 (19:49→20:01)
[2021-09-13] MEDS ORDERED: PROMETHAZINE HCL 25 MG/1 ML VIAL ONE (19:49)
[2021-09-13] MEDS ORDERED: PROMETHAZINE HCL 25 MG/1 ML VIAL IVPB ONE (19:55)
[2021-09-13] MEDS ORDERED: oxyCODONE HCL 5 MG TABLET PO PRN (20:00)
[2021-09-13] MEDS ORDERED: ACETAMINOPHEN 325 MG TABLET (FP) PO PRN (20:00)
[2021-09-13] MEDS: CARVEDILOL 25 MG TABLET (FP) PO SCH (21:59)
[2021-09-13] MEDS: hydrALAZINE HCL 25 MG TABLET (FP) PO SCH (21:59)
[2021-09-14 04:45] VITALS: BMI 25.4
[2021-09-14] MEDS ORDERED: SODIUM CHLORIDE 250 ML IV PRN (07:37)
[2021-09-14] MEDS ORDERED: EPOETIN ALFA-EPBX 4,000 UNIT/ML VIAL IVPUSH ONE (07:37)
[2021-09-14] MEDS ORDERED: TAMSULOSIN HCL 0.4 MG CAP PO SCH ×2 (08:30→10:00)
[2021-09-14] MEDS: CARVEDILOL 25 MG TABLET (FP) PO SCH (09:54)
[2021-09-14] MEDS ORDERED: GABAPENTIN 100 MG CAPSULE PO SCH ×2 (10:00)
[2021-09-14] MEDS: hydrALAZINE HCL 25 MG TABLET (FP) PO SCH ×2 (11:22→11:26)
[2021-09-14] MEDS ORDERED: LIDOCAINE 2.5%/PRILOCAINE 2.5% 30 GRAM TUBE TP ONE (12:54)
[2021-09-14] MEDS ORDERED: LIDOCAINE 2.5%/PRILOCAINE 2.5% (5 Gram/TUBE) TP ONE (13:00)
[2021-09-14 15:49] VITALS: TEMP 98.8
[2021-09-14 15:58] LABS: HEMATOCRIT 25.5 % (35.4-49); HEMOGLOBIN 8.5 GM/dL (11.7-16.9); MCH 27.2 pg (25.7-33.7); MCHC 33.2 g/dl (32.0-35.9); MEAN CELL VOLUME 81.9 fl (80-96); MEAN PLT VOLUME 7.5 fl (7.5-11.1); PLATELET COUNT 120 10^3/uL (134-434); RBC 3.12 M/mm3 (4.00-5.60); RDW 17.3 % (11.9-15.9); WHITE BLOOD COUNT 2.9 K/mm3 (4.0-10.0)
[2021-09-14 16:15] LABS: CALCIUM 7.4 mg/dL (8.5-10.1); CHLORIDE 100 mmol/L (98-107); SODIUM 136 mmol/L (136-145)
[2021-09-14 16:17] LABS: ANION GAP 11 MMOL/L (8-16); BLOOD UREA NITROGEN 51.4 mg/dL (7-18); CO2 25 mmol/L (21-32); GLUCOSE,RANDOM 95 mg/dL (74-106); MAGNESIUM 2.2 mg/dL (1.8-2.4)
[2021-09-14 16:46] LABS: CREATININE 15.6 mg/dL (0.55-1.3)
[2021-09-14 18:47] VITALS: BP 122/64; PULSE 66
== END 2021-09-14 20:58 | disposition home or self-care (01) ==
LOC: JER 09:48 → JERBED 13:00 → UNDOADMIN 13:00 → JASUSAT 13:02 → J6S 20:55 → JERBED 20:55 → JASUSAT 09-14 20:58
PROVIDERS: ATTEND Nurse Practitioner Family
PROC: 05CB3ZZ Extirpation of Matter from Right Basilic Vein, Percutaneous Approach (ICD-10-PCS; 2021-09-13)
PROC: 05C73ZZ Extirpation of Matter from Right Axillary Vein, Percutaneous Approach (ICD-10-PCS; principal; 2021-09-13 17:00)
PROC: 05C93ZZ Extirpation of Matter from Right Brachial Vein, Percutaneous Approach (ICD-10-PCS; 2021-09-13 17:00)
DX: T82.318A Breakdown (mechanical) of other vascular grafts, initial encounter (principal); I12.0 Hypertensive chronic kidney disease with stage 5 chronic kidney disease or end stage renal disease; N18.6 End stage renal disease; Z99.2 Dependence on renal dialysis; Y82.8 Other medical devices associated with adverse incidents; Y92.9 Unspecified place or not applicable
CPT/HCPCS: 36215; 36833; 36908; 75710; C1877; C1885; 36415; 76000-TC-FY; 80048; 80053; 83735; 84484; 85025; 85027; 85610; 85730; 86803; 86850; 86900; 86901; 87340; 93005; 93010; 94760; 99285-25; C9803-CS; J1644; Q5106; U0003; U0005

== ENCOUNTER 2021-12-03 17:04 | Emergency (ER) | payer OTHER ==
[2021-12-03 17:12] VITALS: BP 135/80; PULSE 74; TEMP 98.2; BMI 21.5
== END 2021-12-03 19:16 | disposition home or self-care (01) ==
LOC: JER 17:04
DX: S09.90XA Unspecified injury of head, initial encounter (principal); W01.0XXA Fall on same level from slipping, tripping and stumbling without subsequent striking against object, initial encounter
CPT/HCPCS: 70450-TC; 72125-TC; 99284-25

== ENCOUNTER 2022-01-14 13:06 | Inpatient (IN) | payer OTHER ==
[2022-01-14] MEDS ORDERED: SODIUM CHLORIDE 0.9% 500 ML INFUS.BAG IV ONE (14:13)
[2022-01-14 14:48] LABS: HEMATOCRIT 36.5 % (35.4-49); HEMOGLOBIN 11.4 GM/dL (11.7-16.9); MCH 25.3 pg (25.7-33.7); MCHC 31.2 g/dl (32.0-35.9); MEAN CELL VOLUME 80.9 fl (80-96); MEAN PLT VOLUME 7.8 fl (7.5-11.1); PLATELET COUNT 141 10^3/uL (134-434); RBC 4.51 M/mm3 (4.00-5.60); RDW 18.3 % (11.9-15.9); WHITE BLOOD COUNT 3.3 K/mm3 (4.0-10.0)
[2022-01-14 14:49] LABS: VENOUS BASE EXCESS 2.4 mmol/L (-2-2); VENOUS O2 SATURATION 73.8 % (70-80); VENOUS PCO2 44.4 mmHg (38-52); VENOUS PH 7.409 (7.310-7.410)
[2022-01-14 15:13] LABS: ALBUMIN 2.9 g/dl (3.4-5.0); CALCIUM 8.6 mg/dL (8.5-10.1); MAGNESIUM 2.1 mg/dL (1.8-2.4)
[2022-01-14 15:14] LABS: BLOOD UREA NITROGEN 19.3 mg/dL (7-18)
[2022-01-14 15:16] LABS: CREATININE 6.8 mg/dL (0.55-1.3); PHOSPHOROUS 4.4 mg/dL (2.5-4.9)
[2022-01-14 15:18] LABS: BILIRUBIN,TOTAL 0.5 mg/dL (0.2-1); TOT PROT 6.4 g/dl (6.4-8.2)
[2022-01-14 15:19] LABS: BILIRUBIN,DIRECT 0.1 mg/dL (0.0-0.2)
[2022-01-14] MEDS ORDERED: VANCOMYCIN 1 GM in D5W (PRE-DOCKED) 1,000 MG/250 ML IVPB ONE (17:02)
[2022-01-14] MEDS ORDERED: LORazepam 2 MG/ML SDV VIAL IM PRN (17:42)
[2022-01-14] MEDS: SEVELAMER CARBONATE 800 MG TAB (FP) PO SCH (19:36)
[2022-01-14] MEDS ORDERED: cefTRIAXone SODIUM 1 GM VIAL ONE (19:39)
[2022-01-14] MEDS ORDERED: VANCOMYCIN/WATER FOR INJ (PEG) 1,000 MG/200 ML BAG IVPB ONE (19:39)
[2022-01-14] MEDS ORDERED: CARVEDILOL 25 MG TABLET (FP) ONE (22:04)
[2022-01-14] MEDS: HEPARIN NA (PORCINE) 5,000 UNITS/ML 1ML VIAL SQ SCH (22:41)
[2022-01-14] MEDS: CARVEDILOL 25 MG TABLET (FP) PO SCH (22:41)
[2022-01-15 01:59] LABS: MAGNESIUM 2.1 mg/dL (1.8-2.4)
[2022-01-15] MEDS ORDERED: TAMSULOSIN HCL 0.4 MG CAP ONE (07:41)
[2022-01-15] MEDS: TAMSULOSIN HCL 0.4 MG CAP PO SCH (07:49)
[2022-01-15 08:08] LABS: BASO % 1.5 % (0-2.0); EOS % 2.7 % (0-4.5); HEMATOCRIT 33.1 % (35.4-49); HEMOGLOBIN 10.6 GM/dL (11.7-16.9); LYMPH % 29.4 % (8-40); MCH 25.5 pg (25.7-33.7); MEAN CELL VOLUME 79.4 fl (80-96); MEAN PLT VOLUME 7.4 fl (7.5-11.1); MONO % 10.5 % (3.8-10.2); NEUT % 55.9 % (42.8-82.8); PLATELET COUNT 123 10^3/uL (134-434); RBC 4.17 M/mm3 (4.00-5.60); RDW 18.6 % (11.9-15.9)
[2022-01-15 08:28] LABS: CHLORIDE 103 mmol/L (98-107); SODIUM 139 mmol/L (136-145)
[2022-01-15 08:30] LABS: ALBUMIN 2.7 g/dl (3.4-5.0); ANION GAP 12 MMOL/L (8-16); BLOOD UREA NITROGEN 27.7 mg/dL (7-18); CALCIUM 8.7 mg/dL (8.5-10.1); CO2 24 mmol/L (21-32); GLUCOSE,RANDOM 76 mg/dL (74-106)
[2022-01-15 08:34] LABS: SGOT/AST 4 U/L (15-37)
[2022-01-15 08:36] LABS: BILIRUBIN,TOTAL 0.5 mg/dL (0.2-1); TOT PROT 5.7 g/dl (6.4-8.2)
[2022-01-15 08:37] LABS: ALK PHOS 94 U/L (45-117)
[2022-01-15 08:49] LABS: CREATININE 8.5 mg/dL (0.55-1.3); SGPT/ALT < 6 U/L (13-61)
[2022-01-15] MEDS ORDERED: CARVEDILOL 25 MG TABLET (FP) ONE (08:54)
[2022-01-15] MEDS ORDERED: HEPARIN NA (PORCINE) 5,000 UNITS/ML 1ML VIAL ONE (08:56)
[2022-01-15] MEDS: SEVELAMER CARBONATE 800 MG TAB (FP) PO SCH ×3 (08:59→17:40)
[2022-01-15] MEDS: HEPARIN NA (PORCINE) 5,000 UNITS/ML 1ML VIAL SQ SCH ×2 (09:06→21:28)
[2022-01-15] MEDS: CARVEDILOL 25 MG TABLET (FP) PO SCH ×2 (09:06→21:28)
[2022-01-15] MEDS ORDERED: ENOXAPARIN NA (PORCINE) 30 MG/0.3 ML DISP.SYRIN SQ SCH (10:00)
[2022-01-15] MEDS: ALLOPURINOL 100 MG TABLET (FP) PO SCH (12:57)
[2022-01-15 13:25] VITALS: BMI 20.4
[2022-01-15] MEDS ORDERED: SODIUM CHLORIDE 250 ML IV PRN (19:02)
[2022-01-15] MEDS: THIAMINE HCL 200 MG/2 ML VIAL IVPB SCH (21:21)
[2022-01-16] MEDS: THIAMINE HCL 200 MG/2 ML VIAL IVPB SCH ×4 (01:52→18:23)
[2022-01-16] MEDS ORDERED: hydrALAZINE HCL 20 MG/ML VIAL IM ONE (02:45)
[2022-01-16] MEDS ORDERED: hydrALAZINE HCL 20 MG/ML VIAL IVPUSH ONE ×2 (02:45→23:54)
[2022-01-16] MEDS ORDERED: hydrALAZINE HCL 20 MG/ML VIAL IVPB ONE ×2 (03:30→23:37)
[2022-01-16] MEDS: SEVELAMER CARBONATE 800 MG TAB (FP) PO SCH ×4 (08:19→17:15)
[2022-01-16] MEDS: TAMSULOSIN HCL 0.4 MG CAP PO SCH (08:19)
[2022-01-16] MEDS: ALLOPURINOL 100 MG TABLET (FP) PO SCH (09:03)
[2022-01-16] MEDS: HEPARIN NA (PORCINE) 5,000 UNITS/ML 1ML VIAL SQ SCH ×2 (09:04→22:15)
[2022-01-16] MEDS: CARVEDILOL 25 MG TABLET (FP) PO SCH ×2 (09:07→22:15)
[2022-01-17] MEDS ORDERED: amLODIPine BESYLATE 10 MG TABLET (FP) PO ONE (00:12)
[2022-01-17 01:55] VITALS: RESP 18
[2022-01-17] MEDS: THIAMINE HCL 200 MG/2 ML VIAL IVPB SCH ×3 (02:00→17:25)
[2022-01-17 09:01] LABS: BASO % 1.2 % (0-2.0); HEMATOCRIT 34.9 % (35.4-49); HEMOGLOBIN 11.1 GM/dL (11.7-16.9); LYMPH % 24.9 % (8-40); MCH 25.3 pg (25.7-33.7); MCHC 31.7 g/dl (32.0-35.9); MEAN CELL VOLUME 79.9 fl (80-96); MEAN PLT VOLUME 7.2 fl (7.5-11.1); MONO % 9.7 % (3.8-10.2); NEUT % 58.2 % (42.8-82.8); PLATELET COUNT 111 10^3/uL (134-434); RBC 4.37 M/mm3 (4.00-5.60); RDW 17.7 % (11.9-15.9); WHITE BLOOD COUNT 2.1 K/mm3 (4.0-10.0)
[2022-01-17 09:08] LABS: CHLORIDE 104 mmol/L (98-107); SODIUM 141 mmol/L (136-145)
[2022-01-17 09:16] LABS: ALBUMIN 2.7 g/dl (3.4-5.0); ANION GAP 9 MMOL/L (8-16); BLOOD UREA NITROGEN 25.4 mg/dL (7-18); CO2 27 mmol/L (21-32); GLUCOSE,RANDOM 81 mg/dL (74-106); MAGNESIUM 2.2 mg/dL (1.8-2.4)
[2022-01-17 09:17] LABS: PHOSPHOROUS 4.5 mg/dL (2.5-4.9)
[2022-01-17 09:19] LABS: BILIRUBIN,TOTAL 0.6 mg/dL (0.2-1); SGOT/AST 8 U/L (15-37); TOT PROT 5.7 g/dl (6.4-8.2)
[2022-01-17 09:20] LABS: ALK PHOS 94 U/L (45-117)
[2022-01-17 09:21] LABS: SGPT/ALT < 6 U/L (13-61)
[2022-01-17 09:25] LABS: CREATININE 7.7 mg/dL (0.55-1.3)
[2022-01-17] MEDS: ALLOPURINOL 100 MG TABLET (FP) PO SCH (09:35)
[2022-01-17] MEDS: CARVEDILOL 25 MG TABLET (FP) PO SCH ×2 (09:35→21:11)
[2022-01-17] MEDS: SEVELAMER CARBONATE 800 MG TAB (FP) PO SCH ×3 (09:35→17:15)
[2022-01-17] MEDS: TAMSULOSIN HCL 0.4 MG CAP PO SCH (09:35)
[2022-01-17] MEDS: HEPARIN NA (PORCINE) 5,000 UNITS/ML 1ML VIAL SQ SCH ×2 (09:35→21:11)
[2022-01-17] MEDS ORDERED: SODIUM CHLORIDE 250 ML IV PRN (13:52)
[2022-01-18] MEDS: THIAMINE HCL 200 MG/2 ML VIAL IVPB SCH ×3 (02:15→17:20)
[2022-01-18] MEDS: TAMSULOSIN HCL 0.4 MG CAP PO SCH (08:27)
[2022-01-18] MEDS: SEVELAMER CARBONATE 800 MG TAB (FP) PO SCH ×3 (08:27→17:20)
[2022-01-18] MEDS: HEPARIN NA (PORCINE) 5,000 UNITS/ML 1ML VIAL SQ SCH ×2 (09:39→21:25)
[2022-01-18 10:24] LABS: BASO % 0.9 % (0-2.0); EOS % 7.2 % (0-4.5); HEMATOCRIT 35.6 % (35.4-49); HEMOGLOBIN 11.5 GM/dL (11.7-16.9); LYMPH % 22.5 % (8-40); MCH 25.9 pg (25.7-33.7); MCHC 32.5 g/dl (32.0-35.9); MEAN CELL VOLUME 79.7 fl (80-96); MEAN PLT VOLUME 7.6 fl (7.5-11.1); MONO % 8.3 % (3.8-10.2); NEUT % 61.1 % (42.8-82.8); PLATELET COUNT 118 10^3/uL (134-434); RBC 4.46 M/mm3 (4.00-5.60); RDW 17.8 % (11.9-15.9); WHITE BLOOD COUNT 2.7 K/mm3 (4.0-10.0)
[2022-01-18 10:45] LABS: CHLORIDE 104 mmol/L (98-107); SODIUM 136 mmol/L (136-145)
[2022-01-18 10:48] LABS: CALCIUM 9.1 mg/dL (8.5-10.1)
[2022-01-18 10:49] LABS: ANION GAP 7 MMOL/L (8-16); BLOOD UREA NITROGEN 29.3 mg/dL (7-18); CO2 25 mmol/L (21-32); GLUCOSE,RANDOM 114 mg/dL (74-106)
[2022-01-18 10:52] LABS: PHOSPHOROUS 4.8 mg/dL (2.5-4.9)
[2022-01-18 10:57] LABS: CREATININE 9.6 mg/dL (0.55-1.3)
[2022-01-18] MEDS: ALLOPURINOL 100 MG TABLET (FP) PO SCH (13:40)
[2022-01-18] MEDS: CARVEDILOL 25 MG TABLET (FP) PO SCH ×2 (13:41→21:25)
[2022-01-18] MEDS ORDERED: hydrALAZINE HCL 25 MG TABLET (FP) PO ONE (15:06)
[2022-01-19] MEDS: SEVELAMER CARBONATE 800 MG TAB (FP) PO SCH ×2 (08:14→12:16)
[2022-01-19] MEDS: ALLOPURINOL 100 MG TABLET (FP) PO SCH (09:14)
[2022-01-19] MEDS: CARVEDILOL 25 MG TABLET (FP) PO SCH (09:15)
[2022-01-19] MEDS: HEPARIN NA (PORCINE) 5,000 UNITS/ML 1ML VIAL SQ SCH (09:15)
[2022-01-19] MEDS: TAMSULOSIN HCL 0.4 MG CAP PO SCH (09:16)
[2022-01-19 10:56] VITALS: BP 158/88
[2022-01-19 14:15] VITALS: PULSE 72; TEMP 99.4
== END 2022-01-19 16:23 | disposition home or self-care (01) | DRG 70 ==
LOC: JER 13:06 → UNDOADMOB 15:41 → INTOOBSV 15:41 → JERBED 15:41 → J6S 01-15 11:32 → OBSVTOIN 01-17 10:01
PROVIDERS: ADMIT Internal Medicine; ATTEND Internal Medicine
PROC: 5A1D70Z Performance of Urinary Filtration, Intermittent, Less than 6 Hours Per Day (ICD-10-PCS; principal; 2022-01-18)
DX: G93.41 Metabolic encephalopathy (principal); N18.6 End stage renal disease; I13.2 Hypertensive heart and chronic kidney disease with heart failure and with stage 5 chronic kidney disease, or end stage renal disease; T86.12 Kidney transplant failure; E78.5 Hyperlipidemia, unspecified; I50.9 Heart failure, unspecified; N40.0 Benign prostatic hyperplasia without lower urinary tract symptoms; I25.10 Atherosclerotic heart disease of native coronary artery without angina pectoris; M10.9 Gout, unspecified
CPT/HCPCS: 0241U-QW; 36415; 70450-TC; 71045-TC-FY; 74176-TC; 80048; 80053; 80307; 82140; 82248; 82607; 82803; 82962; 83735; 84100; 84443; 84484; 85025; 85027; 86803; 87040; 87340; 93005; 93010; 97116-GP; 97162-GP; 99285-25; G0378; J1644

== ENCOUNTER 2022-05-02 05:07 | Day surgery (SDC) | payer OTHER ==
[2022-05-01 15:02] VITALS: BMI 19.6
[2022-05-02 09:16] LABS: MCH 25.8 pg (25.7-33.7); MCHC 31.7 g/dl (32.0-35.9); MEAN CELL VOLUME 81.5 fl (80-96); MEAN PLT VOLUME 8.1 fl (7.5-11.1); PLATELET COUNT 133 10^3/uL (134-434); RBC 4.66 M/mm3 (4.00-5.60); RDW 18.5 % (11.9-15.9); WHITE BLOOD COUNT 3.1 K/mm3 (4.0-10.0)
[2022-05-02 10:17] LABS: BLOOD UREA NITROGEN 21.6 mg/dL (7-18); CALCIUM 9.5 mg/dL (8.5-10.1)
[2022-05-02 10:21] LABS: CREATININE 6.9 mg/dL (0.55-1.3)
[2022-05-02 11:41] VITALS: TEMP 97.2
[2022-05-02 11:45] VITALS: PULSE 72
[2022-05-02 12:08] VITALS: BP 182/74; RESP 18
== END 2022-05-02 13:40 | disposition home or self-care (01) ==
LOC: JASU-ENDO 05:07
PROVIDERS: ATTEND Student in an Organized Health Care Education/Training Program
PROC: 0DB78ZX Excision of Stomach, Pylorus, Via Natural or Artificial Opening Endoscopic, Diagnostic (ICD-10-PCS; 2022-05-02)
PROC: 0DB68ZX Excision of Stomach, Via Natural or Artificial Opening Endoscopic, Diagnostic (ICD-10-PCS; 2022-05-02)
PROC: 0DB48ZX Excision of Esophagogastric Junction, Via Natural or Artificial Opening Endoscopic, Diagnostic (ICD-10-PCS; 2022-05-02)
PROC: 0DB98ZX Excision of Duodenum, Via Natural or Artificial Opening Endoscopic, Diagnostic (ICD-10-PCS; principal; 2022-05-02 09:00)
DX: K29.50 Unspecified chronic gastritis without bleeding (principal); K21.00 Gastro-esophageal reflux disease with esophagitis, without bleeding
CPT/HCPCS: 36415; 74176-TC; 80048; 85027; 88305-TC; 88342-TC

== ENCOUNTER 2022-05-16 03:27 | Inpatient (IN) | payer OTHER ==
[2022-05-16] MEDS ORDERED: dilTIAZem HCL 50 MG/10 ML - 10 ML VIAL IVPUSH ONE (04:11)
[2022-05-16] MEDS ORDERED: dilTIAZem HCL 125 MG/25 ML - 25 ML VIAL ONE (04:16)
[2022-05-16 04:43] LABS: BASO % 0.7 % (0-2.0); EOS % 1.6 % (0-4.5); HEMATOCRIT 43.7 % (35.4-49); HEMOGLOBIN 13.5 GM/dL (11.7-16.9); LYMPH % 18.2 % (8-40); MCH 25.5 pg (25.7-33.7); MCHC 30.8 g/dl (32.0-35.9); MEAN CELL VOLUME 82.8 fl (80-96); MEAN PLT VOLUME 7.2 fl (7.5-11.1); MONO % 7.1 % (3.8-10.2); NEUT % 72.4 % (42.8-82.8); PLATELET COUNT 150 10^3/uL (134-434); RBC 5.28 M/mm3 (4.00-5.60); RDW 19.6 % (11.9-15.9); WHITE BLOOD COUNT 6.1 K/mm3 (4.0-10.0)
[2022-05-16 04:48] LABS: VENOUS BASE EXCESS -6.3 mmol/L (-2-2); VENOUS O2 SATURATION 85.2 % (70-80); VENOUS PCO2 40.7 mmHg (38-52); VENOUS PH 7.302 (7.310-7.410)
[2022-05-16 04:56] LABS: INR 1.17 (0.83-1.09); PROTHROMBIN TIME (PATIENT) 13.5 SEC (9.7-13.0)
[2022-05-16 04:58] LABS: ACTIVATED PTT 37.1 SECONDS (25.2-36.5)
[2022-05-16 05:03] LABS: CHLORIDE 105 mmol/L (98-107); SODIUM 141 mmol/L (136-145)
[2022-05-16 05:06] LABS: CALCIUM 10.2 mg/dL (8.5-10.1)
[2022-05-16 05:07] LABS: ALBUMIN 3.2 g/dl (3.4-5.0); ANION GAP 14 MMOL/L (8-16); BLOOD UREA NITROGEN 20.4 mg/dL (7-18); CO2 22 mmol/L (21-32); GLUCOSE,RANDOM 142 mg/dL (74-106); MAGNESIUM 2.4 mg/dL (1.8-2.4)
[2022-05-16 05:10] LABS: CREATININE 7.3 mg/dL (0.55-1.3); SGOT/AST 14 U/L (15-37); SGPT/ALT 12 U/L (13-61)
[2022-05-16 05:12] LABS: BILIRUBIN,TOTAL 0.5 mg/dL (0.2-1); TOT PROT 7.1 g/dl (6.4-8.2)
[2022-05-16 05:13] LABS: ALK PHOS 80 U/L (45-117)
[2022-05-16] MEDS ORDERED: PIPERACILLIN/TAZOB 2.25 GM 2.25 GM in DEXTROSE 5%-WATER - 50 ML IVPB ONE (05:36)
[2022-05-16] MEDS ORDERED: PIPERACILLIN/TAZOB 2.25 GM 2.25 GM/50 ML BAG IVPB ONE (05:41)
[2022-05-16] MEDS ORDERED: LORazepam 2 MG/ML SDV VIAL IVPUSH ONE (05:51)
[2022-05-16 06:02] LABS: LACTIC ACID 5.1 mmol/L (0.4-2.0)
[2022-05-16] MEDS: DEXMEDETOMIDINE PREMIX 400 MCG/100 ML BAG IVPB SCH (07:56)
[2022-05-16] MEDS ORDERED: levETIRAcetam 500 MG/5 ML INJECTION VIAL IVPB ONE (08:27)
[2022-05-16] MEDS ORDERED: VASOPRESSIN 20 UNITS/ML VIAL IV ONE (09:04)
[2022-05-16] MEDS: VASOPRESSIN 40 UNITS/100 ML BAG IV SCH (09:17)
[2022-05-16 10:18] LABS: EPI CELLS 5 /uL (0-25.1); HYALINE CASTS 0 /uL (0-3.1); URINE APPEARANCE CLOUDY; URINE BACTERIA 105 /uL (0-1359); URINE BILIRUBIN NEGATIVE (NEGATIVE); URINE COLOR YELLOW; URINE GLUCOSE (UA) NEGATIVE (NEGATIVE); URINE KETONE NEGATIVE (NEGATIVE); URINE LEUK ESTERASE NEGATIVE (NEGATIVE); URINE NITRITE NEGATIVE (NEGATIVE); URINE PROTEIN 2+ (NEGATIVE); URINE RBC 581 /uL (0-23.9); URINE UROBILINOGEN 0.2 mg/dL (0.2-1.0); URINE WBC 6 /uL (0-25.8)
[2022-05-16 11:38] LABS: LACTIC ACID 3.2 mmol/L (0.4-2.0)
[2022-05-16] MEDS: PIPERACILLIN/TAZOB 2.25 GM 2.25 GM in DEXTROSE 5%-WATER - 50 ML IVPB SCH (17:01)
[2022-05-16 17:46] LABS: LACTIC ACID 2.9 mmol/L (0.4-2.0)
[2022-05-16] MEDS: MUPIROCIN 2% TOPICAL OINTMENT FOR DECOLONIZATION NS SCH (22:30)
[2022-05-16] MEDS: CHLORHEXIDINE GLUCONATE 4% CLEANSER FOR DECOLONIZATION TP SCH (22:30)
[2022-05-17] MEDS: PIPERACILLIN/TAZOB 2.25 GM 2.25 GM in DEXTROSE 5%-WATER - 50 ML IVPB SCH ×4 (04:10→20:30)
[2022-05-17] MEDS: DEXMEDETOMIDINE PREMIX 400 MCG/100 ML BAG IVPB SCH ×2 (08:25→17:40)
[2022-05-17] MEDS: VASOPRESSIN 40 UNITS/100 ML BAG IV SCH (09:11)
[2022-05-17] MEDS: PANTOPRAZOLE SODIUM 40 MG VIAL IVPUSH SCH (09:12)
[2022-05-17 09:16] LABS: BASO % 0.1 % (0-2.0); HEMATOCRIT 39.6 % (35.4-49); HEMOGLOBIN 12.1 GM/dL (11.7-16.9); LYMPH % 5.4 % (8-40); MCH 25.4 pg (25.7-33.7); MCHC 30.5 g/dl (32.0-35.9); MEAN CELL VOLUME 83.5 fl (80-96); MEAN PLT VOLUME 8.3 fl (7.5-11.1); MONO % 5.6 % (3.8-10.2); NEUT % 88.9 % (42.8-82.8); PLATELET COUNT 101 10^3/uL (134-434); RBC 4.75 M/mm3 (4.00-5.60); WHITE BLOOD COUNT 8.9 K/mm3 (4.0-10.0)
[2022-05-17] MEDS ORDERED: LORazepam 2 MG/ML SDV VIAL IVPUSH ONE ×4 (09:25→14:30)
[2022-05-17 09:43] LABS: CHLORIDE 104 mmol/L (98-107); SODIUM 138 mmol/L (136-145)
[2022-05-17 09:47] LABS: BLOOD UREA NITROGEN 37.2 mg/dL (7-18); CALCIUM 9.9 mg/dL (8.5-10.1); CO2 23 mmol/L (21-32); GLUCOSE,RANDOM 57 mg/dL (74-106)
[2022-05-17 09:48] LABS: SGPT/ALT 12 U/L (13-61)
[2022-05-17 09:50] LABS: PHOSPHOROUS 7.9 mg/dL (2.5-4.9); SGOT/AST 21 U/L (15-37)
[2022-05-17 09:51] LABS: ALK PHOS 56 U/L (45-117); BILIRUBIN,TOTAL 0.6 mg/dL (0.2-1)
[2022-05-17 09:52] LABS: MAGNESIUM 2.3 mg/dL (1.8-2.4)
[2022-05-17] MEDS ORDERED: levETIRAcetam 500 MG/5 ML INJECTION VIAL IVPB SCH (10:00)
[2022-05-17 10:01] LABS: ALBUMIN 2.4 g/dl (3.4-5.0); ANION GAP 12 MMOL/L (8-16); CREATININE 8.8 mg/dL (0.55-1.3)
[2022-05-17] MEDS: levETIRAcetam 500 MG/5 ML INJECTION VIAL IVPB SCH ×2 (10:04→21:12)
[2022-05-17] MEDS ORDERED: dilTIAZem HCL 30 MG TABLET PO SCH (12:00)
[2022-05-17] MEDS: MUPIROCIN 2% TOPICAL OINTMENT FOR DECOLONIZATION NS SCH ×2 (12:06→21:13)
[2022-05-17 12:20] LABS: COCAINE, UR NEGATIVE (NEGATIVE); OPIATES, URI NEGATIVE (NEGATIVE); PHENCYCLIDINE,URINE NEGATIVE (NEGATIVE); URINE AMPHETAMINES NEGATIVE (NEGATIVE)
[2022-05-17 12:21] LABS: METHADONE, UR NEGATIVE (NEGATIVE); URINE BARBITURATES NEGATIVE (NEGATIVE); URINE BENZODIAZEPINES NEGATIVE (NEGATIVE)
[2022-05-17 13:55] LABS: SODIUM 141 mmol/L (136-145)
[2022-05-17 13:58] LABS: BLOOD UREA NITROGEN 44.8 mg/dL (7-18); CO2 22 mmol/L (21-32)
[2022-05-17] MEDS: APIXABAN 2.5 MG TABLET PO SCH ×2 (14:03→21:14)
[2022-05-17] MEDS: dilTIAZem HCL 30 MG TABLET PO SCH ×2 (14:03→17:17)
[2022-05-17 14:05] LABS: ANION GAP 13 MMOL/L (8-16); CHLORIDE 107 mmol/L (98-107); CREATININE 9.3 mg/dL (0.55-1.3); GLUCOSE,RANDOM 78 mg/dL (74-106)
[2022-05-17] MEDS ORDERED: SODIUM CHLORIDE 250 ML IV PRN (15:48)
[2022-05-17 16:54] LABS: CHLORIDE 107 mmol/L (98-107); SODIUM 141 mmol/L (136-145)
[2022-05-17 16:56] LABS: ANION GAP 11 MMOL/L (8-16); BLOOD UREA NITROGEN 47.9 mg/dL (7-18); CO2 23 mmol/L (21-32); GLUCOSE,RANDOM 88 mg/dL (74-106)
[2022-05-17 17:03] LABS: CREATININE 9.5 mg/dL (0.55-1.3)
[2022-05-17] MEDS ORDERED: NOREPINEPHRINE BITARTRATE 4 MG/4 ML ML IV ONE (19:27)
[2022-05-17] MEDS: CHLORHEXIDINE GLUCONATE 4% CLEANSER FOR DECOLONIZATION TP SCH (21:13)
[2022-05-17] MEDS: NOREPINEPHRINE BITARTRATE/D5W 8 MG/250 ML BAG IVPB SCH (21:13)
[2022-05-18] MEDS: dilTIAZem HCL 30 MG TABLET PO SCH ×4 (01:10→17:32)
[2022-05-18] MEDS: PIPERACILLIN/TAZOB 2.25 GM 2.25 GM in DEXTROSE 5%-WATER - 50 ML IVPB SCH ×2 (01:10→09:21)
[2022-05-18] MEDS: APIXABAN 2.5 MG TABLET PO SCH ×2 (09:20→21:29)
[2022-05-18] MEDS: PANTOPRAZOLE SODIUM 40 MG VIAL IVPUSH SCH (09:21)
[2022-05-18] MEDS: levETIRAcetam 500 MG/5 ML INJECTION VIAL IVPB SCH (09:21)
[2022-05-18] MEDS: MUPIROCIN 2% TOPICAL OINTMENT FOR DECOLONIZATION NS SCH ×2 (09:21→21:29)
[2022-05-18 16:10] LABS: HEMOGLOBIN 12.3 GM/dL (11.7-16.9); MCH 25.4 pg (25.7-33.7); MCHC 30.7 g/dl (32.0-35.9); MEAN CELL VOLUME 82.6 fl (80-96); MEAN PLT VOLUME 8.2 fl (7.5-11.1); PLATELET COUNT 111 10^3/uL (134-434); RBC 4.84 M/mm3 (4.00-5.60); RDW 19.6 % (11.9-15.9); WHITE BLOOD COUNT 9.8 K/mm3 (4.0-10.0)
[2022-05-18 16:33] LABS: CALCIUM 10.4 mg/dL (8.5-10.1); CREATININE 7.3 mg/dL (0.55-1.3)
[2022-05-18 16:34] LABS: ALBUMIN 2.2 g/dl (3.4-5.0); BLOOD UREA NITROGEN 43.7 mg/dL (7-18); TOT PROT 5.8 g/dl (6.4-8.2)
[2022-05-18 16:36] LABS: BILIRUBIN,TOTAL 0.6 mg/dL (0.2-1)
[2022-05-18] MEDS: NOREPINEPHRINE BITARTRATE/D5W 8 MG/250 ML BAG IVPB SCH (21:16)
[2022-05-18] MEDS: DEXMEDETOMIDINE PREMIX 400 MCG/100 ML BAG IVPB SCH (21:16)
[2022-05-18] MEDS: CHLORHEXIDINE GLUCONATE 4% CLEANSER FOR DECOLONIZATION TP SCH (21:29)
[2022-05-19] MEDS: dilTIAZem HCL 30 MG TABLET PO SCH ×5 (00:05→23:17)
[2022-05-19 07:23] LABS: HEMATOCRIT 36.3 % (35.4-49); HEMOGLOBIN 11.4 GM/dL (11.7-16.9); MCH 25.6 pg (25.7-33.7); MCHC 31.5 g/dl (32.0-35.9); MEAN CELL VOLUME 81.2 fl (80-96); MEAN PLT VOLUME 8.1 fl (7.5-11.1); PLATELET COUNT 109 10^3/uL (134-434); RBC 4.47 M/mm3 (4.00-5.60); RDW 18.5 % (11.9-15.9); WHITE BLOOD COUNT 8.5 K/mm3 (4.0-10.0)
[2022-05-19] MEDS ORDERED: SODIUM CHLORIDE 250 ML IV PRN (07:29)
[2022-05-19 07:50] LABS: CHLORIDE 102 mmol/L (98-107); SODIUM 141 mmol/L (136-145)
[2022-05-19] MEDS ORDERED: LORazepam 2 MG/ML SDV VIAL IVPUSH ONE (07:53)
[2022-05-19 07:55] LABS: ALBUMIN 2.1 g/dl (3.4-5.0); CALCIUM 10.1 mg/dL (8.5-10.1)
[2022-05-19 07:56] LABS: ANION GAP 11 MMOL/L (8-16); BLOOD UREA NITROGEN 60.4 mg/dL (7-18); CO2 28 mmol/L (21-32); GLUCOSE,RANDOM 94 mg/dL (74-106)
[2022-05-19 07:59] LABS: SGOT/AST 18 U/L (15-37); SGPT/ALT 14 U/L (13-61)
[2022-05-19 08:00] LABS: BILIRUBIN,TOTAL 0.5 mg/dL (0.2-1); TOT PROT 5.4 g/dl (6.4-8.2)
[2022-05-19 08:02] LABS: ALK PHOS 76 U/L (45-117)
[2022-05-19 08:08] LABS: CREATININE 8.2 mg/dL (0.55-1.3)
[2022-05-19] MEDS: APIXABAN 2.5 MG TABLET PO SCH ×2 (09:52→21:27)
[2022-05-19] MEDS: PANTOPRAZOLE SODIUM 40 MG VIAL IVPUSH SCH (09:52)
[2022-05-19] MEDS: MUPIROCIN 2% TOPICAL OINTMENT FOR DECOLONIZATION NS SCH ×2 (09:52→21:27)
[2022-05-19] MEDS: levETIRAcetam 500 MG/5 ML INJECTION VIAL IVPB SCH ×2 (12:56)
[2022-05-19] MEDS: DEXMEDETOMIDINE PREMIX 400 MCG/100 ML BAG IVPB SCH (13:04)
[2022-05-19] MEDS: CHLORHEXIDINE GLUCONATE 4% CLEANSER FOR DECOLONIZATION TP SCH (21:27)
[2022-05-20] MEDS: dilTIAZem HCL 30 MG TABLET PO SCH ×4 (05:08→23:59)
[2022-05-20 08:43] LABS: HEMATOCRIT 37.8 % (35.4-49); HEMOGLOBIN 11.7 GM/dL (11.7-16.9); MCH 25.4 pg (25.7-33.7); MEAN CELL VOLUME 81.9 fl (80-96); MEAN PLT VOLUME 8.4 fl (7.5-11.1); PLATELET COUNT 110 10^3/uL (134-434); RBC 4.62 M/mm3 (4.00-5.60); RDW 18.9 % (11.9-15.9); WHITE BLOOD COUNT 8.4 K/mm3 (4.0-10.0)
[2022-05-20 09:07] LABS: ALBUMIN 2.2 g/dl (3.4-5.0); BLOOD UREA NITROGEN 43.6 mg/dL (7-18); CALCIUM 10.9 mg/dL (8.5-10.1)
[2022-05-20 09:08] LABS: CREATININE 6.5 mg/dL (0.55-1.3)
[2022-05-20 09:11] LABS: BILIRUBIN,TOTAL 0.5 mg/dL (0.2-1); TOT PROT 5.7 g/dl (6.4-8.2)
[2022-05-20] MEDS: APIXABAN 2.5 MG TABLET PO SCH ×2 (09:30→21:25)
[2022-05-20] MEDS: levETIRAcetam 500 MG/5 ML INJECTION VIAL IVPB SCH (09:30)
[2022-05-20] MEDS: MUPIROCIN 2% TOPICAL OINTMENT FOR DECOLONIZATION NS SCH ×2 (09:30→21:24)
[2022-05-20] MEDS: PANTOPRAZOLE SODIUM 40 MG VIAL IVPUSH SCH (09:30)
[2022-05-20] MEDS: LORazepam 2 MG/ML SDV VIAL IVPUSH PRN (10:44)
[2022-05-20] MEDS: DEXMEDETOMIDINE PREMIX 400 MCG/100 ML BAG IVPB SCH (17:00)
[2022-05-20] MEDS: PIPERACILLIN/TAZOB 2.25 GM 2.25 GM in DEXTROSE 5%-WATER - 50 ML IVPB SCH (17:00)
[2022-05-20] MEDS: CHLORHEXIDINE GLUCONATE 4% CLEANSER FOR DECOLONIZATION TP SCH (21:25)
[2022-05-21] MEDS: PIPERACILLIN/TAZOB 2.25 GM 2.25 GM in DEXTROSE 5%-WATER - 50 ML IVPB SCH ×3 (01:39→17:58)
[2022-05-21] MEDS: dilTIAZem HCL 30 MG TABLET PO SCH ×3 (05:31→17:58)
[2022-05-21 07:50] LABS: HEMATOCRIT 38.8 % (35.4-49); HEMOGLOBIN 12.1 GM/dL (11.7-16.9); MCH 25.7 pg (25.7-33.7); MCHC 31.3 g/dl (32.0-35.9); MEAN CELL VOLUME 82.2 fl (80-96); MEAN PLT VOLUME 8.7 fl (7.5-11.1); PLATELET COUNT 117 10^3/uL (134-434); RBC 4.72 M/mm3 (4.00-5.60); RDW 18.4 % (11.9-15.9); WHITE BLOOD COUNT 7.7 K/mm3 (4.0-10.0)
[2022-05-21 07:52] LABS: CHLORIDE 103 mmol/L (98-107); SODIUM 144 mmol/L (136-145)
[2022-05-21 07:59] LABS: ALBUMIN 2.2 g/dl (3.4-5.0); ANION GAP 13 MMOL/L (8-16); BLOOD UREA NITROGEN 58.3 mg/dL (7-18); CO2 28 mmol/L (21-32); GLUCOSE,RANDOM 115 mg/dL (74-106); SGPT/ALT 22 U/L (13-61)
[2022-05-21 08:01] LABS: BILIRUBIN,TOTAL 0.6 mg/dL (0.2-1); CALCIUM 11.1 mg/dL (8.5-10.1)
[2022-05-21 08:02] LABS: ALK PHOS 81 U/L (45-117); SGOT/AST 25 U/L (15-37)
[2022-05-21 08:21] LABS: CREATININE 8.1 mg/dL (0.55-1.3)
[2022-05-21] MEDS: PANTOPRAZOLE SODIUM 40 MG VIAL IVPUSH SCH (09:30)
[2022-05-21] MEDS: APIXABAN 2.5 MG TABLET PO SCH ×2 (09:31→21:21)
[2022-05-21] MEDS: DEXMEDETOMIDINE PREMIX 400 MCG/100 ML BAG IVPB SCH (09:33)
[2022-05-21] MEDS: MUPIROCIN 2% TOPICAL OINTMENT FOR DECOLONIZATION NS SCH (09:33)
[2022-05-21] MEDS: levETIRAcetam 500 MG/5 ML INJECTION VIAL IVPB SCH (09:34)
[2022-05-21] MEDS ORDERED: SODIUM CHLORIDE 250 ML IV PRN (11:03)
[2022-05-21] MEDS: CHLORHEXIDINE GLUCONATE 4% CLEANSER FOR DECOLONIZATION TP SCH (21:21)
[2022-05-22] MEDS: dilTIAZem HCL 30 MG TABLET PO SCH ×4 (00:10→18:00)
[2022-05-22] MEDS: PIPERACILLIN/TAZOB 2.25 GM 2.25 GM in DEXTROSE 5%-WATER - 50 ML IVPB SCH ×3 (01:01→18:00)
[2022-05-22] MEDS: LORazepam 2 MG/ML SDV VIAL IVPUSH PRN (03:26)
[2022-05-22] MEDS: ALBUMIN HUMAN 25% 12.5 GM/50 ML VIAL IV SCH ×4 (08:15→13:41)
[2022-05-22 08:49] LABS: HEMATOCRIT 38.2 % (35.4-49); MCH 25.5 pg (25.7-33.7); MCHC 31.5 g/dl (32.0-35.9); MEAN CELL VOLUME 81.2 fl (80-96); MEAN PLT VOLUME 8.6 fl (7.5-11.1); PLATELET COUNT 135 10^3/uL (134-434); RBC 4.71 M/mm3 (4.00-5.60); RDW 18.1 % (11.9-15.9); WHITE BLOOD COUNT 6.9 K/mm3 (4.0-10.0)
[2022-05-22 09:00] LABS: CHLORIDE 101 mmol/L (98-107); SODIUM 141 mmol/L (136-145)
[2022-05-22 09:10] LABS: GLUCOSE,RANDOM 124 mg/dL (74-106)
[2022-05-22 09:12] LABS: ALBUMIN 2.1 g/dl (3.4-5.0); BLOOD UREA NITROGEN 80.4 mg/dL (7-18); CALCIUM 11.3 mg/dL (8.5-10.1)
[2022-05-22 09:13] LABS: ANION GAP 13 MMOL/L (8-16); CO2 27 mmol/L (21-32)
[2022-05-22 09:14] LABS: SGPT/ALT 20 U/L (13-61)
[2022-05-22 09:15] LABS: BILIRUBIN,TOTAL 0.8 mg/dL (0.2-1); SGOT/AST 17 U/L (15-37); TOT PROT 5.9 g/dl (6.4-8.2)
[2022-05-22 09:17] LABS: ALK PHOS 82 U/L (45-117)
[2022-05-22 09:37] LABS: CREATININE 9.7 mg/dL (0.55-1.3)
[2022-05-22] MEDS: PANTOPRAZOLE SODIUM 40 MG VIAL IVPUSH SCH (11:50)
[2022-05-22] MEDS: levETIRAcetam 500 MG/5 ML INJECTION VIAL IVPB SCH ×2 (11:50→12:17)
[2022-05-22 12:02] LABS: PHOSPHOROUS 6.2 mg/dL (2.5-4.9)
[2022-05-22] MEDS: APIXABAN 2.5 MG TABLET PO SCH ×2 (12:16→21:57)
[2022-05-22] MEDS ORDERED: SODIUM CHLORIDE 250 ML IV PRN (13:51)
[2022-05-22] MEDS ORDERED: ALBUMIN HUMAN 25% 12.5 GM/50 ML VIAL IV SCH (14:00)
[2022-05-22] MEDS: CHLORHEXIDINE GLUCONATE 4% CLEANSER FOR DECOLONIZATION TP SCH (21:57)
[2022-05-23] MEDS: dilTIAZem HCL 30 MG TABLET PO SCH ×4 (01:08→17:39)
[2022-05-23] MEDS: PIPERACILLIN/TAZOB 2.25 GM 2.25 GM in DEXTROSE 5%-WATER - 50 ML IVPB SCH ×3 (01:38→17:39)
[2022-05-23] MEDS: ACETAMINOPHEN 650 MG/20.3 ML ORAL SOLUTION (CUPS) NGT PRN (04:20)
[2022-05-23 07:41] LABS: EOS % 4.4 % (0-4.5); HEMATOCRIT 34.3 % (35.4-49); HEMOGLOBIN 10.9 GM/dL (11.7-16.9); LYMPH % 11.4 % (8-40); MCH 25.9 pg (25.7-33.7); MCHC 31.7 g/dl (32.0-35.9); MEAN CELL VOLUME 81.7 fl (80-96); MEAN PLT VOLUME 8.8 fl (7.5-11.1); MONO % 9.1 % (3.8-10.2); NEUT % 74.1 % (42.8-82.8); PLATELET COUNT 142 10^3/uL (134-434); RDW 18.3 % (11.9-15.9); WHITE BLOOD COUNT 5.2 K/mm3 (4.0-10.0)
[2022-05-23 07:43] LABS: CHLORIDE 99 mmol/L (98-107); SODIUM 140 mmol/L (136-145)
[2022-05-23 07:50] LABS: ALBUMIN 2.4 g/dl (3.4-5.0); ANION GAP 13 MMOL/L (8-16); BLOOD UREA NITROGEN 63.1 mg/dL (7-18); CALCIUM 10.5 mg/dL (8.5-10.1); CO2 28 mmol/L (21-32); GLUCOSE,RANDOM 114 mg/dL (74-106); MAGNESIUM 2.4 mg/dL (1.8-2.4)
[2022-05-23 07:53] LABS: PHOSPHOROUS 5.8 mg/dL (2.5-4.9); SGOT/AST 15 U/L (15-37); SGPT/ALT 19 U/L (13-61)
[2022-05-23 07:55] LABS: BILIRUBIN,TOTAL 0.6 mg/dL (0.2-1); TOT PROT 5.9 g/dl (6.4-8.2)
[2022-05-23 07:56] LABS: ALK PHOS 56 U/L (45-117)
[2022-05-23 07:58] LABS: CREATININE 8.1 mg/dL (0.55-1.3)
[2022-05-23] MEDS: levETIRAcetam 500 MG/5 ML INJECTION VIAL IVPB SCH (09:49)
[2022-05-23] MEDS: PANTOPRAZOLE SODIUM 40 MG VIAL IVPUSH SCH (09:49)
[2022-05-23] MEDS: APIXABAN 2.5 MG TABLET PO SCH (09:50)
[2022-05-23] MEDS ORDERED: SODIUM CHLORIDE 250 ML IV PRN (12:36)
[2022-05-23] MEDS: CHLORHEXIDINE GLUCONATE 4% CLEANSER FOR DECOLONIZATION TP SCH (21:26)
[2022-05-24] MEDS: dilTIAZem HCL 30 MG TABLET PO SCH ×4 (01:12→17:53)
[2022-05-24] MEDS: PIPERACILLIN/TAZOB 2.25 GM 2.25 GM in DEXTROSE 5%-WATER - 50 ML IVPB SCH ×2 (01:13→11:50)
[2022-05-24] MEDS: ALBUMIN HUMAN 25% 12.5 GM/50 ML VIAL IV SCH ×4 (09:00→11:42)
[2022-05-24 09:12] LABS: BASO % 0.6 % (0-2.0); EOS % 5.9 % (0-4.5); HEMATOCRIT 33.1 % (35.4-49); HEMOGLOBIN 10.4 GM/dL (11.7-16.9); LYMPH % 11.2 % (8-40); MCH 25.5 pg (25.7-33.7); MCHC 31.5 g/dl (32.0-35.9); MEAN CELL VOLUME 80.9 fl (80-96); MEAN PLT VOLUME 8.4 fl (7.5-11.1); MONO % 6.4 % (3.8-10.2); NEUT % 75.9 % (42.8-82.8); PLATELET COUNT 180 10^3/uL (134-434); RBC 4.09 M/mm3 (4.00-5.60); RDW 17.9 % (11.9-15.9); WHITE BLOOD COUNT 5.9 K/mm3 (4.0-10.0)
[2022-05-24 09:25] LABS: CHLORIDE 96 mmol/L (98-107); SODIUM 139 mmol/L (136-145)
[2022-05-24 09:28] LABS: ANION GAP 15 MMOL/L (8-16); CALCIUM 10.8 mg/dL (8.5-10.1); CO2 27 mmol/L (21-32); GLUCOSE,RANDOM 129 mg/dL (74-106)
[2022-05-24 09:29] LABS: BLOOD UREA NITROGEN 80.5 mg/dL (7-18)
[2022-05-24 09:32] LABS: CREATININE 9.5 mg/dL (0.55-1.3); PHOSPHOROUS 7.4 mg/dL (2.5-4.9)
[2022-05-24] MEDS ORDERED: SODIUM CHLORIDE 250 ML IV PRN (09:38)
[2022-05-24] MEDS: TAMSULOSIN HCL 0.4 MG CAP PO SCH (11:50)
[2022-05-24] MEDS: levETIRAcetam 500 MG/5 ML INJECTION VIAL IVPB SCH ×2 (11:50→12:04)
[2022-05-24] MEDS: PANTOPRAZOLE SODIUM 40 MG VIAL IVPUSH SCH (11:50)
[2022-05-24 15:27] VITALS: BMI 18.8
[2022-05-24] MEDS: CHLORHEXIDINE GLUCONATE 4% CLEANSER FOR DECOLONIZATION TP SCH (21:42)
[2022-05-25] MEDS: dilTIAZem HCL 30 MG TABLET PO SCH ×3 (00:05→13:50)
[2022-05-25 08:18] LABS: HEMOGLOBIN 10.5 GM/dL (11.7-16.9); MCH 25.7 pg (25.7-33.7); MCHC 31.7 g/dl (32.0-35.9); MEAN CELL VOLUME 81.3 fl (80-96); MEAN PLT VOLUME 8.2 fl (7.5-11.1); PLATELET COUNT 195 10^3/uL (134-434); RBC 4.06 M/mm3 (4.00-5.60); RDW 17.9 % (11.9-15.9); WHITE BLOOD COUNT 5.2 K/mm3 (4.0-10.0)
[2022-05-25] MEDS: TAMSULOSIN HCL 0.4 MG CAP PO SCH (09:10)
[2022-05-25] MEDS: levETIRAcetam 500 MG/5 ML INJECTION VIAL IVPB SCH (09:11)
[2022-05-25] MEDS: PANTOPRAZOLE SODIUM 40 MG VIAL IVPUSH SCH (09:11)
[2022-05-25 09:23] LABS: ALBUMIN 2.7 g/dl (3.4-5.0); BILIRUBIN,TOTAL 0.6 mg/dL (0.2-1); CALCIUM 10.9 mg/dL (8.5-10.1); MAGNESIUM 2.3 mg/dL (1.8-2.4); TOT PROT 5.8 g/dl (6.4-8.2)
[2022-05-25 09:36] LABS: BLOOD UREA NITROGEN 44.1 mg/dL (7-18)
[2022-05-25] MEDS ORDERED: dilTIAZem HCL 50 MG/10 ML - 10 ML VIAL IVPUSH PRN ×2 (13:48→20:30)
[2022-05-25] MEDS: METOPROLOL TARTRATE 5 MG/5 ML VIAL IVPUSH PRN (15:53)
[2022-05-25] MEDS ORDERED: dilTIAZem HCL 50 MG/10 ML - 10 ML VIAL IVPUSH ONE (17:04)
[2022-05-25] MEDS ORDERED: dilTIAZem HCL 125 MG/25 ML - 25 ML VIAL ONE (17:09)
[2022-05-25] MEDS ORDERED: dilTIAZem HCL 30 MG TABLET OG SCH (18:00)
[2022-05-25] MEDS: CHLORHEXIDINE GLUCONATE 4% CLEANSER FOR DECOLONIZATION TP SCH (21:28)
[2022-05-25] MEDS: dilTIAZem HCL 50 MG/10 ML - 10 ML VIAL IVPUSH SCH (21:53)
[2022-05-26] MEDS: METOPROLOL TARTRATE 5 MG/5 ML VIAL IVPUSH PRN ×2 (01:50→20:01)
[2022-05-26] MEDS: dilTIAZem HCL 50 MG/10 ML - 10 ML VIAL IVPUSH SCH ×2 (02:32→08:04)
[2022-05-26 07:44] LABS: HEMATOCRIT 36.4 % (35.4-49); HEMOGLOBIN 11.4 GM/dL (11.7-16.9); MCH 25.8 pg (25.7-33.7); MCHC 31.3 g/dl (32.0-35.9); MEAN CELL VOLUME 82.4 fl (80-96); MEAN PLT VOLUME 7.5 fl (7.5-11.1); PLATELET COUNT 247 10^3/uL (134-434); RBC 4.42 M/mm3 (4.00-5.60); RDW 17.3 % (11.9-15.9); WHITE BLOOD COUNT 6.9 K/mm3 (4.0-10.0)
[2022-05-26 07:56] LABS: CHLORIDE 96 mmol/L (98-107); SODIUM 138 mmol/L (136-145)
[2022-05-26 08:01] LABS: BLOOD UREA NITROGEN 60.1 mg/dL (7-18); GLUCOSE,RANDOM 82 mg/dL (74-106)
[2022-05-26 08:02] LABS: ANION GAP 15 MMOL/L (8-16); CALCIUM 11.1 mg/dL (8.5-10.1); CO2 27 mmol/L (21-32)
[2022-05-26 08:04] LABS: PHOSPHOROUS 8.3 mg/dL (2.5-4.9)
[2022-05-26] MEDS ORDERED: SODIUM CHLORIDE 250 ML IV PRN (08:04)
[2022-05-26 08:07] LABS: CREATININE 7.7 mg/dL (0.55-1.3)
[2022-05-26] MEDS: TAMSULOSIN HCL 0.4 MG CAP PO SCH (09:10)
[2022-05-26] MEDS: ALBUMIN HUMAN 25% 12.5 GM/50 ML VIAL IV SCH ×4 (09:41→11:15)
[2022-05-26] MEDS ORDERED: ROCURONIUM BROMIDE 50 MG/5 ML VIAL IVPUSH ONE (12:16)
[2022-05-26] MEDS ORDERED: PROPOFOL 200 MG/20 ML VIAL IVPUSH ONE (12:16)
[2022-05-26] MEDS ORDERED: RAPID SEQUENCE INTUBATION KIT NR ONE (12:21)
[2022-05-26] MEDS ORDERED: ROCURONIUM BROMIDE 50 MG/5 ML VIAL ONE (12:30)
[2022-05-26] MEDS ORDERED: PROPOFOL 1,000,000 MCG/100 ML VIAL ONE (12:37)
[2022-05-26] MEDS: PROPOFOL 1,000,000 MCG/100 ML VIAL IVPB SCH (13:09)
[2022-05-26] MEDS: levETIRAcetam 500 MG/5 ML INJECTION VIAL IVPB SCH ×2 (13:11→13:14)
[2022-05-26] MEDS: PANTOPRAZOLE SODIUM 40 MG VIAL IVPUSH SCH (13:14)
[2022-05-26 15:53] LABS: ARTERIAL BLD GAS O2 SATURATION 99.7 % (95-98); ARTERIAL BLOOD GAS BASE EXCESS 5.5 mmol/L (-2-2); ARTERIAL BLOOD GAS PO2 293.4 mmHg (80-100); ARTERIAL BLOOD GAS pH 7.472 (7.350-7.450)
[2022-05-26 15:55] LABS: VENT MODE AC; VENT RATE 14
[2022-05-26] MEDS: dilTIAZem HCL 60 MG TABLET PO SCH (23:17)
[2022-05-26] MEDS: CHLORHEXIDINE GLUCONATE 4% CLEANSER FOR DECOLONIZATION TP SCH (23:17)
[2022-05-27] MEDS: dilTIAZem HCL 60 MG TABLET PO SCH ×4 (01:30→17:20)
[2022-05-27 08:34] LABS: HEMATOCRIT 34.4 % (35.4-49); MCH 26.2 pg (25.7-33.7); MCHC 31.9 g/dl (32.0-35.9); MEAN CELL VOLUME 82.1 fl (80-96); MEAN PLT VOLUME 7.6 fl (7.5-11.1); PLATELET COUNT 242 10^3/uL (134-434); RDW 17.5 % (11.9-15.9); WHITE BLOOD COUNT 10.2 K/mm3 (4.0-10.0)
[2022-05-27 09:23] LABS: ALBUMIN 2.8 g/dl (3.4-5.0)
[2022-05-27 09:24] LABS: CALCIUM 10.8 mg/dL (8.5-10.1)
[2022-05-27 09:25] LABS: BILIRUBIN,TOTAL 0.6 mg/dL (0.2-1); MAGNESIUM 2.4 mg/dL (1.8-2.4)
[2022-05-27 09:26] LABS: PHOSPHOROUS 7.5 mg/dL (2.5-4.9)
[2022-05-27 09:27] LABS: CREATININE 6.6 mg/dL (0.55-1.3)
[2022-05-27] MEDS: levETIRAcetam 500 MG/5 ML INJECTION VIAL IVPB SCH (09:33)
[2022-05-27] MEDS: TAMSULOSIN HCL 0.4 MG CAP PO SCH (09:33)
[2022-05-27] MEDS: PANTOPRAZOLE SODIUM 40 MG VIAL IVPUSH SCH (09:33)
[2022-05-27] MEDS: PROPOFOL 1,000,000 MCG/100 ML VIAL IVPB SCH (15:39)
[2022-05-27] MEDS: CHLORHEXIDINE GLUCONATE 4% CLEANSER FOR DECOLONIZATION TP SCH (21:42)
[2022-05-28] MEDS: dilTIAZem HCL 60 MG TABLET PO SCH ×5 (00:05→23:37)
[2022-05-28 06:57] LABS: ALLENS TEST POSITIVE; ARTERIAL BLD GAS O2 SATURATION 99.3 % (95-98); ARTERIAL BLOOD GAS BASE EXCESS -1.8 mmol/L (-2-2); ARTERIAL BLOOD GAS PO2 178.9 mmHg (80-100); ARTERIAL BLOOD GAS pH 7.431 (7.350-7.450); VENT MODE A/C
[2022-05-28 06:58] LABS: VENT RATE 14
[2022-05-28 07:36] LABS: HEMATOCRIT 33.4 % (35.4-49); HEMOGLOBIN 10.6 GM/dL (11.7-16.9); MCH 25.9 pg (25.7-33.7); MCHC 31.9 g/dl (32.0-35.9); MEAN CELL VOLUME 81.4 fl (80-96); MEAN PLT VOLUME 7.7 fl (7.5-11.1); PLATELET COUNT 274 10^3/uL (134-434); RDW 17.5 % (11.9-15.9); WHITE BLOOD COUNT 10.2 K/mm3 (4.0-10.0)
[2022-05-28 07:54] LABS: CHLORIDE 97 mmol/L (98-107); SODIUM 140 mmol/L (136-145)
[2022-05-28 07:58] LABS: ANION GAP 19 MMOL/L (8-16); BLOOD UREA NITROGEN 59.5 mg/dL (7-18); CALCIUM 10.7 mg/dL (8.5-10.1); CO2 24 mmol/L (21-32); GLUCOSE,RANDOM 78 mg/dL (74-106); MAGNESIUM 2.5 mg/dL (1.8-2.4)
[2022-05-28 08:01] LABS: PHOSPHOROUS 8.2 mg/dL (2.5-4.9)
[2022-05-28 08:09] LABS: CREATININE 7.9 mg/dL (0.55-1.3)
[2022-05-28 08:18] LABS: INR 1.22 (0.83-1.09); PROTHROMBIN TIME (PATIENT) 14.1 SEC (9.7-13.0)
[2022-05-28] MEDS: PANTOPRAZOLE SODIUM 40 MG VIAL IVPUSH SCH (09:28)
[2022-05-28] MEDS: levETIRAcetam 500 MG/5 ML INJECTION VIAL IVPB SCH (09:28)
[2022-05-28] MEDS: TAMSULOSIN HCL 0.4 MG CAP PO SCH (09:35)
[2022-05-28] MEDS ORDERED: SODIUM CHLORIDE 250 ML IV PRN (13:18)
[2022-05-28] MEDS: PROPOFOL 1,000,000 MCG/100 ML VIAL IVPB SCH (15:22)
[2022-05-28] MEDS: CHLORHEXIDINE GLUCONATE 4% CLEANSER FOR DECOLONIZATION TP SCH (23:38)
[2022-05-29] MEDS: dilTIAZem HCL 60 MG TABLET PO SCH ×4 (05:21→23:00)
[2022-05-29] MEDS: PROPOFOL 1,000,000 MCG/100 ML VIAL IVPB SCH ×2 (05:22→16:44)
[2022-05-29 07:24] LABS: HEMATOCRIT 33.3 % (35.4-49); HEMOGLOBIN 10.5 GM/dL (11.7-16.9); MCH 25.6 pg (25.7-33.7); MCHC 31.5 g/dl (32.0-35.9); MEAN CELL VOLUME 81.2 fl (80-96); MEAN PLT VOLUME 7.7 fl (7.5-11.1); PLATELET COUNT 299 10^3/uL (134-434); RDW 17.2 % (11.9-15.9); WHITE BLOOD COUNT 11.5 K/mm3 (4.0-10.0)
[2022-05-29 07:50] LABS: CHLORIDE 95 mmol/L (98-107); SODIUM 137 mmol/L (136-145)
[2022-05-29 07:53] LABS: CALCIUM 10.8 mg/dL (8.5-10.1)
[2022-05-29 07:54] LABS: ANION GAP 15 MMOL/L (8-16); BLOOD UREA NITROGEN 71.1 mg/dL (7-18); CO2 28 mmol/L (21-32); GLUCOSE,RANDOM 103 mg/dL (74-106); MAGNESIUM 2.6 mg/dL (1.8-2.4)
[2022-05-29 08:03] LABS: CREATININE 8.9 mg/dL (0.55-1.3); PHOSPHOROUS 8.9 mg/dL (2.5-4.9)
[2022-05-29] MEDS ORDERED: MIDAZOLAM HCL 2 MG/2 ML SINGLE DOSE VIAL IVPUSH ONE (09:19)
[2022-05-29] MEDS ORDERED: ROCURONIUM BROMIDE 50 MG/5 ML VIAL IVPUSH ONE (09:19)
[2022-05-29] MEDS: TAMSULOSIN HCL 0.4 MG CAP PO SCH (12:48)
[2022-05-29] MEDS: levETIRAcetam 500 MG/5 ML INJECTION VIAL IVPB SCH ×2 (12:53)
[2022-05-29] MEDS: PANTOPRAZOLE SODIUM 40 MG VIAL IVPUSH SCH (12:53)
[2022-05-29] MEDS: SULFAMETHOXAZOLE/TRIMETHOPRIM 800MG/160MG D.S. TABLET PO SCH (16:44)
[2022-05-29] MEDS: BACITRACIN ZINC 15 GM TUBE TOPICAL OINTMENT TP SCH (23:00)
[2022-05-29] MEDS: CHLORHEXIDINE GLUCONATE 4% CLEANSER FOR DECOLONIZATION TP SCH (23:00)
[2022-05-30] MEDS: PROPOFOL 1,000,000 MCG/100 ML VIAL IVPB SCH (05:45)
[2022-05-30] MEDS: dilTIAZem HCL 60 MG TABLET PO SCH ×3 (05:45→18:06)
[2022-05-30 07:44] LABS: BASO % 0.9 % (0-2.0); EOS % 4.1 % (0-4.5); HEMATOCRIT 32.2 % (35.4-49); HEMOGLOBIN 10.4 GM/dL (11.7-16.9); LYMPH % 9.3 % (8-40); MCH 26.2 pg (25.7-33.7); MCHC 32.3 g/dl (32.0-35.9); MEAN CELL VOLUME 81.3 fl (80-96); MEAN PLT VOLUME 7.7 fl (7.5-11.1); MONO % 6.4 % (3.8-10.2); NEUT % 79.3 % (42.8-82.8); PLATELET COUNT 271 10^3/uL (134-434); RBC 3.95 M/mm3 (4.00-5.60); RDW 17.6 % (11.9-15.9); WHITE BLOOD COUNT 7.4 K/mm3 (4.0-10.0)
[2022-05-30 08:05] LABS: ALBUMIN 2.8 g/dl (3.4-5.0); CALCIUM 10.7 mg/dL (8.5-10.1)
[2022-05-30 08:06] LABS: BLOOD UREA NITROGEN 46.9 mg/dL (7-18); MAGNESIUM 2.4 mg/dL (1.8-2.4)
[2022-05-30 08:08] LABS: PHOSPHOROUS 7.1 mg/dL (2.5-4.9)
[2022-05-30 08:11] LABS: CREATININE 6.5 mg/dL (0.55-1.3)
[2022-05-30 08:40] LABS: BILIRUBIN,TOTAL 0.4 mg/dL (0.2-1)
[2022-05-30] MEDS: levETIRAcetam 500 MG/5 ML INJECTION VIAL IVPB SCH (09:28)
[2022-05-30] MEDS: TAMSULOSIN HCL 0.4 MG CAP PO SCH (09:28)
[2022-05-30] MEDS: BACITRACIN ZINC 15 GM TUBE TOPICAL OINTMENT TP SCH ×2 (09:28→21:22)
[2022-05-30] MEDS: PANTOPRAZOLE SODIUM 40 MG VIAL IVPUSH SCH (09:28)
[2022-05-30] MEDS: SULFAMETHOXAZOLE/TRIMETHOPRIM 800MG/160MG D.S. TABLET PO SCH (16:51)
[2022-05-30 21:07] LABS: ATYPICAL pANCA <1:20 titer (Neg:<1:20); C-ANCA <1:20 titer (Neg:<1:20)
[2022-05-30] MEDS: CHLORHEXIDINE GLUCONATE 4% CLEANSER FOR DECOLONIZATION TP SCH (21:22)
[2022-05-31] MEDS: dilTIAZem HCL 60 MG TABLET PO SCH ×4 (01:33→18:19)
[2022-05-31 07:27] LABS: HEMATOCRIT 30.2 % (35.4-49); HEMOGLOBIN 9.7 GM/dL (11.7-16.9); MCH 26.1 pg (25.7-33.7); MCHC 32.2 g/dl (32.0-35.9); MEAN CELL VOLUME 81.2 fl (80-96); MEAN PLT VOLUME 7.9 fl (7.5-11.1); PLATELET COUNT 236 10^3/uL (134-434); RBC 3.71 M/mm3 (4.00-5.60); RDW 17.4 % (11.9-15.9); WHITE BLOOD COUNT 7.7 K/mm3 (4.0-10.0)
[2022-05-31] MEDS ORDERED: SODIUM CHLORIDE 250 ML IV PRN ×2 (07:33→07:40)
[2022-05-31 07:40] LABS: CHLORIDE 96 mmol/L (98-107); SODIUM 139 mmol/L (136-145)
[2022-05-31 07:42] LABS: BLOOD UREA NITROGEN 63.7 mg/dL (7-18); CALCIUM 10.5 mg/dL (8.5-10.1)
[2022-05-31 07:43] LABS: ALBUMIN 2.5 g/dl (3.4-5.0); ANION GAP 15 MMOL/L (8-16); CO2 29 mmol/L (21-32); GLUCOSE,RANDOM 106 mg/dL (74-106)
[2022-05-31 07:46] LABS: PHOSPHOROUS 7.8 mg/dL (2.5-4.9); SGOT/AST 27 U/L (15-37); SGPT/ALT 20 U/L (13-61)
[2022-05-31 07:47] LABS: BILIRUBIN,TOTAL 0.4 mg/dL (0.2-1); TOT PROT 5.9 g/dl (6.4-8.2)
[2022-05-31 07:48] LABS: ALK PHOS 82 U/L (45-117)
[2022-05-31 08:01] LABS: CREATININE 7.9 mg/dL (0.55-1.3)
[2022-05-31] MEDS: ALBUMIN HUMAN 25% 12.5 GM/50 ML VIAL IV SCH ×3 (10:09→11:08)
[2022-05-31] MEDS: levETIRAcetam 500 MG/5 ML INJECTION VIAL IVPB SCH (12:10)
[2022-05-31] MEDS: PANTOPRAZOLE SODIUM 40 MG VIAL IVPUSH SCH (12:11)
[2022-05-31] MEDS: BACITRACIN ZINC 15 GM TUBE TOPICAL OINTMENT TP SCH ×2 (12:11→22:40)
[2022-05-31] MEDS: TAMSULOSIN HCL 0.4 MG CAP PO SCH (12:11)
[2022-05-31] MEDS: ACETAMINOPHEN 650 MG/20.3 ML ORAL SOLUTION (CUPS) NGT PRN (18:18)
[2022-05-31] MEDS: SULFAMETHOXAZOLE/TRIMETHOPRIM 800MG/160MG D.S. TABLET PO SCH (18:19)
[2022-05-31] MEDS: CHLORHEXIDINE GLUCONATE 4% CLEANSER FOR DECOLONIZATION TP SCH (22:35)
[2022-06-01] MEDS: dilTIAZem HCL 60 MG TABLET PO SCH ×4 (00:49→17:00)
[2022-06-01 07:57] LABS: BASO % 0.8 % (0-2.0); EOS % 3.3 % (0-4.5); HEMATOCRIT 30.5 % (35.4-49); HEMOGLOBIN 9.6 GM/dL (11.7-16.9); LYMPH % 8.3 % (8-40); MCH 25.9 pg (25.7-33.7); MCHC 31.5 g/dl (32.0-35.9); MEAN PLT VOLUME 7.3 fl (7.5-11.1); MONO % 10.3 % (3.8-10.2); NEUT % 77.3 % (42.8-82.8); PLATELET COUNT 204 10^3/uL (134-434); RBC 3.72 M/mm3 (4.00-5.60); RDW 17.4 % (11.9-15.9); WHITE BLOOD COUNT 6.9 K/mm3 (4.0-10.0)
[2022-06-01 08:21] LABS: ALBUMIN 2.5 g/dl (3.4-5.0)
[2022-06-01 08:22] LABS: MAGNESIUM 2.1 mg/dL (1.8-2.4)
[2022-06-01 08:23] LABS: PHOSPHOROUS 5.6 mg/dL (2.5-4.9)
[2022-06-01 08:24] LABS: CREATININE 5.4 mg/dL (0.55-1.3)
[2022-06-01 08:25] LABS: TOT PROT 5.9 g/dl (6.4-8.2)
[2022-06-01 08:30] LABS: BILIRUBIN,TOTAL 0.6 mg/dL (0.2-1); BLOOD UREA NITROGEN 32.9 mg/dL (7-18)
[2022-06-01] MEDS ORDERED: SODIUM CHLORIDE 250 ML IV PRN (10:47)
[2022-06-01] MEDS: levETIRAcetam 500 MG/5 ML INJECTION VIAL IVPB SCH (11:29)
[2022-06-01] MEDS: PANTOPRAZOLE SODIUM 40 MG VIAL IVPUSH SCH (11:29)
[2022-06-01] MEDS: TAMSULOSIN HCL 0.4 MG CAP PO SCH (11:30)
[2022-06-01] MEDS: BACITRACIN ZINC 15 GM TUBE TOPICAL OINTMENT TP SCH ×2 (11:30→21:33)
[2022-06-01] MEDS: METOPROLOL TARTRATE 5 MG/5 ML VIAL IVPUSH PRN (13:38)
[2022-06-01] MEDS: SULFAMETHOXAZOLE/TRIMETHOPRIM 800MG/160MG D.S. TABLET PO SCH (16:42)
[2022-06-01] MEDS: CHLORHEXIDINE GLUCONATE 4% CLEANSER FOR DECOLONIZATION TP SCH (21:26)
[2022-06-01] MEDS: KCL 10 MEQ IVPB 10 MEQ/100 ML INFUS.BAG IVPB SCH ×3 (21:33→23:24)
[2022-06-02] MEDS: dilTIAZem HCL 60 MG TABLET PO SCH ×4 (00:29→17:15)
[2022-06-02 08:38] LABS: HEMATOCRIT 29.7 % (35.4-49); HEMOGLOBIN 9.4 GM/dL (11.7-16.9); MCHC 31.6 g/dl (32.0-35.9); MEAN CELL VOLUME 82.2 fl (80-96); PLATELET COUNT 186 10^3/uL (134-434); RBC 3.61 M/mm3 (4.00-5.60); RDW 17.5 % (11.9-15.9); WHITE BLOOD COUNT 6.4 K/mm3 (4.0-10.0)
[2022-06-02] MEDS ORDERED: GLUCAGON 1 MG KIT ONE (08:54)
[2022-06-02 09:04] LABS: BLOOD UREA NITROGEN 47.5 mg/dL (7-18); CALCIUM 10.3 mg/dL (8.5-10.1); MAGNESIUM 2.3 mg/dL (1.8-2.4)
[2022-06-02 09:07] LABS: CREATININE 6.8 mg/dL (0.55-1.3); PHOSPHOROUS 6.9 mg/dL (2.5-4.9)
[2022-06-02] MEDS: METOPROLOL TARTRATE 5 MG/5 ML VIAL IVPUSH PRN (10:22)
[2022-06-02] MEDS: TAMSULOSIN HCL 0.4 MG CAP PO SCH (10:22)
[2022-06-02] MEDS: PANTOPRAZOLE SODIUM 40 MG VIAL IVPUSH SCH (10:22)
[2022-06-02] MEDS: BACITRACIN ZINC 15 GM TUBE TOPICAL OINTMENT TP SCH ×2 (10:23→21:16)
[2022-06-02] MEDS: levETIRAcetam 500 MG/5 ML INJECTION VIAL IVPB SCH (11:00)
[2022-06-02] MEDS ORDERED: MIDAZOLAM HCL 2 MG/2 ML SINGLE DOSE VIAL ONE (13:16)
[2022-06-02] MEDS ORDERED: FENTANYL CITRATE/PF 50 MCG/ML VIAL ONE (13:16)
[2022-06-02] MEDS ORDERED: GLUCAGON 1 MG KIT IVPUSH ONE (13:48)
[2022-06-02] MEDS ORDERED: FENTANYL CITRATE/PF 50 MCG/ML VIAL IVPUSH ONE (14:00)
[2022-06-02] MEDS: SULFAMETHOXAZOLE/TRIMETHOPRIM 800MG/160MG D.S. TABLET PO SCH (15:08)
[2022-06-02] MEDS: CHLORHEXIDINE GLUCONATE 4% CLEANSER FOR DECOLONIZATION TP SCH (21:17)
[2022-06-03] MEDS: dilTIAZem HCL 60 MG TABLET PO SCH ×5 (03:53→23:24)
[2022-06-03 07:21] LABS: HEMATOCRIT 32.4 % (35.4-49); HEMOGLOBIN 10.4 GM/dL (11.7-16.9); MCH 26.4 pg (25.7-33.7); MCHC 32.2 g/dl (32.0-35.9); MEAN CELL VOLUME 81.9 fl (80-96); MEAN PLT VOLUME 7.7 fl (7.5-11.1); PLATELET COUNT 186 10^3/uL (134-434); RBC 3.95 M/mm3 (4.00-5.60); RDW 17.5 % (11.9-15.9); WHITE BLOOD COUNT 7.7 K/mm3 (4.0-10.0)
[2022-06-03 07:26] LABS: ALBUMIN 2.7 g/dl (3.4-5.0); BLOOD UREA NITROGEN 41.5 mg/dL (7-18); MAGNESIUM 2.3 mg/dL (1.8-2.4)
[2022-06-03 07:29] LABS: CREATININE 5.4 mg/dL (0.55-1.3); PHOSPHOROUS 7.1 mg/dL (2.5-4.9)
[2022-06-03 07:30] LABS: BILIRUBIN,TOTAL 0.5 mg/dL (0.2-1); TOT PROT 6.5 g/dl (6.4-8.2)
[2022-06-03] MEDS: PANTOPRAZOLE SODIUM 40 MG VIAL IVPUSH SCH (10:30)
[2022-06-03] MEDS: TAMSULOSIN HCL 0.4 MG CAP PO SCH (10:30)
[2022-06-03] MEDS: BACITRACIN ZINC 15 GM TUBE TOPICAL OINTMENT TP SCH ×2 (10:31→21:37)
[2022-06-03] MEDS: levETIRAcetam 500 MG/5 ML INJECTION VIAL IVPB SCH (10:32)
[2022-06-03] MEDS: CHLORHEXIDINE GLUCONATE 4% CLEANSER FOR DECOLONIZATION TP SCH (21:37)
[2022-06-04] MEDS: dilTIAZem HCL 60 MG TABLET PO SCH (06:42)
[2022-06-04] MEDS ORDERED: METOPROLOL TARTRATE 5 MG/5 ML VIAL IVPUSH PRN (07:58)
[2022-06-04 08:08] LABS: HEMATOCRIT 33.7 % (35.4-49); HEMOGLOBIN 10.7 GM/dL (11.7-16.9); MCH 26.4 pg (25.7-33.7); MCHC 31.9 g/dl (32.0-35.9); MEAN PLT VOLUME 7.3 fl (7.5-11.1); PLATELET COUNT 165 10^3/uL (134-434); RBC 4.06 M/mm3 (4.00-5.60); RDW 17.2 % (11.9-15.9); WHITE BLOOD COUNT 6.8 K/mm3 (4.0-10.0)
[2022-06-04 09:08] LABS: CALCIUM 10.8 mg/dL (8.5-10.1)
[2022-06-04 09:09] LABS: ALBUMIN 2.7 g/dl (3.4-5.0); BLOOD UREA NITROGEN 60.5 mg/dL (7-18); MAGNESIUM 2.4 mg/dL (1.8-2.4)
[2022-06-04 09:12] LABS: CREATININE 6.9 mg/dL (0.55-1.3); PHOSPHOROUS 8.2 mg/dL (2.5-4.9)
[2022-06-04 09:13] LABS: BILIRUBIN,TOTAL 0.6 mg/dL (0.2-1)
[2022-06-04 09:14] LABS: TOT PROT 6.3 g/dl (6.4-8.2)
[2022-06-04] MEDS: TAMSULOSIN HCL 0.4 MG CAP PO SCH (10:40)
[2022-06-04] MEDS: BACITRACIN ZINC 15 GM TUBE TOPICAL OINTMENT TP SCH ×2 (10:41→23:22)
[2022-06-04] MEDS: ACETAMINOPHEN 650 MG/20.3 ML ORAL SOLUTION (CUPS) NGT PRN (10:42)
[2022-06-04] MEDS: PANTOPRAZOLE SODIUM 40 MG VIAL IVPUSH SCH (10:44)
[2022-06-04] MEDS: levETIRAcetam 500 MG/5 ML INJECTION VIAL IVPB SCH (10:45)
[2022-06-04] MEDS: dilTIAZem HCL 30 MG TABLET GT SCH ×2 (12:03→18:57)
[2022-06-04] MEDS: SEVELAMER CARBONATE 0.8 GM POWDER PACKET PO SCH ×2 (12:06→18:57)
[2022-06-04] MEDS: CHLORHEXIDINE GLUCONATE 4% CLEANSER FOR DECOLONIZATION TP SCH (23:22)
[2022-06-05] MEDS: dilTIAZem HCL 30 MG TABLET GT SCH ×5 (00:28→23:45)
[2022-06-05] MEDS: TAMSULOSIN HCL 0.4 MG CAP PO SCH (08:56)
[2022-06-05] MEDS: SEVELAMER CARBONATE 0.8 GM POWDER PACKET PO SCH ×3 (08:56→18:27)
[2022-06-05] MEDS: PANTOPRAZOLE SODIUM 40 MG VIAL IVPUSH SCH (09:13)
[2022-06-05] MEDS: levETIRAcetam 500 MG/5 ML INJECTION VIAL IVPB SCH (09:13)
[2022-06-05] MEDS: BACITRACIN ZINC 15 GM TUBE TOPICAL OINTMENT TP SCH ×2 (09:14→21:24)
[2022-06-05] MEDS ORDERED: SODIUM CHLORIDE 250 ML IV PRN (09:25)
[2022-06-05] MEDS ORDERED: EPOETIN ALFA-EPBX 4,000 UNIT/ML VIAL SQ ONE (09:45)
[2022-06-05] MEDS: CHLORHEXIDINE GLUCONATE 4% CLEANSER FOR DECOLONIZATION TP SCH (21:23)
[2022-06-06] MEDS: dilTIAZem HCL 30 MG TABLET GT SCH ×3 (05:56→17:34)
[2022-06-06 06:46] LABS: BASO % 0.3 % (0-2.0); EOS % 1.3 % (0-4.5); HEMATOCRIT 31.2 % (35.4-49); LYMPH % 6.3 % (8-40); MCH 26.3 pg (25.7-33.7); MEAN CELL VOLUME 82.1 fl (80-96); MEAN PLT VOLUME 7.6 fl (7.5-11.1); MONO % 8.6 % (3.8-10.2); NEUT % 83.5 % (42.8-82.8); PLATELET COUNT 171 10^3/uL (134-434); RDW 17.3 % (11.9-15.9); WHITE BLOOD COUNT 9.7 K/mm3 (4.0-10.0)
[2022-06-06 07:03] LABS: CALCIUM 10.1 mg/dL (8.5-10.1)
[2022-06-06 07:04] LABS: ALBUMIN 2.5 g/dl (3.4-5.0); BLOOD UREA NITROGEN 49.6 mg/dL (7-18)
[2022-06-06 07:07] LABS: CREATININE 6.1 mg/dL (0.55-1.3); PHOSPHOROUS 5.1 mg/dL (2.5-4.9)
[2022-06-06 07:08] LABS: BILIRUBIN,TOTAL 0.4 mg/dL (0.2-1)
[2022-06-06] MEDS: SEVELAMER CARBONATE 0.8 GM POWDER PACKET PO SCH ×3 (09:58→17:20)
[2022-06-06] MEDS: levETIRAcetam 500 MG/5 ML INJECTION VIAL IVPB SCH (09:59)
[2022-06-06] MEDS: PANTOPRAZOLE SODIUM 40 MG VIAL IVPUSH SCH (09:59)
[2022-06-06] MEDS: BACITRACIN ZINC 15 GM TUBE TOPICAL OINTMENT TP SCH ×2 (10:00→22:38)
[2022-06-06] MEDS: TAMSULOSIN HCL 0.4 MG CAP PO SCH (10:00)
[2022-06-06] MEDS ORDERED: SODIUM CHLORIDE 250 ML IV PRN (14:28)
[2022-06-06] MEDS: CHLORHEXIDINE GLUCONATE 4% CLEANSER FOR DECOLONIZATION TP SCH (22:39)
[2022-06-07] MEDS: dilTIAZem HCL 30 MG TABLET GT SCH ×4 (00:30→17:51)
[2022-06-07 07:34] LABS: HEMATOCRIT 29.4 % (35.4-49); HEMOGLOBIN 9.3 GM/dL (11.7-16.9); MCH 26.2 pg (25.7-33.7); MCHC 31.7 g/dl (32.0-35.9); MEAN CELL VOLUME 82.6 fl (80-96); MEAN PLT VOLUME 7.5 fl (7.5-11.1); PLATELET COUNT 150 10^3/uL (134-434); RBC 3.56 M/mm3 (4.00-5.60); RDW 16.8 % (11.9-15.9); WHITE BLOOD COUNT 9.4 K/mm3 (4.0-10.0)
[2022-06-07 08:16] LABS: CALCIUM 10.5 mg/dL (8.5-10.1)
[2022-06-07 08:17] LABS: ALBUMIN 2.3 g/dl (3.4-5.0); BLOOD UREA NITROGEN 66.2 mg/dL (7-18); MAGNESIUM 2.5 mg/dL (1.8-2.4)
[2022-06-07 08:20] LABS: CREATININE 7.4 mg/dL (0.55-1.3); PHOSPHOROUS 4.9 mg/dL (2.5-4.9)
[2022-06-07 08:21] LABS: TOT PROT 5.9 g/dl (6.4-8.2)
[2022-06-07 08:22] LABS: BILIRUBIN,TOTAL 0.3 mg/dL (0.2-1)
[2022-06-07] MEDS: TAMSULOSIN HCL 0.4 MG CAP PO SCH (09:27)
[2022-06-07] MEDS: PANTOPRAZOLE SODIUM 40 MG VIAL IVPUSH SCH (10:32)
[2022-06-07] MEDS: ACETAMINOPHEN 650 MG/20.3 ML ORAL SOLUTION (CUPS) NGT PRN (10:33)
[2022-06-07] MEDS: SEVELAMER CARBONATE 0.8 GM POWDER PACKET PO SCH ×3 (10:35→17:50)
[2022-06-07] MEDS: BACITRACIN ZINC 15 GM TUBE TOPICAL OINTMENT TP SCH ×2 (10:35→21:46)
[2022-06-07] MEDS: levETIRAcetam 500 MG/5 ML INJECTION VIAL IVPB SCH (10:36)
[2022-06-07] MEDS ORDERED: AMIODARONE HCL INJECTION 150 MG in DEXTROSE 5%-WATER - 100 ML IVPB ONE (12:25)
[2022-06-07] MEDS ORDERED: AMIODARONE IN DEXTROSE,ISO-OSM 150 MG/100 ML BAG ONE (12:38)
[2022-06-07] MEDS ORDERED: AMIODARONE IN DEXTROSE,ISO-OSM 150 MG/100 ML BAG IVPB ONE (12:38)
[2022-06-07] MEDS ORDERED: SODIUM CHLORIDE 250 ML IV STA ×3 (13:20→17:11)
[2022-06-07] MEDS ORDERED: AMIODARONE IN DEXTROSE,ISO-OSM 360 MG/200 ML BAG IV ONE (15:00)
[2022-06-07] MEDS ORDERED: SODIUM CHLORIDE 500 ML IV STA (15:49)
[2022-06-07 19:22] LABS: HEMATOCRIT 28.1 % (35.4-49); HEMOGLOBIN 8.8 GM/dL (11.7-16.9); MCHC 31.2 g/dl (32.0-35.9); MEAN CELL VOLUME 83.2 fl (80-96); MEAN PLT VOLUME 6.9 fl (7.5-11.1); PLATELET COUNT 138 10^3/uL (134-434); RBC 3.38 M/mm3 (4.00-5.60); RDW 17.4 % (11.9-15.9); WHITE BLOOD COUNT 8.9 K/mm3 (4.0-10.0)
[2022-06-07] MEDS: AMIODARONE IN DEXTROSE,ISO-OSM 360 MG/200 ML BAG IV SCH (21:45)
[2022-06-07] MEDS: CHLORHEXIDINE GLUCONATE 4% CLEANSER FOR DECOLONIZATION TP SCH (21:46)
[2022-06-08] MEDS: dilTIAZem HCL 30 MG TABLET GT SCH ×4 (06:45→18:21)
[2022-06-08] MEDS ORDERED: dilTIAZem HCL 30 MG TABLET GT SCH (07:43)
[2022-06-08] MEDS: SEVELAMER CARBONATE 0.8 GM POWDER PACKET PO SCH ×3 (10:06→18:21)
[2022-06-08] MEDS: BACITRACIN ZINC 15 GM TUBE TOPICAL OINTMENT TP SCH ×2 (10:07→21:14)
[2022-06-08] MEDS: AMIODARONE IN DEXTROSE,ISO-OSM 360 MG/200 ML BAG IV SCH (10:09)
[2022-06-08] MEDS ORDERED: SODIUM CHLORIDE 250 ML IV PRN (10:34)
[2022-06-08] MEDS: PANTOPRAZOLE SODIUM 40 MG VIAL IVPUSH SCH (10:50)
[2022-06-08] MEDS: levETIRAcetam 500 MG/5 ML INJECTION VIAL IVPB SCH (10:55)
[2022-06-08 11:56] LABS: HEMATOCRIT 27.8 % (35.4-49); HEMOGLOBIN 8.9 GM/dL (11.7-16.9); MCH 26.6 pg (25.7-33.7); MCHC 32.2 g/dl (32.0-35.9); MEAN CELL VOLUME 82.7 fl (80-96); MEAN PLT VOLUME 7.4 fl (7.5-11.1); PLATELET COUNT 165 10^3/uL (134-434); RBC 3.36 M/mm3 (4.00-5.60); RDW 17.2 % (11.9-15.9); WHITE BLOOD COUNT 8.5 K/mm3 (4.0-10.0)
[2022-06-08] MEDS: ACETAMINOPHEN 650 MG/20.3 ML ORAL SOLUTION (CUPS) NGT PRN (12:08)
[2022-06-08 12:23] LABS: CALCIUM 10.5 mg/dL (8.5-10.1)
[2022-06-08 12:24] LABS: ALBUMIN 2.2 g/dl (3.4-5.0); BLOOD UREA NITROGEN 61.3 mg/dL (7-18)
[2022-06-08 12:26] LABS: PHOSPHOROUS 4.6 mg/dL (2.5-4.9)
[2022-06-08 12:27] LABS: CREATININE 6.7 mg/dL (0.55-1.3)
[2022-06-08 12:28] LABS: BILIRUBIN,TOTAL 0.3 mg/dL (0.2-1); TOT PROT 5.6 g/dl (6.4-8.2)
[2022-06-08] MEDS: CHLORHEXIDINE GLUCONATE 4% CLEANSER FOR DECOLONIZATION TP SCH (21:14)
[2022-06-09] MEDS: dilTIAZem HCL 30 MG TABLET GT SCH ×4 (00:49→18:24)
[2022-06-09] MEDS ORDERED: MIDAZOLAM IN 0.9 % SOD.CHLORID 1 MG/1 ML PLAST..BAG ONE (07:58)
[2022-06-09] MEDS: BACITRACIN ZINC 15 GM TUBE TOPICAL OINTMENT TP SCH ×2 (09:57→22:01)
[2022-06-09] MEDS: SEVELAMER CARBONATE 0.8 GM POWDER PACKET PO SCH ×3 (09:58→18:24)
[2022-06-09] MEDS: MIDAZOLAM IN 0.9 % SOD.CHLORID 100 MG/100 ML PLAST..BAG IVPB SCH (10:01)
[2022-06-09] MEDS: ALBUTEROL SO4 2.5/IPRATROPIUM 0.5 INH SOL 3 ML VIAL.NEB. NEB PRN (11:51)
[2022-06-09] MEDS ORDERED: SODIUM CHLORIDE 250 ML IV PRN ×2 (12:42→12:43)
[2022-06-09] MEDS: ALBUMIN HUMAN 25% 12.5 GM/50 ML VIAL IV SCH ×4 (13:05→14:35)
[2022-06-09 13:26] LABS: HEMATOCRIT 29.8 % (35.4-49); HEMOGLOBIN 9.5 GM/dL (11.7-16.9); MCH 26.4 pg (25.7-33.7); MCHC 31.8 g/dl (32.0-35.9); MEAN PLT VOLUME 7.4 fl (7.5-11.1); PLATELET COUNT 191 10^3/uL (134-434); RBC 3.59 M/mm3 (4.00-5.60); RDW 17.3 % (11.9-15.9); WHITE BLOOD COUNT 8.7 K/mm3 (4.0-10.0)
[2022-06-09] MEDS ORDERED: EPOETIN ALFA-EPBX 10,000 UNIT/ML VIAL IVPUSH ONE (13:30)
[2022-06-09 13:54] LABS: CHLORIDE 95 mmol/L (98-107); SODIUM 135 mmol/L (136-145)
[2022-06-09 13:57] LABS: CALCIUM 10.7 mg/dL (8.5-10.1)
[2022-06-09 13:58] LABS: ALBUMIN 2.3 g/dl (3.4-5.0); ANION GAP 16 MMOL/L (8-16); BLOOD UREA NITROGEN 75.9 mg/dL (7-18); CO2 24 mmol/L (21-32); GLUCOSE,RANDOM 101 mg/dL (74-106)
[2022-06-09 14:01] LABS: PHOSPHOROUS 5.1 mg/dL (2.5-4.9); SGOT/AST 26 U/L (15-37); SGPT/ALT 14 U/L (13-61)
[2022-06-09 14:02] LABS: BILIRUBIN,TOTAL 0.5 mg/dL (0.2-1); TOT PROT 5.8 g/dl (6.4-8.2)
[2022-06-09 14:04] LABS: ALK PHOS 81 U/L (45-117)
[2022-06-09 14:15] LABS: CREATININE 7.5 mg/dL (0.55-1.3)
[2022-06-09] MEDS: PANTOPRAZOLE SODIUM 40 MG VIAL IVPUSH SCH (15:55)
[2022-06-09] MEDS: levETIRAcetam 500 MG/5 ML INJECTION VIAL IVPB SCH (15:58)
[2022-06-09] MEDS: CHLORHEXIDINE GLUCONATE 4% CLEANSER FOR DECOLONIZATION TP SCH (22:01)
[2022-06-10 07:51] LABS: CALCIUM 10.1 mg/dL (8.5-10.1)
[2022-06-10 07:52] LABS: ALBUMIN 2.3 g/dl (3.4-5.0); MAGNESIUM 2.4 mg/dL (1.8-2.4)
[2022-06-10 07:55] LABS: CREATININE 5.1 mg/dL (0.55-1.3); PHOSPHOROUS 3.7 mg/dL (2.5-4.9)
[2022-06-10] MEDS: ALBUTEROL SO4 2.5/IPRATROPIUM 0.5 INH SOL 3 ML VIAL.NEB. NEB PRN (07:55)
[2022-06-10 07:56] LABS: BILIRUBIN,TOTAL 0.4 mg/dL (0.2-1)
[2022-06-10 07:57] LABS: TOT PROT 5.9 g/dl (6.4-8.2)
[2022-06-10 08:07] LABS: BLOOD UREA NITROGEN 42.3 mg/dL (7-18)
[2022-06-10] MEDS: SEVELAMER CARBONATE 0.8 GM POWDER PACKET PO SCH ×3 (08:46→17:59)
[2022-06-10 10:31] LABS: BASO % 0.7 % (0-2.0); EOS % 0.7 % (0-4.5); HEMATOCRIT 25.8 % (35.4-49); HEMOGLOBIN 8.2 GM/dL (11.7-16.9); LYMPH % 5.7 % (8-40); MCH 26.3 pg (25.7-33.7); MCHC 31.7 g/dl (32.0-35.9); MEAN CELL VOLUME 82.8 fl (80-96); MONO % 7.1 % (3.8-10.2); NEUT % 85.8 % (42.8-82.8); RBC 3.11 M/mm3 (4.00-5.60); RDW 17.3 % (11.9-15.9); WHITE BLOOD COUNT 12.6 K/mm3 (4.0-10.0)
[2022-06-10 10:44] LABS: MEAN PLT VOLUME 7.8 fl (7.5-11.1); PLATELET COUNT 158 10^3/uL (134-434)
[2022-06-10] MEDS: PANTOPRAZOLE SODIUM 40 MG VIAL IVPUSH SCH (10:46)
[2022-06-10] MEDS: levETIRAcetam 500 MG/5 ML INJECTION VIAL IVPB SCH (10:51)
[2022-06-10] MEDS: BACITRACIN ZINC 15 GM TUBE TOPICAL OINTMENT TP SCH ×2 (10:51→22:01)
[2022-06-10] MEDS: dilTIAZem HCL 30 MG TABLET GT SCH ×3 (15:31→17:59)
[2022-06-10] MEDS: MIDAZOLAM IN 0.9 % SOD.CHLORID 100 MG/100 ML PLAST..BAG IVPB SCH (15:43)
[2022-06-10] MEDS ORDERED: POTASSIUM CHLORIDE 20 MEQ PREMIX IVPB 100 ML IVPB STA (20:44)
[2022-06-10] MEDS: CHLORHEXIDINE GLUCONATE 4% CLEANSER FOR DECOLONIZATION TP SCH (22:01)
[2022-06-11] MEDS: dilTIAZem HCL 30 MG TABLET GT SCH ×5 (00:21→23:53)
[2022-06-11 08:02] LABS: CALCIUM 10.4 mg/dL (8.5-10.1); MAGNESIUM 2.6 mg/dL (1.8-2.4)
[2022-06-11 08:03] LABS: ALBUMIN 2.1 g/dl (3.4-5.0)
[2022-06-11 08:06] LABS: CREATININE 6.1 mg/dL (0.55-1.3); PHOSPHOROUS 4.9 mg/dL (2.5-4.9)
[2022-06-11 08:07] LABS: BILIRUBIN,TOTAL 0.4 mg/dL (0.2-1); TOT PROT 5.4 g/dl (6.4-8.2)
[2022-06-11 08:08] LABS: HEMATOCRIT 26.7 % (35.4-49); HEMOGLOBIN 8.5 GM/dL (11.7-16.9); MCH 26.7 pg (25.7-33.7); MCHC 31.9 g/dl (32.0-35.9); MEAN CELL VOLUME 83.8 fl (80-96); MEAN PLT VOLUME 8.2 fl (7.5-11.1); PLATELET COUNT 159 10^3/uL (134-434); RBC 3.18 M/mm3 (4.00-5.60); RDW 17.6 % (11.9-15.9); WHITE BLOOD COUNT 10.2 K/mm3 (4.0-10.0)
[2022-06-11] MEDS: PANTOPRAZOLE SODIUM 40 MG VIAL IVPUSH SCH (09:29)
[2022-06-11] MEDS: levETIRAcetam 500 MG/5 ML INJECTION VIAL IVPB SCH (09:29)
[2022-06-11] MEDS: BACITRACIN ZINC 15 GM TUBE TOPICAL OINTMENT TP SCH ×2 (09:30→21:16)
[2022-06-11] MEDS: SEVELAMER CARBONATE 0.8 GM POWDER PACKET PO SCH ×3 (09:30→17:18)
[2022-06-11] MEDS ORDERED: SODIUM CHLORIDE 250 ML IV PRN (18:40)
[2022-06-11] MEDS: CHLORHEXIDINE GLUCONATE 4% CLEANSER FOR DECOLONIZATION TP SCH (21:16)
[2022-06-12] MEDS: dilTIAZem HCL 30 MG TABLET GT SCH ×4 (06:41→17:25)
[2022-06-12 07:19] LABS: HEMATOCRIT 27.2 % (35.4-49); HEMOGLOBIN 8.4 GM/dL (11.7-16.9); MEAN CELL VOLUME 83.9 fl (80-96); MEAN PLT VOLUME 7.7 fl (7.5-11.1); PLATELET COUNT 169 10^3/uL (134-434); RBC 3.25 M/mm3 (4.00-5.60); RDW 18.1 % (11.9-15.9); WHITE BLOOD COUNT 8.8 K/mm3 (4.0-10.0)
[2022-06-12 07:37] LABS: CALCIUM 10.7 mg/dL (8.5-10.1)
[2022-06-12 07:38] LABS: BLOOD UREA NITROGEN 78.4 mg/dL (7-18)
[2022-06-12 07:41] LABS: CREATININE 7.1 mg/dL (0.55-1.3)
[2022-06-12 07:42] LABS: BILIRUBIN,TOTAL 0.2 mg/dL (0.2-1)
[2022-06-12 07:43] LABS: TOT PROT 5.4 g/dl (6.4-8.2)
[2022-06-12] MEDS: levETIRAcetam 500 MG/5 ML INJECTION VIAL IVPB SCH (11:10)
[2022-06-12] MEDS: PANTOPRAZOLE SODIUM 40 MG VIAL IVPUSH SCH (11:11)
[2022-06-12] MEDS: BACITRACIN ZINC 15 GM TUBE TOPICAL OINTMENT TP SCH ×2 (11:11→21:19)
[2022-06-12] MEDS: SEVELAMER CARBONATE 0.8 GM POWDER PACKET PO SCH ×3 (11:11→17:02)
[2022-06-12] MEDS: CHLORHEXIDINE GLUCONATE 4% CLEANSER FOR DECOLONIZATION TP SCH (21:19)
[2022-06-13] MEDS: dilTIAZem HCL 30 MG TABLET GT SCH ×4 (00:02→17:41)
[2022-06-13 07:15] LABS: HEMATOCRIT 27.3 % (35.4-49); HEMOGLOBIN 8.7 GM/dL (11.7-16.9); MCH 26.6 pg (25.7-33.7); MCHC 31.8 g/dl (32.0-35.9); MEAN CELL VOLUME 83.7 fl (80-96); PLATELET COUNT 185 10^3/uL (134-434); RBC 3.26 M/mm3 (4.00-5.60); RDW 17.5 % (11.9-15.9); WHITE BLOOD COUNT 7.7 K/mm3 (4.0-10.0)
[2022-06-13 07:55] LABS: CALCIUM 10.8 mg/dL (8.5-10.1)
[2022-06-13 07:56] LABS: ALBUMIN 2.1 g/dl (3.4-5.0); MAGNESIUM 2.5 mg/dL (1.8-2.4)
[2022-06-13 07:59] LABS: CREATININE 4.8 mg/dL (0.55-1.3); PHOSPHOROUS 3.8 mg/dL (2.5-4.9)
[2022-06-13 08:01] LABS: BILIRUBIN,TOTAL 0.3 mg/dL (0.2-1); TOT PROT 5.7 g/dl (6.4-8.2)
[2022-06-13] MEDS: COLLAGENASE CLOSTRIDIUM HIST. 30 GRAMS TUBE TP SCH (09:36)
[2022-06-13] MEDS: SEVELAMER CARBONATE 0.8 GM POWDER PACKET PO SCH ×3 (09:36→17:42)
[2022-06-13] MEDS: BACITRACIN ZINC 15 GM TUBE TOPICAL OINTMENT TP SCH ×2 (09:36→21:53)
[2022-06-13] MEDS: levETIRAcetam 500 MG/5 ML INJECTION VIAL IVPB SCH (09:36)
[2022-06-13] MEDS: PANTOPRAZOLE SODIUM 40 MG VIAL IVPUSH SCH (09:36)
[2022-06-13] MEDS ORDERED: CINACALCET HCL 30 MG TAB (FP) PO SCH (10:30)
[2022-06-13] MEDS: CHLORHEXIDINE GLUCONATE 4% CLEANSER FOR DECOLONIZATION TP SCH (21:52)
[2022-06-14] MEDS: dilTIAZem HCL 30 MG TABLET GT SCH ×5 (01:16→18:11)
[2022-06-14] MEDS ORDERED: SODIUM CHLORIDE 250 ML IV PRN (09:00)
[2022-06-14] MEDS ORDERED: EPOETIN ALFA-EPBX 10,000 UNIT/ML VIAL IVPUSH ONE (09:00)
[2022-06-14 09:23] LABS: BASO % 0.4 % (0-2.0); EOS % 2.7 % (0-4.5); HEMATOCRIT 24.7 % (35.4-49); HEMOGLOBIN 7.9 GM/dL (11.7-16.9); LYMPH % 7.1 % (8-40); MCH 26.6 pg (25.7-33.7); MCHC 31.8 g/dl (32.0-35.9); MEAN CELL VOLUME 83.5 fl (80-96); MEAN PLT VOLUME 7.6 fl (7.5-11.1); MONO % 7.1 % (3.8-10.2); NEUT % 82.7 % (42.8-82.8); PLATELET COUNT 179 10^3/uL (134-434); RBC 2.96 M/mm3 (4.00-5.60); RDW 17.6 % (11.9-15.9); WHITE BLOOD COUNT 7.7 K/mm3 (4.0-10.0)
[2022-06-14 09:41] LABS: CALCIUM 10.8 mg/dL (8.5-10.1)
[2022-06-14 09:42] LABS: MAGNESIUM 2.7 mg/dL (1.8-2.4)
[2022-06-14 09:45] LABS: CREATININE 6.1 mg/dL (0.55-1.3)
[2022-06-14 09:46] LABS: TOT PROT 5.6 g/dl (6.4-8.2)
[2022-06-14 09:47] LABS: BILIRUBIN,TOTAL 0.3 mg/dL (0.2-1)
[2022-06-14 09:48] LABS: BLOOD UREA NITROGEN 77.1 mg/dL (7-18)
[2022-06-14] MEDS: SEVELAMER CARBONATE 0.8 GM POWDER PACKET PO SCH ×3 (09:59→17:39)
[2022-06-14] MEDS: BACITRACIN ZINC 15 GM TUBE TOPICAL OINTMENT TP SCH ×2 (10:00→22:25)
[2022-06-14] MEDS: PANTOPRAZOLE SODIUM 40 MG VIAL IVPUSH SCH (12:23)
[2022-06-14] MEDS: levETIRAcetam 500 MG/5 ML INJECTION VIAL IVPB SCH (12:23)
[2022-06-14] MEDS: COLLAGENASE CLOSTRIDIUM HIST. 30 GRAMS TUBE TP SCH (12:23)
[2022-06-14] MEDS: MIDODRINE HCL 2.5 MG TABLET PO SCH ×2 (14:49→17:40)
[2022-06-14] MEDS: CHLORHEXIDINE GLUCONATE 4% CLEANSER FOR DECOLONIZATION TP SCH (22:25)
[2022-06-15] MEDS: dilTIAZem HCL 30 MG TABLET GT SCH ×4 (00:05→18:03)
[2022-06-15] MEDS: SEVELAMER CARBONATE 0.8 GM POWDER PACKET PO SCH ×3 (09:14→18:03)
[2022-06-15] MEDS: levETIRAcetam 500 MG/5 ML INJECTION VIAL IVPB SCH (09:14)
[2022-06-15] MEDS: MIDODRINE HCL 2.5 MG TABLET PO SCH ×3 (09:15→18:03)
[2022-06-15] MEDS: PANTOPRAZOLE SODIUM 40 MG VIAL IVPUSH SCH (09:15)
[2022-06-15] MEDS: COLLAGENASE CLOSTRIDIUM HIST. 30 GRAMS TUBE TP SCH (09:15)
[2022-06-15] MEDS: BACITRACIN ZINC 15 GM TUBE TOPICAL OINTMENT TP SCH ×2 (09:15→21:19)
[2022-06-15] MEDS ORDERED: SODIUM CHLORIDE 250 ML IV PRN (15:11)
[2022-06-15] MEDS: CHLORHEXIDINE GLUCONATE 4% CLEANSER FOR DECOLONIZATION TP SCH (21:20)
[2022-06-16] MEDS: dilTIAZem HCL 30 MG TABLET GT SCH ×4 (00:01→18:33)
[2022-06-16 07:13] LABS: HEMATOCRIT 24.1 % (35.4-49); HEMOGLOBIN 7.6 GM/dL (11.7-16.9); MCH 26.5 pg (25.7-33.7); MCHC 31.3 g/dl (32.0-35.9); MEAN CELL VOLUME 84.9 fl (80-96); MEAN PLT VOLUME 7.7 fl (7.5-11.1); PLATELET COUNT 165 10^3/uL (134-434); RBC 2.85 M/mm3 (4.00-5.60); RDW 17.3 % (11.9-15.9)
[2022-06-16 07:38] LABS: ALBUMIN 1.9 g/dl (3.4-5.0); BLOOD UREA NITROGEN 80.4 mg/dL (7-18); CALCIUM 10.8 mg/dL (8.5-10.1); MAGNESIUM 2.5 mg/dL (1.8-2.4)
[2022-06-16 07:41] LABS: CREATININE 5.5 mg/dL (0.55-1.3); PHOSPHOROUS 3.9 mg/dL (2.5-4.9)
[2022-06-16 07:42] LABS: BILIRUBIN,TOTAL 0.3 mg/dL (0.2-1); TOT PROT 5.4 g/dl (6.4-8.2)
[2022-06-16] MEDS ORDERED: EPOETIN ALFA-EPBX 10,000 UNIT/ML VIAL IVPUSH ONE (08:00)
[2022-06-16] MEDS: levETIRAcetam 500 MG/5 ML INJECTION VIAL IVPB SCH (12:43)
[2022-06-16] MEDS: MIDODRINE HCL 2.5 MG TABLET PO SCH ×2 (12:43→15:21)
[2022-06-16] MEDS: PANTOPRAZOLE SODIUM 40 MG VIAL IVPUSH SCH (12:43)
[2022-06-16] MEDS: BACITRACIN ZINC 15 GM TUBE TOPICAL OINTMENT TP SCH ×2 (12:45→21:26)
[2022-06-16] MEDS: SEVELAMER CARBONATE 0.8 GM POWDER PACKET PO SCH ×3 (12:45→18:23)
[2022-06-16] MEDS: COLLAGENASE CLOSTRIDIUM HIST. 30 GRAMS TUBE TP SCH (12:45)
[2022-06-16] MEDS: MIDODRINE HCL 5 MG TABLET PO SCH (18:33)
[2022-06-16] MEDS: CHLORHEXIDINE GLUCONATE 4% CLEANSER FOR DECOLONIZATION TP SCH (21:27)
[2022-06-17] MEDS: dilTIAZem HCL 30 MG TABLET GT SCH ×4 (01:33→18:20)
[2022-06-17] MEDS: levETIRAcetam 500 MG/5 ML INJECTION VIAL IVPB SCH (09:48)
[2022-06-17] MEDS: PANTOPRAZOLE SODIUM 40 MG VIAL IVPUSH SCH (09:48)
[2022-06-17] MEDS: BACITRACIN ZINC 15 GM TUBE TOPICAL OINTMENT TP SCH ×2 (09:49→21:36)
[2022-06-17] MEDS: MIDODRINE HCL 5 MG TABLET PO SCH ×3 (09:49→18:20)
[2022-06-17] MEDS: SEVELAMER CARBONATE 0.8 GM POWDER PACKET PO SCH ×3 (09:49→18:20)
[2022-06-17] MEDS: COLLAGENASE CLOSTRIDIUM HIST. 30 GRAMS TUBE TP SCH (11:45)
[2022-06-17] MEDS: CHLORHEXIDINE GLUCONATE 4% CLEANSER FOR DECOLONIZATION TP SCH (21:36)
[2022-06-18] MEDS: dilTIAZem HCL 30 MG TABLET GT SCH ×4 (00:55→17:35)
[2022-06-18] MEDS: PANTOPRAZOLE SODIUM 40 MG VIAL IVPUSH SCH (09:50)
[2022-06-18] MEDS: MIDODRINE HCL 5 MG TABLET PO SCH ×3 (09:50→17:35)
[2022-06-18] MEDS: SEVELAMER CARBONATE 0.8 GM POWDER PACKET PO SCH ×3 (09:50→17:34)
[2022-06-18] MEDS: levETIRAcetam 500 MG/5 ML INJECTION VIAL IVPB SCH (09:54)
[2022-06-18] MEDS: COLLAGENASE CLOSTRIDIUM HIST. 30 GRAMS TUBE TP SCH (13:13)
[2022-06-18] MEDS: BACITRACIN ZINC 15 GM TUBE TOPICAL OINTMENT TP SCH ×2 (13:14→21:40)
[2022-06-18] MEDS: CHLORHEXIDINE GLUCONATE 4% CLEANSER FOR DECOLONIZATION TP SCH (21:40)
[2022-06-19] MEDS: dilTIAZem HCL 30 MG TABLET GT SCH ×5 (06:33→23:35)
[2022-06-19] MEDS: SEVELAMER CARBONATE 0.8 GM POWDER PACKET PO SCH ×3 (07:54→18:17)
[2022-06-19] MEDS: ALBUMIN HUMAN 25% 12.5 GM/50 ML VIAL IV SCH ×4 (09:00→17:18)
[2022-06-19] MEDS: BACITRACIN ZINC 15 GM TUBE TOPICAL OINTMENT TP SCH ×2 (09:18→21:49)
[2022-06-19] MEDS: MIDODRINE HCL 5 MG TABLET PO SCH ×3 (09:18→18:17)
[2022-06-19 09:29] LABS: HEMATOCRIT 22.8 % (35.4-49); HEMOGLOBIN 7.4 GM/dL (11.7-16.9); MCHC 32.4 g/dl (32.0-35.9); MEAN CELL VOLUME 83.3 fl (80-96); MEAN PLT VOLUME 7.6 fl (7.5-11.1); PLATELET COUNT 250 10^3/uL (134-434); RBC 2.73 M/mm3 (4.00-5.60); RDW 17.6 % (11.9-15.9); WHITE BLOOD COUNT 12.6 K/mm3 (4.0-10.0)
[2022-06-19 09:43] LABS: CHLORIDE 92 mmol/L (98-107); SODIUM 132 mmol/L (136-145)
[2022-06-19 09:46] LABS: ANION GAP 11 MMOL/L (8-16); CALCIUM 10.9 mg/dL (8.5-10.1); CO2 29 mmol/L (21-32)
[2022-06-19 09:49] LABS: GLUCOSE,RANDOM 117 mg/dL (74-106)
[2022-06-19 09:53] LABS: CREATININE 6.8 mg/dL (0.55-1.3)
[2022-06-19 10:08] LABS: BLOOD UREA NITROGEN 125.1 mg/dL (7-18)
[2022-06-19] MEDS ORDERED: SODIUM CHLORIDE 250 ML IV PRN (10:30)
[2022-06-19] MEDS ORDERED: EPOETIN ALFA-EPBX 20,000 UNIT/2 ML MDV IVPUSH ONE (10:30)
[2022-06-19] MEDS: levETIRAcetam 500 MG/5 ML INJECTION VIAL IVPB SCH (12:51)
[2022-06-19] MEDS: PANTOPRAZOLE SODIUM 40 MG VIAL IVPUSH SCH (12:59)
[2022-06-19] MEDS: COLLAGENASE CLOSTRIDIUM HIST. 30 GRAMS TUBE TP SCH (17:13)
[2022-06-19] MEDS: CHLORHEXIDINE GLUCONATE 4% CLEANSER FOR DECOLONIZATION TP SCH (21:49)
[2022-06-19] MEDS: ACETAMINOPHEN 650 MG/20.3 ML ORAL SOLUTION (CUPS) NGT PRN (23:53)
[2022-06-20] MEDS ORDERED: MIDODRINE HCL 5 MG TABLET PO ONE (00:16)
[2022-06-20 03:09] LABS: BASO % 0.4 % (0-2.0); EOS % 2.1 % (0-4.5); HEMATOCRIT 20.7 % (35.4-49); MCH 27.3 pg (25.7-33.7); MCHC 32.7 g/dl (32.0-35.9); MEAN CELL VOLUME 83.6 fl (80-96); MEAN PLT VOLUME 7.8 fl (7.5-11.1); MONO % 7.3 % (3.8-10.2); NEUT % 84.2 % (42.8-82.8); PLATELET COUNT 212 10^3/uL (134-434); RBC 2.47 M/mm3 (4.00-5.60); RDW 17.3 % (11.9-15.9)
[2022-06-20 03:44] LABS: HEMOGLOBIN 6.8 GM/dL (11.7-16.9)
[2022-06-20] MEDS: dilTIAZem HCL 30 MG TABLET GT SCH ×3 (06:00→17:26)
[2022-06-20] MEDS: SEVELAMER CARBONATE 0.8 GM POWDER PACKET PO SCH ×3 (08:00→17:26)
[2022-06-20 08:43] LABS: HEMATOCRIT 24.5 % (35.4-49); HEMOGLOBIN 7.7 GM/dL (11.7-16.9); MCH 26.7 pg (25.7-33.7); MCHC 31.5 g/dl (32.0-35.9); MEAN CELL VOLUME 84.6 fl (80-96); MEAN PLT VOLUME 8.5 fl (7.5-11.1); PLATELET COUNT 236 10^3/uL (134-434); RBC 2.89 M/mm3 (4.00-5.60); RDW 17.7 % (11.9-15.9); WHITE BLOOD COUNT 9.6 K/mm3 (4.0-10.0)
[2022-06-20 09:22] LABS: CREATININE 4.9 mg/dL (0.55-1.3)
[2022-06-20 09:23] LABS: BILIRUBIN,TOTAL 0.6 mg/dL (0.2-1)
[2022-06-20 09:24] LABS: TOT PROT 6.1 g/dl (6.4-8.2)
[2022-06-20 09:26] LABS: ALBUMIN 2.5 g/dl (3.4-5.0); BLOOD UREA NITROGEN 77.3 mg/dL (7-18)
[2022-06-20] MEDS ORDERED: PANTOPRAZOLE SODIUM 40 MG VIAL IVPUSH SCH (10:00)
[2022-06-20] MEDS: MIDODRINE HCL 5 MG TABLET PO SCH ×3 (11:22→17:26)
[2022-06-20] MEDS: BACITRACIN ZINC 15 GM TUBE TOPICAL OINTMENT TP SCH ×2 (11:22→21:20)
[2022-06-20] MEDS: levETIRAcetam 500 MG/5 ML INJECTION VIAL IVPB SCH (11:22)
[2022-06-20] MEDS: COLLAGENASE CLOSTRIDIUM HIST. 30 GRAMS TUBE TP SCH (11:22)
[2022-06-20] MEDS ORDERED: CINACALCET HCL PO SCH (15:00)
[2022-06-20] MEDS: CINACALCET HCL GT SCH (16:00)
[2022-06-20] MEDS ORDERED: ARTIFICIAL TEARS (POLYVINYL ALCOHOL) OPTH DROPS OU SCH (18:00)
[2022-06-20] MEDS: MINERAL OIL/PETROLATUM,WHITE 3.5 GM TUBE OU SCH (21:19)
[2022-06-20] MEDS: ARTIFICIAL TEARS (POLYVINYL ALCOHOL) OPTH DROPS OU SCH ×2 (21:20→23:38)
[2022-06-20] MEDS: CHLORHEXIDINE GLUCONATE 4% CLEANSER FOR DECOLONIZATION TP SCH (21:20)
[2022-06-21] MEDS: dilTIAZem HCL 30 MG TABLET GT SCH ×5 (01:00→23:36)
[2022-06-21] MEDS: ARTIFICIAL TEARS (POLYVINYL ALCOHOL) OPTH DROPS OU SCH ×12 (01:17→23:34)
[2022-06-21] MEDS: ALBUMIN HUMAN 25% 12.5 GM/50 ML VIAL IV SCH ×4 (08:05→09:35)
[2022-06-21] MEDS: SEVELAMER CARBONATE 0.8 GM POWDER PACKET PO SCH ×3 (08:55→18:28)
[2022-06-21] MEDS ORDERED: EPOETIN ALFA-EPBX 20,000 UNIT/ML VIAL SQ ONE (09:00)
[2022-06-21 09:18] LABS: HEMATOCRIT 23.3 % (35.4-49); HEMOGLOBIN 7.7 GM/dL (11.7-16.9); MCHC 32.9 g/dl (32.0-35.9); MEAN CELL VOLUME 81.9 fl (80-96); MEAN PLT VOLUME 7.3 fl (7.5-11.1); PLATELET COUNT 238 10^3/uL (134-434); RBC 2.84 M/mm3 (4.00-5.60); RDW 16.9 % (11.9-15.9); WHITE BLOOD COUNT 12.5 K/mm3 (4.0-10.0)
[2022-06-21 09:38] LABS: CHLORIDE 93 mmol/L (98-107); SODIUM 133 mmol/L (136-145)
[2022-06-21 09:41] LABS: CALCIUM 10.8 mg/dL (8.5-10.1); GLUCOSE,RANDOM 109 mg/dL (74-106)
[2022-06-21 09:42] LABS: ALBUMIN 2.2 g/dl (3.4-5.0); ANION GAP 14 MMOL/L (8-16); CO2 26 mmol/L (21-32)
[2022-06-21 09:44] LABS: CREATININE 5.9 mg/dL (0.55-1.3); SGPT/ALT 21 U/L (13-61)
[2022-06-21 09:45] LABS: SGOT/AST 21 U/L (15-37)
[2022-06-21 09:46] LABS: BILIRUBIN,TOTAL 0.4 mg/dL (0.2-1); TOT PROT 5.6 g/dl (6.4-8.2)
[2022-06-21 10:05] LABS: ALK PHOS 131 U/L (45-117); BLOOD UREA NITROGEN 105.2 mg/dL (7-18)
[2022-06-21] MEDS: BACITRACIN ZINC 15 GM TUBE TOPICAL OINTMENT TP SCH ×2 (10:39→21:14)
[2022-06-21] MEDS: MIDODRINE HCL 5 MG TABLET PO SCH (10:40)
[2022-06-21] MEDS: COLLAGENASE CLOSTRIDIUM HIST. 30 GRAMS TUBE TP SCH (10:40)
[2022-06-21] MEDS: levETIRAcetam 500 MG/5 ML INJECTION VIAL IVPB SCH (10:40)
[2022-06-21] MEDS: PANTOPRAZOLE SODIUM 40 MG VIAL IVPUSH SCH (10:40)
[2022-06-21] MEDS: CINACALCET HCL GT SCH (10:41)
[2022-06-21] MEDS ORDERED: MIDODRINE HCL 5 MG TABLET PO SCH (11:34)
[2022-06-21] MEDS: MIDODRINE HCL 5 MG, MIDODRINE HCL 2.5 MG PO SCH ×2 (14:11→18:28)
[2022-06-21] MEDS: ACETAMINOPHEN 650 MG/20.3 ML ORAL SOLUTION (CUPS) NGT PRN (21:14)
[2022-06-21] MEDS: MINERAL OIL/PETROLATUM,WHITE 3.5 GM TUBE OU SCH (21:14)
[2022-06-21] MEDS: CHLORHEXIDINE GLUCONATE 4% CLEANSER FOR DECOLONIZATION TP SCH (21:14)
[2022-06-22] MEDS: ARTIFICIAL TEARS (POLYVINYL ALCOHOL) OPTH DROPS OU SCH ×12 (00:34→23:20)
[2022-06-22] MEDS: dilTIAZem HCL 30 MG TABLET GT SCH ×3 (05:35→17:43)
[2022-06-22 07:28] LABS: HEMATOCRIT 23.9 % (35.4-49); HEMOGLOBIN 7.7 GM/dL (11.7-16.9); MCH 27.1 pg (25.7-33.7); MCHC 32.2 g/dl (32.0-35.9); MEAN CELL VOLUME 84.4 fl (80-96); MEAN PLT VOLUME 7.9 fl (7.5-11.1); PLATELET COUNT 249 10^3/uL (134-434); RBC 2.84 M/mm3 (4.00-5.60); RDW 16.9 % (11.9-15.9)
[2022-06-22 07:51] LABS: CALCIUM 10.2 mg/dL (8.5-10.1)
[2022-06-22 07:52] LABS: MAGNESIUM 2.3 mg/dL (1.8-2.4)
[2022-06-22 07:55] LABS: CREATININE 3.8 mg/dL (0.55-1.3); PHOSPHOROUS 3.5 mg/dL (2.5-4.9)
[2022-06-22 07:57] LABS: BILIRUBIN,TOTAL 0.3 mg/dL (0.2-1); TOT PROT 5.4 g/dl (6.4-8.2)
[2022-06-22 08:59] LABS: BLOOD UREA NITROGEN 60.3 mg/dL (7-18)
[2022-06-22] MEDS: levETIRAcetam 500 MG/5 ML INJECTION VIAL IVPB SCH (10:43)
[2022-06-22] MEDS: SEVELAMER CARBONATE 0.8 GM POWDER PACKET PO SCH ×3 (10:43→17:43)
[2022-06-22] MEDS: BACITRACIN ZINC 15 GM TUBE TOPICAL OINTMENT TP SCH ×2 (10:43→21:22)
[2022-06-22] MEDS: COLLAGENASE CLOSTRIDIUM HIST. 30 GRAMS TUBE TP SCH (10:44)
[2022-06-22] MEDS: CINACALCET HCL GT SCH (10:44)
[2022-06-22] MEDS: MIDODRINE HCL 5 MG, MIDODRINE HCL 2.5 MG PO SCH ×2 (10:44→13:20)
[2022-06-22] MEDS: PANTOPRAZOLE SODIUM 40 MG VIAL IVPUSH SCH (10:44)
[2022-06-22] MEDS ORDERED: SODIUM CHLORIDE 250 ML IV PRN (13:40)
[2022-06-22] MEDS: MIDODRINE HCL 5 MG TABLET PO SCH ×2 (15:30→17:43)
[2022-06-22] MEDS ORDERED: VANCOMYCIN 1 GM/200 ML PREMIX BAG (RESTRICTED TO ID ONLY) IVPB ONE (15:50)
[2022-06-22] MEDS: MINERAL OIL/PETROLATUM,WHITE 3.5 GM TUBE OU SCH (21:22)
[2022-06-22] MEDS: CHLORHEXIDINE GLUCONATE 4% CLEANSER FOR DECOLONIZATION TP SCH (21:22)
[2022-06-23] MEDS: dilTIAZem HCL 30 MG TABLET GT SCH ×4 (00:10→17:16)
[2022-06-23] MEDS: ARTIFICIAL TEARS (POLYVINYL ALCOHOL) OPTH DROPS OU SCH ×11 (01:20→21:30)
[2022-06-23] MEDS ORDERED: SODIUM CHLORIDE 250 ML IV PRN (07:37)
[2022-06-23] MEDS ORDERED: EPOETIN ALFA-EPBX 20,000 UNIT/ML VIAL IVPUSH ONE (08:00)
[2022-06-23] MEDS ORDERED: IRON SUCROSE INJECTION 100 MG in SODIUM CHLORIDE 95 ML IVPB ONE (08:00)
[2022-06-23 09:19] LABS: CALCIUM 10.8 mg/dL (8.5-10.1)
[2022-06-23 09:20] LABS: BLOOD UREA NITROGEN 85.2 mg/dL (7-18)
[2022-06-23 09:25] LABS: BILIRUBIN,TOTAL 0.3 mg/dL (0.2-1); TOT PROT 5.5 g/dl (6.4-8.2)
[2022-06-23 09:34] LABS: HEMOGLOBIN 7.7 GM/dL (11.7-16.9); MCH 26.8 pg (25.7-33.7); MCHC 32.1 g/dl (32.0-35.9); MEAN CELL VOLUME 83.7 fl (80-96); MEAN PLT VOLUME 7.1 fl (7.5-11.1); PLATELET COUNT 261 10^3/uL (134-434); RBC 2.87 M/mm3 (4.00-5.60); RDW 16.2 % (11.9-15.9); WHITE BLOOD COUNT 8.8 K/mm3 (4.0-10.0)
[2022-06-23 09:58] LABS: PHOSPHOROUS 4.5 mg/dL (2.5-4.9)
[2022-06-23] MEDS: SEVELAMER CARBONATE 0.8 GM POWDER PACKET PO SCH ×3 (11:09→17:14)
[2022-06-23] MEDS: levETIRAcetam 500 MG/5 ML INJECTION VIAL IVPB SCH (11:30)
[2022-06-23] MEDS: PANTOPRAZOLE SODIUM 40 MG VIAL IVPUSH SCH (11:30)
[2022-06-23] MEDS: MIDODRINE HCL 5 MG TABLET PO SCH ×3 (11:31→17:14)
[2022-06-23] MEDS: BACITRACIN ZINC 15 GM TUBE TOPICAL OINTMENT TP SCH ×2 (11:32→22:05)
[2022-06-23] MEDS: CINACALCET HCL GT SCH (11:32)
[2022-06-23] MEDS: COLLAGENASE CLOSTRIDIUM HIST. 30 GRAMS TUBE TP SCH (13:35)
[2022-06-23] MEDS: CHLORHEXIDINE GLUCONATE 4% CLEANSER FOR DECOLONIZATION TP SCH (22:05)
[2022-06-24] MEDS: dilTIAZem HCL 30 MG TABLET GT SCH ×4 (01:25→17:24)
[2022-06-24] MEDS: MINERAL OIL/PETROLATUM,WHITE 3.5 GM TUBE OU SCH ×2 (01:25→21:10)
[2022-06-24] MEDS: ARTIFICIAL TEARS (POLYVINYL ALCOHOL) OPTH DROPS OU SCH ×10 (01:26→21:10)
[2022-06-24] MEDS ORDERED: SODIUM CHLORIDE 250 ML IV ONE (09:00)
[2022-06-24] MEDS: PANTOPRAZOLE SODIUM 40 MG VIAL IVPUSH SCH (09:06)
[2022-06-24] MEDS: SEVELAMER CARBONATE 0.8 GM POWDER PACKET PO SCH ×3 (09:06→17:27)
[2022-06-24] MEDS: levETIRAcetam 500 MG/5 ML INJECTION VIAL IVPB SCH (09:06)
[2022-06-24] MEDS: MIDODRINE HCL 5 MG TABLET PO SCH ×3 (09:06→17:26)
[2022-06-24] MEDS: COLLAGENASE CLOSTRIDIUM HIST. 30 GRAMS TUBE TP SCH (09:07)
[2022-06-24] MEDS: CINACALCET HCL GT SCH (09:07)
[2022-06-24] MEDS: BACITRACIN ZINC 15 GM TUBE TOPICAL OINTMENT TP SCH (09:07)
[2022-06-24] MEDS: CHLORHEXIDINE GLUCONATE 4% CLEANSER FOR DECOLONIZATION TP SCH (21:10)
[2022-06-25] MEDS: dilTIAZem HCL 30 MG TABLET GT SCH ×5 (00:31→23:49)
[2022-06-25] MEDS: ARTIFICIAL TEARS (POLYVINYL ALCOHOL) OPTH DROPS OU SCH ×6 (02:32→21:39)
[2022-06-25] MEDS: MIDODRINE HCL 5 MG TABLET PO SCH ×3 (11:17→17:44)
[2022-06-25] MEDS: SEVELAMER CARBONATE 0.8 GM POWDER PACKET PO SCH ×3 (11:17→17:43)
[2022-06-25] MEDS: levETIRAcetam 500 MG/5 ML INJECTION VIAL IVPB SCH (11:17)
[2022-06-25] MEDS: PANTOPRAZOLE SODIUM 40 MG VIAL IVPUSH SCH (11:18)
[2022-06-25] MEDS: CINACALCET HCL GT SCH (11:18)
[2022-06-25] MEDS: COLLAGENASE CLOSTRIDIUM HIST. 30 GRAMS TUBE TP SCH (11:20)
[2022-06-25] MEDS ORDERED: SODIUM CHLORIDE 250 ML IV PRN (11:52)
[2022-06-25] MEDS: CHLORHEXIDINE GLUCONATE 4% CLEANSER FOR DECOLONIZATION TP SCH (21:40)
[2022-06-25] MEDS: MINERAL OIL/PETROLATUM,WHITE 3.5 GM TUBE OU SCH (21:40)
[2022-06-26] MEDS: ARTIFICIAL TEARS (POLYVINYL ALCOHOL) OPTH DROPS OU SCH ×6 (03:00→21:18)
[2022-06-26] MEDS: dilTIAZem HCL 30 MG TABLET GT SCH ×3 (05:04→18:05)
[2022-06-26] MEDS ORDERED: SODIUM CHLORIDE 250 ML IV PRN ×2 (07:30→11:05)
[2022-06-26] MEDS ORDERED: IRON SUCROSE INJECTION 100 MG in SODIUM CHLORIDE 95 ML IVPB ONE (09:00)
[2022-06-26] MEDS ORDERED: EPOETIN ALFA-EPBX 20,000 UNIT/ML VIAL SQ ONE (09:00)
[2022-06-26 09:09] LABS: HEMATOCRIT 21.6 % (35.4-49); MCH 26.5 pg (25.7-33.7); MCHC 31.9 g/dl (32.0-35.9); MEAN CELL VOLUME 82.9 fl (80-96); MEAN PLT VOLUME 6.9 fl (7.5-11.1); PLATELET COUNT 297 10^3/uL (134-434); RBC 2.61 M/mm3 (4.00-5.60); RDW 16.8 % (11.9-15.9); WHITE BLOOD COUNT 11.5 K/mm3 (4.0-10.0)
[2022-06-26 09:14] LABS: HEMOGLOBIN 6.9 GM/dL (11.7-16.9)
[2022-06-26 09:36] LABS: CHLORIDE 97 mmol/L (98-107); SODIUM 138 mmol/L (136-145)
[2022-06-26 09:38] LABS: ALBUMIN 1.8 g/dl (3.4-5.0); ANION GAP 14 MMOL/L (8-16); CALCIUM 9.8 mg/dL (8.5-10.1); CO2 27 mmol/L (21-32); GLUCOSE,RANDOM 104 mg/dL (74-106)
[2022-06-26 09:41] LABS: CREATININE 5.9 mg/dL (0.55-1.3); SGOT/AST 18 U/L (15-37)
[2022-06-26 09:42] LABS: SGPT/ALT 23 U/L (13-61)
[2022-06-26 09:43] LABS: BILIRUBIN,TOTAL 0.4 mg/dL (0.2-1); TOT PROT 5.5 g/dl (6.4-8.2)
[2022-06-26 09:44] LABS: ALK PHOS 129 U/L (45-117)
[2022-06-26 09:55] LABS: BLOOD UREA NITROGEN 111.4 mg/dL (7-18)
[2022-06-26] MEDS: PANTOPRAZOLE SODIUM 40 MG VIAL IVPUSH SCH (10:49)
[2022-06-26] MEDS: SEVELAMER CARBONATE 0.8 GM POWDER PACKET PO SCH ×3 (10:49→18:02)
[2022-06-26] MEDS: MIDODRINE HCL 5 MG TABLET PO SCH ×3 (10:49→18:04)
[2022-06-26] MEDS: CINACALCET HCL GT SCH (10:49)
[2022-06-26] MEDS: levETIRAcetam 500 MG/5 ML INJECTION VIAL IVPB SCH (10:49)
[2022-06-26] MEDS: COLLAGENASE CLOSTRIDIUM HIST. 30 GRAMS TUBE TP SCH (10:50)
[2022-06-26] MEDS: ALBUMIN HUMAN 25% 12.5 GM/50 ML VIAL IV SCH ×2 (11:06→11:45)
[2022-06-26] MEDS ORDERED: ALBUMIN HUMAN 25% 12.5 GM/50 ML VIAL IV SCH (12:00)
[2022-06-26] MEDS: MINERAL OIL/PETROLATUM,WHITE 3.5 GM TUBE OU SCH (21:18)
[2022-06-26] MEDS: CHLORHEXIDINE GLUCONATE 4% CLEANSER FOR DECOLONIZATION TP SCH (21:18)
[2022-06-27] MEDS: dilTIAZem HCL 30 MG TABLET GT SCH ×4 (00:31→18:03)
[2022-06-27] MEDS: ARTIFICIAL TEARS (POLYVINYL ALCOHOL) OPTH DROPS OU SCH ×6 (01:31→21:01)
[2022-06-27 07:26] LABS: BASO % 0.6 % (0-2.0); EOS % 2.4 % (0-4.5); HEMATOCRIT 30.6 % (35.4-49); HEMOGLOBIN 9.7 GM/dL (11.7-16.9); LYMPH % 6.7 % (8-40); MCHC 31.8 g/dl (32.0-35.9); MEAN CELL VOLUME 81.7 fl (80-96); MEAN PLT VOLUME 7.2 fl (7.5-11.1); NEUT % 83.3 % (42.8-82.8); PLATELET COUNT 281 10^3/uL (134-434); RBC 3.75 M/mm3 (4.00-5.60); RDW 17.8 % (11.9-15.9); WHITE BLOOD COUNT 11.2 K/mm3 (4.0-10.0)
[2022-06-27 07:45] LABS: CALCIUM 10.1 mg/dL (8.5-10.1); MAGNESIUM 2.4 mg/dL (1.8-2.4)
[2022-06-27 07:48] LABS: PHOSPHOROUS 4.2 mg/dL (2.5-4.9)
[2022-06-27 07:49] LABS: BILIRUBIN,TOTAL 0.3 mg/dL (0.2-1); CREATININE 4.3 mg/dL (0.55-1.3); TOT PROT 6.1 g/dl (6.4-8.2)
[2022-06-27 07:53] LABS: BLOOD UREA NITROGEN 77.7 mg/dL (7-18)
[2022-06-27] MEDS: SEVELAMER CARBONATE 0.8 GM POWDER PACKET PO SCH ×3 (10:10→18:03)
[2022-06-27] MEDS: MIDODRINE HCL 5 MG TABLET PO SCH ×3 (12:11→18:03)
[2022-06-27] MEDS: CINACALCET HCL GT SCH (12:11)
[2022-06-27] MEDS: PANTOPRAZOLE SODIUM 40 MG VIAL IVPUSH SCH (12:12)
[2022-06-27] MEDS: levETIRAcetam 500 MG/5 ML INJECTION VIAL IVPB SCH (12:12)
[2022-06-27] MEDS: COLLAGENASE CLOSTRIDIUM HIST. 30 GRAMS TUBE TP SCH (12:12)
[2022-06-27] MEDS: ACETAMINOPHEN 650 MG/20.3 ML ORAL SOLUTION (CUPS) NGT PRN (12:14)
[2022-06-27] MEDS: MINERAL OIL/PETROLATUM,WHITE 3.5 GM TUBE OU SCH (21:01)
[2022-06-27] MEDS: CHLORHEXIDINE GLUCONATE 4% CLEANSER FOR DECOLONIZATION TP SCH (21:01)
[2022-06-28] MEDS: ARTIFICIAL TEARS (POLYVINYL ALCOHOL) OPTH DROPS OU SCH ×6 (02:00→22:15)
[2022-06-28] MEDS: dilTIAZem HCL 30 MG TABLET GT SCH ×5 (06:23→23:42)
[2022-06-28] MEDS ORDERED: SODIUM CHLORIDE 250 ML IV PRN (08:05)
[2022-06-28] MEDS ORDERED: EPOETIN ALFA-EPBX 10,000 UNIT/ML VIAL IVPUSH ONE (09:00)
[2022-06-28 10:58] LABS: HEMATOCRIT 30.2 % (35.4-49); MCH 27.2 pg (25.7-33.7); MCHC 33.1 g/dl (32.0-35.9); MEAN CELL VOLUME 82.1 fl (80-96); MEAN PLT VOLUME 7.4 fl (7.5-11.1); PLATELET COUNT 273 10^3/uL (134-434); RBC 3.68 M/mm3 (4.00-5.60); RDW 17.7 % (11.9-15.9); WHITE BLOOD COUNT 10.4 K/mm3 (4.0-10.0)
[2022-06-28 11:38] LABS: BLOOD UREA NITROGEN 73.6 mg/dL (7-18); CALCIUM 9.7 mg/dL (8.5-10.1)
[2022-06-28 11:42] LABS: PHOSPHOROUS 3.6 mg/dL (2.5-4.9)
[2022-06-28] MEDS: PANTOPRAZOLE SODIUM 40 MG VIAL IVPUSH SCH (12:11)
[2022-06-28] MEDS: levETIRAcetam 500 MG/5 ML INJECTION VIAL IVPB SCH (12:11)
[2022-06-28] MEDS: SEVELAMER CARBONATE 0.8 GM POWDER PACKET PO SCH ×3 (12:12→17:36)
[2022-06-28] MEDS: CINACALCET HCL GT SCH (12:13)
[2022-06-28] MEDS: MIDODRINE HCL 5 MG TABLET PO SCH ×3 (12:26→17:36)
[2022-06-28] MEDS: COLLAGENASE CLOSTRIDIUM HIST. 30 GRAMS TUBE TP SCH (14:17)
[2022-06-28] MEDS: MINERAL OIL/PETROLATUM,WHITE 3.5 GM TUBE OU SCH (22:16)
[2022-06-28] MEDS: CHLORHEXIDINE GLUCONATE 4% CLEANSER FOR DECOLONIZATION TP SCH (22:16)
[2022-06-29] MEDS: ARTIFICIAL TEARS (POLYVINYL ALCOHOL) OPTH DROPS OU SCH ×6 (02:08→21:49)
[2022-06-29] MEDS: dilTIAZem HCL 30 MG TABLET GT SCH ×5 (05:34→23:42)
[2022-06-29 06:47] LABS: HEMATOCRIT 32.1 % (35.4-49); HEMOGLOBIN 10.2 GM/dL (11.7-16.9); MCH 26.1 pg (25.7-33.7); MCHC 31.6 g/dl (32.0-35.9); MEAN CELL VOLUME 82.5 fl (80-96); MEAN PLT VOLUME 7.3 fl (7.5-11.1); PLATELET COUNT 307 10^3/uL (134-434); RBC 3.89 M/mm3 (4.00-5.60); RDW 17.8 % (11.9-15.9); WHITE BLOOD COUNT 12.6 K/mm3 (4.0-10.0)
[2022-06-29 07:12] LABS: CALCIUM 9.9 mg/dL (8.5-10.1)
[2022-06-29 07:13] LABS: ALBUMIN 1.9 g/dl (3.4-5.0); BLOOD UREA NITROGEN 68.8 mg/dL (7-18); MAGNESIUM 2.3 mg/dL (1.8-2.4)
[2022-06-29 07:15] LABS: PHOSPHOROUS 3.8 mg/dL (2.5-4.9)
[2022-06-29 07:16] LABS: BILIRUBIN,TOTAL 0.3 mg/dL (0.2-1); CREATININE 4.1 mg/dL (0.55-1.3); TOT PROT 5.7 g/dl (6.4-8.2)
[2022-06-29] MEDS ORDERED: METOPROLOL TARTRATE 5 MG/5 ML VIAL IVPUSH PRN (07:40)
[2022-06-29] MEDS ORDERED: SEVELAMER CARBONATE 0.8 GM POWDER PACKET PO SCH (08:00)
[2022-06-29] MEDS: SEVELAMER CARBONATE 0.8 GM POWDER PACKET NGT SCH ×3 (08:44→17:36)
[2022-06-29 09:24] LABS: ANISOCYTOSIS 0; MACROCYTOSIS 0; OVALOCYTE 1+
[2022-06-29] MEDS: levETIRAcetam 500 MG/5 ML INJECTION VIAL IVPB SCH (10:44)
[2022-06-29] MEDS: MIDODRINE HCL 5 MG TABLET PO SCH ×3 (10:45→18:49)
[2022-06-29] MEDS: PANTOPRAZOLE SODIUM 40 MG VIAL IVPUSH SCH (10:45)
[2022-06-29] MEDS: CINACALCET HCL GT SCH (10:52)
[2022-06-29] MEDS: COLLAGENASE CLOSTRIDIUM HIST. 30 GRAMS TUBE TP SCH (10:52)
[2022-06-29] MEDS: SODIUM HYPOCHLORITE 0.25%- 473 ML BULK BOTTLE TP SCH (14:00)
[2022-06-29] MEDS ORDERED: SODIUM CHLORIDE 250 ML IV PRN (14:19)
[2022-06-29] MEDS: ZINC SULFATE 220 MG CAPSULE (FP) GT SCH (18:50)
[2022-06-29] MEDS: MINERAL OIL/PETROLATUM,WHITE 3.5 GM TUBE OU SCH (21:50)
[2022-06-29] MEDS: ASCORBIC ACID 250 MG TABLET (FP) GT SCH (21:50)
[2022-06-29] MEDS ORDERED: CHLORHEXIDINE GLUCONATE 4% CLEANSER FOR DECOLONIZATION TP SCH (22:00)
[2022-06-30] MEDS: ARTIFICIAL TEARS (POLYVINYL ALCOHOL) OPTH DROPS OU SCH ×6 (01:16→21:01)
[2022-06-30] MEDS: dilTIAZem HCL 30 MG TABLET GT SCH ×4 (06:18→23:47)
[2022-06-30] MEDS ORDERED: EPOETIN ALFA-EPBX 10,000 UNIT/ML VIAL IVPUSH ONE (09:30)
[2022-06-30 09:43] LABS: BASO % 0.6 % (0-2.0); EOS % 2.9 % (0-4.5); HEMATOCRIT 27.4 % (35.4-49); HEMOGLOBIN 8.8 GM/dL (11.7-16.9); LYMPH % 7.4 % (8-40); MCH 26.4 pg (25.7-33.7); MCHC 31.9 g/dl (32.0-35.9); MEAN CELL VOLUME 82.9 fl (80-96); MEAN PLT VOLUME 7.4 fl (7.5-11.1); MONO % 6.7 % (3.8-10.2); NEUT % 82.4 % (42.8-82.8); PLATELET COUNT 280 10^3/uL (134-434); RBC 3.31 M/mm3 (4.00-5.60); WHITE BLOOD COUNT 12.3 K/mm3 (4.0-10.0)
[2022-06-30 10:03] LABS: CALCIUM 10.3 mg/dL (8.5-10.1)
[2022-06-30 10:04] LABS: ALBUMIN 1.9 g/dl (3.4-5.0); MAGNESIUM 2.8 mg/dL (1.8-2.4)
[2022-06-30 10:06] LABS: PHOSPHOROUS 4.8 mg/dL (2.5-4.9)
[2022-06-30 10:07] LABS: BILIRUBIN,TOTAL 0.3 mg/dL (0.2-1); TOT PROT 5.7 g/dl (6.4-8.2)
[2022-06-30 10:13] LABS: BLOOD UREA NITROGEN 95.8 mg/dL (7-18)
[2022-06-30] MEDS: SEVELAMER CARBONATE 0.8 GM POWDER PACKET NGT SCH ×3 (12:19→18:36)
[2022-06-30] MEDS: levETIRAcetam 500 MG/5 ML INJECTION VIAL IVPB SCH (12:27)
[2022-06-30] MEDS: ASCORBIC ACID 250 MG TABLET (FP) GT SCH ×2 (12:27→21:01)
[2022-06-30] MEDS: ZINC SULFATE 220 MG CAPSULE (FP) GT SCH (12:27)
[2022-06-30] MEDS: PANTOPRAZOLE SODIUM 40 MG VIAL IVPUSH SCH (12:28)
[2022-06-30] MEDS: MIDODRINE HCL 5 MG TABLET PO SCH ×4 (12:28→18:36)
[2022-06-30] MEDS: SODIUM HYPOCHLORITE 0.25%- 473 ML BULK BOTTLE TP SCH (12:30)
[2022-06-30] MEDS: COLLAGENASE CLOSTRIDIUM HIST. 30 GRAMS TUBE TP SCH (12:30)
[2022-06-30] MEDS: CINACALCET HCL GT SCH (12:40)
[2022-06-30] MEDS: MINERAL OIL/PETROLATUM,WHITE 3.5 GM TUBE OU SCH (21:01)
[2022-06-30] MEDS: ACETAMINOPHEN 650 MG/20.3 ML ORAL SOLUTION (CUPS) NGT PRN (21:01)
[2022-07-01] MEDS: ARTIFICIAL TEARS (POLYVINYL ALCOHOL) OPTH DROPS OU SCH ×6 (01:03→21:01)
[2022-07-01] MEDS: dilTIAZem HCL 30 MG TABLET GT SCH ×4 (05:50→23:30)
[2022-07-01] MEDS: levETIRAcetam 500 MG/5 ML INJECTION VIAL IVPB SCH (10:03)
[2022-07-01] MEDS: MIDODRINE HCL 5 MG TABLET PO SCH ×3 (10:03→18:09)
[2022-07-01] MEDS: SEVELAMER CARBONATE 0.8 GM POWDER PACKET NGT SCH ×3 (10:03→18:08)
[2022-07-01] MEDS: ZINC SULFATE 220 MG CAPSULE (FP) GT SCH (10:03)
[2022-07-01] MEDS: ASCORBIC ACID 250 MG TABLET (FP) GT SCH ×2 (10:04→21:00)
[2022-07-01] MEDS: PANTOPRAZOLE SODIUM 40 MG VIAL IVPUSH SCH (10:04)
[2022-07-01] MEDS: CINACALCET HCL GT SCH (10:04)
[2022-07-01] MEDS: SODIUM HYPOCHLORITE 0.25%- 473 ML BULK BOTTLE TP SCH (10:05)
[2022-07-01] MEDS: COLLAGENASE CLOSTRIDIUM HIST. 30 GRAMS TUBE TP SCH (10:10)
[2022-07-01 10:42] LABS: BASO % 0.8 % (0-2.0); EOS % 2.1 % (0-4.5); HEMATOCRIT 29.7 % (35.4-49); HEMOGLOBIN 9.5 GM/dL (11.7-16.9); LYMPH % 8.5 % (8-40); MCH 26.6 pg (25.7-33.7); MCHC 31.9 g/dl (32.0-35.9); MEAN CELL VOLUME 83.6 fl (80-96); MEAN PLT VOLUME 7.4 fl (7.5-11.1); MONO % 6.8 % (3.8-10.2); NEUT % 81.8 % (42.8-82.8); PLATELET COUNT 272 10^3/uL (134-434); RBC 3.56 M/mm3 (4.00-5.60); RDW 17.7 % (11.9-15.9); WHITE BLOOD COUNT 13.5 K/mm3 (4.0-10.0)
[2022-07-01 10:53] LABS: CALCIUM 10.3 mg/dL (8.5-10.1)
[2022-07-01 10:54] LABS: BLOOD UREA NITROGEN 75.6 mg/dL (7-18); MAGNESIUM 2.6 mg/dL (1.8-2.4)
[2022-07-01 10:57] LABS: CREATININE 4.3 mg/dL (0.55-1.3)
[2022-07-01 10:58] LABS: BILIRUBIN,TOTAL 0.4 mg/dL (0.2-1)
[2022-07-01] MEDS: MEROPENEM 1 GM in DEXTROSE 5%-WATER 100 ML IVPB SCH (14:50)
[2022-07-01] MEDS: MINERAL OIL/PETROLATUM,WHITE 3.5 GM TUBE OU SCH (21:01)
[2022-07-01] MEDS: ACETAMINOPHEN 650 MG/20.3 ML ORAL SOLUTION (CUPS) NGT PRN (23:06)
[2022-07-02] MEDS: ARTIFICIAL TEARS (POLYVINYL ALCOHOL) OPTH DROPS OU SCH ×6 (01:33→21:22)
[2022-07-02] MEDS: dilTIAZem HCL 30 MG TABLET GT SCH ×3 (05:27→17:19)
[2022-07-02 10:40] LABS: BASO % 0.3 % (0-2.0); EOS % 1.4 % (0-4.5); HEMATOCRIT 29.4 % (35.4-49); HEMOGLOBIN 9.3 GM/dL (11.7-16.9); LYMPH % 5.9 % (8-40); MCH 26.2 pg (25.7-33.7); MCHC 31.6 g/dl (32.0-35.9); MEAN CELL VOLUME 83.1 fl (80-96); MEAN PLT VOLUME 7.2 fl (7.5-11.1); MONO % 3.9 % (3.8-10.2); NEUT % 88.5 % (42.8-82.8); PLATELET COUNT 255 10^3/uL (134-434); RBC 3.53 M/mm3 (4.00-5.60); RDW 17.4 % (11.9-15.9); WHITE BLOOD COUNT 15.8 K/mm3 (4.0-10.0)
[2022-07-02 10:54] LABS: ALBUMIN 1.8 g/dl (3.4-5.0); BLOOD UREA NITROGEN 95.7 mg/dL (7-18); CALCIUM 9.8 mg/dL (8.5-10.1)
[2022-07-02 10:55] LABS: MAGNESIUM 2.6 mg/dL (1.8-2.4)
[2022-07-02 10:58] LABS: PHOSPHOROUS 4.5 mg/dL (2.5-4.9)
[2022-07-02 10:59] LABS: BILIRUBIN,TOTAL 0.5 mg/dL (0.2-1); TOT PROT 5.7 g/dl (6.4-8.2)
[2022-07-02] MEDS: MIDODRINE HCL 5 MG TABLET PO SCH ×3 (11:40→17:19)
[2022-07-02] MEDS: SEVELAMER CARBONATE 0.8 GM POWDER PACKET NGT SCH ×3 (11:40→17:19)
[2022-07-02] MEDS: levETIRAcetam 500 MG/5 ML INJECTION VIAL IVPB SCH (11:40)
[2022-07-02] MEDS: PANTOPRAZOLE SODIUM 40 MG VIAL IVPUSH SCH (11:41)
[2022-07-02] MEDS: ZINC SULFATE 220 MG CAPSULE (FP) GT SCH (11:41)
[2022-07-02] MEDS: SODIUM HYPOCHLORITE 0.25%- 473 ML BULK BOTTLE TP SCH (11:41)
[2022-07-02] MEDS: ASCORBIC ACID 250 MG TABLET (FP) GT SCH ×2 (11:41→21:05)
[2022-07-02] MEDS: MEROPENEM 1 GM in DEXTROSE 5%-WATER 100 ML IVPB SCH (11:41)
[2022-07-02] MEDS: COLLAGENASE CLOSTRIDIUM HIST. 30 GRAMS TUBE TP SCH (11:43)
[2022-07-02] MEDS: CINACALCET HCL GT SCH (11:45)
[2022-07-02] MEDS ORDERED: VANCOMYCIN/WATER FOR INJ (PEG) 1,000 MG/200 ML BAG IVPB ONE (14:12)
[2022-07-02] MEDS: PIPERACILLIN/TAZOB 4.5 GM 4.5 GM in DEXTROSE 5%-WATER 100 ML IVPB SCH ×2 (16:13→21:05)
[2022-07-02] MEDS: MINERAL OIL/PETROLATUM,WHITE 3.5 GM TUBE OU SCH (21:22)
[2022-07-03] MEDS: ACETAMINOPHEN 650 MG/20.3 ML ORAL SOLUTION (CUPS) NGT PRN ×2 (00:24→17:41)
[2022-07-03] MEDS: dilTIAZem HCL 30 MG TABLET GT SCH ×4 (00:24→17:40)
[2022-07-03] MEDS: ARTIFICIAL TEARS (POLYVINYL ALCOHOL) OPTH DROPS OU SCH ×6 (01:09→22:13)
[2022-07-03] MEDS: MIDODRINE HCL 5 MG TABLET PO SCH ×4 (06:58→17:42)
[2022-07-03] MEDS ORDERED: SODIUM CHLORIDE 250 ML IV PRN (08:10)
[2022-07-03] MEDS ORDERED: EPOETIN ALFA-EPBX 4,000 UNIT/ML VIAL SQ ONE (09:00)
[2022-07-03 09:04] LABS: BASO % 0.3 % (0-2.0); EOS % 2.8 % (0-4.5); HEMOGLOBIN 8.3 GM/dL (11.7-16.9); LYMPH % 5.9 % (8-40); MCH 26.4 pg (25.7-33.7); MCHC 31.8 g/dl (32.0-35.9); MEAN CELL VOLUME 82.9 fl (80-96); MEAN PLT VOLUME 7.5 fl (7.5-11.1); MONO % 4.3 % (3.8-10.2); NEUT % 86.7 % (42.8-82.8); PLATELET COUNT 251 10^3/uL (134-434); RBC 3.13 M/mm3 (4.00-5.60); RDW 17.9 % (11.9-15.9); WHITE BLOOD COUNT 15.7 K/mm3 (4.0-10.0)
[2022-07-03 09:27] LABS: CHLORIDE 92 mmol/L (98-107); SODIUM 133 mmol/L (136-145)
[2022-07-03 09:29] LABS: ALBUMIN 1.8 g/dl (3.4-5.0); ANION GAP 12 MMOL/L (8-16); CALCIUM 10.3 mg/dL (8.5-10.1); CO2 29 mmol/L (21-32); GLUCOSE,RANDOM 101 mg/dL (74-106); MAGNESIUM 2.8 mg/dL (1.8-2.4)
[2022-07-03 09:32] LABS: CREATININE 5.8 mg/dL (0.55-1.3); PHOSPHOROUS 5.5 mg/dL (2.5-4.9); SGOT/AST 16 U/L (15-37); SGPT/ALT 15 U/L (13-61)
[2022-07-03 09:34] LABS: ALK PHOS 147 U/L (45-117); BILIRUBIN,TOTAL 0.4 mg/dL (0.2-1); TOT PROT 5.6 g/dl (6.4-8.2)
[2022-07-03 09:47] LABS: BLOOD UREA NITROGEN 122.6 mg/dL (7-18)
[2022-07-03] MEDS: PIPERACILLIN/TAZOB 4.5 GM 4.5 GM in DEXTROSE 5%-WATER 100 ML IVPB SCH ×2 (11:32→22:13)
[2022-07-03] MEDS: levETIRAcetam 500 MG/5 ML INJECTION VIAL IVPB SCH (11:32)
[2022-07-03] MEDS: PANTOPRAZOLE SODIUM 40 MG VIAL IVPUSH SCH (11:32)
[2022-07-03] MEDS: ASCORBIC ACID 250 MG TABLET (FP) GT SCH ×2 (11:34→22:10)
[2022-07-03] MEDS: SEVELAMER CARBONATE 0.8 GM POWDER PACKET NGT SCH ×3 (11:34→17:44)
[2022-07-03] MEDS: ZINC SULFATE 220 MG CAPSULE (FP) GT SCH (11:35)
[2022-07-03] MEDS: SODIUM HYPOCHLORITE 0.25%- 473 ML BULK BOTTLE TP SCH (11:36)
[2022-07-03] MEDS: CINACALCET HCL GT SCH (11:38)
[2022-07-03] MEDS: COLLAGENASE CLOSTRIDIUM HIST. 30 GRAMS TUBE TP SCH (11:39)
[2022-07-03] MEDS: MINERAL OIL/PETROLATUM,WHITE 3.5 GM TUBE OU SCH (22:13)
[2022-07-04] MEDS: dilTIAZem HCL 30 MG TABLET GT SCH ×4 (00:35→18:07)
[2022-07-04] MEDS: ARTIFICIAL TEARS (POLYVINYL ALCOHOL) OPTH DROPS OU SCH ×6 (02:30→23:27)
[2022-07-04] MEDS: MIDODRINE HCL 5 MG TABLET PO SCH ×3 (10:01→18:06)
[2022-07-04] MEDS: PANTOPRAZOLE SODIUM 40 MG VIAL IVPUSH SCH (10:01)
[2022-07-04] MEDS: levETIRAcetam 500 MG/5 ML INJECTION VIAL IVPB SCH (10:01)
[2022-07-04] MEDS: SEVELAMER CARBONATE 0.8 GM POWDER PACKET NGT SCH ×3 (10:02→18:06)
[2022-07-04] MEDS: PIPERACILLIN/TAZOB 4.5 GM 4.5 GM in DEXTROSE 5%-WATER 100 ML IVPB SCH ×2 (10:02→23:27)
[2022-07-04] MEDS: ZINC SULFATE 220 MG CAPSULE (FP) GT SCH (10:02)
[2022-07-04] MEDS: ASCORBIC ACID 250 MG TABLET (FP) GT SCH ×2 (10:02→23:27)
[2022-07-04] MEDS: CINACALCET HCL GT SCH (10:02)
[2022-07-04 10:03] LABS: BASO % 0.4 % (0-2.0); EOS % 2.1 % (0-4.5); HEMATOCRIT 30.3 % (35.4-49); HEMOGLOBIN 9.7 GM/dL (11.7-16.9); LYMPH % 7.5 % (8-40); MCH 26.4 pg (25.7-33.7); MCHC 31.8 g/dl (32.0-35.9); MEAN CELL VOLUME 82.8 fl (80-96); MEAN PLT VOLUME 7.5 fl (7.5-11.1); MONO % 6.7 % (3.8-10.2); NEUT % 83.3 % (42.8-82.8); PLATELET COUNT 302 10^3/uL (134-434); RBC 3.66 M/mm3 (4.00-5.60); RDW 17.8 % (11.9-15.9); WHITE BLOOD COUNT 13.2 K/mm3 (4.0-10.0)
[2022-07-04] MEDS: SODIUM HYPOCHLORITE 0.25%- 473 ML BULK BOTTLE TP SCH (10:03)
[2022-07-04] MEDS: COLLAGENASE CLOSTRIDIUM HIST. 30 GRAMS TUBE TP SCH (10:03)
[2022-07-04 10:34] LABS: CALCIUM 10.3 mg/dL (8.5-10.1)
[2022-07-04 10:35] LABS: ALBUMIN 1.9 g/dl (3.4-5.0); MAGNESIUM 2.6 mg/dL (1.8-2.4)
[2022-07-04 10:37] LABS: PHOSPHOROUS 4.8 mg/dL (2.5-4.9)
[2022-07-04 10:39] LABS: BILIRUBIN,TOTAL 0.5 mg/dL (0.2-1); TOT PROT 6.1 g/dl (6.4-8.2)
[2022-07-04] MEDS: MINERAL OIL/PETROLATUM,WHITE 3.5 GM TUBE OU SCH (23:27)
[2022-07-05] MEDS: dilTIAZem HCL 30 MG TABLET GT SCH ×4 (00:25→17:02)
[2022-07-05] MEDS: ARTIFICIAL TEARS (POLYVINYL ALCOHOL) OPTH DROPS OU SCH ×7 (02:47→22:15)
[2022-07-05] MEDS: MIDODRINE HCL 5 MG TABLET PO SCH ×4 (07:08→19:17)
[2022-07-05] MEDS ORDERED: SODIUM CHLORIDE 250 ML IV PRN (08:00)
[2022-07-05] MEDS ORDERED: EPOETIN ALFA-EPBX 10,000 UNIT/ML VIAL IVPUSH ONE (08:00)
[2022-07-05 09:06] LABS: BASO % 0.7 % (0-2.0); EOS % 2.4 % (0-4.5); HEMATOCRIT 27.7 % (35.4-49); HEMOGLOBIN 8.9 GM/dL (11.7-16.9); LYMPH % 7.2 % (8-40); MCH 26.5 pg (25.7-33.7); MEAN CELL VOLUME 82.6 fl (80-96); MEAN PLT VOLUME 7.7 fl (7.5-11.1); MONO % 6.1 % (3.8-10.2); NEUT % 83.6 % (42.8-82.8); PLATELET COUNT 315 10^3/uL (134-434); RBC 3.35 M/mm3 (4.00-5.60); RDW 17.7 % (11.9-15.9); WHITE BLOOD COUNT 12.7 K/mm3 (4.0-10.0)
[2022-07-05] MEDS: ALBUMIN HUMAN 25% 12.5 GM/50 ML VIAL IV SCH ×3 (09:25→11:00)
[2022-07-05 10:05] LABS: MAGNESIUM 2.8 mg/dL (1.8-2.4)
[2022-07-05 10:29] LABS: CALCIUM 10.5 mg/dL (8.5-10.1)
[2022-07-05 10:30] LABS: ALBUMIN 1.9 g/dl (3.4-5.0); BLOOD UREA NITROGEN 87.4 mg/dL (7-18)
[2022-07-05 10:32] LABS: BILIRUBIN,TOTAL 0.4 mg/dL (0.2-1); TOT PROT 5.9 g/dl (6.4-8.2)
[2022-07-05 10:33] LABS: CREATININE 4.8 mg/dL (0.55-1.3); PHOSPHOROUS 5.8 mg/dL (2.5-4.9)
[2022-07-05] MEDS: AMINO ACIDS/PROTEIN HYDROLYS 30 ML LIQUID.PKT PO SCH (11:10)
[2022-07-05] MEDS: SEVELAMER CARBONATE 0.8 GM POWDER PACKET NGT SCH ×3 (11:10→17:02)
[2022-07-05] MEDS: levETIRAcetam 500 MG/5 ML INJECTION VIAL IVPB SCH (11:11)
[2022-07-05] MEDS: SODIUM HYPOCHLORITE 0.25%- 473 ML BULK BOTTLE TP SCH (11:11)
[2022-07-05] MEDS: PANTOPRAZOLE SODIUM 40 MG VIAL IVPUSH SCH (11:14)
[2022-07-05] MEDS: COLLAGENASE CLOSTRIDIUM HIST. 30 GRAMS TUBE TP SCH (11:14)
[2022-07-05] MEDS: ZINC SULFATE 220 MG CAPSULE (FP) GT SCH (11:14)
[2022-07-05] MEDS: PIPERACILLIN/TAZOB 4.5 GM 4.5 GM in DEXTROSE 5%-WATER 100 ML IVPB SCH ×2 (11:15→21:26)
[2022-07-05] MEDS: ASCORBIC ACID 250 MG TABLET (FP) GT SCH ×2 (11:15→21:26)
[2022-07-05] MEDS: CINACALCET HCL GT SCH (11:19)
[2022-07-05] MEDS: MINERAL OIL/PETROLATUM,WHITE 3.5 GM TUBE OU SCH ×2 (21:30→22:16)
[2022-07-06] MEDS: dilTIAZem HCL 30 MG TABLET GT SCH ×4 (00:05→18:10)
[2022-07-06] MEDS ORDERED: SODIUM CHLORIDE 250 ML IV STA (00:08)
[2022-07-06] MEDS ORDERED: SODIUM CHLORIDE 0.9% 500 ML INFUS.BAG IV ONE (00:34)
[2022-07-06] MEDS: ARTIFICIAL TEARS (POLYVINYL ALCOHOL) OPTH DROPS OU SCH ×6 (02:13→18:22)
[2022-07-06] MEDS ORDERED: SODIUM CHLORIDE 500 ML IV STA ×2 (03:49→05:32)
[2022-07-06] MEDS ORDERED: MIDODRINE HCL 5 MG TABLET PO ONE (03:51)
[2022-07-06] MEDS: AMINO ACIDS/PROTEIN HYDROLYS 30 ML LIQUID.PKT PO SCH (08:48)
[2022-07-06] MEDS: SEVELAMER CARBONATE 0.8 GM POWDER PACKET NGT SCH ×3 (08:48→18:09)
[2022-07-06] MEDS: PIPERACILLIN/TAZOB 4.5 GM 4.5 GM in DEXTROSE 5%-WATER 100 ML IVPB SCH ×2 (09:20→21:16)
[2022-07-06] MEDS: levETIRAcetam 500 MG/5 ML INJECTION VIAL IVPB SCH (09:20)
[2022-07-06] MEDS: ZINC SULFATE 220 MG CAPSULE (FP) GT SCH (09:21)
[2022-07-06] MEDS: PANTOPRAZOLE SODIUM 40 MG VIAL IVPUSH SCH (09:22)
[2022-07-06] MEDS: ASCORBIC ACID 250 MG TABLET (FP) GT SCH ×2 (09:22→21:16)
[2022-07-06] MEDS: MIDODRINE HCL 5 MG TABLET PO SCH ×4 (09:22→18:10)
[2022-07-06] MEDS: SODIUM HYPOCHLORITE 0.25%- 473 ML BULK BOTTLE TP SCH (09:29)
[2022-07-06] MEDS: COLLAGENASE CLOSTRIDIUM HIST. 30 GRAMS TUBE TP SCH (09:29)
[2022-07-06 09:51] LABS: BASO % 0.8 % (0-2.0); EOS % 2.1 % (0-4.5); HEMATOCRIT 26.3 % (35.4-49); HEMOGLOBIN 8.5 GM/dL (11.7-16.9); LYMPH % 8.7 % (8-40); MCH 26.9 pg (25.7-33.7); MCHC 32.3 g/dl (32.0-35.9); MEAN CELL VOLUME 83.1 fl (80-96); MEAN PLT VOLUME 6.6 fl (7.5-11.1); MONO % 7.6 % (3.8-10.2); NEUT % 80.8 % (42.8-82.8); PLATELET COUNT 275 10^3/uL (134-434); RBC 3.17 M/mm3 (4.00-5.60); RDW 17.9 % (11.9-15.9); WHITE BLOOD COUNT 13.3 K/mm3 (4.0-10.0)
[2022-07-06] MEDS: CINACALCET HCL GT SCH (10:03)
[2022-07-06 10:32] LABS: ALBUMIN 1.9 g/dl (3.4-5.0); MAGNESIUM 2.4 mg/dL (1.8-2.4)
[2022-07-06 10:33] LABS: PHOSPHOROUS 5.6 mg/dL (2.5-4.9)
[2022-07-06 10:35] LABS: BILIRUBIN,TOTAL 0.4 mg/dL (0.2-1); CREATININE 3.5 mg/dL (0.55-1.3); TOT PROT 5.6 g/dl (6.4-8.2)
[2022-07-06 10:49] LABS: BLOOD UREA NITROGEN 57.8 mg/dL (7-18)
[2022-07-06] MEDS: MINERAL OIL/PETROLATUM,WHITE 3.5 GM TUBE OU SCH (22:56)
[2022-07-07] MEDS: dilTIAZem HCL 30 MG TABLET GT SCH ×4 (00:02→18:33)
[2022-07-07] MEDS: ARTIFICIAL TEARS (POLYVINYL ALCOHOL) OPTH DROPS OU SCH ×6 (01:44→21:48)
[2022-07-07] MEDS: ACETAMINOPHEN 650 MG/20.3 ML ORAL SOLUTION (CUPS) NGT PRN (01:50)
[2022-07-07] MEDS: SEVELAMER CARBONATE 0.8 GM POWDER PACKET NGT SCH ×3 (08:00→18:27)
[2022-07-07] MEDS ORDERED: IRON SUCROSE INJECTION 100 MG in SODIUM CHLORIDE 95 ML IVPB ONE (08:00)
[2022-07-07] MEDS ORDERED: SODIUM CHLORIDE 250 ML IV PRN (08:05)
[2022-07-07] MEDS ORDERED: EPOETIN ALFA-EPBX 20,000 UNIT/ML VIAL IVPUSH ONE (09:00)
[2022-07-07 09:43] LABS: BASO % 0.5 % (0-2.0); EOS % 3.2 % (0-4.5); HEMATOCRIT 25.6 % (35.4-49); HEMOGLOBIN 8.2 GM/dL (11.7-16.9); LYMPH % 7.5 % (8-40); MCH 26.5 pg (25.7-33.7); MEAN CELL VOLUME 82.9 fl (80-96); MEAN PLT VOLUME 7.4 fl (7.5-11.1); MONO % 6.1 % (3.8-10.2); NEUT % 82.7 % (42.8-82.8); PLATELET COUNT 290 10^3/uL (134-434); RBC 3.09 M/mm3 (4.00-5.60); RDW 17.7 % (11.9-15.9); WHITE BLOOD COUNT 13.6 K/mm3 (4.0-10.0)
[2022-07-07] MEDS: MIDODRINE HCL 5 MG TABLET PO SCH ×3 (10:00→18:26)
[2022-07-07] MEDS: ASCORBIC ACID 250 MG TABLET (FP) GT SCH ×2 (10:00→21:47)
[2022-07-07] MEDS: ZINC SULFATE 220 MG CAPSULE (FP) GT SCH (13:48)
[2022-07-07] MEDS: PANTOPRAZOLE SODIUM 40 MG VIAL IVPUSH SCH (13:49)
[2022-07-07] MEDS: PIPERACILLIN/TAZOB 4.5 GM 4.5 GM in DEXTROSE 5%-WATER 100 ML IVPB SCH ×2 (13:50→21:47)
[2022-07-07] MEDS: CINACALCET HCL GT SCH (13:56)
[2022-07-07] MEDS: AMINO ACIDS/PROTEIN HYDROLYS 30 ML LIQUID.PKT PO SCH (14:21)
[2022-07-07] MEDS: SODIUM HYPOCHLORITE 0.25%- 473 ML BULK BOTTLE TP SCH (15:41)
[2022-07-07] MEDS: levETIRAcetam 500 MG/5 ML INJECTION VIAL IVPB SCH (15:41)
[2022-07-07] MEDS: COLLAGENASE CLOSTRIDIUM HIST. 30 GRAMS TUBE TP SCH (15:41)
[2022-07-07] MEDS: MINERAL OIL/PETROLATUM,WHITE 3.5 GM TUBE OU SCH (21:48)
[2022-07-08] MEDS: dilTIAZem HCL 30 MG TABLET GT SCH ×5 (00:46→23:03)
[2022-07-08] MEDS: ARTIFICIAL TEARS (POLYVINYL ALCOHOL) OPTH DROPS OU SCH ×6 (03:33→22:50)
[2022-07-08] MEDS: PANTOPRAZOLE SODIUM 40 MG VIAL IVPUSH SCH (11:29)
[2022-07-08] MEDS: levETIRAcetam 500 MG/5 ML INJECTION VIAL IVPB SCH (11:30)
[2022-07-08] MEDS: PIPERACILLIN/TAZOB 4.5 GM 4.5 GM in DEXTROSE 5%-WATER 100 ML IVPB SCH ×2 (11:55→22:51)
[2022-07-08] MEDS: CINACALCET HCL GT SCH (11:56)
[2022-07-08] MEDS: SEVELAMER CARBONATE 0.8 GM POWDER PACKET NGT SCH ×3 (11:56→18:36)
[2022-07-08] MEDS: MIDODRINE HCL 5 MG TABLET PO SCH ×3 (11:57→18:37)
[2022-07-08] MEDS: ASCORBIC ACID 250 MG TABLET (FP) GT SCH ×2 (11:58→22:50)
[2022-07-08] MEDS: ZINC SULFATE 220 MG CAPSULE (FP) GT SCH (11:58)
[2022-07-08] MEDS: SODIUM HYPOCHLORITE 0.25%- 473 ML BULK BOTTLE TP SCH (11:59)
[2022-07-08] MEDS: COLLAGENASE CLOSTRIDIUM HIST. 30 GRAMS TUBE TP SCH (11:59)
[2022-07-08] MEDS: AMINO ACIDS/PROTEIN HYDROLYS 30 ML LIQUID.PKT PO SCH (18:35)
[2022-07-08] MEDS: MINERAL OIL/PETROLATUM,WHITE 3.5 GM TUBE OU SCH (22:50)
[2022-07-09] MEDS: ARTIFICIAL TEARS (POLYVINYL ALCOHOL) OPTH DROPS OU SCH ×6 (01:15→23:13)
[2022-07-09] MEDS: dilTIAZem HCL 30 MG TABLET GT SCH ×4 (05:30→23:13)
[2022-07-09] MEDS: SEVELAMER CARBONATE 0.8 GM POWDER PACKET NGT SCH ×3 (09:05→17:51)
[2022-07-09] MEDS: AMINO ACIDS/PROTEIN HYDROLYS 30 ML LIQUID.PKT PO SCH (09:05)
[2022-07-09] MEDS: CINACALCET HCL GT SCH (10:51)
[2022-07-09] MEDS: PIPERACILLIN/TAZOB 4.5 GM 4.5 GM in DEXTROSE 5%-WATER 100 ML IVPB SCH ×2 (10:51→23:13)
[2022-07-09] MEDS: levETIRAcetam 500 MG/5 ML INJECTION VIAL IVPB SCH (10:52)
[2022-07-09] MEDS: ASCORBIC ACID 250 MG TABLET (FP) GT SCH ×2 (10:52→23:13)
[2022-07-09] MEDS: ZINC SULFATE 220 MG CAPSULE (FP) GT SCH (10:52)
[2022-07-09] MEDS: PANTOPRAZOLE SODIUM 40 MG VIAL IVPUSH SCH (10:52)
[2022-07-09] MEDS: MIDODRINE HCL 5 MG TABLET PO SCH ×3 (10:52→17:51)
[2022-07-09] MEDS: COLLAGENASE CLOSTRIDIUM HIST. 30 GRAMS TUBE TP SCH (10:53)
[2022-07-09] MEDS: VITAMIN B COMP W-C 1 EA TABLET (NEPHRO-VITE) GT SCH (10:53)
[2022-07-09] MEDS: SODIUM HYPOCHLORITE 0.25%- 473 ML BULK BOTTLE TP SCH (10:54)
[2022-07-09 17:21] LABS: BASO % 0.8 % (0-2.0); EOS % 5.1 % (0-4.5); HEMATOCRIT 24.7 % (35.4-49); HEMOGLOBIN 8.1 GM/dL (11.7-16.9); MCH 27.1 pg (25.7-33.7); MCHC 32.5 g/dl (32.0-35.9); MEAN CELL VOLUME 83.3 fl (80-96); MEAN PLT VOLUME 6.5 fl (7.5-11.1); MONO % 6.4 % (3.8-10.2); NEUT % 76.7 % (42.8-82.8); PLATELET COUNT 307 10^3/uL (134-434); RBC 2.97 M/mm3 (4.00-5.60); RDW 17.6 % (11.9-15.9); WHITE BLOOD COUNT 9.5 K/mm3 (4.0-10.0)
[2022-07-09 17:28] LABS: CALCIUM 9.9 mg/dL (8.5-10.1)
[2022-07-09 17:29] LABS: ALBUMIN 1.7 g/dl (3.4-5.0); BLOOD UREA NITROGEN 81.1 mg/dL (7-18); MAGNESIUM 2.5 mg/dL (1.8-2.4)
[2022-07-09 17:32] LABS: CREATININE 4.8 mg/dL (0.55-1.3); PHOSPHOROUS 6.9 mg/dL (2.5-4.9)
[2022-07-09 17:33] LABS: TOT PROT 5.7 g/dl (6.4-8.2)
[2022-07-09 17:34] LABS: BILIRUBIN,TOTAL 0.4 mg/dL (0.2-1)
[2022-07-09] MEDS: MINERAL OIL/PETROLATUM,WHITE 3.5 GM TUBE OU SCH (23:13)
[2022-07-10] MEDS: ARTIFICIAL TEARS (POLYVINYL ALCOHOL) OPTH DROPS OU SCH ×6 (02:56→21:03)
[2022-07-10] MEDS: dilTIAZem HCL 30 MG TABLET GT SCH ×3 (06:48→17:46)
[2022-07-10] MEDS ORDERED: EPOETIN ALFA-EPBX 20,000 UNIT/2 ML MDV IVPUSH SCH (09:00)
[2022-07-10 09:02] LABS: CALCIUM 9.9 mg/dL (8.5-10.1)
[2022-07-10 09:03] LABS: ALBUMIN 1.6 g/dl (3.4-5.0); BLOOD UREA NITROGEN 91.2 mg/dL (7-18)
[2022-07-10 09:06] LABS: CREATININE 5.2 mg/dL (0.55-1.3)
[2022-07-10 09:07] LABS: BILIRUBIN,TOTAL 0.4 mg/dL (0.2-1); TOT PROT 5.5 g/dl (6.4-8.2)
[2022-07-10] MEDS: VITAMIN B COMP W-C 1 EA TABLET (NEPHRO-VITE) GT SCH (11:39)
[2022-07-10] MEDS: AMINO ACIDS/PROTEIN HYDROLYS 30 ML LIQUID.PKT PO SCH (11:39)
[2022-07-10] MEDS: MIDODRINE HCL 5 MG TABLET PO SCH ×3 (11:39→17:46)
[2022-07-10] MEDS: SEVELAMER CARBONATE 0.8 GM POWDER PACKET NGT SCH ×3 (11:39→17:46)
[2022-07-10] MEDS: PANTOPRAZOLE SODIUM 40 MG VIAL IVPUSH SCH (11:40)
[2022-07-10] MEDS: ASCORBIC ACID 250 MG TABLET (FP) GT SCH ×2 (11:40→21:02)
[2022-07-10] MEDS: PIPERACILLIN/TAZOB 4.5 GM 4.5 GM in DEXTROSE 5%-WATER 100 ML IVPB SCH ×2 (11:40→21:02)
[2022-07-10] MEDS: ZINC SULFATE 220 MG CAPSULE (FP) GT SCH (11:40)
[2022-07-10] MEDS: levETIRAcetam 500 MG/5 ML INJECTION VIAL IVPB SCH (11:40)
[2022-07-10] MEDS: SODIUM HYPOCHLORITE 0.25%- 473 ML BULK BOTTLE TP SCH (11:48)
[2022-07-10] MEDS: COLLAGENASE CLOSTRIDIUM HIST. 30 GRAMS TUBE TP SCH (11:48)
[2022-07-10] MEDS: CINACALCET HCL GT SCH (14:16)
[2022-07-10] MEDS: MINERAL OIL/PETROLATUM,WHITE 3.5 GM TUBE OU SCH (21:03)
[2022-07-10] MEDS: ACETAMINOPHEN 650 MG/20.3 ML ORAL SOLUTION (CUPS) NGT PRN (21:13)
[2022-07-11] MEDS: dilTIAZem HCL 30 MG TABLET GT SCH ×4 (00:15→18:05)
[2022-07-11] MEDS: ARTIFICIAL TEARS (POLYVINYL ALCOHOL) OPTH DROPS OU SCH ×6 (01:34→21:30)
[2022-07-11] MEDS: SEVELAMER CARBONATE 0.8 GM POWDER PACKET NGT SCH ×3 (08:50→18:06)
[2022-07-11] MEDS: AMINO ACIDS/PROTEIN HYDROLYS 30 ML LIQUID.PKT PO SCH (08:50)
[2022-07-11] MEDS ORDERED: EPOETIN ALFA-EPBX 20,000 UNIT/2 ML MDV IVPUSH ONE (09:00)
[2022-07-11] MEDS: MIDODRINE HCL 5 MG TABLET PO SCH ×3 (10:07→18:07)
[2022-07-11] MEDS: PANTOPRAZOLE SODIUM 40 MG VIAL IVPUSH SCH (10:08)
[2022-07-11] MEDS: PIPERACILLIN/TAZOB 4.5 GM 4.5 GM in DEXTROSE 5%-WATER 100 ML IVPB SCH ×2 (10:09→21:30)
[2022-07-11] MEDS: ASCORBIC ACID 250 MG TABLET (FP) GT SCH ×2 (10:10→21:30)
[2022-07-11] MEDS: ZINC SULFATE 220 MG CAPSULE (FP) GT SCH (10:10)
[2022-07-11] MEDS: VITAMIN B COMP W-C 1 EA TABLET (NEPHRO-VITE) GT SCH (10:10)
[2022-07-11] MEDS: CINACALCET HCL GT SCH (10:11)
[2022-07-11] MEDS: levETIRAcetam 500 MG/5 ML INJECTION VIAL IVPB SCH (12:05)
[2022-07-11] MEDS: SODIUM HYPOCHLORITE 0.25%- 473 ML BULK BOTTLE TP SCH (14:16)
[2022-07-11] MEDS: COLLAGENASE CLOSTRIDIUM HIST. 30 GRAMS TUBE TP SCH (14:16)
[2022-07-11] MEDS ORDERED: SODIUM CHLORIDE 250 ML IV PRN (17:43)
[2022-07-11 19:18] LABS: BASO % 0.5 % (0-2.0); EOS % 4.8 % (0-4.5); HEMATOCRIT 26.1 % (35.4-49); HEMOGLOBIN 8.2 GM/dL (11.7-16.9); LYMPH % 13.5 % (8-40); MCH 26.3 pg (25.7-33.7); MCHC 31.6 g/dl (32.0-35.9); MEAN CELL VOLUME 83.1 fl (80-96); MEAN PLT VOLUME 7.2 fl (7.5-11.1); MONO % 6.8 % (3.8-10.2); NEUT % 74.4 % (42.8-82.8); PLATELET COUNT 317 10^3/uL (134-434); RBC 3.14 M/mm3 (4.00-5.60); RDW 17.8 % (11.9-15.9); WHITE BLOOD COUNT 10.9 K/mm3 (4.0-10.0)
[2022-07-11 19:35] LABS: CALCIUM 9.7 mg/dL (8.5-10.1)
[2022-07-11 19:36] LABS: ALBUMIN 1.6 g/dl (3.4-5.0)
[2022-07-11 19:38] LABS: MAGNESIUM 2.3 mg/dL (1.8-2.4)
[2022-07-11 19:39] LABS: CREATININE 4.5 mg/dL (0.55-1.3); PHOSPHOROUS 6.4 mg/dL (2.5-4.9)
[2022-07-11 19:41] LABS: BILIRUBIN,TOTAL 0.4 mg/dL (0.2-1); TOT PROT 5.7 g/dl (6.4-8.2)
[2022-07-11] MEDS: MINERAL OIL/PETROLATUM,WHITE 3.5 GM TUBE OU SCH (21:30)
[2022-07-12] MEDS: dilTIAZem HCL 30 MG TABLET GT SCH ×4 (00:16→17:27)
[2022-07-12] MEDS: ARTIFICIAL TEARS (POLYVINYL ALCOHOL) OPTH DROPS OU SCH ×6 (01:22→22:14)
[2022-07-12] MEDS ORDERED: EPOETIN ALFA-EPBX 20,000 UNIT/ML VIAL IVPUSH ONE (08:30)
[2022-07-12 09:40] LABS: BASO % 0.8 % (0-2.0); EOS % 4.9 % (0-4.5); HEMATOCRIT 24.5 % (35.4-49); HEMOGLOBIN 7.9 GM/dL (11.7-16.9); MCH 26.7 pg (25.7-33.7); MCHC 32.3 g/dl (32.0-35.9); MEAN CELL VOLUME 82.7 fl (80-96); MEAN PLT VOLUME 6.9 fl (7.5-11.1); MONO % 5.6 % (3.8-10.2); NEUT % 75.7 % (42.8-82.8); PLATELET COUNT 298 10^3/uL (134-434); RBC 2.96 M/mm3 (4.00-5.60); RDW 17.6 % (11.9-15.9); WHITE BLOOD COUNT 11.3 K/mm3 (4.0-10.0)
[2022-07-12 10:04] LABS: CALCIUM 9.7 mg/dL (8.5-10.1)
[2022-07-12 10:05] LABS: ALBUMIN 1.7 g/dl (3.4-5.0); BLOOD UREA NITROGEN 79.9 mg/dL (7-18); MAGNESIUM 2.3 mg/dL (1.8-2.4)
[2022-07-12 10:08] LABS: CREATININE 4.9 mg/dL (0.55-1.3); PHOSPHOROUS 7.1 mg/dL (2.5-4.9)
[2022-07-12 10:09] LABS: BILIRUBIN,TOTAL 0.5 mg/dL (0.2-1); TOT PROT 5.5 g/dl (6.4-8.2)
[2022-07-12] MEDS: AMINO ACIDS/PROTEIN HYDROLYS 30 ML LIQUID.PKT PO SCH (13:02)
[2022-07-12] MEDS: SEVELAMER CARBONATE 0.8 GM POWDER PACKET NGT SCH ×3 (13:02→17:23)
[2022-07-12] MEDS: PIPERACILLIN/TAZOB 4.5 GM 4.5 GM in DEXTROSE 5%-WATER 100 ML IVPB SCH ×2 (13:02→22:14)
[2022-07-12] MEDS: CINACALCET HCL GT SCH (13:03)
[2022-07-12] MEDS: VITAMIN B COMP W-C 1 EA TABLET (NEPHRO-VITE) GT SCH (13:03)
[2022-07-12] MEDS: levETIRAcetam 500 MG/5 ML INJECTION VIAL IVPB SCH (13:03)
[2022-07-12] MEDS: ZINC SULFATE 220 MG CAPSULE (FP) GT SCH (13:03)
[2022-07-12] MEDS: PANTOPRAZOLE SODIUM 40 MG VIAL IVPUSH SCH (13:03)
[2022-07-12] MEDS: ASCORBIC ACID 250 MG TABLET (FP) GT SCH ×2 (13:04→22:14)
[2022-07-12] MEDS: COLLAGENASE CLOSTRIDIUM HIST. 30 GRAMS TUBE TP SCH (13:11)
[2022-07-12] MEDS: SODIUM HYPOCHLORITE 0.25%- 473 ML BULK BOTTLE TP SCH (13:11)
[2022-07-12] MEDS: MIDODRINE HCL 5 MG TABLET PO SCH ×3 (13:56→17:22)
[2022-07-12] MEDS: MINERAL OIL/PETROLATUM,WHITE 3.5 GM TUBE OU SCH (22:14)
[2022-07-13] MEDS: dilTIAZem HCL 30 MG TABLET GT SCH ×4 (00:04→17:38)
[2022-07-13] MEDS: ARTIFICIAL TEARS (POLYVINYL ALCOHOL) OPTH DROPS OU SCH ×6 (01:42→21:51)
[2022-07-13 08:42] LABS: EOS % 4.7 % (0-4.5); HEMATOCRIT 26.4 % (35.4-49); HEMOGLOBIN 8.5 GM/dL (11.7-16.9); LYMPH % 12.3 % (8-40); MCH 26.6 pg (25.7-33.7); MEAN PLT VOLUME 7.1 fl (7.5-11.1); MONO % 6.9 % (3.8-10.2); NEUT % 75.1 % (42.8-82.8); PLATELET COUNT 325 10^3/uL (134-434); RBC 3.18 M/mm3 (4.00-5.60); RDW 17.8 % (11.9-15.9); WHITE BLOOD COUNT 11.8 K/mm3 (4.0-10.0)
[2022-07-13] MEDS: SEVELAMER CARBONATE 0.8 GM POWDER PACKET NGT SCH ×3 (08:46→17:39)
[2022-07-13] MEDS: AMINO ACIDS/PROTEIN HYDROLYS 30 ML LIQUID.PKT PO SCH (08:46)
[2022-07-13 08:47] LABS: ALBUMIN 1.8 g/dl (3.4-5.0); BLOOD UREA NITROGEN 57.3 mg/dL (7-18); CALCIUM 10.2 mg/dL (8.5-10.1); MAGNESIUM 2.3 mg/dL (1.8-2.4)
[2022-07-13 08:50] LABS: PHOSPHOROUS 5.8 mg/dL (2.5-4.9)
[2022-07-13 08:51] LABS: CREATININE 4.1 mg/dL (0.55-1.3)
[2022-07-13 08:52] LABS: BILIRUBIN,TOTAL 0.5 mg/dL (0.2-1)
[2022-07-13] MEDS: PIPERACILLIN/TAZOB 4.5 GM 4.5 GM in DEXTROSE 5%-WATER 100 ML IVPB SCH ×2 (09:55→21:52)
[2022-07-13] MEDS: levETIRAcetam 500 MG/5 ML INJECTION VIAL IVPB SCH (09:56)
[2022-07-13] MEDS: SODIUM HYPOCHLORITE 0.25%- 473 ML BULK BOTTLE TP SCH (09:57)
[2022-07-13] MEDS: ASCORBIC ACID 250 MG TABLET (FP) GT SCH ×2 (09:57→21:52)
[2022-07-13] MEDS: ZINC SULFATE 220 MG CAPSULE (FP) GT SCH (09:57)
[2022-07-13] MEDS: VITAMIN B COMP W-C 1 EA TABLET (NEPHRO-VITE) GT SCH (09:57)
[2022-07-13] MEDS: PANTOPRAZOLE SODIUM 40 MG VIAL IVPUSH SCH (09:57)
[2022-07-13] MEDS: COLLAGENASE CLOSTRIDIUM HIST. 30 GRAMS TUBE TP SCH (09:58)
[2022-07-13] MEDS: MIDODRINE HCL 5 MG TABLET PO SCH ×3 (09:59→17:38)
[2022-07-13] MEDS: CINACALCET HCL GT SCH (10:00)
[2022-07-13] MEDS: KCL 10 MEQ IVPB 10 MEQ/100 ML INFUS.BAG IVPB SCH ×3 (12:33→15:00)
[2022-07-13] MEDS: MINERAL OIL/PETROLATUM,WHITE 3.5 GM TUBE OU SCH (21:51)
[2022-07-14] MEDS: dilTIAZem HCL 30 MG TABLET GT SCH ×7 (00:55→23:58)
[2022-07-14] MEDS: ARTIFICIAL TEARS (POLYVINYL ALCOHOL) OPTH DROPS OU SCH ×6 (01:31→21:05)
[2022-07-14] MEDS ORDERED: SODIUM CHLORIDE 250 ML IV PRN (07:30)
[2022-07-14] MEDS ORDERED: EPOETIN ALFA-EPBX 10,000 UNIT/ML VIAL IVPUSH ONE (09:00)
[2022-07-14 09:30] LABS: BASO % 0.6 % (0-2.0); HEMATOCRIT 26.2 % (35.4-49); HEMOGLOBIN 8.4 GM/dL (11.7-16.9); LYMPH % 11.6 % (8-40); MCH 26.6 pg (25.7-33.7); MCHC 32.2 g/dl (32.0-35.9); MEAN CELL VOLUME 82.6 fl (80-96); MEAN PLT VOLUME 7.2 fl (7.5-11.1); MONO % 6.3 % (3.8-10.2); NEUT % 76.5 % (42.8-82.8); PLATELET COUNT 332 10^3/uL (134-434); RBC 3.18 M/mm3 (4.00-5.60); RDW 17.9 % (11.9-15.9); WHITE BLOOD COUNT 12.1 K/mm3 (4.0-10.0)
[2022-07-14 10:24] LABS: CALCIUM 9.8 mg/dL (8.5-10.1)
[2022-07-14 10:25] LABS: ALBUMIN 1.8 g/dl (3.4-5.0); BLOOD UREA NITROGEN 71.7 mg/dL (7-18); MAGNESIUM 2.4 mg/dL (1.8-2.4)
[2022-07-14 10:27] LABS: CREATININE 4.7 mg/dL (0.55-1.3); PHOSPHOROUS 6.2 mg/dL (2.5-4.9)
[2022-07-14 10:29] LABS: BILIRUBIN,TOTAL 0.4 mg/dL (0.2-1); TOT PROT 6.2 g/dl (6.4-8.2)
[2022-07-14] MEDS: AMINO ACIDS/PROTEIN HYDROLYS 30 ML LIQUID.PKT PO SCH (12:08)
[2022-07-14] MEDS: PIPERACILLIN/TAZOB 4.5 GM 4.5 GM in DEXTROSE 5%-WATER 100 ML IVPB SCH ×2 (12:09→21:09)
[2022-07-14] MEDS: CINACALCET HCL GT SCH (12:10)
[2022-07-14] MEDS: PANTOPRAZOLE SODIUM 40 MG VIAL IVPUSH SCH (12:11)
[2022-07-14] MEDS: VITAMIN B COMP W-C 1 EA TABLET (NEPHRO-VITE) GT SCH (12:11)
[2022-07-14] MEDS: ASCORBIC ACID 250 MG TABLET (FP) GT SCH ×2 (12:11→21:05)
[2022-07-14] MEDS: levETIRAcetam 500 MG/5 ML INJECTION VIAL IVPB SCH (12:11)
[2022-07-14] MEDS: SODIUM HYPOCHLORITE 0.25%- 473 ML BULK BOTTLE TP SCH (12:12)
[2022-07-14] MEDS: SEVELAMER CARBONATE 0.8 GM POWDER PACKET NGT SCH ×3 (12:13→18:15)
[2022-07-14] MEDS: COLLAGENASE CLOSTRIDIUM HIST. 30 GRAMS TUBE TP SCH (12:13)
[2022-07-14] MEDS: MIDODRINE HCL 5 MG TABLET PO SCH (13:19)
[2022-07-14] MEDS: MINERAL OIL/PETROLATUM,WHITE 3.5 GM TUBE OU SCH (21:05)
[2022-07-15] MEDS: ARTIFICIAL TEARS (POLYVINYL ALCOHOL) OPTH DROPS OU SCH ×6 (02:09→21:55)
[2022-07-15] MEDS: dilTIAZem HCL 30 MG TABLET GT SCH ×5 (06:57→18:05)
[2022-07-15] MEDS: SEVELAMER CARBONATE 0.8 GM POWDER PACKET NGT SCH ×3 (08:52→18:02)
[2022-07-15] MEDS: AMINO ACIDS/PROTEIN HYDROLYS 30 ML LIQUID.PKT PO SCH (08:52)
[2022-07-15 09:41] LABS: BASO % 0.4 % (0-2.0); EOS % 2.1 % (0-4.5); HEMATOCRIT 27.3 % (35.4-49); HEMOGLOBIN 8.5 GM/dL (11.7-16.9); LYMPH % 10.1 % (8-40); MCH 25.9 pg (25.7-33.7); MEAN CELL VOLUME 83.4 fl (80-96); MEAN PLT VOLUME 7.5 fl (7.5-11.1); NEUT % 83.4 % (42.8-82.8); PLATELET COUNT 330 10^3/uL (134-434); RBC 3.27 M/mm3 (4.00-5.60); RDW 18.2 % (11.9-15.9); WHITE BLOOD COUNT 14.3 K/mm3 (4.0-10.0)
[2022-07-15 09:50] LABS: ALBUMIN 1.8 g/dl (3.4-5.0); BLOOD UREA NITROGEN 56.6 mg/dL (7-18)
[2022-07-15 09:55] LABS: BILIRUBIN,TOTAL 0.4 mg/dL (0.2-1); TOT PROT 6.1 g/dl (6.4-8.2)
[2022-07-15] MEDS: ASCORBIC ACID 250 MG TABLET (FP) GT SCH ×2 (10:02→21:54)
[2022-07-15] MEDS: PANTOPRAZOLE SODIUM 40 MG VIAL IVPUSH SCH (10:02)
[2022-07-15] MEDS: levETIRAcetam 500 MG/5 ML INJECTION VIAL IVPB SCH (10:02)
[2022-07-15] MEDS: CINACALCET HCL GT SCH (10:02)
[2022-07-15] MEDS: VITAMIN B COMP W-C 1 EA TABLET (NEPHRO-VITE) GT SCH (10:02)
[2022-07-15] MEDS: PIPERACILLIN/TAZOB 4.5 GM 4.5 GM in DEXTROSE 5%-WATER 100 ML IVPB SCH ×2 (10:25→21:54)
[2022-07-15] MEDS: COLLAGENASE CLOSTRIDIUM HIST. 30 GRAMS TUBE TP SCH (12:28)
[2022-07-15] MEDS: SODIUM HYPOCHLORITE 0.25%- 473 ML BULK BOTTLE TP SCH (12:28)
[2022-07-15] MEDS: MINERAL OIL/PETROLATUM,WHITE 3.5 GM TUBE OU SCH (21:55)
[2022-07-16] MEDS: dilTIAZem HCL 30 MG TABLET GT SCH ×4 (00:16→18:11)
[2022-07-16] MEDS: ARTIFICIAL TEARS (POLYVINYL ALCOHOL) OPTH DROPS OU SCH ×6 (01:42→22:05)
[2022-07-16] MEDS: AMINO ACIDS/PROTEIN HYDROLYS 30 ML LIQUID.PKT PO SCH (08:12)
[2022-07-16] MEDS: SEVELAMER CARBONATE 0.8 GM POWDER PACKET NGT SCH ×3 (08:12→18:11)
[2022-07-16 09:18] LABS: BASO % 0.4 % (0-2.0); EOS % 6.4 % (0-4.5); HEMATOCRIT 26.7 % (35.4-49); HEMOGLOBIN 8.5 GM/dL (11.7-16.9); LYMPH % 10.9 % (8-40); MCH 26.3 pg (25.7-33.7); MCHC 31.8 g/dl (32.0-35.9); MEAN CELL VOLUME 82.6 fl (80-96); MEAN PLT VOLUME 7.2 fl (7.5-11.1); MONO % 5.9 % (3.8-10.2); NEUT % 76.4 % (42.8-82.8); PLATELET COUNT 311 10^3/uL (134-434); RBC 3.23 M/mm3 (4.00-5.60); WHITE BLOOD COUNT 11.5 K/mm3 (4.0-10.0)
[2022-07-16] MEDS: levETIRAcetam 500 MG/5 ML INJECTION VIAL IVPB SCH (09:55)
[2022-07-16 09:56] LABS: ALBUMIN 1.7 g/dl (3.4-5.0); BLOOD UREA NITROGEN 68.4 mg/dL (7-18); CALCIUM 9.4 mg/dL (8.5-10.1)
[2022-07-16] MEDS: ASCORBIC ACID 250 MG TABLET (FP) GT SCH ×2 (09:57→22:05)
[2022-07-16] MEDS: VITAMIN B COMP W-C 1 EA TABLET (NEPHRO-VITE) GT SCH (09:57)
[2022-07-16] MEDS: PANTOPRAZOLE SODIUM 40 MG VIAL IVPUSH SCH (09:57)
[2022-07-16 09:59] LABS: CREATININE 4.8 mg/dL (0.55-1.3)
[2022-07-16] MEDS: CINACALCET HCL GT SCH (10:00)
[2022-07-16 10:01] LABS: BILIRUBIN,TOTAL 0.4 mg/dL (0.2-1); TOT PROT 5.9 g/dl (6.4-8.2)
[2022-07-16] MEDS: PIPERACILLIN/TAZOB 4.5 GM 4.5 GM in DEXTROSE 5%-WATER 100 ML IVPB SCH ×2 (10:22→22:04)
[2022-07-16] MEDS: COLLAGENASE CLOSTRIDIUM HIST. 30 GRAMS TUBE TP SCH (12:24)
[2022-07-16] MEDS: SODIUM HYPOCHLORITE 0.25%- 473 ML BULK BOTTLE TP SCH (12:24)
[2022-07-16] MEDS: MINERAL OIL/PETROLATUM,WHITE 3.5 GM TUBE OU SCH (22:05)
[2022-07-17] MEDS: ARTIFICIAL TEARS (POLYVINYL ALCOHOL) OPTH DROPS OU SCH ×4 (01:42→13:19)
[2022-07-17] MEDS: dilTIAZem HCL 30 MG TABLET GT SCH ×3 (01:42→12:17)
[2022-07-17] MEDS ORDERED: AMINO ACIDS/PROTEIN HYDROLYS 30 ML LIQUID.PKT GT SCH (04:46)
[2022-07-17] MEDS ORDERED: SODIUM CHLORIDE 250 ML IV PRN (08:00)
[2022-07-17] MEDS ORDERED: EPOETIN ALFA-EPBX 10,000 UNIT/ML VIAL IVPUSH ONE (08:00)
[2022-07-17] MEDS: SEVELAMER CARBONATE 0.8 GM POWDER PACKET NGT SCH ×3 (08:30→17:53)
[2022-07-17 08:43] VITALS: TEMP 98.7
[2022-07-17 11:21] LABS: HEMATOCRIT 23.1 % (35.4-49); HEMOGLOBIN 7.4 GM/dL (11.7-16.9); MCH 26.4 pg (25.7-33.7); MEAN CELL VOLUME 82.6 fl (80-96); MEAN PLT VOLUME 7.3 fl (7.5-11.1); PLATELET COUNT 303 10^3/uL (134-434); RBC 2.79 M/mm3 (4.00-5.60); RDW 18.4 % (11.9-15.9); WHITE BLOOD COUNT 11.6 K/mm3 (4.0-10.0)
[2022-07-17 11:51] LABS: CALCIUM 8.9 mg/dL (8.5-10.1)
[2022-07-17 11:52] LABS: ALBUMIN 1.7 g/dl (3.4-5.0); BLOOD UREA NITROGEN 82.9 mg/dL (7-18)
[2022-07-17 11:55] LABS: CREATININE 5.5 mg/dL (0.55-1.3)
[2022-07-17 11:56] LABS: BILIRUBIN,TOTAL 0.4 mg/dL (0.2-1); TOT PROT 5.8 g/dl (6.4-8.2)
[2022-07-17] MEDS: VITAMIN B COMP W-C 1 EA TABLET (NEPHRO-VITE) GT SCH (12:27)
[2022-07-17] MEDS: ASCORBIC ACID 250 MG TABLET (FP) GT SCH (12:27)
[2022-07-17] MEDS: PIPERACILLIN/TAZOB 4.5 GM 4.5 GM in DEXTROSE 5%-WATER 100 ML IVPB SCH (12:29)
[2022-07-17] MEDS: CINACALCET HCL GT SCH (12:32)
[2022-07-17] MEDS: levETIRAcetam 500 MG/5 ML INJECTION VIAL IVPB SCH (12:33)
[2022-07-17] MEDS: SODIUM HYPOCHLORITE 0.25%- 473 ML BULK BOTTLE TP SCH (12:42)
[2022-07-17] MEDS: COLLAGENASE CLOSTRIDIUM HIST. 30 GRAMS TUBE TP SCH (12:42)
[2022-07-17] MEDS: PANTOPRAZOLE SODIUM 40 MG VIAL IVPUSH SCH (12:42)
[2022-07-17 15:45] VITALS: BP 113/55
[2022-07-17 17:36] VITALS: PULSE 99; RESP 18
== END 2022-07-17 17:40 | DRG 4 ==
LOC: JER 03:27 → JERBED 05:23 → JICU 06:39 → J2W 06-01 13:23 → J5S 06-29 06:55
PROVIDERS: ADMIT Internal Medicine Pulmonary Disease; ATTEND Internal Medicine
PROC: 5A1955Z Respiratory Ventilation, Greater than 96 Consecutive Hours (ICD-10-PCS; 2022-05-16)
PROC: 0BH17EZ Insertion of Endotracheal Airway into Trachea, Via Natural or Artificial Opening (ICD-10-PCS; 2022-05-16)
PROC: 05HM33Z Insertion of Infusion Device into Right Internal Jugular Vein, Percutaneous Approach (ICD-10-PCS; 2022-05-23)
PROC: B543ZZA Ultrasonography of Right Jugular Veins, Guidance (ICD-10-PCS; 2022-05-23)
PROC: 0B113F4 Bypass Trachea to Cutaneous with Tracheostomy Device, Percutaneous Approach (ICD-10-PCS; principal; 2022-05-29)
PROC: 0BJ08ZZ Inspection of Tracheobronchial Tree, Via Natural or Artificial Opening Endoscopic (ICD-10-PCS; 2022-05-29)
PROC: 0DH63UZ Insertion of Feeding Device into Stomach, Percutaneous Approach (ICD-10-PCS; 2022-06-02)
PROC: 05HB33Z Insertion of Infusion Device into Right Basilic Vein, Percutaneous Approach (ICD-10-PCS; 2022-06-03)
PROC: 30233N1 Transfusion of Nonautologous Red Blood Cells into Peripheral Vein, Percutaneous Approach (ICD-10-PCS; 2022-06-20)
PROC: 5A1D70Z Performance of Urinary Filtration, Intermittent, Less than 6 Hours Per Day (ICD-10-PCS; 2022-07-17)
DX: J69.0 Pneumonitis due to inhalation of food and vomit (principal); I63.9 Cerebral infarction, unspecified; E43 Unspecified severe protein-calorie malnutrition; N18.6 End stage renal disease; J96.00 Acute respiratory failure, unspecified whether with hypoxia or hypercapnia; Q61.3 Polycystic kidney, unspecified; E87.20 Acidosis, unspecified; I12.0 Hypertensive chronic kidney disease with stage 5 chronic kidney disease or end stage renal disease; I47.20 Ventricular tachycardia, unspecified; G93.1 Anoxic brain damage, not elsewhere classified; Z99.11 Dependence on respirator [ventilator] status; I48.0 Paroxysmal atrial fibrillation; L89.152 Pressure ulcer of sacral region, stage 2; I48.91 Unspecified atrial fibrillation; I35.0 Nonrheumatic aortic (valve) stenosis; I25.10 Atherosclerotic heart disease of native coronary artery without angina pectoris; R19.7 Diarrhea, unspecified; E83.52 Hypercalcemia; Z99.2 Dependence on renal dialysis; Z68.23 Body mass index [BMI] 23.0-23.9, adult; D63.1 Anemia in chronic kidney disease; R56.9 Unspecified convulsions; E78.5 Hyperlipidemia, unspecified; I95.3 Hypotension of hemodialysis
CPT/HCPCS: 0241U-QW; 31500; 36415; 36430; 36600; 49440; 70450-TC; 70496-TC; 71045-TC-FY; 71250-TC; 72125-TC; 74018-TC-FY; 74176-TC; 80048; 80053; 80307; 81003; 82272; 82310; 82533; 82607; 82728; 82746; 82803; 82962; 83520; 83540; 83550; 83605; 83615; 83735; 83970; 84100; 84439; 84443; 84484; 85025; 85027; 85610; 85651; 85730; 86038; 86140; 86160; 86256; 86705; 86707; 86803; 86850; 86900; 86901; 86922; 87040; 87070; 87076; 87086; 87186; 87205; 87324; 87340; 87449; 87517; 93005; 93010; 93306-TC; 94002; 94640; 94660; 95816; 99291; 99292; C9803-CS; E0194; G0480; J1756; J3490; P9047; P9058; Q5106; U0003; U0005